=== PATIENT | female | born 1985 | race Caucasian/White ===

== ENCOUNTER → 2018-03-20 08:39 | Outpatient (CLI) | payer OTHER, SELFPAY ==
[2018-03-20 09:30] LABS: Absolute Lymphocyte Count 1.62 X10^3/ul (0.83-4.51); Absolute Neutrophil Count 3.4 X10^3/uL (2.0-7.7); Basophil# 0.04 X10^3/uL; Basophil% 0.7 % (0-1); Eosinophil# 0.14 X10^3/uL; Eosinophils% 2.5 % (0-5); Hematocrit 35.4 % (37-47); Hemoglobin 10.7 g/dl (12.0-15.0); Lymphocyte # 1.62 X10^3/ul (4.0); Lymphocyte % 28.6 % (19-41); Mean Corp Hgb Conc 30.2 g/gl (32-36); Mean Corpuscular Hgb 23.9 pg (27.0-32.0); Mean Corpuscular Volume 79.2 fL (81-99); Mean Platelet Vol. 10.4 fl (6.2-12.0); Monocyte# 0.44 X10^3/uL; Monocyte% 7.8 % (0-10); Neutrophil # 3.41 X10^3/uL (2.7-7.7); Neutrophil % 60.2 % (47-70); POSITIVE COUNT NO; POSITIVE DIFFERENTIAL NO; POSITIVE MORPHOLOGY NO; Platelet Count 237 K/mm3 (150-450); RBC Distribution Width CV 15.3 % (11.6-14.6); RBC Distribution Width SD 44.3 fl (35.1-43.9); Red Blood Count 4.47 M/mm3 (4.2-5.4); White Blood Count 5.7 K/mm3 (4.4-11.0)
== END ==
PROVIDERS: Family Provider Internal Medicine; PCP Internal Medicine; Visit Provider Obstetrics & Gynecology
DX: N93.9 Abnormal uterine and vaginal bleeding, unspecified (principal)
CPT/HCPCS: 36415; 85025

== ENCOUNTER → 2019-11-17 16:01 | Outpatient (CLI) | payer OTHER, SELFPAY ==
--- NOTE | 2019-11-17 16:02 | US_ITS ---
STUDY: ULTRASOUND OF THE FEMALE PELVIS - LIMITED REASON FOR EXAM: Female, 34 years old AUB TECHNIQUE: Transabdominal and Transvaginal TECHNICAL QUALITY: Adequate. COMPARISON: July 10, 2017 pelvic ultrasound FINDINGS: The uterus is anteverted and is in a midline position. The uterus measures 9.9 x 7.7 x 5.8 cm. Normal uterine cervix. The endometrium measures endometrium is thickened up to 3.4 cm which is considered abnormal. There are multiple cystic structures within the para endometrial lower uterine parenchyma. This is greater than prior study, and is hyperechoic. There is no demonstrated myometrial mass. The right ovary measures 2.5 x 2.0 x 1.3 cm. There is no right ovarian cyst or ovarian mass. There is no visualized right adnexal mass or complex lesion. There is normal arterial and normal venous vascularity. The left ovary measures 2.4 x 1.7 x 2.4 cm. There is no left ovarian cyst or ovarian mass. There is no visualized left adnexal mass or complex lesion. There is normal arterial and normal venous vascularity. There is no fluid in the cul-de-sac. US/Pelvic (Non ) IMPRESSION: Thickened endometrium up to 34 mm. There is associated multiple cyst within the lower uterine segment. Findings are suspicious for endometrial hyperplasia cannot exclude atypia. Electronically Signed: Kimberly Weir MD at 15:44 EDT Tel , Service support ,
--- NOTE | 2019-11-17 16:02 | US_ITS ---
STUDY: ULTRASOUND OF THE FEMALE PELVIS - LIMITED REASON FOR EXAM: Female, 34 years old AUB TECHNIQUE: Transabdominal and Transvaginal TECHNICAL QUALITY: Adequate. COMPARISON: July 10, 2017 pelvic ultrasound FINDINGS: The uterus is anteverted and is in a midline position. The uterus measures 9.9 x 7.7 x 5.8 cm. Normal uterine cervix. The endometrium measures endometrium is thickened up to 3.4 cm which is considered abnormal. There are multiple cystic structures within the para endometrial lower uterine parenchyma. This is greater than prior study, and is hyperechoic. There is no demonstrated myometrial mass. The right ovary measures 2.5 x 2.0 x 1.3 cm. There is no right ovarian cyst or ovarian mass. There is no visualized right adnexal mass or complex lesion. There is normal arterial and normal venous vascularity. The left ovary measures 2.4 x 1.7 x 2.4 cm. There is no left ovarian cyst or ovarian mass. There is no visualized left adnexal mass or complex lesion. There is normal arterial and normal venous vascularity. There is no fluid in the cul-de-sac. US/Transvaginal Non- IMPRESSION: Thickened endometrium up to 34 mm. There is associated multiple cyst within the lower uterine segment. Findings are suspicious for endometrial hyperplasia cannot exclude atypia. Electronically Signed: Kimberly Weir MD at 15:44 EDT Tel , Service support ,
== END ==
PROVIDERS: PCP Internal Medicine; Referring Provider Nurse Practitioner Women's Health; Visit Provider Nurse Practitioner Women's Health
DX: N93.9 Abnormal uterine and vaginal bleeding, unspecified (principal)
CPT/HCPCS: 76830; 76856

== ENCOUNTER → 2019-11-26 14:45 | Outpatient (CLI) | payer OTHER, SELFPAY ==
--- NOTE | 2019-11-26 | EMB_PTH ---
PATIENT: TEE ANNA LOC: [facility] U#:[id number] AGE/SX: 40/F ROOM: RE11/26/[address]: Dr. Theodora Celis MD : [id number] BED: DIS: SPEC #: [id number] RECD: 11/26/19 16:23 STATUS: ALICIA RERodger #: [id number] JEFFREY: 11/26/19 00:[address]: Theodora Celis DEPT: SURGICAL PATHOLOGY RECD BY: Gregorio Menjivar ENTERED: 11/27/19 08:48 SP TYPE: ENDOM BX/C BRITTNEY DR: Dr. Ayesha Aldrich, DO Tissues: Endometrium, NOS Procedures: Surgery Specimen Level IV HEADER OPERATION: Endometrial biopsy PRE-OP DIAGNOSIS: Abnormal uterine bleeding TISSUE SUBMITTED: Endometrial lining MICROSCOPIC DIAGNOSIS Endometrium, biopsy: Secretory endometrium. AM:aixa 11/28/19 COMMENT Case has been reviewed in consultation with Dr. Casillas who concurs with the above diagnosis. IDC:SJ MICROSCOPIC DESCRIPTION Slides are reviewed. GROSS DESCRIPTION Received is one container labeled with the patient's name and not further designated. The specimen consists of multiple fragments of castro-pink soft tissue that in aggregate measure 3 x 2.5 x 0.3 cm. The specimen is totally submitted in one cassette. / MICKI:aixa 11/27/19 TC:5 [facility]: [id number]
[2019-11-26 13:39] VITALS: BMI 58.7
[2019-11-28 21:36] LABS: HPV APTIMA, High Risk Negative (Negative)
== END ==
PROVIDERS: PCP Internal Medicine; Referring Provider Obstetrics & Gynecology; Visit Provider Obstetrics & Gynecology
DX: Z12.4 Encounter for screening for malignant neoplasm of cervix (principal); N93.9 Abnormal uterine and vaginal bleeding, unspecified
CPT/HCPCS: 87624; 88175; 88305; G0145

== ENCOUNTER → 2019-12-10 16:26 | Outpatient (CLI) | payer OTHER, SELFPAY ==
[2019-11-26 13:39] VITALS: BMI 58.7
[2019-12-10 17:01] LABS: Absolute Neutrophil Count 3.8 X10^3/uL (2.0-7.7); Basophil# 0.04 X10^3/uL; Basophil% 0.6 % (0-1); Eosinophils% 2.8 % (0-5); Hematocrit 32.4 % (37-47); Hemoglobin 9.4 g/dL (12.0-15.0); Lymphocyte % 37.5 % (19-41); Mean Corpuscular Hgb 23.7 pg (27.0-32.0); Mean Corpuscular Volume 81.6 fL (81-99); Mean Platelet Vol. 10.5 fl (6.2-12.0); Monocyte# 0.46 X10^3/uL; Monocyte% 6.4 % (0-10); NRBC Flagged by Analyzer 0 % (0-5); Neutrophil # 3.76 X10^3/uL (2.7-7.7); Neutrophil % 52.1 % (47-70); POSITIVE MORPHOLOGY YES; Platelet Count 413 K/mm3 (150-450); Red Blood Count 3.97 M/mm3 (4.2-5.4); White Blood Count 7.2 K/mm3 (4.4-11.0)
[2019-12-10 17:26] LABS: Differential Indicated SCAN CRITERIA MET
[2019-12-10 17:35] LABS: Anisocytosis 2+; Polychromasia RARE
[2019-12-10 17:36] LABS: Differential Comment SCANNED; Microcytosis 1+
== END ==
PROVIDERS: PCP Internal Medicine; Referring Provider Nurse Practitioner Women's Health; Visit Provider Nurse Practitioner Women's Health
DX: N93.9 Abnormal uterine and vaginal bleeding, unspecified (principal)
CPT/HCPCS: 36415; 85025

== ENCOUNTER → 2019-12-19 14:16 | Outpatient (CLI) | payer OTHER, SELFPAY ==
[2019-11-26 13:39] VITALS: BMI 58.7
[2019-12-19 15:14] VITALS: BP 145/79; PULSE 108; RESP 16; TEMP 36.8; BMI 60.4
[2019-12-19 17:18] VITALS: BP 146/79; PULSE 86
== END ==
PROVIDERS: PCP Internal Medicine; Referring Provider Obstetrics & Gynecology; Visit Provider Obstetrics & Gynecology
DX: D64.9 Anemia, unspecified (principal)
CPT/HCPCS: 96365; 96366; J1756; J7050

== ENCOUNTER → 2019-12-26 11:57 | Outpatient (CLI) | payer OTHER, SELFPAY ==
[2019-11-26 13:39] VITALS: BMI 58.7
[2019-12-19 15:14] VITALS: BMI 60.4
[2019-12-26 12:30] VITALS: BP 129/77; PULSE 83; RESP 16; TEMP 36.7; BMI 60.4
[2019-12-26] MEDS: 0.9% NaCl IVPB Med Flush (250 mL) 15 ML IV (12:31)
[2019-12-26] MEDS: 0.9% NaCl Peripheral Flush Adult/Peds IV (12:31)
[2019-12-26 14:26] VITALS: BP 146/87; PULSE 82
== END ==
LOC: MEDOUTP 11:58
PROVIDERS: PCP Internal Medicine; Referring Provider Obstetrics & Gynecology; Visit Provider Obstetrics & Gynecology
DX: D64.9 Anemia, unspecified (principal)
CPT/HCPCS: 96365; 96366; J1756; J7050; A4216

== ENCOUNTER → 2020-01-02 14:01 | Outpatient (CLI) | payer OTHER, SELFPAY ==
[2019-11-26 13:39] VITALS: BMI 58.7
[2019-12-26 12:30] VITALS: BMI 60.4
[2020-01-02 14:24] VITALS: BP 159/91; PULSE 106; RESP 16; TEMP 36.6; O2SAT 95; BMI 60.4
[2020-01-02] MEDS: 0.9% NaCl IVPB Med Flush (250 mL) 15 ML IV (14:44)
[2020-01-02] MEDS: 0.9% NaCl Peripheral Flush Adult/Peds IV (14:45)
== END ==
LOC: MEDOUTP 14:02
PROVIDERS: PCP Internal Medicine; Referring Provider Obstetrics & Gynecology; Visit Provider Obstetrics & Gynecology
DX: D64.9 Anemia, unspecified (principal)
CPT/HCPCS: 96365; 96366; J1756; J7050; A4216

== ENCOUNTER 2020-01-07 11:06 | Day surgery (SDC) | payer OTHER, SELFPAY ==
[2019-12-26 12:30] VITALS: BMI 60.4
[2020-01-02 14:24] VITALS: BMI 60.4
[2020-01-07] VITALS (12 sets, daily range): BP systolic 107–148; BP diastolic 61–90; PULSE 88–103; RESP 16–20; TEMP 35.8–37; O2SAT 93–98; BMI 59.5
[2020-01-07] MEDS: Lactated Ringers 1,000 ML 40 ML IV (07:00)
[2020-01-07] MEDS: metroNIDAZOLE 500 MG/100 ML BAG 100 MG IV (07:00)
--- NOTE | 2020-01-07 11:13 | EKG12_ITS ---
Test Reason : PRE OP Blood Pressure : / mmHG Vent. Rate : 086 BPM Atrial Rate : 086 BPM P-R Int : 164 ms QRS Dur : 080 ms QT Int : 336 ms P-R-T Axes : 026 007 013 degrees QTc Int : 402 ms Normal sinus rhythm Normal ECG Confirmed by JIMMIE SHEPPADR, CHRISSIE ([id number]), movie editor ANUJ PENALOZA ([id number]) on 01/12/2020 3:38:45 PM Referred By: Theodora Celis Confirmed By:CHRISSIE SAMUEL MD
[2020-01-07 11:43] LABS: Hematocrit 44.7 % (37-47); Hemoglobin 13.6 g/dL (12.0-15.0); Mean Corp Hgb Conc 30.4 g/dL (32-36); Mean Corpuscular Volume 82.3 fL (81-99); Mean Platelet Vol. 10.8 fl (6.2-12.0); POSITIVE MORPHOLOGY YES; Platelet Count 282 K/mm3 (150-450); RBC Distribution Width CV 20.1 % (11.6-14.6); RBC Distribution Width SD 60.1 fl (35.1-43.9); Red Blood Count 5.43 M/mm3 (4.2-5.4); White Blood Count 6.8 K/mm3 (4.4-11.0)
[2020-01-07 11:45] LABS: Scan Indicated on CBC? Y/N YES- FLAGS NOTED
[2020-01-07] MEDS: Acetaminophen 500 MG Tablet 1000 MG PO ×2 (12:01→18:45)
[2020-01-07] MEDS: Celecoxib 200 MG Capsule 400 MG PO (12:01)
[2020-01-07 12:02] LABS: Magnesium 1.9 mg/dL (1.6-2.6)
[2020-01-07] MEDS: Gabapentin 600 MG Tablet PO (12:02)
--- NOTE | 2020-01-07 12:03 | HP.PCM_ITS ---
Problem List (1) Stress incontinence Status: Acute (2) Abnormal uterine bleeding Status: Chronic Comment: lysteda. discussed ocp vs iud, vs ablation. if hyperplasia recommend d and c and iud insertion. if atypia present recommend high school football coach onc referral. History of Present Illness Date of Admission: 01/07/20 Chief Complaint: stress urinary incontinence, uterine bleeding abnormal. The patient is a 34 year old F scheduled for hysterectomy for abnormal uterine bleeding and anemia. She also has stress incontinence and would like to have definitive surgical intervention as discussed in the office. Past Medical History Past Medical History (Chronic Problems): Chronic Problems (Last Updated 11/26/19 @ 13:37 by Radha Shipley) Hypothyroidism (Chronic) Abnormal uterine bleeding (Chronic) lysteda. discussed ocp vs iud, vs ablation. if hyperplasia recommend d and c and iud insertion. if atypia present recommend high school football coach onc referral. Medical History: Medical History (Last Reviewed 01/07/20 @ 12:[address] Anel Nation MD) Hypothyroidism (Chronic) E03.9 History of IBS Z87.19 Allergies cefaclor [From Ceclor] Allergy (Mild, Verified 01/07/20 11:52) Other illisone Allergy (Mild, Uncoded 01/07/20 11:52) Other Home Medications: Ambulatory Orders Medication Instructions Recorded levothyroxine 75 mcg capsule 75 mcg PO DAILY 11/26/19 Alprazolam [Xanax] 1 mg PO X1 01/05/20 Ergocalciferol [Vitamin D] 50,000 unit PO Q7D 01/05/20 Norethindrone Acetate 5 mg PO TID 01/05/20 Surgical History: Surgical History (Last Reviewed 01/07/20 @ 12:[address] Anel Nation MD) History of wisdom tooth extraction, class II edentulism K08.492 Smoking Status: Never smoker Tobacco Use: Non-smoker Review of Systems Constitutional: Denies: Anorexia, Chills, Fever, Night Sweats Eyes: Denies: Vision Change HEENT: Denies: Difficulty Swallowing Cardiovascular: Denies: Chest Pain, Chest Pressure Respiratory: Denies: Cough, Shortness of Breath Gastrointestinal: Denies: Abdominal Pain, Nausea, Vomiting Genitourinary: Reports: Incontinence. Denies: Dysuria, Frequency, Retention, Urgency Gynecological: Reports: Excessively long or heavy periods Musculoskeletal: Denies: Muscle pain Skin: Denies: Wounds Neurological: Denies: Balance problems VTE Information - Inpt Only VTE Present on Admission: Yes VTE Mechan Device Prophylaxis: SCD's VTE Pharm Prophylaxis ordered?: Yes Patient Problems: Active and Suspected Problems (Last Updated 11/26/19 @ 13:37 by Radha Shipley) Stress incontinence (Acute) - Physical Exam Vitals/I&O's: Vital Signs Temp Pulse Resp BP Pulse Ox 98.6 F 100 17 148/83 H 98 01/07/20 11:53 01/07/20 11:53 01/07/20 11:53 01/07/20 11:53 01/07/20 11:53 Oxygen Delivery Method Room Air Weight: 143 kg Body Mass Index (BMI) 59.5 General: Alert, Oriented x3, Cooperative, No apparent distress HEENT: Atraumatic, Normocephalic Oral: Moist Mucosa Neck: Supple, Trachea Midline Lungs: Clear to auscultation, Normal air movement Cardiovascular: Regular rate, Regular Rhythm Abdomen: Soft, Non Tender Extremities: No clubbing Skin: No rashes Musculoskeletal: No Muscle Wasting Neurological: Cranial nerves II-XII grossly intact Psych/Mental Status: Normal Affect Laboratory Results 01/07/20 11:30: Urine Test Pending 01/07/20 11:35: WBC 6.8, RBC 5.43 H, Hgb 13.6, Hct 44.7, MCV 82.3, MCH 25.0 L, MCHC 30.4 L, RDW Std Deviation 60.1 H, RDW Coeff of Mel 20.1 H, Plt Count 282, MPV 10.8 01/07/20 11:35: PT Pending, INR Pending, APTT Pending 01/07/20 11:35: Magnesium 1.9 01/07/20 11:35: Blood Type Pending, Antibody Screen Pending Current Medications Lactated Ringer's () 1,000 mls @ 40 mls/hr IV .Q25H LOUIE Gentamicin Sulfate 240 mg/ (Dextrose) 56 mls @ 100 mls/hr IVPB X1 ONE Stop: 01/07/20 12:04 Insulin Human Lispro (Humalog Kwikpen (Bkc)) 0 unit SC Q4H PRN PRN; Protocol PRN Reason: BG >/= 180, SEE PROTOCOL Assessment/Plan All Active Problems (Last Updated 11/26/19 @ 13:37 by Radha Shipley) Stress incontinence (Acute) Anemia (Acute) proceed with midurethral sling insertion and cystoscopy at the time of hysterectomy. Risks, benefits and alternatives discussed including but not limited to: anesthesia, bleeding, infection, injury, urinary retention, failure of procedure and the risks of obtaining the COVID-19 virus. She understands and desires to proceed. Essential Procedure Criteria Procedure Essential: Yes Criteria Note: On 11/25/2019 the [facility] ([facility]) Public Order signed by [facility] Director Janie Guy M.D., regarding the Management of Non- Essential Surgeries and Procedures for the purpose of preserving Personal Protective Equipment (PPE) and critical hospital capacity and resources within [place] went into effect as of 11/26/2019 at 5:00PM. According to the [facility] Public Order: This action will remain in full force and effect until the State of Emergency declared by the Governor no longer exists or the Director of the [facility] rescinds or modifies this Order.. This [facility] order stated all non-essential or elective surgeries and procedures that utilize PPE should be delayed unless there is undue risk to the current or future health of a patient. After reviewing the aforementioned [facility] Public Order and the patients clinical case, I have determined that the scheduled procedure meets the criteria to go forward. Risk to Patient if Procedure Delayed: Risk of rapidly worsening to severe symptoms if delayed - anemia due to bleeding, possible dysplasia of uterus
[2020-01-07 12:14] LABS: Internal QC Validated? YES +Cl - CLEAR BKGD; Pregnancy, Urine Negative Negative
[2020-01-07] MEDS: dexAMETHasone 10 MG/ML Vial 8 MG IV (12:14)
[2020-01-07] MEDS: Enoxaparin 40 MG/0.4 ML Syringe SC (12:16)
[2020-01-07] MEDS: Scopolamine 1mg/72hr Patch 1 PATCH TRANSDERM. (12:17)
[2020-01-07 12:30] LABS: Partial Thromboplast Time 29.2 Seconds (24.1-36.2); Prothrombin Time (Protime)PT. 12.9 SECONDS (11.7-14.9)
--- NOTE | 2020-01-07 12:50 | PCM.HPOB.BLA ---
- Problem List (1) Stress incontinence Status: Acute (2) Anemia Status: Acute Comment: related to menorrhagia (3) Abnormal uterine bleeding Status: Chronic Comment: lysteda. discussed ocp vs iud, vs ablation. if hyperplasia recommend d and c and iud insertion. if atypia present recommend car electronics installer onc referral. 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 Theodora Celis MD) Hypothyroidism (Chronic) History of IBS (Acute) Surgical History History of wisdom tooth extraction, class II edentulism (Acute) Family History Mother Diabetes Anxiety Hypertension Thyroid disorder Father Arthritis Anxiety Heart disease Hypertension Grandfather Heart disease Grandmother Diabetes Cancer Heart disease Social History (Updated 11/26/19 @ 16:[address] Theodora Celis MD) Smoking Status: Never smoker alcohol intake: current details: social substance use type: does not use caffeine: Yes what type of physical activity do you participate in: none seatbelt use: always do you feel safe at home: Yes additional social history: [employer] Patient works for [employer] AUB/ ?EMB, r/s from 11/23 prov sick: Details: TEE ANNA is a 34 year old who presents for abnormal uterine bleeding. She has some cramping and irregularirty to her menses, and has been anemic in the past. ultrasound was abnormal with significantly thickened lining and her thyroid has been abnormal. she had delayed seeking treatment and evaluation due to lack of insurance coverage. Pregancy History 1 Elective abortions Hx Para 1 Spontaneous abortions Hx # Term Pregnancies Ectopic pregnancies Hx # Pregnancies Multiple births # of living children Past Pregnancies Del. Date Name GA/Weeks Outcome Route Bth Weight [facility] live - full term ROS Const Constitutional: Denies fatigue, fever(s), headache(s), increased appetite, poor appetite, weight gain or weight loss Cardio Card: Denies chest pain Resp Resp: Denies cough or dyspnea GI GI: Reports as per HPI; denies abdominal pain, constipation, nausea or vomiting : Reports as per HPI; co HEENA Skin Skin/Breast: Denies change in hair, breast lump, breast pain, breast skin changes or nipple discharge Exam Const General: cooperative, healthy appearing, comfortable, no acute distress, well developed Orientation: alert HENMT Head: normal to inspection, normocephalic Neck Neck: normal visual inspection, trachea midline Thyroid: thyroid normal Resp Effort & Inspection: normal respiratory effort GI Inspection: normal to inspection, non-distended Palpation: soft, no hepatosplenomegaly General: bladder normal to palpation External Female Exam: normal external appearance, normal appearance of the urethra Urethra: normal appearance of the urethra, normal palpation, no discharge Speculum Exam - Vagina: normal appearance of the vagina, normal vaginal discharge Speculum Exam - Cervix: normal appearance of the cervix, nontender Bimanual Exam- Vagina & Uterus: normal bimanual exam, uterine size normal, bladder normal to palpation, uterine shape normal, No cervical tenderness, uterine mobility normal, uterine consistency normal, normal cervical palpation, uterus non-tender Bimanual Exam- Adnexa, other: normal adnexae, adnexae mobile, no adnexal masses, pelvic support normal Pelvic Support: normal Skin General: no rashes or lesions noted Office Procedures Endometrial Biopsy Endometrial Biopsy Test: Yes declined Consent Signed: Yes Time out checklist: patient, procedure, site marked/identified, positioning of patient, supplies available, allergies confirmed, team agrees on procedure Time out time: 14:00 tenaculum used: No dilator used: No Details: Cervix prepped with betadine and pipelle inserted into uterus without complication. Specimen obtained and sent to lab for analysis. All instruments removed from vagina without complications. Excellent hemostasis noted. Assessment & Plan Problems 1. Abnormal uterine bleeding N93.9 lysteda. discussed ocp vs iud, vs ablation vs hysterectomy. Plan discussed options and for definitive treatment due to peristent bleeding and anemia, plan LAV BS. will do combo case for HEENA. After discussing the patient's diagnosis and treatment plan options, patient wishes to proceed with surgical management. I have discussed with the patient the risks, benefits, and alternatives of the procedure which include but are not limited to risks of anesthesia, bleeding, infection, possible damage to bowel, bladder, or surrounding vasculature which could lead to additional surgery to evaluate any complications. Patient agrees to procedure and wishes to proceed. Orders Orders: Endometrial Biopsy Today N93.9 PAP IG HPV APTIMA 16/18,45 Today Z12.4 Coding Level of Care Code Off vis,est,level 4 Diagnoses Abnormal uterine bleeding N93.9 Additional Codes Endometrial Biopsy (74601) UPDATE- I have seen the patient and performed any clinically relevant updates to the history and physical exam. Theodora Celis MD Essential Procedure Criteria Procedure Essential: Yes Criteria Note: On 11/25/2019 the [place] [facility] ([facility]) Public Order signed by [facility] Director Janie Guy M.D., regarding the Management of Non-Essential Surgeries and Procedures for the purpose of preserving Personal Protective Equipment (PPE) and critical hospital capacity and resources within [place] went into effect as of 11/26/2019 at 5:00PM. According to the [facility] Public Order: This action will remain in full force and effect until the State of Emergency declared by the Governor no longer exists or the Director of the [facility] rescinds or modifies this Order.. This [facility] order stated all non-essential or elective surgeries and procedures that utilize PPE should be delayed unless there is undue risk to the current or future health of a patient. After reviewing the aforementioned [facility] Public Order and the patients clinical case, I have determined that the scheduled procedure meets the criteria to go forward. Risk to Patient if Procedure Delayed: Presence of severe symptoms causing an inability to perform ADL's
--- NOTE | 2020-01-07 12:59 | PCM.OPRPT ---
Problem List (1) Stress incontinence Status: Acute (2) Anemia Status: Acute Comment: related to menorrhagia (3) Abnormal uterine bleeding Status: Chronic Comment: lysteda. discussed ocp vs iud, vs ablation. if hyperplasia recommend d and c and iud insertion. if atypia present recommend button spindler onc referral. (4) Hypothyroidism Status: Chronic Report of Operation Date of Procedure: 01/07/20 Pre-Operative Diagnosis: aub anemia nuris Post-Operative Diagnosis: same Surgery/Procedure Performed:: randy vazquez Description of Surgical Findings:: enlarged 338g uterus off premise service representative: Katlin Cintron Type of Anesthesia:: General Special Medications: none Specimen's removed: uterus tubes Drains: smith Estimated Blood Loss (mL): 75 Fluids Replaced: crystalloid Description of Procedure: Patient received preoperative antibiotics and SCDs were on preoperatively. Patient was taken back to the operating room and placed in the dorsal lithotomy position. General anesthesia was induced and patient was prepped and draped in normal sterile fashion. Uterine manipulator was placed inside the uterus and Smith catheter placed in the bladder. The umbilicus was grasped with towel clamps and an intraumbilical incision was made after injecting with quarter percent Marcaine and a Veress needle entered into the abdomen confirmed to be intra-abdominal with a low opening pressure. Abdomen was insufflated with CO2 gas and the Veress needle removed and the 5 mm trocar was placed under direct visualization without complication. Right and left lower quadrants were transilluminated and injected with quarter percent Marcaine and 5 mm ports placed under direct visualization. Pelvis was well visualized see operative findings for additional information. Bilateral fallopian tubes were identified and transected with the LigaSure device across the mesosalpinx to the level of the utero-ovarian ligament which was also transected with the LigaSure device. The broad ligament was opened up by transecting the round ligament bilaterally and skeletonizing the uterine vessels bilaterally and creating a bladder flap using the LigaSure device. The uterine arteries were transected bilaterally with good visualization of the bladder and the ureters were seen to be inferior lateral to the operative area. Attention was then paid to the vaginal portion of the procedure and the cervix was grasped with Kayleigh clamps and circumferentially injected with dilute vasopressin. A circumferential incision was made and the vaginal mucosa was mobilized off posteriorly and the cul-de-sac entered into sharply and a longneck speculum placed. The anterior cul-de-sac was then identified and entered into sharply. The uterosacral ligaments were clamped cut and suture ligated with 0 Monocryl bilaterally followed by the cardinal ligaments which were clamped cut and suture ligated bilaterally with 0 Monocryl. The uterus serially descended and was removed without difficulty with minimal morcellation. Pelvic sidewall pedicles were checked and noted to have excellent hemostasis. The vaginal mucosa was reapproximated incorporating the posterior peritoneum. This was reapproximated using 0 Vicryl [id number] sutures. Excellent hemostasis was noted. abdominally, the pelvis and cul-de-sac was well visualized and no significant active bleeding noted. Pressure was taken down and the areas visualized and noted of excellent hemostasis. All ports were removed under direct visualization without complication and the abdomen was desufflated of air. see dr palafox note for the additional operative information regarding the sling procedure. The instruments removed from the abdomen and the vagina vaginal sweep was negative. Port sites on the abdomen were closed with 4-0 Monocryl interrupted sutures and dermabond applied. She was awoken and taken recovery in stable condition. Grafts/Implants Used: sling - Complications none - Admit VTE Documentation VTE Present on Admission: No VTE Mechan Device Prophylaxis: SCD's Multi Select Codes - Urinary/Genital Urinary/Genital CPT Codes: 58366 LAVH+BS/O >250gr Uterus
--- NOTE | 2020-01-07 13:33 | PCM.DC.VHY ---
Discharge Diet: No Restrictions Discharge Activity: Return to Normal Activity, May Not Drive, May Shower May resume sexual activity in: 6-8 weeks Call your doctor if your incision/area has: Continuous Slow Oozing, Sudden Increased Bleeding, Increased Pain/ Swelling, Increased Redness, Foul Smelling Discharge Call your doctor if you observe: Fever of 101 or Higher, Inability to urinate, Inability to have a bowel movement, Using more than one pad per hour Allergies/Adverse Reactions: Allergies cefaclor [From Ceclor] Allergy (Mild, Verified 01/07/20 11:52) Other illisone Allergy (Mild, Uncoded 01/07/20 11:52) Other Medications to take at Discharge levothyroxine 75 mcg capsule 75 mcg PO DAILY 11/26/19 Alprazolam [Xanax] 1 mg PO X1 01/05/20 Ergocalciferol [Vitamin D] 50,000 unit PO Q7D 01/05/20 Norethindrone Acetate 5 mg PO TID 01/05/20 Naproxen [Naprosyn] 250 - 500 mg PO Q8H PRN PRN #30 tab 01/07/20 Oxycodone HCl/Acetaminophen [Percocet 5-325] 1 - 2 tab PO Q6H PRN PRN 7 Days #15 tab 01/07/20 The following prescriptions were given: Naproxen [Naprosyn] 250 - 500 mg PO Q8H PRN PRN #30 tab PRN Reason: MILD PAIN Transmission Status: Received by [facility] Oxycodone HCl/Acetaminophen [Percocet 5-325] 1 - 2 tab PO Q6H PRN PRN 7 Days #15 tab PRN Reason: Pain Transmission Status: Received by [facility] Primary Care Physician: Ayesha Aldrich DO [Primary Care Provider] - Test Results: Test results from this visit will be discussed in further detail at your follow-up appointment, if applicable. Please Follow Up With: Theodora Celis MD - [phone]
[2020-01-07] MEDS: Vasopressin 20 UNITS/ML Vial (13:41)
[2020-01-07] MEDS: Bupivacaine 0.25% 30 ML Vial (13:41)
[2020-01-07 13:56] LABS: Bedside Glucose 97 mg/dL (70-110)
--- NOTE | 2020-01-07 13:56 | OP.PCM_ITS ---
Problem List (1) Stress incontinence Status: Acute (2) Abnormal uterine bleeding Status: Chronic Comment: lysteda. discussed ocp vs iud, vs ablation. if hyperplasia recommend d and c and iud insertion. if atypia present recommend assistant men's soccer coach onc referral. Report of Operation Date of Procedure: 01/07/20 Pre-Operative Diagnosis: stress urinary incontinence, abnormal uterine bleeding Post-Operative Diagnosis: same Surgery/Procedure Performed:: midurethral sling insertion, cystoscopy Type of Anesthesia:: General Estimated Blood Loss (mL): 20cc Description of Procedure: The patient is a 34-year-old female with endometrial thickening and stress urinary incontinence presenting for hysterectomy and mid urethral sling insertion. Risks benefits and alternatives were discussed including but not limited to the risks of anesthesia, bleeding, infection, injury and COVID-19 in fection. She understands and desires to proceed. The patient was taken to the operating room and placed on the operating room table. Anesthesia monitored the head, neck, airway, IV access and vital signs throughout the case. Once anesthesia was appropriately administered the patient underwent hysterectomy and closure of vaginal cuff per Dr. Orlando Leslie and her team. Following closure of the cuff, the patient and case was turned over to wa. A Hurst retractor was placed into the vagina. The anterior vaginal wall was inspected. The mid urethra was injected submucosally with vasopressin for hydrostatic dissection and hemostatic control. A vertical 1.5 cm incision was made in the vaginal mucosa. Sharp and blunt dissection was performed on either side of the urethra and care was taken to avoid entry into the urethra. At this time, the Altis mid urethral sling was inserted first on the patient's right side followed by the left. This was done using the trochars. The sling was then positioned against the urethra without tension. It lay flat against the tissue. This was done using a right angle clamp. At this time the tensioning suture was cut and the incision was closed using running interlocking 2-0 Vicryl. A cystourethroscopy was performed following removal of the Diaz catheter, and the scope was inserted through the urethra. In visualization of the urinary bladder there were no abnormalities identified. She did have a few benign urethral polyps present. There were no entrances into the urinary bladder or urethra with any foreign material including mesh or suture. At this time a good ureteral jet was observed from the left ureter. On the right side, and open ended catheter was inserted without difficulty to 25 cm. There was no blood and no obstruction identified. This time the patient's bladder was left mildly full. She was awakened and taken to the recovery room in good condition. There were no complications during this procedure. Grafts/Implants Used: Altis midurethral sling - Admit VTE Documentation VTE Present on Admission: Yes VTE Mechan Device Prophylaxis: SCD's VTE Pharm Prophylaxis ordered?: Yes
--- NOTE | 2020-01-07 13:59 | DCINST_ITS ---
Discharge Diet: No Restrictions Discharge Activity: Return to Normal Activity, May Not Drive, May Shower May resume sexual activity in: 6-8 weeks Additional Activity Instructions:: no lifting over 5 pounds, no exercise, no strenuous activity, no sexual activity, no tub bathing, shower is ok Call your doctor if your incision/area has: Continuous Slow Oozing, Sudden Increased Bleeding, Increased Pain/ Swelling, Increased Redness, Foul Smelling Discharge Call your doctor if you observe: Fever of 101 or Higher, Inability to urinate, Inability to have a bowel movement, Using more than one pad per hour Allergies/Adverse Reactions: Allergies cefaclor [From Ceclor] Allergy (Mild, Verified 01/07/20 11:52) Other illisone Allergy (Mild, Uncoded 01/07/20 11:52) Other Medications to take at Discharge levothyroxine 75 mcg capsule 75 mcg PO DAILY 11/26/19 Alprazolam [Xanax] 1 mg PO X1 01/05/20 Ergocalciferol [Vitamin D] 50,000 unit PO Q7D 01/05/20 Norethindrone Acetate 5 mg PO TID 01/05/20 Naproxen [Naprosyn] 250 - 500 mg PO Q8H PRN PRN #30 tab 01/07/20 Oxycodone HCl/Acetaminophen [Percocet 5-325] 1 - 2 tab PO Q6H PRN PRN 7 Days #15 tab 01/07/20 Smz/Tmp Ds [Bactrim Ds] 1 tab PO BID 3 Days #6 tab 01/07/20 The following prescriptions were given: Smz/Tmp Ds [Bactrim Ds] 1 tab PO BID 3 Days #6 tab Transmission Status: Pending to [address] Naproxen [Naprosyn] 250 - 500 mg PO Q8H PRN PRN #30 tab PRN Reason: MILD PAIN Transmission Status: Received by [facility] Oxycodone HCl/Acetaminophen [Percocet 5-325] 1 - 2 tab PO Q6H PRN PRN 7 Days #15 tab PRN Reason: Pain Transmission Status: Received by [facility] Orders to be completed after discharge: Miscellaneous Order Location: None Selected Primary Care Physician: Ayesha Aldrich DO [Primary Care Provider] - Test Results: Test results from this visit will be discussed in further detail at your follow- up appointment, if applicable. Please Follow Up With: Anel Nation MD When: call office for follow up appt Proposed Discharge Date: 01/07/20
[2020-01-07] MEDS: Ondansetron 4 MG/2 ML Vial IV (15:59)
[2020-01-07] MEDS: Lactated Ringers 1,000 ML 70 ML IV (17:05)
[2020-01-07] MEDS: Ketorolac 30 MG/ML Syringe IV (18:45)
[2020-01-07] MEDS: 0.9% Saline Lock 10 ML Syringe IV (18:46)
--- NOTE | 2020-01-07 18:51 | NURSING ---
c/o numbness her left hand (only hand), elevated on pillow.
[2020-01-07] MEDS: Ondansetron ODT 4 MG Tablet PO (20:10)
--- NOTE | 2020-01-07 20:21 | EKG12_ITS ---
Test Reason : DYSRHYTHMIA Blood Pressure : / mmHG Vent. Rate : 090 BPM Atrial Rate : 090 BPM P-R Int : 172 ms QRS Dur : 086 ms QT Int : 350 ms P-R-T Axes : 049 007 020 degrees QTc Int : 428 ms Normal sinus rhythm Normal ECG Confirmed by JIMMIE SHEPPARD, CHRISSIE ([id number]), multimedia editor ANUJ PENALOZA ([id number]) on 01/12/2020 2:58:22 PM Referred By: Theodora Celis Confirmed By:CHRISSIE SAMUEL MD
[2020-01-07] MEDS: Lactated Ringers 1,000 ML 999 ML IV (20:30)
[2020-01-07 21:02] LABS: Hemoglobin 12.1 g/dL (12.0-15.0)
[2020-01-07] MEDS: Docusate Sodium 100 MG Capsule PO (22:00)
--- NOTE | 2020-01-07 22:00 | NURSING ---
removed scopolamine patch d/t nausea and dizziness and discarded in sharps container.
--- NOTE | 2020-01-08 | HYST_PTH ---
PATIENT: TEE ANNA LOC: [facility] [place] U#:[id number] AGE/SX: 34/F ROOM: RE01/07/[address]: Dr. Theodora Celis MD : 1985 BED: DIS: 01/08/2020 SPEC #: [id number] RECD: 01/08/20 11:02 STATUS: ALICIA TIMMY #: [id number] JEFFREY: 01/08/20 00:[address]: Theodora Celis DEPT: SURGICAL PATHOLOGY RECD BY: Michael Bartlett ENTERED: 01/08/20 11:02 SP TYPE: HYSTERECT OTHR DR: DO Dr. Anel Diggs MD Tissues: Uterus, NOS Procedures: Surgery Specimen Level V HEADER OPERATION: Hysterectomy, LAVH, salpingectomy PRE-OP DIAGNOSIS: Stress incontinence; anemia; abnormal uterine bleeding TISSUE SUBMITTED: Uterus, cervix, bilateral fallopian tubes MICROSCOPIC DIAGNOSIS Uterus, hysterectomy: Cervix - nabothian cysts, squamous metaplasia and chronic inflammation. 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 Myometrium - focal superficial adenomyosis. Right fallopian tube - benign paratubal cysts. Left fallopian tube - no pathologic change. AM:aixa 01/09/20 COMMENT Case has been reviewed in consultation with Dr. Casillas who concurs with the above diagnosis. IDC:MICKI MICROSCOPIC DESCRIPTION Slides are reviewed. GROSS DESCRIPTION Received in fixative is one container labeled with the patient's name and designated uterus, cervix, bilateral fallopian tubes. The specimen consists of a hysterectomy specimen consisting of uterus with attached bilateral fallopian tubes and detached cervix. The uterus is previously sectioned in the middle anterior posteriorly. The uterus with cervix weighs 308 gm. The cervix measures 3.5 x 3.5 x 1.2 cm. The uterus measures 10 x 9 x 6 cm. The serosal surface is castro, glistening. 1.5 cm portion of the upper endocervical canal is present in the lower portion of the uterus. The endometrial cavity measures 8.5 cm in length and up to 5 cm in width. The endometrium is castro, glistening, focally denuded and measures up to 0.3 cm in thickness. Sections of the uterine wall do not reveal any mass lesion and measures up to 3.5 cm in thickness. The right fallopian tube measures 5 cm in length and up to 1 cm in diameter. The fimbrial end is identified. It is interrupted in the middle consistent with previous tubal occlusion. The surface reveal congested cut surfaces and no mass lesion is identified. The left fallopian tube measures 5.5 cm in length and 0.7 cm in diameter. The fimbrial end is identified. Sections do not reveal any mass lesion. Moss Bleacher sections are submitted in ten cassettes as follows: 1 & 2 - cervix, 3-5 - anterior uterine wall, 6-8 - posterior uterine wall, 9 - right fallopian tube, 10 - left fallopian tube. / SJ:rg 01/08/20 TC:5 CPT: 74882
[2020-01-08] MEDS: Acetaminophen 500 MG Tablet 1000 MG PO ×2 (00:55→06:32)
[2020-01-08] MEDS: Ketorolac 30 MG/ML Syringe IV ×2 (00:56→06:33)
[2020-01-08] MEDS: 0.9% Saline Lock 10 ML Syringe IV ×2 (00:56→06:33)
[2020-01-08 01:05] VITALS: BP 153/88; PULSE 108; RESP 18; TEMP 36.6; O2SAT 97
--- NOTE | 2020-01-08 01:21 | NURSING ---
pt reports baseline HR to be 100-120
[2020-01-08 05:17] LABS: Hematocrit 39.3 % (37-47); Hemoglobin 12.3 g/dL (12.0-15.0); Mean Corp Hgb Conc 31.3 g/dL (32-36); Mean Corpuscular Hgb 26.5 pg (27.0-32.0); Mean Corpuscular Volume 84.5 fL (81-99); Mean Platelet Vol. 10.5 fl (6.2-12.0); POSITIVE MORPHOLOGY YES; Platelet Count 255 K/mm3 (150-450); RBC Distribution Width CV 21.1 % (11.6-14.6); RBC Distribution Width SD 62.2 fl (35.1-43.9); Red Blood Count 4.65 M/mm3 (4.2-5.4); White Blood Count 11.2 K/mm3 (4.4-11.0)
[2020-01-08 05:22] LABS: Scan Indicated on CBC? Y/N YES- FLAGS NOTED
[2020-01-08 05:39] LABS: Anion Gap 6 (5-15); BUN 6 mg/dL (7-18); BUN/Creat Ratio 7.7 RATIO (10-20); Calcium,Total 8.8 mg/dL (8.5-10.1); Chloride 108 mmol/L (98-107); Creatinine, Serum 0.78 mg/dL (0.55-1.02); EST Glomerular Filtration Rate 89 mL/min (>60); Est Glom Filt Rate - Afr Amer 107 mL/min (>60); Estimated Creatinine Clearance 75.24 ml/min; Glucose 193 mg/dL (74-106); Potassium 4.2 mmol/L (3.5-5.1); Sodium Level 137 mmol/L (136-145)
[2020-01-08 05:44] LABS: Differential Comment SCANNED
[2020-01-08 06:27] VITALS: BP 126/60; PULSE 107; RESP 16; TEMP 36.9; O2SAT 99
[2020-01-08 07:32] VITALS: O2SAT 99
[2020-01-08 08:30] VITALS: BP 127/78; PULSE 95; RESP 18; TEMP 36.5; O2SAT 99
[2020-01-08] MEDS: Docusate Sodium 100 MG Capsule PO (08:41)
[2020-01-08] MEDS: Enoxaparin 40 MG/0.4 ML Syringe SC (08:42)
--- NOTE | 2020-01-08 09:34 | PCM.PN.OB ---
Patient Problems: Active and Suspected Problems (Last Reviewed 01/07/20 @ 12:[address] Anel Nation MD) Stress incontinence (Acute) Subjective: patient recovering well, denies CP, SOB, N, or V. patient is ambulating, voiding ,tolerating adequate po, and pain is controlled with oral medications. - Physical Exam Vitals/I&O's: Vital Signs Temp Pulse Resp BP Pulse Ox 97.7 F L 95 18 127/78 H 99 01/08/20 08:30 01/08/20 08:30 01/08/20 08:30 01/08/20 08:30 01/08/20 08:30 Oxygen Flow Rate (L/min) 6 Oxygen Delivery Method Room Air Weight: 315 lb 4.176 oz Body Mass Index (BMI) 59.5 Intake and Output for Last 24 Hours 01/06/20 01/07/20 01/08/20 23:59 23:59 23:59 Intake Total 2237 / 2237 2162.67 / 2162.67 Output Total 200 / 200 2150 / 2150 Balance 2036 / 2036 12.67 / 12.67 General: Alert, Oriented x3 Laboratory Results 01/07/20 11:30: Urine Test Negative 01/07/20 11:35: WBC 6.8, RBC 5.43 H, Hgb 13.6, Hct 44.7, MCV 82.3, MCH 25.0 L, MCHC 30.4 L, RDW Std Deviation 60.1 H, RDW Coeff of Mel 20.1 H, Plt Count 282, MPV 10.8, Differential Comment 01/07/20 11:35: PT 12.9, INR 1.0, APTT 29.2 01/07/20 11:35: Magnesium 1.9 01/07/20 11:35: Blood Type O POSITIVE, Antibody Screen NEGATIVE 01/07/20 11:50: POC Glucose 97 01/07/20 20:54: Troponin I < 0.015 01/07/20 20:54: Hgb 12.1 01/08/20 04:54: WBC 11.2 H, RBC 4.65, Hgb 12.3, Hct 39.3, MCV 84.5, MCH 26.5 L, MCHC 31.3 L, RDW Std Deviation 62.2 H, RDW Coeff of Mel 21.1 H, Plt Count 255, MPV 10.5, Differential Comment SCANNED 01/08/20 04:54: Sodium 137, Potassium 4.2, Chloride 108 H, Carbon Dioxide 23.0, Anion Gap 6, BUN 6 L, Creatinine 0.78, Estim Creat Clear Calc 75.24, Est GFR (MDRD) Af Amer 107, Est GFR (MDRD) Non-Af 89, BUN/Creatinine Ratio 7.7 L, Glucose 193 H, Calcium 8.8 Current Medications Acetaminophen (Tylenol) 1,000 mg PO Q6 [facility] Last Admin: 01/08/20 06:32 Dose: 1,000 mg Documented by: Docusate Sodium (Colace) 100 mg PO BID [facility] Last Admin: 01/08/20 08:41 Dose: 100 mg Documented by: Enoxaparin Sodium (Lovenox) 40 mg SC DAILY [facility] Last Admin: 01/08/20 08:42 Dose: 40 mg Documented by: Sodium Chloride () 250 mls @ 15 mls/hr IV .[id number] PRN PRN Reason: Saline Flush Sodium Chloride () 250 mls @ 15 mls/hr IV .[id number] PRN PRN Reason: Additional IVPB Infusion Ketorolac Tromethamine (Toradol (Bkc)) 30 mg IV Q6H [facility] Stop: 01/09/20 01:31 Last Admin: 01/08/20 06:33 Dose: 30 mg Documented by: Magnesium Oxide (Mag-Ox 400) 400 mg PO DAILY PRN PRN PRN Reason: Constipation Nutritional Formula (Lactose Free) (Ensure Enlive) 120 ml PO TIDCM [facility] Last Admin: 01/08/20 08:39 Dose: Not Given Documented by: Ondansetron HCl (Zofran Odt) 4 mg PO Q6H PRN PRN PRN Reason: NAUSEA Last Admin: 01/07/20 20:10 Dose: 4 mg Documented by: Oxycodone HCl (Oxyir) 5 - 10 mg PO Q4H PRN PRN PRN Reason: Pain Score 4-10/10 Sodium Chloride () 10 - 40 ml IV UD PRN PRN Reason: SALINE FLUSH Last Admin: 01/08/20 06:33 Dose: 10 ml Documented by: Medical Necessity - Tobacco Use Smoking Status: Never smoker Tobacco Use: Non-smoker Assessment/Plan All Active Problems (Last Reviewed 01/07/20 @ 12:[address] Anel Nation MD) Stress incontinence (Acute) Anemia (Acute) patient is s/p lavh sling POD 1 1. routine ERAS protocol postop care- increase ambulation, encourage oral intake and oral control of pain. lovenox and scds for dvt prophylaxis, patient stable for discharge to home.
[2020-01-08 10:15] VITALS: BP 127/78; PULSE 95; RESP 18; TEMP 36.5; O2SAT 99
== END 2020-01-08 10:15 | disposition home or self-care (01) ==
LOC: SDC 11:08 → AC 11:10 → MS3 14:01
PROVIDERS: Urology; PCP Internal Medicine; Referring Provider Obstetrics & Gynecology; Visit Provider Obstetrics & Gynecology
PROC: 0UT9FZZ Resection of Uterus, Via Natural or Artificial Opening With Percutaneous Endoscopic Assistance (ICD-10-PCS; CPT 58554; principal; 2020-01-07 12:35)
PROC: 0TJB8ZZ Inspection of Bladder, Via Natural or Artificial Opening Endoscopic (ICD-10-PCS; CPT 57288; 2020-01-07 12:35)
DX: N39.3 Stress incontinence (female) (male) (principal); N93.9 Abnormal uterine and vaginal bleeding, unspecified; N83.8 Other noninflammatory disorders of ovary, fallopian tube and broad ligament; N85.01 Benign endometrial hyperplasia; E03.9 Hypothyroidism, unspecified; Z79.899 Other long term (current) drug therapy; K58.9 Irritable bowel syndrome, unspecified; D64.9 Anemia, unspecified
CPT/HCPCS: 57288; 58554; 36415; 80048; 81025; 82962; 83735; 84484; 85018; 85027; 85610; 85730; 86850; 86900; 86901; 88307; 93005; 94762; 99251; J7120; A4216; C1758; G0463; J2405

== ENCOUNTER → 2020-11-19 07:57 | Outpatient (CLI) | payer OTHER, SELFPAY ==
[2020-01-22 08:42] VITALS: BMI 59.5
[2020-11-19 08:45] LABS: Absolute Lymphocyte Count 1.62 X10^3/uL (0.83-4.51); Absolute Neutrophil Count 6.3 X10^3/uL (2.0-7.7); Basophil# 0.03 X10^3/uL; Basophil% 0.4 % (0-1); Eosinophil# 0.06 X10^3/uL; Eosinophils% 0.7 % (0-5); Hematocrit 42.9 % (37-47); Hemoglobin 14.4 g/dL (12.0-15.0); Lymphocyte # 1.62 X10^3/ul (4.0); Lymphocyte % 19.1 % (19-41); Mean Corp Hgb Conc 33.6 g/dL (32-36); Mean Corpuscular Hgb 28.8 pg (27.0-32.0); Mean Corpuscular Volume 85.8 fL (81-99); Mean Platelet Vol. 10.3 fl (6.2-12.0); Monocyte# 0.48 X10^3/uL; Monocyte% 5.7 % (0-10); NRBC Flagged by Analyzer 0 % (0-5); Neutrophil # 6.26 X10^3/uL (2.7-7.7); Neutrophil % 73.6 % (47-70); Platelet Count 226 K/mm3 (150-450); RBC Distribution Width CV 12.4 % (11.6-14.6); RBC Distribution Width SD 38.4 fl (35.1-43.9); White Blood Count 8.5 K/mm3 (4.4-11.0)
[2020-11-19 09:43] LABS: Vitamin D,25 Hydroxy 21.9 ng/mL
[2020-11-19 09:47] LABS: ALB/GLOB Ratio 0.8 RATIO (0.9-2.4); AST(SGOT) 40 U/L (15-37); Alanine Aminotransfer ALT/SGPT 72 U/L (13-56); Albumin, Serum 3.5 g/dL (3.2-5.0); Alkaline Phosphatase 106 U/L (45-117); Anion Gap 6 (5-15); BUN 11 mg/dL (7-18); BUN/Creat Ratio 14.7 RATIO (10-20); Calcium,Total 9.4 mg/dL (8.5-10.1); Chloride 103 mmol/L (98-107); Cholesterol 192 mg/dL (200); Creatinine, Serum 0.75 mg/dL (0.55-1.02); EST Glomerular Filtration Rate 93 mL/min (>60); Est Glom Filt Rate - Afr Amer 112 mL/min (>60); Ferritin 123 ng/mL (8-252); Globulin 4.4 g/dL (2.2-4.2); Glucose 96 mg/dL (74-106); High Density Lipoprotein 45 mg/dL; Iron 70 ug/dL (50-170); Iron Binding Capacity,Total 374 ug/dL (250-450); Potassium 3.6 mmol/L (3.5-5.1); Protein, Total 7.9 g/dL (6.4-8.2); Sodium Level 139 mmol/L (136-145); Thyroid Stim Hormone (TSH) 2.52 uIU/mL (0.358-3.74); Triglycerides 213 mg/dL; Very Low Density Lipoprotein 43 mg/dL (5-40)
== END ==
PROVIDERS: PCP Internal Medicine; Referring Provider Internal Medicine; Visit Provider Internal Medicine
DX: D64.9 Anemia, unspecified (principal); E78.2 Mixed hyperlipidemia; E03.9 Hypothyroidism, unspecified; E55.9 Vitamin D deficiency, unspecified
CPT/HCPCS: 36415; 80053; 80061; 82306; 82728; 83540; 83550; 84443; 85025

== ENCOUNTER 2021-11-07 08:58 | Outpatient (CLI) | payer OTHER, SELFPAY ==
--- NOTE | 2021-11-07 09:03 | US_ITS ---
STUDY: ULTRASOUND BREAST - RIGHT REASON FOR EXAM: Female, 36 years old. Periareolar pruritus. TECHNIQUE: Axial and longitudinal images of the RIGHT breast were performed with a high resolution ultrasound transducer. # OF IMAGES: 30 COMPARISON: Comparison is made with prior mammogram done earlier in the day. FINDINGS: RIGHT Breast: There is a 5 mm x 3 mm x 2 mm cyst in the right retroareolar region. No other abnormality is seen. IMPRESSION: 5 mm x 3 mm x 2 mm cyst in the retroareolar region of the right breast. No other abnormality is seen. ASSESSMENT CATEGORY: BIRADS Category 2: Benign. A letter regarding these results will be sent to the patient by the facility within 30 days. Electronically Signed: Royce Darby MD at 14:55 EST , STUDY: ULTRASOUND BREAST - LEFT REASON FOR EXAM: Female, 36 years old. Retroareolar pruritus. TECHNIQUE: Axial and longitudinal images of the LEFT breast were performed with a high resolution ultrasound transducer. # OF IMAGES: 30 COMPARISON: Comparison is made with prior mammogram done earlier today. FINDINGS: LEFT Breast: The retroareolar region was examined with the ultrasound. No sonographic abnormality is seen. US/Breast Limited Unilateral IMPRESSION: No sonographic abnormality is seen. ASSESSMENT CATEGORY: BIRADS Category 1: Negative. A letter regarding these results will be sent to the patient by the facility within 30 days. Electronically Signed: Royce Darby MD at 14:56 EST ,
--- NOTE | 2021-11-07 09:13 | BI_ITS ---
MAMMOGRAPHY - BILATERAL DIAGNOSTIC REASON FOR EXAM: Female, 36 years old. 5 day history of left retroareolar breast pain. No nipple discharge. PERTINENT HISTORY: Aunt with breast cancer. TECHNIQUE: Digital bilateral breast joseph (3D mammographic acquisition) in the CC and MLO projections. 2-D mediolateral oblique (MLO) and craniocaudad (CC) views of both breasts were obtained. CAD: Full Field Digital Mammography with Computer Added Detection was performed. COMPARISON: None. Baseline examination. FINDINGS: Breast Composition: There are scattered areas of fibroglandular density. There are no dominant masses or suspicious calcifications. No other significant abnormalities are identified. BI/DIAG MAMM W/CAD, BILAT IMPRESSION: Negative diagnostic mammogram. With the patient''s history of left retroareolar pain, correlation with ultrasound is recommended. ASSESSMENT CATEGORY: BIRADS Category 0: Incomplete. Need additional imaging evaluation. A letter regarding these results will be sent to the patient by the facility within 30 days. Approximately 10% of breast cancers are not detected by mammography. A normal mammogram should not delay biopsy of a clinically suspicious abnormality. Electronically Signed: Royce Darby MD at 10:59 EST ,
== END 2021-11-07 23:59 | disposition home or self-care (01) ==
LOC: OPBI 09:01
PROVIDERS: PCP Internal Medicine; Visit Provider Obstetrics & Gynecology
DX: N64.4 Mastodynia (principal)
CPT/HCPCS: 76642; 77062; 77066; G0279

== ENCOUNTER → 2021-11-21 08:33 | Outpatient (CLI) | payer OTHER, SELFPAY ==
[2021-11-21 08:59] LABS: Hematocrit 40.1 % (37-47); Mean Corp Hgb Conc 32.4 g/dL (32-36); Mean Corpuscular Hgb 28.4 pg (27.0-32.0); Mean Corpuscular Volume 87.6 fL (81-99); Mean Platelet Vol. 10.7 fl (6.2-12.0); Platelet Count 165 K/mm3 (150-450); RBC Distribution Width CV 12.8 % (11.6-14.6); RBC Distribution Width SD 40.8 fl (35.1-43.9); Red Blood Count 4.58 M/mm3 (4.2-5.4); White Blood Count 5.9 K/mm3 (4.4-11.0)
[2021-11-21 09:26] LABS: Vitamin D,25 Hydroxy 46.5 ng/mL
[2021-11-21 09:31] LABS: ALB/GLOB Ratio 0.8 RATIO (0.9-2.4); AST(SGOT) 31 U/L (15-37); Alanine Aminotransfer ALT/SGPT 53 U/L (13-56); Albumin, Serum 3.1 g/dL (3.2-5.0); Alkaline Phosphatase 79 U/L (45-117); Anion Gap 3 (5-15); BUN 10 mg/dL (7-18); BUN/Creat Ratio 14.6 RATIO (10-20); Calcium,Total 9.1 mg/dL (8.5-10.1); Chloride 104 mmol/L (98-107); Cholesterol 164 mg/dL (200); Creatinine, Serum 0.69 mg/dL (0.55-1.02); EST Glomerular Filtration Rate 102 mL/min (>60); Est Glom Filt Rate - Afr Amer 123 mL/min (>60); Ferritin 82 ng/mL (8-252); Globulin 3.9 g/dL (2.2-4.2); Glucose 96 mg/dL (74-106); High Density Lipoprotein 41 mg/dL; Iron 46 ug/dL (50-170); Iron Binding Capacity,Total 366 ug/dL (250-450); PERCENT IRON SATURATION 12.6 % (15.0-55.0); Potassium 3.9 mmol/L (3.5-5.1); Sodium Level 137 mmol/L (136-145); Thyroid Stim Hormone (TSH) 2.22 uIU/mL (0.358-3.74); Triglycerides 182 mg/dL; Very Low Density Lipoprotein 36 mg/dL (5-40)
== END ==
PROVIDERS: PCP Internal Medicine
DX: Z00.00 Encounter for general adult medical examination without abnormal findings (principal); D50.9 Iron deficiency anemia, unspecified; E03.9 Hypothyroidism, unspecified; E55.9 Vitamin D deficiency, unspecified
CPT/HCPCS: 36415; 80053; 80061; 82306; 82728; 83540; 83550; 84439; 84443; 85027

== ENCOUNTER → 2022-04-28 | Outpatient (CLI) | payer OTHER, SELFPAY ==
[2022-05-01 20:07] LABS: Chlamydia By Nucleic Acid AMP Negative (Negative)
[2022-05-02 08:00] LABS: Gonococcus By Nucleic Acid AMP Negative (Negative)
== END | disposition home or self-care (01) ==
PROVIDERS: PCP Internal Medicine; Visit Provider Obstetrics & Gynecology
DX: Z11.3 Encounter for screening for infections with a predominantly sexual mode of transmission (principal)
CPT/HCPCS: 87491; 87591

== ENCOUNTER → 2022-05-01 | Outpatient (CLI) | payer OTHER, SELFPAY ==
--- NOTE | 2022-04-28 | SKTAG_PTH ---
PATIENT: TEE ANNA LOC: [facility] U#:[id number] AGE/SX: 36/F ROOM: RE05/01/[address]: Dr. Radha Maxwell DO : 1985 BED: DIS: 05/01/2022 SPEC #: [id number] RECD: 04/28/22 18:14 STATUS: ALICIA WARNER #: [id number] JEFFREY: 04/28/22 00:[address]: Radha Maxwell DEPT: SURGICAL PATHOLOGY RECD BY: Michael Bartlett ENTERED: 05/01/22 12:33 SP TYPE: SKIN TAG BRITTNEY DR: Dr. Ayesha Aldrich DO Tissues: A - Skin appendage, NOS B - VERRUCA Procedures: Surgery Specimen Level III Surgery Specimen Level IV HEADER OPERATION: Skin tag / wart removal PRE-OP DIAGNOSIS: Skin tag / wart removal TISSUE SUBMITTED: A ? Skin tag, B - Wart MICROSCOPIC DIAGNOSIS A. Skin tag, biopsy: Consistent with condyloma. B. Wart, biopsy: Consistent with condyloma. AM:aixa 05/02/2022 COMMENT Case has been reviewed in consultation with Dr. Casillas who concurs with the above diagnosis. IDC:MICKI MICROSCOPIC DESCRIPTION Slides are reviewed. GROSS DESCRIPTION A - Received in fixative is one container labeled with the patient's name and designated skin tag. The specimen consists of a polypoid piece of castro-light brown skin measuring 0.7 x 0.5 x 0.4 cm. The specimen is inked, bisected and submitted entirely in one cassette. B - Received in fixative is one container labeled with the patient's name and designated wart. The specimen consists of an irregular piece of castro-white skin measuring 0.5 x 0.4 x 0.1 cm. The specimen is totally submitted in one cassette. / MICKI:aixa 05/01/2022 TC:5 CPT: 20347, 28097
[2022-05-01 10:19] LABS: HIV - WCH Non-Reactive (Nonreactive); Hepatitis B Surface Antigen Non-Reactive (Nonreactive); Hepatitis C Antibody Non-Reactive (Nonreactive); Syphilis Antibodies Non-reactive
== END | disposition home or self-care (01) ==
LOC: LAB 08:44
PROVIDERS: PCP Internal Medicine; Referring Provider Obstetrics & Gynecology; Visit Provider Obstetrics & Gynecology
DX: Z11.3 Encounter for screening for infections with a predominantly sexual mode of transmission (principal)
CPT/HCPCS: 36415; 86703; 86780; 86803; 87340; 88304; 88305

== ENCOUNTER → 2022-06-19 | Outpatient (CLI) | payer OTHER, SELFPAY ==
[2022-06-19 12:37] LABS: Color, Urine Amber (Yellow); Glucose, Dipstick Normal (Normal); Ketone-Dipstick 5 mg/dl (Negative); Leukocyte Esterase-Dipstick 500 /ul (Negative); Nitrite-Dipstick Negative (Negative); Occult Blood-Urine 250 /ul (Negative); Protein-Dipstick 30 mg/dl (Negative); Specific Gravity, Urine 1.025 (1.002-1.030); Urine Bilirubin Dipstick Negative (Negative); Urine Clarity Cloudy (Clear); Urine Urobilinogen Normal (Normal)
[2022-06-19 12:47] LABS: Calcium Oxalate Crystals Ur 3+ /hpf (<or=2+); Mucous, Urine 0 SEEN /hpf (<or=2+)
[2022-06-19 12:48] LABS: Red Blood Cells-Urine 10-25 SEEN /hpf (0-5)
[2022-06-19 12:49] LABS: Bacteria 1+ /hpf (None Seen); Squamous Epithelial Cells - UA 5-10 SEEN /hpf (5-10); White Blood Cells 50-100 SEEN /hpf (0-5)
== END | disposition home or self-care (01) ==
LOC: LABSPEC 12:09
PROVIDERS: PCP Internal Medicine; Referring Provider Nurse Practitioner Women's Health; Visit Provider Nurse Practitioner Women's Health
DX: R30.0 Dysuria (principal)
CPT/HCPCS: 81001; 87086; 87088; 87186

== ENCOUNTER → 2022-08-10 | Outpatient (CLI) | payer OTHER, SELFPAY ==
[2022-08-10 09:21] LABS: Absolute Lymphocyte Count 1.48 X10^3/uL (0.83-4.51); Absolute Neutrophil Count 3.7 X10^3/uL (2.0-7.7); Basophil# 0.03 X10^3/uL; Basophil% 0.5 % (0-1); Eosinophil# 0.07 X10^3/uL; Eosinophils% 1.2 % (0-5); Hematocrit 43.1 % (37-47); Lymphocyte # 1.48 X10^3/ul (0.83-4.51); Lymphocyte % 26.2 % (19-41); Mean Corp Hgb Conc 32.5 g/dL (32-36); Mean Corpuscular Hgb 27.8 pg (27.0-32.0); Mean Corpuscular Volume 85.7 fL (81-99); Mean Platelet Vol. 10.7 fl (6.2-12.0); Monocyte# 0.37 X10^3/uL; Monocyte% 6.6 % (0-10); NRBC Flagged by Analyzer 0 % (0-5); Neutrophil # 3.66 X10^3/uL (2.7-7.7); Platelet Count 192 K/mm3 (150-450); RBC Distribution Width CV 12.8 % (11.6-14.6); RBC Distribution Width SD 39.2 fl (35.1-43.9); Red Blood Count 5.03 M/mm3 (4.2-5.4); White Blood Count 5.6 K/mm3 (4.4-11.0)
[2022-08-10 09:39] LABS: Vitamin D,25 Hydroxy 45.8 ng/mL
[2022-08-10 09:46] LABS: ALB/GLOB Ratio 0.8 RATIO (0.9-2.4); AST(SGOT) 38 U/L (15-37); Alanine Aminotransfer ALT/SGPT 65 U/L (13-56); Albumin, Serum 3.5 g/dL (3.2-5.0); Alkaline Phosphatase 87 U/L (45-117); Anion Gap 7 (5-15); BUN 10 mg/dL (7-18); BUN/Creat Ratio 13.8 RATIO (10-20); Chloride 103 mmol/L (98-107); Cholesterol 164 mg/dL (200); Creatinine, Serum 0.73 mg/dL (0.55-1.02); EST Glomerular Filtration Rate 95 mL/min (>60); Est Glom Filt Rate - Afr Amer 115 mL/min (>60); Globulin 4.3 g/dL (2.2-4.2); Glucose 98 mg/dL (74-106); High Density Lipoprotein 44 mg/dL; Protein, Total 7.8 g/dL (6.4-8.2); Sodium Level 141 mmol/L (136-145); Thyroid Stim Hormone (TSH) 1.34 uIU/mL (0.358-3.74); Triglycerides 203 mg/dL; Very Low Density Lipoprotein 41 mg/dL (5-40)
== END | disposition home or self-care (01) ==
PROVIDERS: PCP Internal Medicine; Referring Provider Internal Medicine; Visit Provider Internal Medicine
DX: E78.2 Mixed hyperlipidemia (principal); E55.9 Vitamin D deficiency, unspecified
CPT/HCPCS: 36415; 80053; 80061; 82306; 84443; 85025

== ENCOUNTER → 2023-01-19 | Outpatient (CLI) | payer OTHER, SELFPAY ==
[2023-01-19 12:20] LABS: Hematocrit 45.3 % (37-47); Hemoglobin 14.6 g/dL (12.0-15.0); Mean Corp Hgb Conc 32.2 g/dL (32-36); Mean Corpuscular Hgb 28.2 pg (27.0-32.0); Mean Corpuscular Volume 87.6 fL (81-99); Mean Platelet Vol. 10.7 fl (6.2-12.0); Platelet Count 212 K/mm3 (150-450); RBC Distribution Width CV 12.5 % (11.6-14.6); Red Blood Count 5.17 M/mm3 (4.2-5.4); White Blood Count 6.4 K/mm3 (4.4-11.0)
[2023-01-19 13:00] LABS: ALB/GLOB Ratio 0.8 RATIO (0.9-2.4); AST(SGOT) 31 U/L (15-37); Alanine Aminotransfer ALT/SGPT 59 U/L (13-56); Albumin, Serum 3.3 g/dL (3.2-5.0); Alkaline Phosphatase 88 U/L (45-117); Anion Gap 7 (5-15); BUN 9 mg/dL (7-18); BUN/Creat Ratio 11.2 RATIO (10-20); Calcium,Total 9.1 mg/dL (8.5-10.1); Chloride 104 mmol/L (98-107); Cholesterol 173 mg/dL (200); Creatinine, Serum 0.81 mg/dL (0.55-1.02); EST Glomerular Filtration Rate 84 mL/min (>60); Est Glom Filt Rate - Afr Amer 102 mL/min (>60); Ferritin 103 ng/mL (8-252); Globulin 4.1 g/dL (2.2-4.2); Glucose 90 mg/dL (74-106); High Density Lipoprotein 42 mg/dL; Iron 73 ug/dL (50-170); Iron Binding Capacity,Total 331 ug/dL (250-450); PERCENT IRON SATURATION 22.1 % (15.0-55.0); Potassium 4.1 mmol/L (3.5-5.1); Protein, Total 7.4 g/dL (6.4-8.2); Sodium Level 140 mmol/L (136-145); T4 Free Direct 1.21 ng/dL (0.76-1.46); Thyroid Stim Hormone (TSH) 1.21 uIU/mL (0.358-3.74); Triglycerides 208 mg/dL; Very Low Density Lipoprotein 42 mg/dL (5-40)
[2023-01-19 13:55] LABS: HIV - WCH Non-Reactive (Nonreactive); Hepatitis B Surface Antigen Non-Reactive (Nonreactive); Hepatitis C Antibody Non-Reactive (Nonreactive); Syphilis Antibodies Non-reactive; Vitamin D,25 Hydroxy 71.2 ng/mL
== END | disposition home or self-care (01) ==
PROVIDERS: PCP Internal Medicine
DX: Z00.00 Encounter for general adult medical examination without abnormal findings (principal); Z11.3 Encounter for screening for infections with a predominantly sexual mode of transmission; R30.0 Dysuria; D50.9 Iron deficiency anemia, unspecified; E55.9 Vitamin D deficiency, unspecified
CPT/HCPCS: 36415; 80053; 80061; 82306; 82728; 83540; 83550; 84439; 84443; 85027; 86695; 86696; 86703; 86780; 86803; 87340

== ENCOUNTER → 2023-02-16 | Outpatient (CLI) | payer OTHER, SELFPAY ==
--- NOTE | 2023-02-16 13:59 | ST.MBS ---
Modified Barium Swallow - Patient Information Study Date: 02/16/23 Study Time: 13:00 Direct Billable Minutes: 83 Total Minutes procedure & reportin Diagnosis: Dysphagia (R13.10) Referring Physician: Ananth Byrd Reason for Referral: Objectively assess swallow function, assess risk for aspiration, and determine recommendations for least restrictive diet textures and compensatory strategies to improve safety of swallow. Medical History: The patient is a 37-year-old female with concerns for sensation of food and, at times, phlegm becoming caught in her throat. When she drinks liquids, it tends to clear the sensation. She denies coughing or regurgitation when consuming food/drink. No hx of PNA or GERD; however, the patient does have occasional heart burn. She was referred for MBSS and barium esophagram from her ENT, Dr. Byrd, to further assess swallowing concerns. Current Diet Ordered: Regular textures / Thin liquids Dentition: WNL Mental Status: WNL Respiratory Status: Oxygenating on Room Air - Penetration-Aspiration Scale Penetration-Aspiration Scale: OBJECTIVE ASSESSMENT OF SWALLOW FUNCTION (QUANTITATIVE ? PER TRIAL): PENETRATION / ASPIRATION SCALE (CASAS): 1 = does not enter airway 2 = enters airway/above vocal folds/ejected 3 = enters airway/above vocal folds/not ejected 4 = enters airway/contacts vocal folds/ejected 5 = enters airway/contacts vocal folds/not ejected 6 = enters airway/below vocal folds/ejected 7 = enters airway/below vocal folds/not ejected despite effort 8 = enters airway/below vocal folds/no effort VIDEOFLOROSCOPIC SCALE SCORE (CASAS): Grade I = aspiration of material that has penetrated into the laryngeal vestibule, intact cough reflex Grade II = aspiration < 10 % of the bolus, intact cough reflex Grade III = aspiration of < 10 % of the bolus, reduced cough reflex or aspiration of > 10 % of the bolus, intact cough reflex Grade IV = aspiration of > 10 % of the bolus, reduced cough reflex - Penetration-Aspiration Scale Score Thin Liquid via teaspoon Result: 1= does not enter airway Thin Liquid via teaspoon Trial 2 Result: 1= does not enter airway Thin Liquid via small single sip from cup Result: 1= does not enter airway [place] Thick Liquid via small single sip from cup Result: 1= does not enter airway 3/4 Cookie Result: 1= does not enter airway Thin Liquid via sequential sips from straw Result: 1= does not enter airway - Oral Phase Labial Seal: No Labial Escape Tongue Control During Bolus Hold: Cohesive bolus between tongue to palatal seal Bolus Preparation/Mastication: Timely and efficient chewing and mashing Bolus Transport/Lingual Motion: Brisk tongue motion Oral Residue: Trace residue lining oral structures - Pharyngeal Phase Initiation of Pharyngeal Swallow: Bolus head in valleculae Soft Palate Elevation: Trace column of contrast/air between soft palate and pharyngeal wall Laryngeal Elevation: Comp. Superior move thyroid cart w/comp. apprx arytenoid cart-epig pet Anterior Hyoid Excursion: Complete anterior movement Epiglottic Movement: Complete inversion Laryngeal Vestibule Closure at Height of Swallow: Complete; no air/contrast in laryngeal vestibule Pharyngeal Stripping Wave: Present - complete Pharyngoesophageal Segment Opening: Complete distension and complete duration; no obstruction of flow - Small cricopharyngeal bar at the level of C3-4; however, it appeared to have no impact on bolus clearance Tongue Base Retraction: Trace column of contrast between tongue base & post. pharyngeal wall Pharyngeal Residue: Trace residue within or on pharyngeal structures - Esophageal Phase Esophageal Clearance: Complete clearance - Diagnosis/Impression Diagnosis: Oropharyngeal swallow function grossly WNL Impression: Oropharyngeal swallow function is grossly WNL. Patient demonstrated good mastication abilities, bolus control, pharyngeal motility, airway closure, and she has a timely swallow onset. She presented with only trace oral and pharyngeal residues after the swallow. Small cricopharyngeal bar at the level of C3-C4 did not appear to impact bolus clearance through the upper esophageal sphincter. - Recommendations Diet: Regular Textures, Thin Liquids Compensatory Strategies: Small Bites, Small Sips, Slow Rate, Sitting upright Recommend Repeat Modified Barium Swallow: No Need for Skilled Speech Therapy Services: No Education Completed: 1. Described result of evaluation. Comment: Recommend consideration of further GI work up if increased concerns for reflux. No significant esophageal phase findings with screen of tsp of pudding; however, patient reports heart burn and globus sensation (food/phlegm caught in throat), which may be symptoms of reflux. Of note, patient already has barium esophagram scheduled. - Status Active ST Patient: Active - Contact Information [facility] Speech Therapy:: Honey Rubio M.A. [facility] Speech-Language Pathologist [facility] [address] [place] [address] [email or web address] [phone] 02/16/23 14:07
== END | disposition home or self-care (01) ==
LOC: RAD 12:13
PROVIDERS: PCP Internal Medicine; Visit Provider Otolaryngology
DX: R13.10 Dysphagia, unspecified (principal)
CPT/HCPCS: 74230; 92611

== ENCOUNTER → 2023-02-23 | Outpatient (CLI) | payer OTHER, SELFPAY ==
--- NOTE | 2023-02-23 07:58 | RAD_ITS ---
STUDY: X-RAY - ESOPHAGUS (BARIUM SWALLOW) WITH FLUOROSCOPY REASON FOR EXAM: Female, 37 years old. DYSPHAGIA TECHNIQUE: 17 view(s) of the esophagus were obtained following swallowing of barium. FLUOROSCOPY TIME (if supplied): (27) minutes/seconds. 6.2 mGy COMPARISON: None. FINDINGS: There is no demonstrated esophageal foreign body. There is no demonstrated stricture or mucosal abnormality. Normal gastroesophageal junction, without a demonstrated hiatal hernia. The patient ingested a 12 mm tablet of barium without any difficulty. Normal visualized aortic arch and descending thoracic aorta. Normal visualized pulmonary parenchyma. Normal visualized osseous structures of the thorax. RAD/Esophagus Single Contrast IMPRESSION: Normal plain film x-ray examination (barium swallow) of the esophagus. Electronically Signed: Royce Darby MD at 8:37 EDT ,
== END | disposition home or self-care (01) ==
LOC: RAD 07:57
PROVIDERS: PCP Internal Medicine; Referring Provider Otolaryngology; Visit Provider Otolaryngology
DX: R13.10 Dysphagia, unspecified (principal)
CPT/HCPCS: 74220

== ENCOUNTER → 2023-03-02 | Outpatient (CLI) | payer OTHER, SELFPAY ==
--- NOTE | 2023-03-02 07:52 | US_ITS ---
STUDY: ABDOMINAL ULTRASOUND - RIGHT UPPER QUADRANT; ELASTOGRAPHY REASON FOR VISIT: Female, 37 years old. Hepatic steatosis. TECHNIQUE: Ultrasound evaluation of the right upper quadrant was performed with real-time and static polo-scale imaging. Point quantification shear wave elastography was performed ([employer]). TECHNICAL QUALITY: Adequate. COMPARISON: None. FINDINGS: Liver: The liver is enlarged and measures 21.5 cm. There is increased echogenicity consistent with fatty infiltration. The bile ducts are within normal limits. There is hepatic color flow. The direction of portal flow is hepatopetal. There is no demonstrated mass lesion. Median liver stiffness measured 10.3 kPa. Gallbladder: Normal distended gallbladder. The gallbladder wall measures 2.8 mm. There is a negative sonographic Evans''s sign. There is no pericholecystic fluid. There are no gallstones. Common Bile Duct (C.B.D.): The common bile duct measures 3.7 mm. Pancreas: There is normal echogenicity of the visualized pancreas. There is no demonstrated pancreatic mass or cyst. Right Kidney: Normal size of the right kidney. The right kidney measures 11 cm x 5.7 cm x 5.5 cm. Normal renal cortex. The right cortex measures 1.7 cm. There is no demonstrated renal mass or cyst. There is no right hydronephrosis. US/ABD Limited w/ Elastography IMPRESSION: 1. Liver stiffness measures 10.3 kPa compatible with F2-F3 (Mild to moderate liver fibrosis) Trinity vir score. 2. Hepatomegaly. Fatty infiltration of the liver. Electronically Signed: Royce Darby MD at 8:19 EDT ,
== END | disposition home or self-care (01) ==
LOC: US 07:51
PROVIDERS: PCP Internal Medicine
DX: R79.89 Other specified abnormal findings of blood chemistry (principal); K76.0 Fatty (change of) liver, not elsewhere classified
CPT/HCPCS: 76705; 76981

== ENCOUNTER → 2023-03-19 | Outpatient (CLI) | payer OTHER, SELFPAY ==
[2023-03-19 08:45] LABS: International Normalized Ratio 1.1; Prothrombin Time (Protime)PT. 13.8 SECONDS (11.7-14.9)
[2023-03-19 08:47] LABS: Erythrocyte Sedimentation Rate 21 mm/hr (0-30)
[2023-03-19 08:53] LABS: Ferritin 145 ng/mL (8-252); LDH 170 U/L (84-246)
[2023-03-19 08:58] LABS: Hemoglobin A1c 5.4 % (3.8-5.6)
[2023-03-19 09:28] LABS: HIV - WCH Non-Reactive (Nonreactive)
[2023-03-20 15:07] LABS: Anti-Centromere B Ab <0.2 AI (0.0-0.9); Anti-Chromatin <0.2 AI (0.0-0.9); Anti-Jo <0.2 AI (0.0-0.9); Anti-Mitochondrial AB <20.0 Units (0.0-20.0); Anti-Scleroderma-70 AB <0.2 AI (0.0-0.9); Anti-dsDNA Ab 1 IU/mL (0-9); RNP Ab <0.2 AI (0.0-0.9); SJOGREN'S Anti-SS-A test < 0.2 AI (0.0-0.9); SJOGREN'S Anti-SS-B test < 0.2 AI (0.0-0.9); Smith Ab <0.2 AI (0.0-0.9)
[2023-03-22 12:09] LABS: AFP, Tumor Marker 2.1 ng/mL (0.0-6.4); Angiotensin Convert Enzyme < 15 U/L (14-82); Anti-Smooth Muscle ABS 6 Units (0-19); Copper, Serum or Plasma 116 ug/dL (80-158); Cytoplasmic Ab (C-ANCA) <1:20 titer (Neg:<1:20); HEPATITIS B SURFACE AG Negative (Negative); Haptoglobin 116 mg/dL (33-278); Hep C Antibodies Non Reactive (Non Reactive); Hepatitis A IgM Antibody Negative (Negative); Hepatitis B Core AB IgM Negative (Negative); Perinuclear Ab (P-ANCA) <1:20 titer (Neg:<1:20)
== END | disposition home or self-care (01) ==
LOC: PAVLAB 07:40
PROVIDERS: PCP Internal Medicine; Referring Provider Internal Medicine Gastroenterology; Visit Provider Internal Medicine Gastroenterology
DX: K76.9 Liver disease, unspecified (principal)
CPT/HCPCS: 36415; 80074; 82105; 82140; 82164; 82390; 82525; 82728; 83010; 83036; 83516; 83615; 85610; 85652; 86140; 86225; 86235; 86256; 86703

== ENCOUNTER → 2023-04-12 | Outpatient (CLI) | payer OTHER, SELFPAY ==
--- NOTE | 2023-04-12 | WART_PTH ---
PATIENT: TEE ANNA LOC: [facility] U#:[id number] AGE/SX: 37/F ROOM: RE04/12/[address]: Dr. Radha Maxwell DO : 1985 BED: DIS: 04/12/2023 SPEC #: [id number] RECD: 04/12/23 16:16 STATUS: ALICIA TIMMY #: [id number] JEFFREY: 04/12/23 00:[address]: Radha Maxwell DEPT: SURGICAL PATHOLOGY RECD BY: Michael Bartlett ENTERED: 04/13/23 09:22 SP TYPE: Miguel A LUGO DR: Dr. Jose Thomas MD Tissues: Epidermis Procedures: Surgery Specimen Level IV HEADER OPERATION: Genital wart removal PRE-OP DIAGNOSIS: Genital warts TISSUE SUBMITTED: Left inner thigh MICROSCOPIC DIAGNOSIS Lesion of left inner thigh: Fibroepithelial polyp with focal viral cytopathic change. AM:aixa 04/16/2023 MICROSCOPIC DESCRIPTION Slides are reviewed. GROSS DESCRIPTION Received is one container labeled with the patient's name and not further designated. The specimen consists of multiple brown pieces of skin that in aggregate measure 2.0 x 1.5 x 0.3 cm and 0.4 to 0.7 cm in greatest dimension. The entire specimen is submitted in one cassette. / SJ:rg 04/13/2023 TC:1 CPT: 68652
== END | disposition home or self-care (01) ==
LOC: LABSPEC 16:28
PROVIDERS: PCP Internal Medicine; Referring Provider Obstetrics & Gynecology; Visit Provider Obstetrics & Gynecology
DX: L91.8 Other hypertrophic disorders of the skin (principal)
CPT/HCPCS: 88305

== ENCOUNTER → 2023-04-19 | Outpatient (CLI) | payer OTHER, SELFPAY ==
--- NOTE | 2023-04-19 | WART_PTH ---
PATIENT: TEE ANNA [facility] U#:[id number] AGE/SX: 37/F ROOM: RE04/19/[address]: Dr. Radha Maxwell DO : 1985 BED: DIS: 04/19/2023 SPEC #: [id number] RECD: 04/19/23 18:11 STATUS: ALICIA TIMMY #: [id number] JEFFREY: 04/19/23 00:[address]: Radha Maxwell DEPT: SURGICAL PATHOLOGY RECD BY: Meera Joseph ENTERED: 04/20/23 09:04 SP TYPE: Miguel A LUGO DR: Dr. Jose Thomas MD Tissues: Epidermis Procedures: Surgery Specimen Level IV HEADER OPERATION: Genital wart removal PRE-OP DIAGNOSIS: Genital warts TISSUE SUBMITTED: Genital warts MICROSCOPIC DIAGNOSIS Genital warts, excision: Consistent with fragments of condyloma acuminata. AM:aixa 04/23/2023 MICROSCOPIC DESCRIPTION Slides are reviewed. GROSS DESCRIPTION Received is one container labeled with the patient's name and not further designated. The specimen consists of multiple irregular fragments of castro tissue that in aggregate measure 2.5 x 1.5 x 0.2 cm. The specimen is totally submitted in one cassette. / AM:aixa 04/20/2023 TC:5 CPT: 66493
== END | disposition home or self-care (01) ==
LOC: LABSPEC 17:08
PROVIDERS: PCP Internal Medicine; Referring Provider Obstetrics & Gynecology; Visit Provider Obstetrics & Gynecology
DX: A63.0 Anogenital (venereal) warts (principal)
CPT/HCPCS: 88305

== ENCOUNTER → 2023-05-01 | Outpatient (CLI) | payer OTHER, SELFPAY ==
[2023-05-01 08:53] LABS: Anion Gap 6 (5-15); BUN 12 mg/dL (7-18); BUN/Creat Ratio 12.6 RATIO (10-20); Calcium,Total 9.4 mg/dL (8.5-10.1); Chloride 102 mmol/L (98-107); Creatinine, Serum 0.96 mg/dL (0.55-1.02); EST Glomerular Filtration Rate 69 mL/min (>60); Est Glom Filt Rate - Afr Amer 83 mL/min (>60); Glucose 61 mg/dL (74-106); Potassium 3.3 mmol/L (3.5-5.1); Sodium Level 138 mmol/L (136-145)
== END | disposition home or self-care (01) ==
LOC: PAVLAB 08:15
PROVIDERS: PCP Internal Medicine
DX: I10 Essential (primary) hypertension (principal)
CPT/HCPCS: 36415; 80048

== ENCOUNTER 2023-05-08 10:59 | Day surgery (SDC) | payer OTHER, SELFPAY ==
[2023-05-08] VITALS (8 sets, daily range): BP systolic 112–135; BP diastolic 78–104; PULSE 70–90; RESP 14–18; TEMP 35.6–36.4; O2SAT 93–98; BMI 56.6
[2023-05-08] MEDS: Lactated Ringers 1,000 ML 15 ML IV (11:15)
--- NOTE | 2023-05-08 11:22 | HP.PCM_ITS ---
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 Required: No Is patient in pain?: No Allergies cefaclor [From Ceclor] Allergy (Mild, Verified 05/04/23 11:20) Othererythromycin base [From Ilosone] Allergy (Mild, Verified 05/04/23 11:20) Other Medications levothyroxine 75 mcg capsule 75 mcg PO DAILY 11/26/19 [History Confirmed 04/26/23] ergocalciferol (vitamin D2) 1,250 mcg (50,000 unit) capsule 50,000 unit PO Q7D 01/05/20 [History Confirmed 04/26/23] lidocaine 5 % topical cream 1 applic topical TID PRN pain #30 grams 04/12/23 [Rx Confirmed 04/26/23] lidocaine-prilocaine 2.5 %-2.5 % topical kit 1 applic topical .q4Hr PRN pain (scale score 4-6) 30 days #1 ea 04/12/23 [Rx Confirmed 04/26/23] lisinopril 20 mg-hydrochlorothiazide 12.5 mg tablet 1 tab PO DAILY 04/12/23 [History Confirmed 04/26/23] omeprazole 20 mg capsule,delayed release 20 mg PO DAILY 04/12/23 [History Confirmed 04/26/23] ursodiol 200 mg capsule 200 mg PO BID 04/12/23 [History Confirmed 04/26/23] vitamin E mixed 400 unit capsule unit PO 04/12/23 [History Confirmed 04/26/23] potassium chloride 20 mEq tablet,extended release(part/cryst) 20 meq PO DAILY 05/04/23 [History Confirmed 05/04/23] Post menopausal: No Patient : No : No [facility] Medical History Acute pharyngitis, unspecified Acute pharyngitis, unspecified Acute sinusitis, unspecified Contact with and (suspected) exposure to other viral communicable diseases Contact with and (suspected) exposure to other viral communicable diseases History of IBS Hypothyroidism Surgical History History of wisdom tooth extraction, class II edentulism S/P laparoscopic assisted vaginal hysterectomy (LAVH) (~01/07/20) Family History Mother Diabetes Anxiety Hypertension Thyroid disorderFather Arthritis Anxiety Heart disease HypertensionGrandfather Heart diseaseGrandmother Diabetes Cancer Heart disease Social History Smoking Status: Never smoker alcohol intake: current details: social substance use type: does not use caffeine: Yes what type of physical activity do you participate in: none seatbelt use: always do you feel safe at home: Yes additional social history: [employer] Patient works for [employer] HPI laser lesions Details: TEE ANNA is a 37 year old who presents for preop visit co vulvar lesions preparing for surgery to remove with the laser. Female Reproductive History Menopausal Symptoms: No night sweats History 1 Elective abortions Hx Para 1 Spontaneous abortions Hx # Term Pregnancies Ectopic pregnancies Hx # Pregnancies Multiple births # of living children Past Pregnancies Del. Date Name GA/Weeks Outcome Route Bth Weight Gen Labor Lgth Anesthesia Del Locatn Provider FOB Unknown 2002 Nicole live - full term NSV D ROS Const Constitutional: Denies fatigue, night sweats, weight gain or weight loss ENT ENT: Reports system reviewed and no additional complaints, except as documented Cardio Card: Denies chest pain Resp Resp: Denies cough or dyspnea GI GI: Reports as per HPI; Denies abdominal pain, constipation, nausea or vomiting : Denies nipple discharge, urinary frequency, urinary incontinence, urinary hesitancy, urinary urgency, vaginal discharge, vaginal dryness, vaginal odor or vaginal pruritus Musc Musc: Denies arthralgias, back pain or muscle weakness Skin Skin/Breast: Denies alopecia, change in hair, dry skin, breast mass, breast pain, breast skin changes or nipple discharge Neuro Neuro: Reports system reviewed and no additional complaints, except as documented Psych Psych: Reports system reviewed and no additional complaints, except as documented Endo Endo: Denies cold intolerance, excessive sweating, heat intolerance or polydipsia Derek/Lymph Hematologic/Lymphatic: Denies easy bleeding, Denies easy bruising and Denies lymphadenopathy Exam Const General: cooperative, healthy appearing, comfortable and no acute distress Orientation: alert HENOR Head: normal to inspection and normocephalic Ears: hearing grossly normal bilaterally and external ears normal Nose: external nose normal and nares normal Face and sinus: normal facial exam Neck Neck: normal visual inspection and no lymphadenopathy Thyroid: thyroid normal Chest Chest palpation & inspection: normal inspection of the chest Resp Effort & Inspection: normal respiratory effort Auscultation: clear to auscultation bilaterally Cardio Rate: regular rate Rhythm: regular rhythm Heart Sounds: S1 normal and S2 normal GI Inspection: normal to inspection and non-distended Palpation: soft and no hepatosplenomegaly Musc Other: gross motor intact no deficits, full bilateral strength Skin General: no rashes or lesions noted Neuro General: patient alert, patient awake, moves all extremities and no focal motor deficits Motor: muscle tone normal throughout Extrem General: normal to inspection and no pedal edema Psych Appearance: grossly normal Mental Status: mental status grossly normal Affect: normal affect Speech and Movement: speech and movement normal Coding Level of Care Code No Charge Diagnoses Vulval lesion N90.89 Assessment and Plan Assessment and Plan (1) Vulval lesion: Status: Acute Comment: plan laser ablation of vulvar lesions. Plan Problem list updated and treatment plans were reviewed with the patient and relevant educational handouts given. See problem list details for specific plan information. After discussing the patient's diagnosis and treatment plan options, patient wishes to proceed with surgical management. I have discussed with the patient the risks, benefits, and alternatives of the procedure which include but are not limited to risks of anesthesia, bleeding, infection, possible damage to bowel, bladder, or surrounding vasculature which could lead to additional surgery to evaluate any complications. Patient agrees to procedure and wishes to proceed. ACOG/uptodate references given for additional information regarding procedure. UPDATE- I have seen the patient and performed any clinically relevant updates to the history and physical exam. Theodora Celis MD
--- NOTE | 2023-05-08 11:23 | OP.PCM_ITS ---
Problems Associated Problem List Diagnoses (1) Vulval lesion: (2) Warts, genital: Report of Operation Date of Procedure: 05/08/23 Pre-Operative Diagnosis: vulvar genital warts Post-Operative Diagnosis: same Surgery/Procedure Performed:: CO2 laser ablation of vulvar lesions Description of Surgical Findings:: Thickened velvety acanthosis nigra areas bilateral thighs going up into the groin with papillomatous genital wartlike lesions taking up 5 x 4 cm size areas in the bilateral proximal thigh and 2 additional 2 x 1 and 3 x 2 areas as well as an additional 1 x 0.5 cm area and 5 mm area additional satellite lesions were also treated around the vulva. Surgeon: Theodora Celis Type of Anesthesia: General Special Medications: silvadene cream Specimen's removed: none Estimated Blood Loss (mL): 25 Description of Procedure: Patient was taken to the operating room and placed under general anesthesia. Patient was prepped and draped in normal sterile fashion in the dorsal lithotomy position. The operative area was draped around with moistened sterile towels. CO2 laser was tested and noted to be on 5 to 9 W continuous with adequate penetration. Area was monitored and noted to be clear of possible fire hazards. The noted lesions were identified and desiccated to the epidermal dermal layer, 3mm depth appropximately. multiple lesions on bilateral thighs and in the vulva were treated and dessicated without complication, excellent hemostasis noted. largest size noted to be the area on the left proximal thigh that was noted to be 5 x 4 cm with a thick area of 2 cm depth and the smallest 0.5 to 1 cm and t otal amount of 12 lesions dessicated operative time required an hour of desiccation due to the larger surface area and thickness of the lesions.. silvadene cream applied to area and patient awoken and taken to recovery in stable condition. Procedures Urinary/Genital 52xxx-59xxx: 82118 Destroy vulva lesion/s compl Multi Select Codes Urinary/Genital Urinary/Genital CPT Codes: 60601 Destroy vulva lesion/s compl
--- NOTE | 2023-05-08 11:30 | DCINST_ITS ---
Discharge Instructions Diet Discharge Diet: No restrictions Activity Discharge Activity: Return to Normal Activity, May Shower, May Take a Tub Bath (after 3-4 week) and - (may use sitz baths as needed) May shower in (days): 0 May resume sexual activity in: 4-6 weeks Ice area for (Minutes): 15 Weight Bearing Status: Weight bearing as tolerated Lifting Restrictions: none Additional Activity Instructions:: apply silvadene cream or aquaphor, a and d ointment eveyr time you use the restroom or as needed Dressing / Incision Call your doctor if you observe: Fever of 101 or Higher, Using more than 1 pad per hour, Shortness of breath and Uncontrolled pain Cleanse incision/area with: Soap & Water and Keep Dressing Clean & Dry Follow Up Care Please Follow Up With: Theodora Celis MD When: Call [phone] to schedule appointment. Test Results: Test results from this visit will be discussed in further detail at your follow- up appointment, if applicable. Discharge Plan Admission Attending Provider: Theodora Celis Primary Care Provider: Jose Thomas Discharge Orders/Prescriptions Prescriptions: No Action levothyroxine 75 mcg capsule 75 mcg capsule 75 mcg PO DAILY lisinopril-hydrochlorothiazide 20-12.5 mg tablet 1 tab PO DAILY omeprazole 20 mg capsule,delayed release(DR/EC) 20 mg PO DAILY ursodiol 200 mg capsule 200 mg PO BID vitamin E mixed 400 unit capsule 400 unit PO BID lidocaine 5 % cream 1 applic topical TID PRN (Reason: pain) Qty: 30 1RF lidocaine-prilocaine 2.5-2.5 % kit 1 applic topical .q4Hr PRN (Reason: pain (scale score 4-6)) 30 Days Qty: 1 3RF Rx Instructions: as a single dose potassium chloride 20 mEq tablet,ER particles/crystals 20 meq PO DAILY ergocalciferol (vitamin D2) 50,000 UNIT capsule 50,000 unit PO Q7D Referrals / Follow Up: Jose Thomas MD [Primary Care Provider] - Disposition Disposition (needs filled in before D/C Order can be placed): Home, Self Care
[2023-05-08 11:43] LABS: Hematocrit 43.8 % (37-47); Hemoglobin 14.2 g/dL (12.0-15.0); Mean Corp Hgb Conc 32.4 g/dL (32-36); Mean Corpuscular Hgb 28.7 pg (27.0-32.0); Mean Corpuscular Volume 88.5 fL (81-99); Mean Platelet Vol. 10.7 fl (6.2-12.0); Platelet Count 198 K/mm3 (150-450); RBC Distribution Width SD 41.6 fl (35.1-43.9); Red Blood Count 4.95 M/mm3 (4.2-5.4); White Blood Count 6.6 K/mm3 (4.4-11.0)
[2023-05-08] MEDS: Clindamycin 900 MG/50 ML BAG 75 MG IV (15:46)
[2023-05-08] MEDS: Silver Sulfadiazine 1% Crm 50 gm Bottle 1 APPLIC TOPICAL (17:17)
== END 2023-05-08 19:15 | disposition home or self-care (01) ==
LOC: SDC 11:01 → AC 11:08
PROVIDERS: PCP Internal Medicine; Referring Provider Obstetrics & Gynecology; Visit Provider Obstetrics & Gynecology
PROC: (CPT 56515; principal; 2023-05-08 12:15)
DX: A63.0 Anogenital (venereal) warts (principal); Z79.899 Other long term (current) drug therapy
CPT/HCPCS: 56515; 00940; 85027; 86850; 86900; 86901; 93005; J7120; J2405

== ENCOUNTER → 2023-05-21 | Outpatient (CLI) | payer OTHER, SELFPAY ==
[2023-05-21 16:16] LABS: Anion Gap 6 (5-15); BUN 15 mg/dL (7-18); BUN/Creat Ratio 15.7 RATIO (10-20); Calcium,Total 8.9 mg/dL (8.5-10.1); Chloride 100 mmol/L (98-107); Creatinine, Serum 0.95 mg/dL (0.55-1.02); EST Glomerular Filtration Rate 69 mL/min (>60); Est Glom Filt Rate - Afr Amer 84 mL/min (>60); Glucose 112 mg/dL (74-106); Potassium 4.1 mmol/L (3.5-5.1); Sodium Level 135 mmol/L (136-145)
== END | disposition home or self-care (01) ==
LOC: PAVLAB 07:53
PROVIDERS: PCP Internal Medicine; Referring Provider Internal Medicine; Visit Provider Internal Medicine
DX: I10 Essential (primary) hypertension (principal)
CPT/HCPCS: 36415; 80048

== ENCOUNTER → 2023-11-26 | Outpatient (CLI) | payer OTHER, SELFPAY | END | disposition home or self-care (01) | LOC: PAVLAB 09:47 | PROVIDERS: PCP Internal Medicine; Referring Provider Obstetrics & Gynecology; Visit Provider Obstetrics & Gynecology | DX: R35.0 Frequency of micturition (principal) | CPT/HCPCS: 87086; 87088 ==

== ENCOUNTER → 2023-12-07 | Outpatient (CLI) | payer OTHER, SELFPAY ==
[2023-12-07 08:38] LABS: Hematocrit 42.7 % (37-47); Hemoglobin 13.6 g/dL (12.0-15.0); Mean Corp Hgb Conc 31.9 g/dL (32-36); Mean Corpuscular Hgb 27.6 pg (27.0-32.0); Mean Corpuscular Volume 86.6 fL (81-99); Mean Platelet Vol. 10.1 fl (6.2-12.0); Platelet Count 203 K/mm3 (150-450); RBC Distribution Width CV 12.7 % (11.6-14.6); Red Blood Count 4.93 M/mm3 (4.2-5.4); White Blood Count 6.8 K/mm3 (4.4-11.0)
[2023-12-07 09:04] LABS: Vitamin B12 337 pg/mL (211-911); Vitamin D,25 Hydroxy 65.9 ng/mL
[2023-12-07 09:09] LABS: ALB/GLOB Ratio 0.7 RATIO (0.9-2.4); AST(SGOT) 18 U/L (15-37); Alanine Aminotransfer ALT/SGPT 31 U/L (13-56); Albumin, Serum 3.2 g/dL (3.2-5.0); Alkaline Phosphatase 86 U/L (45-117); Anion Gap 4 (5-15); BUN 13 mg/dL (7-18); BUN/Creat Ratio 17.4 RATIO (10-20); Calcium,Total 9.1 mg/dL (8.5-10.1); Chloride 104 mmol/L (98-107); Cholesterol 199 mg/dL (200); Creatinine, Serum 0.75 mg/dL (0.55-1.02); EST Glomerular Filtration Rate 91 mL/min (>60); Est Glom Filt Rate - Afr Amer 110 mL/min (>60); Ferritin 66 ng/mL (8-252); Globulin 4.3 g/dL (2.2-4.2); Glucose 101 mg/dL (74-106); High Density Lipoprotein 43 mg/dL; Iron 56 ug/dL (50-170); Iron Binding Capacity,Total 334 ug/dL (250-450); PERCENT IRON SATURATION 16.8 % (15.0-55.0); Potassium 3.9 mmol/L (3.5-5.1); Protein, Total 7.5 g/dL (6.4-8.2); Sodium Level 138 mmol/L (136-145); Thyroid Stim Hormone (TSH) 1.72 uIU/mL (0.358-3.74); Triglycerides 224 mg/dL; Very Low Density Lipoprotein 45 mg/dL (5-40)
[2023-12-07 10:15] LABS: Hemoglobin A1c 5.3 % (3.8-5.6)
== END | disposition home or self-care (01) ==
PROVIDERS: PCP Internal Medicine
DX: D50.8 Other iron deficiency anemias (principal); E66.01 Morbid (severe) obesity due to excess calories; Z68.43 Body mass index [BMI] 50.0-59.9, adult; E55.9 Vitamin D deficiency, unspecified; E78.2 Mixed hyperlipidemia; I10 Essential (primary) hypertension
CPT/HCPCS: 36415; 80053; 80061; 82306; 82607; 82728; 83036; 83525; 83540; 83550; 84443; 85027

== ENCOUNTER 2023-12-12 07:53 | Emergency (ER) | payer OTHER, SELFPAY ==
[2023-12-12] VITALS (15 sets, daily range): BP systolic 86–153; BP diastolic 52–125; PULSE 89–145; RESP 14–27; TEMP 35.9–36.7; O2SAT 95–100; BMI 59.6
--- NOTE | 2023-12-12 08:24 | EKG12_ITS ---
Test Reason : PALPATATIONS Blood Pressure : / mmHG Vent. Rate : 142 BPM Atrial Rate : 000 BPM P-R Int : 000 ms QRS Dur : 072 ms QT Int : 290 ms P-R-T Axes : 000 019 014 degrees QTc Int : 446 ms Critical Test Result: High HR Atrial fibrillation with rapid ventricular response Abnormal ECG Confirmed by SHENG SHEPPARD, OZ ([id number]), online content editor ALFRED BARRIOS ([id number]) on 12/13/2023 9:49:05 AM Referred By: Confirmed By:OZ PATRICIO MD
--- NOTE | 2023-12-12 08:35 | RAD_ITS ---
STUDY: X-RAY CHEST REASON FOR EXAM: Female, 38 years old. Chest pain and palpitations. TECHNIQUE: Single AP portable view of the chest. COMPARISON: None. FINDINGS: EKG electrodes are seen. The lungs are clear and expanded. There is no demonstrated pleural abnormality. Normal size heart. Normal mediastinum and aaron. Normal visualized pulmonary arteries. Normal visualized aortic arch and descending thoracic aorta. Normal visualized thoracic spine. Normal visualized ribs, clavicles, and shoulders. There is no demonstrated abnormality of the visualized soft tissue structures of the upper abdomen. RAD/Chest 1 View (Portable) IMPRESSION: Normal x-ray examination of the chest. Electronically Signed: Royce Darby MD at 8:45 EDT ,
[2023-12-12] MEDS: dilTIAZem 25 MG/5 ML Vial 10 MG IV BOLUS (08:38)
[2023-12-12] MEDS: Aspirin 81 MG TAB.CHEW 324 MG PO (08:38)
[2023-12-12 08:39] LABS: Absolute Lymphocyte Count 1.67 X10^3/uL (0.83-4.51); Absolute Neutrophil Count 3.8 X10^3/uL (2.0-7.7); Basophil# 0.03 X10^3/uL; Basophil% 0.5 % (0-1); Eosinophil# 0.12 X10^3/uL; Hematocrit 43.7 % (37-47); Hemoglobin 14.3 g/dL (12.0-15.0); Lymphocyte # 1.67 X10^3/ul (0.83-4.51); Mean Corp Hgb Conc 32.7 g/dL (32-36); Mean Corpuscular Hgb 28.3 pg (27.0-32.0); Mean Corpuscular Volume 86.5 fL (81-99); Mean Platelet Vol. 10.7 fl (6.2-12.0); Monocyte# 0.32 X10^3/uL; Monocyte% 5.4 % (0-10); NRBC Flagged by Analyzer 0 % (0-5); Neutrophil # 3.78 X10^3/uL (2.7-7.7); Neutrophil % 63.3 % (47-70); Platelet Count 188 K/mm3 (150-450); RBC Distribution Width CV 12.5 % (11.6-14.6); RBC Distribution Width SD 39.4 fl (35.1-43.9); Red Blood Count 5.05 M/mm3 (4.2-5.4)
[2023-12-12] MEDS: 0.9% Normal Saline (1000mL) 1,000 ML 150 ML IV (09:00)
[2023-12-12 09:04] LABS: Anion Gap 4 (5-15); BUN 11 mg/dL (7-18); BUN/Creat Ratio 13.3 RATIO (10-20); Calcium,Total 9.2 mg/dL (8.5-10.1); Chloride 106 mmol/L (98-107); Creatinine, Serum 0.82 mg/dL (0.55-1.02); EST Glomerular Filtration Rate 82 mL/min (>60); Est Glom Filt Rate - Afr Amer 99 mL/min (>60); Estimated Creatinine Clearance 123.73 ml/min; Glucose 129 mg/dL (74-106); Potassium 3.8 mmol/L (3.5-5.1); Sodium Level 139 mmol/L (136-145); Thyroid Stim Hormone (TSH) 2.21 uIU/mL (0.358-3.74); Troponin-I HS (w/2H Reflex) 3 pg/mL (3.0-54.0)
--- NOTE | 2023-12-12 09:15 | ED.VIS.CHEST ---
HPI <Divya Regan RN - Last Filed: 12/12/23 10:16> History of Present Illness Chief Complaint: Palpitations Informant: patient Onset/Context/Timing Onset: Today Activity at onset: sudden Timing: Continuous Current Severity: Mild Maximum Severity: Mild Narrative Narrative: Patient is a 38-year-old female with no significant past medical history who presents from home with palpitations. Patient reports she woke up this morning and felt her heart was flip-flopping. She then put on her Apple Watch and completed an EKG via the watch which showed atrial fibrillation. Patient reports that over the past week she has had some intermittent flip-flopping in her chest and has thought nothing of it. She also has reported brief episodes of intermittent chest pain over the past week. She denies dizziness or lightheadedness. She denies current chest pain or shortness of breath. Patient reports she has been compliant with her CPAP at night. She reports a family history of her father being diagnosed at approximately 57 years old with congestive heart failure and atrial fibrillation. She reports her mother at 69 years old from coronary artery disease and diabetes. She also reports that both maternal and paternal grandmothers had CAD. She denies history of smoking. She denies recent illness or travel. Prior Similar Symptoms: No Recent Illness/Hospitalization: No CVD Risk Factors: Negative for Hypertension, Diabetes, Hypercholesterolemia, Family History 1' </=55 or Smoking PE Risk Factors: Negative for Recent Travel/Surgery [facility] <Divya Regan RN - Last Filed: 12/12/23 10:16> [facility] Medical History Acute pharyngitis, unspecified Acute pharyngitis, unspecified Acute sinusitis, unspecified Alcohol use Contact with and (suspected) exposure to other viral communicable diseases Contact with and (suspected) exposure to other viral communicable diseases CPAP (continuous positive airway pressure) dependence Fatty liver Gastric reflux History of echocardiogram History of IBS Hypothyroidism Leg cramps Migraine headache Non-smoker Shortness of breath on exertion Home Medications levothyroxine 75 mcg capsule 75 mcg PO DAILY 11/26/19 [History Last Taken 05/07/23] ergocalciferol (vitamin D2) 1,250 mcg (50,000 unit) capsule 50,000 unit PO Q7D 01/05/20 [History Last Taken 05/07/23] lidocaine 5 % topical cream 1 applic topical TID PRN pain #30 grams 04/12/23 [Rx Last Taken 05/07/23] lidocaine-prilocaine 2.5 %-2.5 % topical kit 1 applic topical .q4Hr PRN pain (scale score 4-6) 30 days #1 ea 04/12/23 [Rx Last Taken 05/07/23] lisinopril 20 mg-hydrochlorothiazide 12.5 mg tablet 1 tab PO DAILY 04/12/23 [History Last Taken 05/08/23] omeprazole 20 mg capsule,delayed release 20 mg PO DAILY 04/12/23 [History Last Taken 05/08/23] ursodiol 200 mg capsule 200 mg PO BID 04/12/23 [History Last Taken 05/08/23] vitamin E mixed 400 unit capsule 400 unit PO BID 04/12/23 [History Last Taken 05/07/23] potassium chloride 20 mEq tablet,extended release(part/cryst) 20 meq PO DAILY 05/04/23 [History Last Taken 05/07/23] naproxen 500 mg tablet 500 mg PO BID PRN PRN Pain #30 tabs 05/08/23 [Rx Last Taken Unknown] hydrocolloid dressing 2 X 4 #20 ea 05/17/23 [Rx Last Taken Unknown] oxycodone-acetaminophen 5 mg-325 mg tablet (Percocet) 1 tab PO Q6H PRN pain 7 days #28 tabs 05/17/23 [Rx Last Taken Unknown] silver sulfadiazine 1 % topical cream 1 applic topical PRN PRN Wound Care #1 BOTTLE 05/17/23 [Rx Last Taken Unknown] methylprednisolone 4 mg tablets in a dose pack (Medrol (Demario)) See Rx Instructions PO PER PKG DIR #21 tabs 08/20/23 [Rx Last Taken Unknown] Allergy/AdvReac Type Severity Reaction Status Date / Time cefaclor [From Ceclor] Allergy Mild Other Verified 12/12/23 07:53 erythromycin base Allergy Mild Other Verified 12/12/23 07:53 [From Ilosone] scopolamine AdvReac Intermediate Nausea Verified 12/12/23 07:53 [From Transderm-Scop] Family History Mother Diabetes Anxiety Hypertension Thyroid disorder Father Arthritis Anxiety Heart disease Hypertension Grandfather Heart disease Grandmother Diabetes Cancer Heart disease Surgical History History of wisdom tooth extraction, class II edentulism S/P laparoscopic assisted vaginal hysterectomy (LAVH) (~01/07/20) Social History Smoking Status: Never smoker alcohol intake: current details: social substance use type: does not use caffeine: Yes what type of physical activity do you participate in: none seatbelt use: always do you feel safe at home: Yes additional social history: [employer] Patient works for [employer] <iDvya Regan RN - Last Filed: 12/12/23 10:16> ROS ED Constitutional Constitutional ED: Denies chills, fever(s) or sweats Eyes Eyes: Denies change in vision ENT ENT ED: Denies ear pain, rhinorrhea or sore throat Cardiovascular Cardiovascular: Reports as per HPI and palpitations; Denies chest pain, orthopnea, paroxysmal nocturnal dyspnea or racing heartbeat Respiratory/Chest Respiratory/Chest: Denies cough, dyspnea, dyspnea on exertion, orthopnea or paroxysmal nocturnal dyspnea Gastrointestinal Gastrointestinal: Denies abdominal pain, diarrhea, nausea or vomiting Genitourinary Genitourinary ED: Denies dysuria, hematuria or urinary frequency Musculoskeletal Musculoskeletal: Denies arthralgias or myalgias Integumentary Denies rash Neurologic Neurologic: Denies headache(s), paresthesias or weakness Hematologic/Lymphatic Hematologic/Lymphatic: Denies easy bleeding or easy bruising EXAM <Divya Regan RN - Last Filed: 12/12/23 10:16> Physical Exam Narrative Exam Narrative: Patient is awake and alert, cooperative, good historian. Const Vital Signs: 12/12/23 07:54 12/12/23 08:12 12/12/23 08:34 Temperature 96.7 F L Temperature Source Temporal Pulse Rate 132 H Respiratory Rate 18 Respiratory Effort Normal Non-Labored Blood Pressure 153/87 H Blood Pressure Mean 109 Pulse Ox 98 97 Oxygen Delivery Method Room Air Room Air 12/12/23 08:53 12/12/23 09:00 12/12/23 09:13 Temperature 98.1 F Temperature Source Oral Pulse Rate 109 H 114 H 124 H Respiratory Rate 17 15 19 H Respiratory Effort Blood Pressure 102/63 102/63 119/72 Blood Pressure Mean 76 76 87 Pulse Ox 96 97 98 Oxygen Delivery Method Room Air Room Air Room Air 12/12/23 08:23 12/12/23 08:30 12/12/23 08:45 Temperature Temperature Source Pulse Rate 145 H 138 H 121 H Respiratory Rate 17 26 H 19 H Respiratory Effort Blood Pressure 144/83 H 141/125 H Blood Pressure Mean 101 131 Pulse Ox 97 97 97 Oxygen Delivery Method 12/12/23 08:49 12/12/23 09:00 12/12/23 09:11 Temperature Temperature Source Pulse Rate 107 H 117 H 123 H Respiratory Rate 25 H 19 H 14 Respiratory Effort Blood Pressure 100/67 102/63 86/52 L Blood Pressure Mean 78 77 57 Pulse Ox 95 96 99 Oxygen Delivery Method 12/12/23 09:13 12/12/23 09:15 12/12/23 09:30 Temperature Temperature Source Pulse Rate 115 H 114 H 96 Respiratory Rate 27 H 22 H 20 H Respiratory Effort Blood Pressure 119/72 98/72 111/58 L Blood Pressure Mean 83 82 70 Pulse Ox 100 97 Oxygen Delivery Method 12/12/23 09:45 12/12/23 10:00 Temperature Temperature Source Pulse Rate 91 89 Respiratory Rate 21 H 18 Respiratory Effort Blood Pressure 95/61 101/68 Blood Pressure Mean 73 77 Pulse Ox 96 97 Oxygen Delivery Method Positive well nourished and well developed General Appearance ED: well developed and NAD HEENT Reports moist mucous membranes Eyes PERRL Neck no lymphadenopathy, supple and no JVD Chest Wall inspection of chest normal and palpation of chest normal Resp normal respiratory effort and clear to auscultation bilaterally Cardio S1 normal heart sound and S2 normal heart sound Rate: tachycardic Rhythm: abnormal rhythm irregularly irregular Peripheral Pulses: pulses 2+ throughout GI normal to inspection, nondistended, normoactive bowel sounds, soft to palpation and non-tender Extremity normal to inspection General Extremety ED: Negative for edema or tenderness General Extremity: Negative for edema Neuro oriented x3 Sensorium / Orientation: awake Motor Exam: strength 5/5 throughout Psych mental status grossly normal Skin no rashes or lesions noted and no wounds <Dr. Radha Barnes MD - Last Filed: 12/12/23 10:19> Physical Exam Const Vital Signs: 12/12/23 07:54 12/12/23 08:12 12/12/23 08:34 Temperature 96.7 F L Temperature Source Temporal Pulse Rate 132 H Respiratory Rate 18 Respiratory Effort Normal Non-Labored Blood Pressure 153/87 H Blood Pressure Mean 109 Pulse Ox 98 97 Oxygen Delivery Method Room Air Room Air 12/12/23 08:53 12/12/23 09:00 12/12/23 09:13 Temperature 98.1 F Temperature Source Oral Pulse Rate 109 H 114 H 124 H Respiratory Rate 17 15 19 H Respiratory Effort Blood Pressure 102/63 102/63 119/72 Blood Pressure Mean 76 76 87 Pulse Ox 96 97 98 Oxygen Delivery Method Room Air Room Air Room Air 12/12/23 08:23 12/12/23 08:30 12/12/23 08:45 Temperature Temperature Source Pulse Rate 145 H 138 H 121 H Respiratory Rate 17 26 H 19 H Respiratory Effort Blood Pressure 144/83 H 141/125 H Blood Pressure Mean 101 131 Pulse Ox 97 97 97 Oxygen Delivery Method 12/12/23 08:49 12/12/23 09:00 12/12/23 09:11 Temperature Temperature Source Pulse Rate 107 H 117 H 123 H Respiratory Rate 25 H 19 H 14 Respiratory Effort Blood Pressure 100/67 102/63 86/52 L Blood Pressure Mean 78 77 57 Pulse Ox 95 96 99 Oxygen Delivery Method 12/12/23 09:13 12/12/23 09:15 12/12/23 09:30 Temperature Temperature Source Pulse Rate 115 H 114 H 96 Respiratory Rate 27 H 22 H 20 H Respiratory Effort Blood Pressure 119/72 98/72 111/58 L Blood Pressure Mean 83 82 70 Pulse Ox 100 97 Oxygen Delivery Method 12/12/23 09:45 12/12/23 10:00 Temperature Temperature Source Pulse Rate 91 89 Respiratory Rate 21 H 18 Respiratory Effort Blood Pressure 95/61 101/68 Blood Pressure Mean 73 77 Pulse Ox 96 97 Oxygen Delivery Method PIERRE <Divya Regan RN - Last Filed: 12/12/23 10:16> PIERRE JAY Narrative Medical decision making narrative: Patient placed on book repairer. IV line initiated. Labwork obtained to evaluate for leukocytosis, anemia, and electrolyte derangement. Chest x-ray obtained to evaluate for acute lung pathology, cardiac size, or mediastinal abnormality. EKG obtained to evaluate for cardiac arrhythmia/ischemia. Cardizem 10 mg IV ordered to decrease heart rate. History & Record Review Discussion w/independent historian: Patient Lab Data Attestation: I reviewed the patient's lab results. Labs: Laboratory Results - last 24 hr 12/12/23 08:10 WBC 6.0 RBC 5.05 Hgb 14.3 Hct 43.7 MCV 86.5 MCH 28.3 MCHC 32.7 RDW Std Deviation 39.4 RDW Coeff of Mel 12.5 Plt Count 188 MPV 10.7 Immature Gran % (Auto) 0.800 Neut % (Auto) 63.3 Lymph % (Auto) 28.0 Campbell % (Auto) 5.4 Eos % (Auto) 2.0 Baso % (Auto) 0.5 Absolute Neuts (auto) 3.8 Absolute Lymphs (auto) 1.67 Nucleated RBC % 0 Sodium 139 Potassium 3.8 Chloride 106 Carbon Dioxide 29.0 Anion Gap 4 L BUN 11 Creatinine 0.82 Estim Creat Clear Calc 123.73 Est GFR (MDRD) Af Amer 99 Est GFR (MDRD) Non-Af 82 BUN/Creatinine Ratio 13.3 Glucose 129 H Calcium 9.2 Troponin I High Sens 3 TSH 2.21 Radiography Chest X-Ray - ED: 1 View, Read by Radiologist and No Acute Disease Diagnostic Testing: Clinical Impression(s) from Imaging Studies Chest X-Ray 12/12/23 08:35 IMPRESSION: Normal x-ray examination of the chest. Electronically Signed: Royce Darby MD at 8:45 EDT Reading Location ID and State: [facility] / [place] , Service support , EKG Initial EKG: Attestation: I personally reviewed and interpreted this EKG as follows: Interpretation: Atrial Fibrillation Comments: EKG shows A-fib with RVR with a rate of 142. No ischemia noted. Prior EKG tracings: not available for review Differential Diagnosis Chest pain/SOB: ACS and CHF Management Discussion w/another healthcare provider: Other (Dr. Barnes, ED provider) Treatment and Re-Evaluation :: Lab work and imaging reviewed. CBC is unremarkable with a normal white count of 6.0, hemoglobin 14.3, platelets 188. Chemistry is unremarkable with a normal sodium of 139, potassium 3.8, BUN 11, creatinine 0.82. Glucose is slightly elevated at 129. High-sensitivity troponin is negative at 3. TSH is normal at 2.21. Chest x-ray shows a normal mediastinum, no cardiomegaly, and no acute cardiopulmonary process. Patient did receive 10 mg Cardizem IV bolus x 1 dose with a decrease in heart rate to just over 100. However her blood pressure did decrease by 40 points as well. Patient did convert back to sinus rhythm with a heart rate of 96 and blood pressure 119/72. Repeat EKG obtained showing sinus rhythm at 69 with no evidence of dysrhythmia or ischemia.Dr. Hnasen from cardiology consulted by Dr. Barnes who advises outpatient follow-up and no blood thinners at this time. Upon reevaluation, patient awake and alert. No distress noted. Patient advised to follow-up with Dr. Hansen in 3 to 5 days. Advised to return to ED for worsening or concerning symptoms. <Dr. Radha Barnes MD - Last Filed: 12/12/23 10:19> [facility] Lab Data Labs: Laboratory Results - last 24 hr 12/12/23 08:10 WBC 6.0 RBC 5.05 Hgb 14.3 Hct 43.7 MCV 86.5 MCH 28.3 MCHC 32.7 RDW Std Deviation 39.4 RDW Coeff of Mel 12.5 Plt Count 188 MPV 10.7 Immature Gran % (Auto) 0.800 Neut % (Auto) 63.3 Lymph % (Auto) 28.0 Campbell % (Auto) 5.4 Eos % (Auto) 2.0 Baso % (Auto) 0.5 Absolute Neuts (auto) 3.8 Absolute Lymphs (auto) 1.67 Nucleated RBC % 0 Sodium 139 Potassium 3.8 Chloride 106 Carbon Dioxide 29.0 Anion Gap 4 L BUN 11 Creatinine 0.82 Estim Creat Clear Calc 123.73 Est GFR (MDRD) Af Amer 99 Est GFR (MDRD) Non-Af 82 BUN/Creatinine Ratio 13.3 Glucose 129 H Calcium 9.2 Troponin I High Sens 3 TSH 2.21 Radiography Diagnostic Testing: Clinical Impression(s) from Imaging Studies Chest X-Ray 12/12/23 08:35 IMPRESSION: Normal x-ray examination of the chest. Electronically Signed: Royce Darby MD at 8:45 EDT , Treatment and Re-Evaluation :: Lab work and imaging reviewed. CBC is unremarkable with a normal white count of 6.0, hemoglobin 14.3, platelets 188. Chemistry is unremarkable with a normal sodium of 139, potassium 3.8, BUN 11, creatinine 0.82. Glucose is slightly elevated at 129. High-sensitivity troponin is negative at 3. TSH is normal at 2.21. Chest x-ray shows a normal mediastinum, no cardiomegaly, and no acute cardiopulmonary process. Patient did receive 10 mg Cardizem IV bolus x 1 dose with a decrease in heart rate to just over 100. However her blood pressure did decrease by 40 points as well. Patient did convert back to sinus rhythm with a heart rate of 96 and blood pressure 119/72. Repeat EKG obtained showing sinus rhythm at 69 with no evidence of dysrhythmia or ischemia.Dr. Hansen from cardiology consulted by Dr. Barnes who advises outpatient follow-up and no blood thinners at this time. Upon reevaluation, patient awake and alert. No distress noted. Patient advised to follow-up with Dr. Hansen in 3 to 5 days. Advised to return to ED for worsening or concerning symptoms. Patient seen and evaluated with JOHANNY student. I personally interviewed and examined the patient. I was involved in all aspects of patient's orders, interpretation of results, and treatment. Patient presents with palpitations and concern for new onset atrial fibrillation. Patient states she woke this morning feeling her heart was racing and skipping beats. She put her Apple Watch on which indicated she may be in A-fib. She does admit to having some intermittent palpitations and chest pain over the past couple weeks, but states she is also had history of tachycardia for years. She does not know of personal history of cardiac disease, however her parents both had cardiac disease and her father has a history of A-fib. Patient sitting upright in bed no acute distress. Head neck examination unremarkable. Heart is tachycardic and irregular. Lung sounds are clear. Abdomen is soft and nontender. Patient placed on book repairer. EKG reveals A-fib RVR with a ventricular rate of 142. No acute ST change. CBC and chemistry studies are unremarkable. Her potassium is normal. Troponin is normal and TSH is normal. Patient did receive IV fluids along with 10 mg of IV Cardizem. This initially slowed her down into the 1 teens, but did drop her blood pressure to around 100/60. Patient then converted back to a sinus rhythm. Heart rate is currently in the high 80s. I spoke with Dr. Hansen, on-call for cardiology. Patient will be discharged home to follow-up as an outpatient. He does not wish for any medications to be initiated at this time. Patient is comfortable with this plan and will return if she develops further palpitations. Repeat EKG was obtained prior to discharge and reveals sinus rhythm at 69 with no acute ischemia. Discharge Plan Triage Chief Complaint: Palpitations ED Provider: Radha Barnes Dx/Rx/DC Orders Clinical Impression: History of hypothyroidism, Paroxysmal atrial fibrillation, Atrial fibrillation with rapid ventricular response Instructions: ED AFIB Prescriptions: No Action levothyroxine 75 mcg capsule 75 mcg capsule 75 mcg PO DAILY lisinopril-hydrochlorothiazide 20-12.5 mg tablet 1 tab PO DAILY omeprazole 20 mg capsule,delayed release(DR/EC) 20 mg PO DAILY ursodiol 200 mg capsule 200 mg PO BID vitamin E mixed 400 unit capsule 400 unit PO BID lidocaine 5 % cream 1 applic topical TID PRN (Reason: pain) Qty: 30 1RF lidocaine-prilocaine 2.5-2.5 % kit 1 applic topical .q4Hr PRN (Reason: pain (scale score 4-6)) 30 Days Qty: 1 3RF Rx Instructions: as a single dose potassium chloride 20 mEq tablet,ER particles/crystals 20 meq PO DAILY silver sulfadiazine 1 % cream 1 applic topical PRN PRN (Reason: Wound Care) Qty: 1 2RF oxycodone-acetaminophen [Percocet] 5-325 mg tablet 1 tab PO Q6H PRN (Reason: pain) 7 Days Qty: 28 0RF (DME) hydrocolloid dressing 2 X 4 bandage See Rx Instructions .Route Qty: 20 0RF Rx Instructions: As directed methylprednisolone [Medrol (Demario)] 4 mg tablets,dose pack See Rx Instructions PO PER PKG DIR Qty: 21 0RF Rx Instructions: PO PER PKG DIR ergocalciferol (vitamin D2) 50,000 UNIT capsule 50,000 unit PO Q7D naproxen [naproxen] 500 mg tablet 500 mg PO BID PRN PRN (Reason: Pain) Qty: 30 1RF Primary Care Provider: Jose Thomas Referrals: Jayme Hansen MD [Med Staff - Active Staff] - (Follow-up in 3-5 days) Jose Thomas MD [Primary Care Provider] - Activity Restrictions/Additional Instructions: Your lab work and chest x-ray are normal. You have converted back into sinus rhythm and do not need blood thinners at this time. Follow-up with Dr. Hansen in 3 to 5 days. Return to ED for return of symptoms. Disposition Disposition: Home, Self Care
[2023-12-12] MEDS: 0.9% Normal Saline (1000mL) 1,000 ML 999 ML IV (09:29)
[2023-12-12] MEDS: Enoxaparin 150 MG/ML Syringe 143 MG SC (09:29)
--- NOTE | 2023-12-12 09:30 | EKG12_ITS ---
Test Reason : REPEAT-CONVERTED BACK TO SINUS Blood Pressure : / mmHG Vent. Rate : 069 BPM Atrial Rate : 069 BPM P-R Int : 168 ms QRS Dur : 080 ms QT Int : 356 ms P-R-T Axes : 037 005 011 degrees QTc Int : 381 ms Normal sinus rhythm Normal ECG Confirmed by SHENG SHEPPARD, OZ ([id number]), copy editor ALFRED BARRIOS ([id number]) on 12/13/2023 9:49:20 AM Referred By: Confirmed By:OZ PATRICIO MD
[2023-12-12 10:36] LABS: Reflex Troponin-HS? (from REC) Y
== END 2023-12-12 10:29 | disposition home or self-care (01) ==
PROVIDERS: Emergency Provider Emergency Medicine; PCP Internal Medicine; Visit Provider Emergency Medicine
DX: I48.0 Paroxysmal atrial fibrillation (principal)
CPT/HCPCS: 71045; 80048; 84443; 84484; 85025; 93005; 96374; 99284

== ENCOUNTER → 2023-12-21 | Outpatient (CLI) | payer OTHER, SELFPAY ==
--- NOTE | 2023-12-21 07:24 | BI_ITS ---
MAMMOGRAPHY - BILATERAL SCREENING REASON FOR EXAM: Female, 38 years old. Routine annual screening examination. PERTINENT HISTORY: Aunt with breast cancer. TECHNIQUE: Digital bilateral breast jayson (3D mammographic acquisition) in the CC and MLO projections. 2-D mediolateral oblique (MLO) and craniocaudad (CC) views of both breasts were obtained. CAD: Full Field Digital Mammography with Computer Added Detection was performed. COMPARISON: Comparison is made with prior study dated November 07, 2021. FINDINGS: Breast Composition: The breasts are almost entirely fatty. There are no dominant masses or suspicious calcifications. Stable small fat-containing bilateral axillary lymph nodes. No other significant abnormalities are identified. There has been no significant change since the prior study. BI/SCRN MAMM (CAD)W/JAYSON BILAT IMPRESSION: Stable bilateral screening mammogram. Yearly follow-up mammogram recommended. (A) ASSESSMENT CATEGORY: BIRADS Category 2: Benign. A letter regarding these results will be sent to the patient by the facility within 30 days. Approximately 10% of breast cancers are not detected by mammography. A normal mammogram should not delay biopsy of a clinically suspicious abnormality. [id number] Electronically Signed: Royce Darby MD at 8:33 EDT ,
--- NOTE | 2023-12-21 07:51 | US_ITS ---
STUDY: ABDOMINAL ULTRASOUND - RIGHT UPPER QUADRANT; ELASTOGRAPHY REASON FOR VISIT: Female, 38 years old. Hepatic steatosis. TECHNIQUE: Ultrasound evaluation of the right upper quadrant was performed with real-time and static polo-scale imaging. Point quantification shear wave elastography was performed (Admittedly). TECHNICAL QUALITY: Adequate. COMPARISON: Comparison is made with prior study dated March 02, 2023. FINDINGS: Liver: The liver is enlarged and measures 22.9 cm. There is increased echogenicity consistent with fatty infiltration. The bile ducts are within normal limits. There is hepatic color flow. The direction of portal flow is hepatopetal. There is no demonstrated mass lesion. Median liver stiffness measured 9.8 kPa. Gallbladder: Normal distended gallbladder. The gallbladder wall measures 1.6 mm. There is a negative sonographic Evans''s sign. There is no pericholecystic fluid. There are no gallstones. Common Bile Duct (C.B.D.): The common bile duct measures 5.4 mm. Pancreas: There is increased echogenicity of the pancreas. There is no demonstrated pancreatic mass or cyst. Right Kidney: Normal size of the right kidney. The right kidney measures 10.4 cm x 6.4 cm x 4.8 cm. Normal renal cortex. The right cortex measures 1.3 cm. There is no demonstrated renal mass or cyst. There is no right hydronephrosis. US/ABD Limited w/ Elastography IMPRESSION: 1. Liver stiffness measures 9.8 kPa compatible with F2-F3 (Mild to moderate liver fibrosis) Metavir score. Electronically Signed: Royce Darby MD at 11:12 EDT ,
== END | disposition home or self-care (01) ==
LOC: OPBI 07:23
PROVIDERS: PCP Internal Medicine
DX: Z12.31 Encounter for screening mammogram for malignant neoplasm of breast (principal); K74.00 Hepatic fibrosis, unspecified
CPT/HCPCS: 76705; 76981; 77063; 77067

== ENCOUNTER → 2023-12-28 | Outpatient (CLI) | payer OTHER, SELFPAY ==
--- NOTE | 2023-12-28 13:58 | ECHOCS_ITS ---
Reason For Study: AFIB Procedure This was a 2D Doppler, Color Flow transthoracic echocardiogram. The study was technically difficult. Contrast injection was performed. Exam performed in department. Left Ventricle Normal LV size. Left ventricular systolic function is normal. The estimated ejection fraction is 60 %. Stage 1 diastolic dysfunction. No regional wall motion abnormalities noted. Right Ventricle Normal RV size. Normal systolic function. Atria Normal left atrium. Normal right atrium. Mitral Valve Mitral valve not well visualized. Tricuspid Valve The tricuspid valve is not well visualized. Aortic Valve The aortic valve is not well visualized. Great Vessels Normal aortic root. The pulmonary artery is normal size. Pericardium/Pleural No pericardial effusion. Medication 22 gauge I.V. with prn adaptor inserted into right arm. Diluted definity 1.5ml given slow IV push to enhance endocardial definition. MMode/2D Measurements & Calculations Ao root diam: 3.0 cm LAV(MOD-sp4): 32.7 ml LVAd ap4: 34.1 cm2 LVLd ap4: 7.9 cm EDV(MOD-sp4): 116.7 ml EDV(sp4-el): 124.8 ml LVAs ap4: 20.1 cm2 LVLs ap4: 7.3 cm ESV(MOD-sp4): 45.0 ml ESV(sp4-el): 47.3 ml EF(MOD-sp4): 61.4 % EF(sp4-el): 62.1 % SV(MOD-sp4): 71.6 ml SV(sp4-el): 77.5 ml LA A4 area: 14.2 cm2 RA A4 area: 13.5 cm2 TAPSE: 2.0 cm Time Measurements MV dec time: 0.07 sec Doppler Measurements & Calculations MV E max prosper: 79.2 cm/sec Lat Peak E' Prosper: 14.9 cm/sec Med Peak E' Prosper: 9.9 cm/sec MV A max prosper: 86.3 cm/sec E/E' lat: 5.3 E/E' med: 8.0 MV E/A: 0.92 MV V2 max: 97.6 cm/sec MV dec slope: 1125 cm/sec2 Ao V2 max: 137.2 cm/sec MV max P.8 mmHg Ao max P.5 mmHg MV V2 mean: 63.2 cm/sec Ao V2 mean: 87.1 cm/sec MV mean P.8 mmHg Ao mean P.7 mmHg MV V2 VTI: 18.4 cm Ao V2 VTI: 25.4 cm AV (velocity ratio): 0.89 LV V1 max: 103.7 cm/sec LV V1 max P.3 mmHg LV V1 mean P.5 mmHg LV V1 mean: 75.5 cm/sec LV V1 VTI: 22.5 cm ECHO/Echo Complete W/ Contrast Interpretation Summary Normal LV size. Left ventricular systolic function is normal. The estimated ejection fraction is 60 %. Stage 1 diastolic dysfunction. Contrast injection was performed. Ordering Physician: Jayme Hansen Referring Physician: Jayme Hansen Performed By: Nasra Eason RCS
== END | disposition home or self-care (01) ==
LOC: CVS 13:56
PROVIDERS: PCP Internal Medicine; Referring Provider Internal Medicine Cardiovascular Disease; Visit Provider Internal Medicine Cardiovascular Disease
DX: I48.0 Paroxysmal atrial fibrillation (principal)
CPT/HCPCS: 93306; Q9957; A4216; C8929

== ENCOUNTER → 2024-04-01 | Outpatient (CLI) | payer OTHER, SELFPAY | END | disposition home or self-care (01) | PROVIDERS: PCP Internal Medicine; Referring Provider Nurse Practitioner Women's Health; Visit Provider Nurse Practitioner Women's Health | DX: R30.0 Dysuria (principal) | CPT/HCPCS: 87077; 87086; 87088 ==

== ENCOUNTER → 2024-06-03 | Outpatient (CLI) | payer OTHER, SELFPAY ==
[2024-06-03 08:04] LABS: Absolute Lymphocyte Count 1.64 X10^3/uL (0.83-4.51); Absolute Neutrophil Count 3.8 X10^3/uL (2.0-7.7); Basophil# 0.03 X10^3/uL; Basophil% 0.5 % (0-1); Eosinophil# 0.12 X10^3/uL; Hematocrit 38.1 % (37-47); Hemoglobin 12.5 g/dL (12.0-15.0); Lymphocyte # 1.64 X10^3/ul (0.83-4.51); Lymphocyte % 27.6 % (19-41); Mean Corp Hgb Conc 32.8 g/dL (32-36); Mean Corpuscular Volume 85.2 fL (81-99); Mean Platelet Vol. 10.2 fl (6.2-12.0); Monocyte# 0.35 X10^3/uL; Monocyte% 5.9 % (0-10); NRBC Flagged by Analyzer 0 % (0-5); Neutrophil # 3.76 X10^3/uL (2.7-7.7); Neutrophil % 63.2 % (47-70); Platelet Count 177 K/mm3 (150-450); RBC Distribution Width CV 13.2 % (11.6-14.6); RBC Distribution Width SD 40.5 fl (35.1-43.9); Red Blood Count 4.47 M/mm3 (4.2-5.4)
[2024-06-03 08:36] LABS: International Normalized Ratio 1.1; Prothrombin Time (Protime)PT. 14.6 SECONDS (11.7-14.9)
[2024-06-03 08:56] LABS: ALB/GLOB Ratio 0.8 RATIO (0.9-2.4); AST(SGOT) 28 U/L (15-37); Alanine Aminotransfer ALT/SGPT 41 U/L (13-56); Albumin, Serum 3.1 g/dL (3.2-5.0); Alkaline Phosphatase 83 U/L (45-117); Anion Gap 4 (5-15); BUN 16 mg/dL (7-18); BUN/Creat Ratio 20.5 RATIO (10-20); CRP 8.38 mg/L (0.0-3.0); Chloride 108 mmol/L (98-107); Cholesterol 112 mg/dL (200); Creatinine, Serum 0.78 mg/dL (0.55-1.02); EST Glomerular Filtration Rate 87 mL/min (>60); Est Glom Filt Rate - Afr Amer 105 mL/min (>60); Ferritin 66 ng/mL (8-252); Globulin 4.1 g/dL (2.2-4.2); Glucose 103 mg/dL (74-106); High Density Lipoprotein 41 mg/dL; Iron 50 ug/dL (50-170); Iron Binding Capacity,Total 336 ug/dL (250-450); PERCENT IRON SATURATION 14.9 % (15.0-55.0); Protein, Total 7.2 g/dL (6.4-8.2); Sodium Level 139 mmol/L (136-145); Triglycerides 202 mg/dL; Very Low Density Lipoprotein 40 mg/dL (5-40)
[2024-06-03 09:05] LABS: Hemoglobin A1c 5.4 % (3.8-5.6)
[2024-06-04 15:08] LABS: ANTINUCLEAR ANTIBODIES DIRECT Negative (Negative)
[2024-06-05 07:08] LABS: Ceruloplasmin 28.5 mg/dL (19.0-39.0); Copper, Serum or Plasma 123 ug/dL (80-158)
== END | disposition home or self-care (01) ==
LOC: PAVLAB 07:43
PROVIDERS: PCP Internal Medicine; Referring Provider Internal Medicine; Visit Provider Internal Medicine
DX: E03.9 Hypothyroidism, unspecified (principal); E55.9 Vitamin D deficiency, unspecified; E78.2 Mixed hyperlipidemia; I10 Essential (primary) hypertension; K76.0 Fatty (change of) liver, not elsewhere classified
CPT/HCPCS: 36415; 80053; 80061; 82306; 82390; 82525; 82728; 83036; 83540; 83550; 84443; 85025; 85610; 86038; 86140; 86225; 86235

== ENCOUNTER → 2024-11-14 | Outpatient (CLI) | payer OTHER, SELFPAY ==
--- NOTE | 2024-11-14 08:19 | US_ITS ---
PROCEDURE: ULTRASOUND ABDOMEN LIMITED WITH ELASTOGRAPHY REASON FOR EXAM: Liver fibrosis. COMPARISON: Ultrasound abdomen with elastography dated 12/21/2023. TECHNIQUE: Right upper quadrant abdominal ultrasound. Shear wave elastography for non- invasive assessment of liver tissue stiffness. Real-time grayscale and color flow imaging was performed along with routine image documentation. FINDINGS: LIVER: Size: Enlarged Length: 24 cm sagittally. Echotexture: Hyperechoic parenchyma. Coarsened texture. Contour: Normal Lesions: None identified Elastography: EQI Med: 9.7 kPa EQI Med Prosper: 1.78 m/s GALLBLADDER: Normal COMMON BILE DUCT: 0.47 cm.. PANCREAS: Echogenic parenchyma. Right kidney: Size measures 11.5 x 6.1 x 5.4 cm. Cortex measures 1.3 cm. US/ABD Limited w/ Elastography IMPRESSION: 1. Marked hepatomegaly. 2. Steatosis. 3. F 2 to F 3, moderate to severe likelihood of clinically significant hepatic fibrosis. Reference Values: SRU <1.37 m/s (5.7kPa): No to mild fibrosis 1.37 m/s - 2.2 m/s: Moderate to severe fibrosis >2.2 m/s (15kPa): Significant fibrosis / cirrhosis METAVIR Score F2 or higher: 1.34 m/s (5.7kPa) F3 or higher: 1.55 m/s (7.3kPa) F4: 1.80 m/s (10kPa) * If the IQR/Med is >30%, the variance in the measurements is a large and the a ccuracy of the measurement may be in question. Reading Location: [place] [id number]
== END | disposition home or self-care (01) ==
PROVIDERS: PCP Internal Medicine; Referring Provider Internal Medicine; Visit Provider Internal Medicine
DX: K76.0 Fatty (change of) liver, not elsewhere classified (principal); E66.01 Morbid (severe) obesity due to excess calories; E78.1 Pure hyperglyceridemia; R73.03 Prediabetes
CPT/HCPCS: 76705; 76981

== ENCOUNTER → 2024-11-20 | Outpatient (CLI) | payer OTHER, SELFPAY ==
[2024-11-20 15:39] LABS: Absolute Lymphocyte Count 2.18 X10^3/uL (0.83-4.51); Absolute Neutrophil Count 5.2 X10^3/uL (2.0-7.7); Basophil# 0.04 X10^3/uL; Basophil% 0.5 % (0-1); Eosinophil# 0.14 X10^3/uL; Eosinophils% 1.7 % (0-5); Hematocrit 39.5 % (37-47); Hemoglobin 13.3 g/dL (12.0-15.0); Lymphocyte # 2.18 X10^3/ul (0.83-4.51); Lymphocyte % 26.8 % (19-41); Mean Corp Hgb Conc 33.7 g/dL (32-36); Mean Corpuscular Hgb 28.3 pg (27.0-32.0); Mean Platelet Vol. 10.7 fl (6.2-12.0); Monocyte# 0.51 X10^3/uL; Monocyte% 6.3 % (0-10); NRBC Flagged by Analyzer 0 % (0-5); Neutrophil % 64.1 % (47-70); Platelet Count 206 K/mm3 (150-450); RBC Distribution Width CV 13.1 % (11.6-14.6); RBC Distribution Width SD 39.2 fl (35.1-43.9); White Blood Count 8.1 K/mm3 (4.4-11.0)
[2024-11-20 15:55] LABS: International Normalized Ratio 0.9; Prothrombin Time (Protime)PT. 12.4 SECONDS (11.7-14.9)
[2024-11-20 16:07] LABS: ALB/GLOB Ratio 1.1 RATIO (0.9-2.4); AST(SGOT) 49 U/L (<=31); Alanine Aminotransfer ALT/SGPT 72 U/L (<=34); Alkaline Phosphatase 88 U/L (35-104); Anion Gap 12 (5-15); BUN 10 mg/dL (4-19); BUN/Creat Ratio 13.2 RATIO (10-20); Calcium,Total 9.7 mg/dL (7.6-11.0); Carbon Dioxide 25.5 mmol/L (21.0-32.0); Chloride 101 mmol/L (98-108); Creatinine, Serum 0.78 mg/dL (0.70-1.20); EST Glomerular Filtration Rate 98 (>60); Globulin 3.7 g/dL (2.2-4.2); Glucose 95 mg/dL (70-99); Potassium 3.9 mmol/L (3.3-5.1); Protein, Total 7.7 g/dL (5.9-8.4); Sodium Level 138 mmol/L (133-145); Total Bilirubin 0.36 mg/dL (0.00-1.30)
[2024-11-20 18:32] LABS: Hemoglobin A1c 5.7 % (<=5.6)
== END | disposition home or self-care (01) ==
LOC: PAVLAB 15:15
PROVIDERS: PCP Internal Medicine; Referring Provider Internal Medicine; Visit Provider Internal Medicine
DX: R73.03 Prediabetes (principal); E66.01 Morbid (severe) obesity due to excess calories; K76.0 Fatty (change of) liver, not elsewhere classified; E78.1 Pure hyperglyceridemia
CPT/HCPCS: 36415; 80053; 83036; 85025; 85610; 86140

== ENCOUNTER → 2024-12-25 | Outpatient (CLI) | payer OTHER, SELFPAY ==
[2024-12-25 07:48] LABS: Absolute Lymphocyte Count 1.66 X10^3/uL (0.83-4.51); Absolute Neutrophil Count 4.9 X10^3/uL (2.0-7.7); Basophil# 0.04 X10^3/uL; Basophil% 0.5 % (0-1); Eosinophil# 0.17 X10^3/uL; Eosinophils% 2.3 % (0-5); Hematocrit 41.3 % (37-47); Hemoglobin 13.7 g/dL (12.0-15.0); Lymphocyte # 1.66 X10^3/ul (0.83-4.51); Lymphocyte % 22.8 % (19-41); Mean Corp Hgb Conc 33.2 g/dL (32-36); Mean Corpuscular Volume 84.3 fL (81-99); Mean Platelet Vol. 10.8 fl (6.2-12.0); Monocyte# 0.49 X10^3/uL; Monocyte% 6.7 % (0-10); NRBC Flagged by Analyzer 0 % (0-5); Neutrophil # 4.88 X10^3/uL (2.7-7.7); Neutrophil % 67.2 % (47-70); Platelet Count 201 K/mm3 (150-450); RBC Distribution Width CV 12.7 % (11.6-14.6); RBC Distribution Width SD 38.5 fl (35.1-43.9); White Blood Count 7.3 K/mm3 (4.4-11.0)
[2024-12-25 08:34] LABS: ALB/GLOB Ratio 1.1 RATIO (0.9-2.4); AST(SGOT) 75 U/L (<=31); Alanine Aminotransfer ALT/SGPT 88 U/L (<=34); Albumin, Serum 3.9 g/dL (3.5-5.0); Alkaline Phosphatase 77 U/L (35-104); Anion Gap 10 (5-15); BUN 14 mg/dL (4-19); BUN/Creat Ratio 16.3 RATIO (10-20); Calcium,Total 9.6 mg/dL (7.6-11.0); Carbon Dioxide 25.8 mmol/L (21.0-32.0); Chloride 101 mmol/L (98-108); Cholesterol 174 mg/dL (<=200); Creatinine, Serum 0.87 mg/dL (0.70-1.20); EST Glomerular Filtration Rate 85 (>60); Globulin 3.6 g/dL (2.2-4.2); Glucose 101 mg/dL (70-99); High Density Lipoprotein 46 mg/dL; Low Density Lipoprotein Calc. 74 mg/dL; Potassium 4.5 mmol/L (3.3-5.1); Protein, Total 7.5 g/dL (5.9-8.4); Sodium Level 138 mmol/L (133-145); Total Bilirubin 0.46 mg/dL (0.00-1.30); Triglycerides 268 mg/dL; Very Low Density Lipoprotein 54 mg/dL (5-40); cholesterol:hdl ratio screen 3.77
== END | disposition home or self-care (01) ==
PROVIDERS: Internal Medicine; PCP Internal Medicine; Referring Provider Internal Medicine; Visit Provider Internal Medicine
DX: I10 Essential (primary) hypertension (principal); I48.0 Paroxysmal atrial fibrillation; E66.01 Morbid (severe) obesity due to excess calories; K76.0 Fatty (change of) liver, not elsewhere classified; R73.03 Prediabetes; E78.1 Pure hyperglyceridemia
CPT/HCPCS: 36415; 80053; 80061; 84443; 85025; 86140

== ENCOUNTER → 2024-12-26 | Outpatient (CLI) | payer OTHER, SELFPAY ==
--- NOTE | 2024-12-26 10:44 | BI_ITS ---
EXAM: SCRN MAMM (CAD)W/JAYSON BILAT 12/26/2024 CLINICAL HISTORY: F, Age 39 y/o , SCREENING TECHNIQUE: Bilateral screening digital breast tomosynthesis with 2D and 3D images. Computer aided detection. COMPARISON: Prior exam(s) dated 12/21/2023, 10/30/2021. FINDINGS: TISSUE DENSITY: The breast tissue is composed of scattered area of fibroglandular density. Bilateral Breast Mammographic Findings: There is an asymmetry in the central right breast at anterior depth visualized on the CC view. No significant masses, calcifications or other abnormalities are identified in the left breast. BI/SCRN MAMM (CAD)W/JAYSON BILAT IMPRESSION: There is an asymmetry in the central right breast at anterior depth visualized on the CC view which requires further evaluation. Recommend diagnostic mammogram of the right breast and ultrasound on the day of diagnostic if indicated. Right Breast: BIRADS 0 Incomplete: Need additional imaging evaluation and/or pr ior mammograms for comparison.. Left Breast: BIRADS 1 NEGATIVE. OVERALL FINAL ASSESSMENT: BIRADS 0 Incomplete: Need additional imaging evaluati on and/or prior mammograms for comparison.. RECOMMENDATION: Recommendation: Additional projections. A letter with findings and recommendations will be mailed to the patient. Reading Location: [id number]
== END | disposition home or self-care (01) ==
LOC: OPBI 10:42
PROVIDERS: PCP Internal Medicine; Referring Provider Internal Medicine; Visit Provider Internal Medicine
DX: Z12.31 Encounter for screening mammogram for malignant neoplasm of breast (principal)
CPT/HCPCS: 77063; 77067

== ENCOUNTER → 2025-01-07 | Outpatient (CLI) | payer OTHER, SELFPAY ==
--- NOTE | 2025-01-07 12:31 | US_ITS ---
EXAM: DIAG MAMM W/CAD, UNILAT; BREAST LIMITED UNILATERAL; RT BRST UNILAT JAYSON ADD-ON 01/07/2025 CLINICAL HISTORY: 39-year-old presents for follow-up examination for the right breast findings seen on the mammogram of 12/26/2024. Family history of breast cancer in a paternal aunt. TECHNIQUE: Right diagnostic digital breast tomosynthesis with 2D and 3D images. Computer aided detection. Also, targeted right breast ultrasound was performed. COMPARISON: Prior exam(s) dated mammogram 12/26/2024, 12/21/2023; mammogram and ultrasound 11/07/2021. FINDINGS: RIGHT BREAST MAMMOGRAM: TISSUE DENSITY: The breast tissue is composed of scattered area of fibroglandular density. The asymmetry in the central right breast at anterior depth persist. RIGHT BREAST ULTRASOUND: Targeted ultrasound of the right breast performed of the retroareolar region demonstrates a complicated cyst at 9 o'clock 1 cm from the nipple, measuring 0.5 x 0.5 x 0.3 cm. This is the probable correlate for the mammographic finding. There is another small simple cyst in the 6 o'clock retroareolar position measuring 0.2 x 0.3 x 0.2 cm, this is stable when compared to examination of 11/07/2021. US/Breast Limited Unilateral IMPRESSION: Complicated cyst in the right breast at 9 o'clock is probably benign. Recommen d short interval six-month follow-up diagnostic ultrasound of the right breast. Right Breast: BIRADS 3 PROBABLY BENIGN. OVERALL FINAL ASSESSMENT: BIRADS 3 PROBABLY BENIGN. RECOMMENDATION: Short interval follow-up. A letter with findings and recommendations will be mailed to the patient. Reading Location: [facility]
== END | disposition home or self-care (01) ==
LOC: OPBI 12:28
PROVIDERS: PCP Internal Medicine; Referring Provider Internal Medicine; Visit Provider Internal Medicine
DX: R92.0 Mammographic microcalcification found on diagnostic imaging of breast (principal); R92.8 Other abnormal and inconclusive findings on diagnostic imaging of breast
CPT/HCPCS: 76642; 77061; 77065; G0279

== ENCOUNTER → 2025-07-09 | Outpatient (CLI) | payer OTHER, SELFPAY ==
--- NOTE | 2025-07-09 07:58 | US_ITS ---
PROCEDURE: BREAST LIMITED UNILATERAL 07/09/2025 REASON FOR EXAM: F, Age 39 y/o , ABN FINDINGS COMPARISON: Prior mammogram and ultrasound dated January 07, 2025.. TECHNIQUE: Procedure Code: USBRSTLIMIT Modality: US Procedure: BREAST LIMITED UNILATERAL FINDINGS: Scattered fibroglandular tissue. In the retroareolar region, there is a seven four mm hypoechoic well-defined nodular density. This is not a typical cysts. This has increased slightly in size as compared to prior study. Biopsy recommended. Stable three mm by three mm by one mm cyst at the six o'clock of the breast at 2 cm from the nipple. US/Breast Limited Unilateral IMPRESSION: Slight increase in size of the previously seen nodule at the 9 o'clock position of the breast at 3 cm from the nipple. Biopsy recommended. BI-RADS 4: SUSPICIOUS RECOMMENDATION: Biopsy recommended. Reading Location: [facility]
--- OUTSIDE RECORDS SUMMARY | 2025-07-09 08:15 | XMS RPT_ITS | CCD ---
Author Organization [facility] Care Team Providers Care Rfid Developer Name Role Phone Lorelei SHEPPARD, Jesusita Avila Unavailable Lalita SHEPPARD, Theodora Torrez Unavailable [phone] Jesusita Moseley MD Unavailable [phone] Jose Addison MD Primary Care Provider Dr. Ayesha Aldrich Primary Care Provider Dr. Ayesha Aldrich Referring Provider KALYAN Jeffery Attending Provider Dr. Jan Travis Attending Provider Dr. Radha Maxwell Attending Provider Dr. Ayesha Aldrich Primary Care Provider Dr. Ayesha Aldrich Referring Provider KALYAN Jeffery Attending Provider Chelo POWER LINEMAN TECHNICIAN, TIFFANYC Polina Attending Provider Jose Addison MD Primary Care Provider Dr. Ayesha Aldrich Primary Care Provider Dr. Ayesha Aldrich Referring Provider Dr. Radha Maxwell Attending Provider KALYAN Jeffery Attending Provider Chelo POWER LINEMAN TECHNICIAN, POWER LINEMAN TECHNICIAN-C Polina Attending Provider Dr. Ayesha Aldrich Primary Care Provider Dr. Ayesha Aldrich Referring Provider KALYAN Jeffery Attending Provider Dr. Jose Addison Primary Care Provider Dr. Jose Addison Referring Provider Dr. Radha Maxwell Attending Provider [phone] Dr. Theodora Celis Attending Provider Dr. Theodora Celis Referring Provider Dr. Theodora Celis Other Provider KALYAN Chew Attending Provider [phone] William SHEPPARD, Jose Urbina Primary Care Provider Dr. Jose Addison Primary Care Provider Dr. Jose Addison Referring Provider [phone] KALYAN Jeffery Attending Provider Dr. Radha Maxwell Attending Provider [phone] YAYA HIGHTOWER Attending Unavailable JOSE ADDISON [facility] UnavailDr. Jose Diaz Primary Care Provider Dr. Jose Addison Referring Provider [phone] Jayme Hansen Attending Provider Dr. Jose Addison Primary Care Provider Dr. Jose Addison Referring Provider [phone] Jose Addison MD Primary Care Provider Mauricio Lehman MD Unavailable DORINA CHEN Attending Unavailable JOSE ADDISON [facility] UnavailDr. Jose Diaz MD Primary Care Provider [phone] Dr. Mohan Gibbs MD Attending Provider Dr. Mohan Gibbs MD Referring Provider Dr. Jose Addison MD Referring Provider Jose Addison Primary Care Unavailable Jose Addison Attending Unavailable Jose Addison Referring Unavailable Jose Addison Referring Unavailable Jose Addison Primary Care Unavailable Jose Addison Attending Unavailable Jose Addison Referring Unavailable Jose Addison Primary Care Unavailable Jose Addison Attending Unavailable Jose Addison Referring Unavailable Jose Addison Primary Care Unavailable Jose Addison Attending Unavailable Mohan Gibbs Attending Unavailable Jose Addison Referring Unavailable Jose Addison Primary Care Unavailable Jose Addison Referring Unavailable William, Jose Primary Care Unavailable Jayme Hansen Attending Unavailable Sai, Mohan Attending Unavailable Sai, Mohan Referring Unavailable Jose Addison Primary Care Unavailable Sai, Mohan Attending Unavailable Sai, Mohan Referring Unavailable Jose Addison Primary Care Unavailable Allergies Allergy Classification Reported Allergen(s) Allergy Type Date of Onset Reaction(s) Facility Cephalosporins (antibiotic) (1 source) Cefaclor Drug Allergy 0 Unknown, Hives, Other: See Comments [facility] Macrolides (antibiotic) (1 source) Erythromycin Drug Allergy 7 Unknown [facility] (20 sources) cefaclor; Translations: [CEFACLOR] Drug Allergy 0 Unknown, Hives, Other: See Comments [facility] Work Phone: (20 sources) erythromycin Drug Allergy 7 Unknown [facility] Work Phone: (10 sources) Adhesive Tape-Silicones; Translations: [ADHESIVE TAPE-SILICONES] Drug Allergy 8 Other: See Comments [facility] (4 sources) illisone Allergy to substance 1 Other [facility] Work Phone: (10 sources) Scopolamine Drug Allergy 3 Nausea [facility] (2 sources) Erythromycin; Translations: [ERYTHROMYCIN] Drug Allergy 7 [facility] Other [facility] (1 source) Cefaclor Drug Allergy 5 [facility] Repository (1 source) Erythromycin Drug Allergy 5 [facility] Rep[facility] (1 source) Scopolamine Drug Allergy 5 [facility] Repository Medications Current Medications Medication Drug Class(es) Dates Sig (Normalized) Sig (Original) ergocalciferol 1.25 mg oral capsule (20 sources) Provitamin D2 Compound Start: 11-20-2019 Ergocalciferol (Vitamin D2) 50,000 UNIT capsule Active 08081 U PO Q7D January 05, 2020 12:00am On Hold: Order Changed Start: 05-28-2017 End: 06-05-2017 ERGOCALCIFEROL 80537 UNIT CA PS 1 cap weekly ERGOCALCIFEROL [id number] Jesusita Moseley MD Comment on above: Dose : 50,000 International_Unit = 1 cap(s), Oral, WEEKLY, 0 Refill(s) fenofibrate 48 mg oral tablet (5 sources) Peroxisome Proliferator Receptor alpha Agonist Start : 06-06 End: 11-25 take 1 tablet by mouth at bedtime Fenofibrate Nanocrystallized 48 mg tablet Active 48 mg PO AT BEDTIME November 25, 2024 2:34pm hydroCHLOROthiazide 12.5 mg / lisinopril 20 mg oral tablet (17 sources) Thiazide Diuretic, Angiotensin Converting Enzyme Inhibitor Start : 07-24 take 1 tablet by mouth once lisinopril-hydroCHLOR Othiazide (ZESTORETIC) 20-12.5 mg per tablet Take 1 tablet by mouth every afternoon. 07/24/2023 Active Start: 04-12-2023 Lisinopril-Hyd rochlorothiazide 20-12.5 mg tablet Active 1 {tbl} PO DAILY April 12, 2023 12:00am Start: 04-12-2023 take 1 tablet by kai th once daily Lisinopril-Hydrochlorothiazide Active 1 TABLET PO DAILY April 12, 2023 12:00am Comment on above: Take 1 tablet by kai th every afternoon. Hydrocolloid Dressing (6 sources) Start: 3 Hydrocolloid Dressing Active 0 .Route May 17, 2023 12:00am As directed omeprazole 40 mg delayed release oral capsule (15 sources) Proton Pump Inhibitor Start: take 1 capsule by mouth once daily Omeprazole 40 mg capsule,delayed release(DR/EC) Active 40 mg PO daily May 09, 2024 12:00am Start: 04-12-2023 End: 05-09-2024 take 1 capsule by mouth once daily Omeprazole 20 mg capsule,delayed release(DR/EC) Discontinued 20 mg PO DAILY April 12, 2023 12:00am May 09, 2024 3:31pm microencapsulated potassium chloride 20 meq extended release oral tablet (15 sources) Start: 05-04-2023 take 1 tablet by mouth once daily Potassium Chloride 20 mEq tablet,ER particles/crystals Active 20 meq PO DAILY May 04, 2023 12:00am Comment on above: Take 20 mEq by mouth . topiramate 25 mg oral tablet (6 sources) Start: 11-16-2023 End: 03-16-2024 take 1 tablet by mouth once daily topiramate (TOPAMAX) 25 mg tablet Take 1 tablet by mouth once daily. 30 tablet 02/15/2024 Active Comment on above: Take 1 tablet by kai th once daily. ursodiol 250 mg oral tablet (17 sources) Bile Acid Start: 07-24-2023 take 1 tablet by mouth twice daily at mealtime ursodiol (CHIDI) 250 mg tablet Take 250 mg by mouth two times a day with meals. 07/24/2023 Active Start: 04-12-2023 End: 02-22-2024 take 1 capsule by mouth twice daily Ursodiol 200 mg capsule Discontinued 200 mg PO TWICE A DAY April 12, 2023 12:00am February 22, 2024 2:07pm Comment on above: Take 250 mg by mouth two times a day with meals. Completed/Discontinued Medications Medication Drug Class(es) Dates Sig (Normalized) Sig (Original) acetaminophen 325 mg / oxyCODONE hydrochloride 5 mg oral tablet (20 sources) Opioid Agonist Start: 05-08-2023 End: 12-18-2023 Oxycodone-Acetamino phen (Percocet) 5-325 mg tablet Discontinued 1 {tbl} PO EVERY 6 HOURS as needed for pain 06 04May 17, 2023 December 18, 2023 10:45am Start: 04-12-2023 End: 04-15-2023 Oxycodone-Acetaminophen (Per cocet) 5-325 mg tablet Discontinued 1 {tbl} PO Q4H as needed for pain 18 3 April 12, 2023 April 14, 2023 12:00am April 15, 2023 12:03am Start: 01-07-2020 End: 01-14-2020 Oxycodone-Acetaminophen 1 TA BLET tablet Discontinued 1 - 2 {tbl} PO EVERY 6 HOURS NEEDED as needed for Pain 15 January 07, 2020 January 13, 2020 12:00am January 14, 2020 12:02am Start: 01-07-2020 End: 01-14-2020 take 1 tablet by mouth every six hours as needed Oxycodone-Acetaminophen Discontinued 1 - 2 TABLET PO EVERY 6 HOURS NEEDED 15 January 07, 2020 January 14, 2020 12:02am ALPRAZolam 1 mg oral tablet (20 sources) Benzodiazepine Start: 01-05-2020 End: 04-28-2022 take 1 tablet by mouth once Alprazolam 1 MG tablet Discontinued 1 mg PO ONE TIME January 05, 2020 11:53am April 28, 2022 4:45pm Start: 01-01-2020 End: 01-05-2020 take 0.5-1 mg by mouth twice daily as needed for anxiety Alprazolam (Xanax) 1 mg tablet Discontinued 0.5 - 1 mg PO TWICE A DAY as needed for anxiety January 01, 2020 12:00am January 05, 2020 11:53am amoxicillin 500 mg oral capsule (16 sources) Penicillin-class Antibacterial Start: 05-24-2022 End: 06-03-2022 take 2 capsules by mouth twice daily Amoxicillin 500 mg capsule Discontinued 1000 mg PO TWICE A DAY 40 May 24, 2022 12:00am June 02, 2022 12:00am June 03, 2022 12:06am Start: 05-24-2022 End: 06-03-2022 take 1000 mg by mouth twice daily Amoxicillin Discontinued 1000 MG PO TWICE A DAY 40 May 24, 2022 12:00am June 03, 2022 12:06am azithromycin 250 mg oral tablet (18 sources) Macrolide Antimicrobial Start: 01-30-2022 End: 04-28-2022 Azithromycin 250 mg tablet Discontinued 250 mg PO daily January 30, 2022 12:00am April 28, 2022 4:45pm 2 tablets today, then 1 tablet daily on days 2 through 5 Dicyclomine (4 sources) Anticholinergic End: 11-16-2023 DICYCLOMINE HCL (BENTYL ORAL) Take by mouth. 0 11/16/2023 Discontinued DICYCLOMINE HCL (BENTYL ORAL) Take by mouth. 0 Active Comment on above: Take by mouth. ferrous sulfate (7 sources) Start: 05-28-2017 take 1 tablet by mouth every twelve hours FE TABS 325 (65 Fe) MG TBEC 1 tablet BID FERROUS SULFATE [id number] Jesusita Moseley MD Start: 05-28-2017 take 1 tablet by kai th every twelve hours FE TABS 325 (65 Fe) MG TBEC 1 tablet BID FERROUS SULFATE [id number] Jesusita Moseley MD Start: 05-28-2017 take 1 tablet by kai th every twelve hours FE TABS 325 (65 Fe) MG TBEC 1 tablet BID FERROUS SULFATE [id number] Jesusita Moseley MD Hydrocolloid Dressing 2 X 4 " bandage (2 sources) Start: 05-17-2023 End: 03-31-2024 Hydrocolloid Dressing 2 X 4 " bandage Discontinued 0 .Route May 17, 2023 12:00am March 31, 2024 3:52pm As directed imiquimod 50 mg/ml topical cream (17 sources) Start: 05-05-2022 End: 04-12-2023 Imiquimod 5 % cream in packet Discontinued 1 NMA TOPICAL .3xw 24 May 05, 2022 12:00am April 12, 2023 1:23pm use three times a week until total clearance levothyroxine sodium 0.075 mg oral capsule (20 sources) l-Thyroxi ne Start: 11-26-2019 End: 05-09-2024 take 1 capsule by mouth once daily Levothyroxine 75 mcg capsule Discontinued 75 ug PO DAILY November 26, 2019 12:00am May 09, 2024 3:31pm Start: 11-20-2019 take 1 tablet by kai th once daily Levothyroxine 75 mcg tablet Active 75 ug PO daily May 09, 2024 12:00am Comment on above: Dose : 75 mcg = 1 tab(s), Oral, qDay, 0 Refill(s) lidocaine 50 mg/ml rectal cream (12 sources) Antiarrhythmic, Amide Local Anesthetic Start: 04-12-2023 End: 12-18-2023 Lidocaine 5 % cream Discontinued 1 NMA TOPICAL THREE TIMES A DAY as needed for pain April 12, 2023 12:00am December 18, 2023 10:45am lidocaine 25 mg/ml / prilocaine 25 mg/ml topical cream (12 sources) Antiarrhythmic, Amide Local Anesthetic Start: 04-12-2023 End: 12-18-2023 Lidocaine-Prilocaine 2.5-2.5 % kit Discontinued 1 NMA TOPICAL .q4Hr as needed for pain (scale score 4-6) 1 April 12, 2023 12:00am December 18, 2023 10:45am as a single dose Start: 04-12-2023 End: 12-18-2023 Lidocaine-Prilocaine Discont inued 1 APPLIC TOPICAL .q4Hr 10 09April 12, 2023 12:00am December 18, 2023 10:45am as a single dose metFORMIN hydrochloride 500 mg oral tablet (7 sources) Biguanide Start: 02-22-2024 End: 11-25-2024 take 1 tablet by mouth twice daily Metformin 500 mg tablet Discontinued 500 mg PO TWICE A DAY 180 90 May 06, 2024 3:31pm November 25, 2024 2:35pm methylPREDNISolone 4 mg oral tablet (7 sources) Corticosteroid Start: 08-20-2023 End: 12-18-2023 take 1 tablet by mouth once Methylprednisolone (Medrol (Demario)) 4 mg tablets,dose pack Discontinued 0 PO per package directions August 20, 2023 1:00am December 18, 2023 10:45am PO PER PKG DIR naproxen 500 mg oral tablet (20 sources) Nonsteroidal Anti-inflammatory Drug Start: 05-08-2023 End: 05-09-2024 take 1 tablet by mouth twice daily as needed for pain Naproxen 500 mg tablet Discontinued 500 mg PO TWICE DAILY NEEDED as needed for Pain May 08, 2023 12:00am May 09, 2024 3:31pm Start: 01-07-2020 End: 11-04-2021 take 250-500 mg by mouth every eight hours as needed for pain Naproxen 250 MG tablet Discontinued 250 - 500 mg PO EVERY 8 HOURS NEEDED as needed for MILD PAIN January 07, 2020 12:00am November 04, 2021 3:35pm nitrofurantoin, macrocrystals 25 mg / nitrofurantoin, monohydrate 75 mg oral capsule (18 sources) Nitrofuran Antibacterial Start: 03-31-2024 End: 04-07-2024 take 1 capsule by mouth twice daily at mealtime Nitrofurantoin Monohyd/M-Cryst (Macrobid) 100 mg capsule Discontinued 100 mg PO TWICE A DAY 14 7 March 31, 2024 12:00am April 06, 2024 12:00am April 07, 2024 12:04am must administer with a meal/food Start: 06-19-2022 End: 06-26-2022 take 1 capsule by mouth twice daily at mealtime Nitrofurantoin Monohyd/M-Cryst (Macrobid) 100 mg capsule Discontinued 100 mg PO TWICE A DAY 14 7 June 19, 2022 12:00am June 25, 2022 12:00am June 26, 2022 12:03am must administer with a meal/food norethindrone acetate 5 mg oral tablet (20 sources) Progestin Start: 11-10-2019 End: 11-04-2021 take 1 tablet by mouth three times daily, then take 1 tablet by mouth once daily Norethindrone Acetate (Aygestin) 5 mg tablet Discontinued 5 mg PO .COMPLEX 45 January 01, 2020 8:51am January 05, 2020 11:53am 5 mg PO TID until bleeding stops then daily for the remainder of the script Start: 04-30-2018 End: 11-10-2019 take 1 tablet by mouth twice daily, then take 1 tablet by mouth once daily Norethindrone Acetate (Aygestin) 5 mg tablet Discontinued 5 mg PO .COMPLEX April 30, 2018 12:00am November 10, 2019 4:21pm 5 mg PO BID x 3 days and then once daily for remainder Start: 06-27-2017 AYGESTIN 5 MG TABS One tablet by mouth twice daily until bleeding stops for 3 days then once daily for remainder NORETHINDRONE ACETATE [id number] Theodora Celis MD phentermine hydrochloride 37.5 mg oral tablet (2 sources) Sympathomimetic Amine Anorectic Start: 11-16-2023 End: 03-26-2025 Phentermine HCl 37.5 mg tablet Indications: Class 3 severe obesity with serious comorbidity in adult, unspecified BMI, unspecified obesity type (HCC) , Body mass index 50.0-59.9, adult ([facility]) 1/2 a pill daily 15 tablet 2 11/16/2023 12/12/2023 Discontinued Comment on above: 1/2 a pill daily rosuvastatin calcium 10 mg oral tablet (4 sources) HMG-CoA Reductase Inhibitor Start: 02-22-2024 End: 06-06-2024 take 1 tablet by mouth once daily Rosuvastatin 10 mg tablet Discontinued 10 mg PO DAILY May 06, 2024 3:31pm June 06, 2024 12:57pm sertraline 50 mg oral tablet (4 sources) Serotonin Reuptake Inhibitor Start: 04-22-2021 End: 11-16-2023 take 1 tablet by mouth once daily sertraline (ZOLOFT) 50 mg tablet Take 50 mg by mouth once daily. 0 04/22/2021 11/16/2023 Discontinued Comment on above: Take 50 mg by mouth once daily. silver sulfADIAZINE 10 mg/ml topical cream (17 sources) Sulfonamide Antibacterial Start: 05-08-2023 End: 12-18-2023 Silver Sulfadiazine 1 % cream Discontinued 1 NMA TOPICAL NEEDED as needed for Wound Care May 17, 2023 11:02am December 18, 2023 10:45am Start: 05-08-2023 End: 12-18-2023 Silver Sulfadiazine Disconti nued 1 APPLIC TOPICAL NEEDED May 17, 2023 11:02am December 18, 2023 10:45am sulfamethoxazole 800 mg / trimethoprim 160 mg oral tablet (18 sources) Dihydrofolate Reductase Inhibitor Antibacterial, Sulfonamide Antimicrobial Start: 01-07-2020 End: 01-10-2020 Sulfamethoxazole-Trimethopri m 1 TABLET tablet Discontinued 1 {tbl} PO TWICE A DAY 6 January 07, 2020 12:00am January 09, 2020 12:00am January 10, 2020 12:02am Start: 01-07-2020 End: 01-10-2020 take 1 tablet by mouth twice daily Sulfamethoxazole-Trimethoprim Discontinu ed 1 TABLET PO TWICE A DAY 6 January 07, 2020 12:00am January 10, 2020 12:02am tranexamic acid 650 mg oral tablet (18 sources) Antifibrinolytic Agent Start: 03-20-2018 End: 05-24-2018 Tranexamic Acid (Lysteda) 650 mg tablet Discontinued 1300 mg PO Q8H as needed for heavy bleeding 30 5 March 20, 2018 12:00am May 23, 2018 12:00am May 24, 2018 12:10am vitamin e 180 mg oral capsule (17 sources) Start: 04-12-2023 End: 02-22-2024 Vitamin E Mixed 400 unit capsule Discontinued 400 U PO TWICE A DAY April 12, 2023 12:00am February 22, 2024 2:07pm Start: 04-12-2023 Vitamin E Mixe d Active UNIT PO April 12, 2023 12:00am Vitamin E, dl, a cetate, (VITAMIN E) 400 unit capsule Active Problems Active Problems Problem Classification Problem Date Documented Da te Episodic/Chronic Acute and chronic tonsillitis (1 source) Hypertrophy of tonsils; Translations: [Hypertrophy of tonsils] Chronic Cardiac dysrhythmias (12 sources) Paroxysmal atrial fibrillation; Translations: [Paroxysmal atrial fibrillation] 12-12-2023 Chronic Deficiency and other anemia (20 sources) Anemia; Translations: [Anemia, unspecified] Onset: 11-25-2021 11-25-2021 Episodic Comment on above: related to menorrhag ia Disorders of lipid metabolism (4 sources) Hypertriglyceridemia; Translations: [Pure hyperglyceridemia] 02-22-2024 Chronic Essential hypertension (1 source) Essential (primary) hypertension; Translations: [Essential (primary) hypertension] Onset: 12-30-2024 Chronic Female infertility (10 sources) Secondary female infertility; Translations: [Female infertility, unspecified] Onset: 06-27-2017 06-27-2017 Chronic Genitourinary symptoms and ill-defined conditions (20 sources) Genuine stress incontinence; Translations: [Stress incontinence (female) (male)] Onset: 11-25-2021 11-25-2021 Chronic Comment on above: s/p sling Hepatitis (4 sources) Nonalcoholic steatohepatitis; Translations: [Nonalcoholic steatohepatitis (LIVE)] 11-21-2024 Chronic Immunizations and screening for infectious disease (20 sources) Contact with and (suspected) exposure to other viral communicable diseases; Translations: [Contact with or suspected exposure to other viral communicable disease] Episodic Menstrual disorders (8 sources) Irregular periods; Translations: [Irregular menstruation, unspecified] Onset: 05-28-2017 Resolved: 06-27-2017 06-27-2017 Chronic Nonmalignant breast conditions (20 sources) Pain of breast; Translations: [Mastodynia] Onset: 11-25-2021 11-25-2021 Episodic Comment on above: imaging ordered Nutritional deficiencies (16 sources) Vitamin D deficiency; Translations: [Vitamin D deficiency, unspecified] Onset: 05-28-2017 05-29-2017 Chronic Other female genital disorders (20 sources) Abnormal uterine and vaginal bleeding, unspecified; Translations: [Abnormal uterine bleeding] Onset: 06-27-2017 06-27-2017 Chronic Comment on above: s/p lavh bs Other female genital disorders (20 sources) Lesion of vulva; Translations: [Other specified noninflammatory disorders of vulva and perineum] 04-28-2022 Episodic Comment on above: s/p vulvar lesion la ser removal Other female genital disorders (15 sources) Other specified noninflammatory disorders of vulva and perineum; Translations: [Other specified noninflammatory disorders of vulva and perineum] Episodic Other gastrointestinal disorders (14 sources) Irritable bowel syndrome; Translations: [Irritable bowel syndrome without diarrhea] Onset: 05-28-2017 05-28-2017 Chronic Other liver diseases (13 sources) Disease of liver; Translations: [Liver disease, unspecified] 03-16-2023 Chronic Other liver diseases (6 sources) Steatosis of liver; Translations: [Fatty (change of) liver, not elsewhere classified] Onset: 11-16-2023 11-16-2023 Chronic Other liver diseases (3 sources) Fatty (change of) liver, not elsewhere classified; Translations: [Metabolic dysfunction-associate d steatotic liver disease (MASLD)] Onset: 11-27-2024 11-21-2024 Chronic Other nutritional; endocrine; and metabolic disorders (5 sources) Morbid obesity; Translations: [Morbid (severe) obesity due to excess calories] Chronic Other nutritional; endocrine; and metabolic disorders (9 sources) Body mass index 40+ - severely obese; Translations: [Morbid (severe) obesity due to excess calories] Onset: 07-21-2022 Chronic Other nutritional; endocrine; and metabolic disorders (1 source) Severe obesity; Translations: [Morbid (severe) obesity due to excess calories] 11-16-2023 Chronic Other nutritional; endocrine; and metabolic disorders (1 source) Morbid (severe) obesity due to excess calories; Translations: [Class 3 severe obesity with serious comorbidity in adult, unspecified BMI, unspecified obesity type (HCC)] Onset: 11-16-2023 Chronic Other nutritional; endocrine; and metabolic disorders (1 source) Body mass index (BMI) 50.0-59.9, adult; Translations: [Body mass index 50.0-59.9, adult ([facility])] Onset: 11-16-2023 Chronic Other nutritional; endocrine; and metabolic disorders (6 sources) H/O: hypothyroidism; Translations: [Personal history of other endocrine, nutritional and metabolic disease] 12-12-2023 Episodic Other skin disorders (18 sources) Breast changes; Translations: [Changes in skin texture] 11-04-2021 Episodic Other upper respiratory infections (20 sources) Acute upper respiratory infection; Translations: [Acute upper respiratory infection, unspecified] Onset: 11-25-2021 11-25-2021 Episodic Residual codes; unclassified (10 sources) Obstructive sleep apnea syndrome; Translations: [Obstructive sleep apnea (adult) (pediatric)] Onset: 11-16-2023 Chronic Residual codes; unclassified (1 source) Daytime somnolence; Translations: [Other hypersomnia] Chronic Thyroid disorders (20 sources) Hypothyroidism; Translations: [Hypothyroidism, unspecified] Onset: 06-27-2021 06-27-2021 Chronic Unclassified (1 source) No current problems or disability 05-29-2017 Urinary tract infections (2 sources) Urinary tract infection, site not specified; Translations: [Urinary tract infection, site not specified] Episodic Viral infection (20 sources) Disease caused by 2019-nCoV; Translations: [COVID-19] Episodic Comment on above: HPV tca treatment in off ice, history of laser in past Past or Other Problems Problem Classification Problem Date Documented Da te Episodic/Chronic Abdominal pain (14 sources) Abdominal pain; Translations: [Unspecified abdominal pain] Onset: 05-28-2017 05-28-2017 Episodic Administrative/social admission (7 sources) Patient encounter status; Translations: [Dietary counseling and surveillance] Onset: 11-16-2023 11-16-2023 Episodic Deficiency and other anemia (14 sources) Iron deficiency anemia; Translations: [Iron deficiency anemia, unspecified] Onset: 05-28-2017 05-28-2017 Episodic Diabetes mellitus without complication (3 sources) Prediabetes; Translations: [Prediabetes] Onset: 12-01-2024 02-22-2024 Episodic Other screening for suspected conditions (not mental disorders or infectious disease) (1 source) Encounter for screening mammogram for malignant neoplasm of breast; Translations: [Encounter for screening mammogram for malignant neoplasm of breast] Onset: 12-31-2024 Episodic Results Test Name Value Interpretation Reference Range Facility Cardiology Visit Reporton Cardiology Visit Report [facility] [address] [place] [address] OFFICE VISIT Date of Service: 07/02/25 MR#: [id number] Acct: [id number] Name: TEE STROUD Rep #: [id number] : 1985 Provider: Dr. 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 She said that this had started spontaneously and had lasted approximately 2 hours before she went to the emergency room. She had no chest pain or dizziness or diaphoresis. In the emergency room she was noted to be in atrial fibrillation with rapid ventricular response rate. She was given intravenous diltiazem with slowing down of her heart rate and subsequent conversion. Laboratory tests were normal with normal electrolytes and normal TSH chest x-ray was unremarkable and D-dimer was also unremarkable. She does have a history of sleep apnea and she uses her CPAP mask. She was asked to follow-up here in the office she has not had any further episodes. It is not clear whether she has had previous episodes like this in the past. She acknowledges 2 episodes of short lasting chest pain 2 weeks ago. This was sharp and noted at rest. This was located left side of her chest. She denies palpitations, bilateral lower extreme edema, or claudication. She denies shortness of breath at rest, shortness with activity, orthopnea, cough, PND. She denies lightheadedness, dizziness, near-syncope, or syncope. She denies fatigue. Intake Vital Signs 05/09/24 15:15 11/21/24 11:37 07/02/25 14:36 Height 5 ft 1 in 5 ft 1 in 5 ft 1 in Weight: 322 lb BMI 60.8 BP 136/81 H Blood Pressure Location Lt brachial Position Sitting Respiration 16 Pulse 92 Pulse Source Monitor Intake Visit Reasons: 1 Y FU [employer] Required: No Accompanied by: Significant Other Is patient in pain?: No Allergies cefaclor (From Ceclor) Allergy (Mild, Verified 07/02/25 14:39) Other erythromycin base (From Ilosone) Allergy (Mild, Verified 07/02/25 14:39) Other scopolamine (From Transderm-Scop) Adverse Reaction (Intermediate, Verified 07/02/25 14:39) Nausea Medications ???Medication ???Instructions ???Recorded ???Confirmed ???Type ergocalciferol (vitamin D2) 1,250 50,000 unit PO Q7D 01/05/2007/02 History mcg (50,000 unit) capsule Held on 06/06/24. Instructions: Order Changed lisinopril 20 1 tab PO DAILY 04/12/23 07/02/25 H istory mg-hydrochlorothiazide 12.5 mg tablet potassium chloride 20 mEq 20 meq PO DAILY 05/04/23 07/02/25 History tablet,extended release(part/cryst) levothyroxine 75 mcg tablet 75 mcg PO QDAY 05/09/24 07/02/25 H istory omeprazole 40 mg capsule,delayed 40 mg PO QDAY 05/09/24 07/02/25 Hi story release fenofibrate nanocrystallized 48 mg 48 mg PO QHS 1 month #90 tabs 07/02/25 Rx tablet metformin 500 mg tablet 500 mg PO BID 90 days #180 tabs 07/02/25 Rx resmetirom 100 mg tablet 100 mg PO QDAY 07/02/25 07/02/25 H istory (Rezdiffra) Ejection fraction %: 60 [facility] History Atrial fibrillation with rapid ventricular response Paroxysmal atrial fibrillation History of hypothyroidism Fatty liver Migraine headache Gastric reflux Shortness of breath on exertion Leg cramps CPAP (continuous positive airway pressure) dependence Liver disease Acute sinusitis, unspecified History of IBS Surgical History S/P laparoscopic assisted vaginal hysterectomy (LAVH) ( 01/07/20) History of wisdom tooth extraction, class II edentulism Family History Mother Diabetes Anxiety Hypertension Thyroid disorder Father Arthritis Anxiety Heart disease Hypertension Grandfather Heart disease Grandmother Diabetes Cancer Heart disease Social History Smoking Status: Never smoker alcohol intake: current details: social substance use type: does not use caffeine: Yes what type of physical activity do you participate in: none seatbelt use: always do you feel safe at home: Yes additional social history: [employer] Patient works for [employer] Const Const: Negative for fatigue, weakness, daytime sleepiness or difficulty sleeping ENT ENT: Negative for dizziness or Nosebleed/epistaxis Cardio Chest Pain: No Palpitations: Yes (intermittant) feels like its: skipping Edema: None Resp Respiratory: Negative for SOB with activity, SOB at rest, SOB orthopnea SOB lying down or Cough GI GI: Negative (more content not included)... Normal [facility] Breast Limited Unilateralon 01-07-2025 Breast Limited Unilateral [facility] [address], [place] [address] Breast Limited Unilateral MR#: [id number] Acct: [id number] Name: TEE STROUD Rep #: [id number] : 1985 F 39 From: Janice wOens MD PCP: Dr. Jose Addison MD Status: REG CLI Study: Breast Limited Unilateral Date of Exam: Exam# [id number] Ordering Dr: Jose Addison MD EXAM: DIAG MAMM W/CAD, UNILAT; BREAST LIMITED UNILATERAL; RT BRST UNILAT KEVAN ADD-ON 01/07/2025 CLINICAL HISTORY: 39-year-old presents for follow-up examination for the right breast findings seen on the mammogram of 12/26/2024. Family history of breast cancer in a paternal aunt. TECHNIQUE: Right diagnostic digital breast tomosynthesis with 2D and 3D images. Computer aided detection. Also, targeted right breast ultrasound was performed. COMPARISON: Prior exam(s) dated mammogram 12/26/2024, 12/21/2023; mammogram and ultrasound 11/07/2021. FINDINGS: RIGHT BREAST MAMMOGRAM: TISSUE DENSITY: The breast tissue is composed of scattered area of fibroglandular density. The asymmetry in the central right breast at anterior depth persist. RIGHT BREAST ULTRASOUND: Targeted ultrasound of the right breast performed of the retroareolar region demonstrates a complicated cyst at 9 o'clock 1 cm from the nipple, measuring 0.5 x 0.5 x 0.3 cm. This is the probable correlate for the mammographic finding. There is another small simple cyst in the 6 o'clock retroareolar position measuring 0.2 x 0.3 x 0.2 cm, this is stable when compared to examination of 11/07/2021. US/Breast Limited Unilateral IMPRESSION: Complicated cyst in the right breast at 9 o'clock is probably benign. Recommend short interval six- month follow-up diagnostic ultrasound of the right breast. Right Breast: BIRADS 3 PROBABLY BENIGN. OVERALL FINAL ASSESSMENT: BIRADS 3 PROBABLY BENIGN. RECOMMENDATION: Short interval follow-up. A letter with findings and recommendations will be mailed to the patient. Reading Location: [facility] CC: Dr. Jose Addison MD Scow Derrick Operator: Signed Normal [facility] DIAG MAMM W/CAD, UNILATon DIAG MAMM W/CAD, UNILAT [facility] [address] [place], [place] [address] DIAG MAMM W/CAD, UNILAT MR#: [id number] Acct: [id number] Name: TEE STROUD Rep #: [id number] : 1985 F 39 From: Janice Owens MD PCP: Dr. Jose Addison MD Status: REG CLI Study: DIAG MAMM W/CAD, UNILAT Date of Exam: 01/07/25 Exam# [id number] Ordering Dr: Jose Addison MD EXAM: DIAG MAMM W/CAD, UNILAT; BREAST LIMITED UNILATERAL; RT BRST UNILAT KEVAN ADD-ON 01/07/2025 CLINICAL HISTORY: 39-year-old presents for follow-up examination for the right breast findings seen on the mammogram of 12/26/2024. Family history of breast cancer in a paternal aunt. TECHNIQUE: Right diagnostic digital breast tomosynthesis with 2D and 3D images. Computer aided detection. Also, targeted right breast ultrasound was performed. COMPARISON: Prior exam(s) dated mammogram 12/26/2024, 12/21/2023; mammogram and ultrasound 11/07/2021. FINDINGS: RIGHT BREAST MAMMOGRAM: TISSUE DENSITY: The breast tissue is composed of scattered area of fibroglandular density. The asymmetry in the central right breast at anterior depth persist. RIGHT BREAST ULTRASOUND: Targeted ultrasound of the right breast performed of the retroareolar region demonstrates a complicated cyst at 9 o'clock 1 cm from the nipple, measuring 0.5 x 0.5 x 0.3 cm. This is the probable correlate for the mammographic finding. There is another small simple cyst in the 6 o'clock retroareolar position measuring 0.2 x 0.3 x 0.2 cm, this is stable when compared to examination of 11/07/2021. BI/DIAG MAMM W/CAD, UNILAT IMPRESSION: Complicated cyst in the right breast at 9 o'clock is probably benign. Recommend short interval six- month follow-up diagnostic ultrasound of the right breast. Right Breast: BIRADS 3 PROBABLY BENIGN. OVERALL FINAL ASSESSMENT: BIRADS 3 PROBABLY BENIGN. RECOMMENDATION: Short interval follow-up. A letter with findings and recommendations will be mailed to the patient. Reading Location: [id number] CC: Dr. Jose Addison MD Scow Derrick Operator: Signed Normal [facility] Rt Brst Unilat Kevan Add-Onon 01-07-2025 Rt [facility] Unilat Kevan Add-On [facility] [address] [place] [address] Rt Brst Unilat Kevan Add-On MR#: [id number] Acct: [id number] Name: TEE STROUD Rep #: [id number] : 1985 F 39 From: Janice Owens MD PCP: Dr. Jose Addison MD Status: REG CLI Study: Rt Brst Unilat Kevan Add-On Date of Exam: 01/07 Exam# [id number] Ordering Dr: Jose Addison MD EXAM: DIAG MAMM W/CAD, UNILAT; BREAST LIMITED UNILATERAL; RT BRST UNILAT KEVAN ADD-ON 01/07/2025 CLINICAL HISTORY: 39-year-old presents for follow-up examination for the right breast findings seen on the mammogram of 12/26/2024. Family history of breast cancer in a paternal aunt. TECHNIQUE: Right diagnostic digital breast tomosynthesis with 2D and 3D images. Computer aided detection. Also, targeted right breast ultrasound was performed. COMPARISON: Prior exam(s) dated mammogram 12/26/2024, 12/21/2023; mammogram and ultrasound 11/07/2021. FINDINGS: RIGHT BREAST MAMMOGRAM: TISSUE DENSITY: The breast tissue is composed of scattered area of fibroglandular density. The asymmetry in the central right breast at anterior depth persist. RIGHT BREAST ULTRASOUND: Targeted ultrasound of the right breast performed of the retroareolar region demonstrates a complicated cyst at 9 o'clock 1 cm from the nipple, measuring 0.5 x 0.5 x 0.3 cm. This is the probable correlate for the mammographic finding. There is another small simple cyst in the 6 o'clock retroareolar position measuring 0.2 x 0.3 x 0.2 cm, this is stable when compared to examination of 11/07/2021. BI/Rt Brst Unilat Kevan Add-On IMPRESSION: Complicated cyst in the right breast at 9 o'clock is probably benign. Recommend short interval six- month follow-up diagnostic ultrasound of the right breast. Right Breast: BIRADS 3 PROBABLY BENIGN. OVERALL FINAL ASSESSMENT: BIRADS 3 PROBABLY BENIGN. RECOMMENDATION: Short interval follow-up. A letter with findings and recommendations will be mailed to the patient. Reading Location: [facility] CC: Dr. Jose Addison MD Scow Derrick Operator: Signed Normal [facility] SCRN MAMM (CAD)W/KEVAN BILATo n 12-26-2024 SCRN MAMM (CAD)W/KEVAN BILAT [facility] [address] [place] [address] SCRN MAMM (CAD)W/KEVAN BILAT MR#: [id number] Acct: [id number] Name: TEE STROUD Rep #: [id number] : 1985 F 39 From: Janice Owens MD PCP: Dr. Jose Addison MD Status: REG CLI Study: SCRN MAMM (CAD)W/KEVAN BILAT Date of Exam: 12/09 05/04 Exam# [id number] Ordering Dr: Jose Addison MD EXAM: SCRN MAMM (CAD)W/KEVAN BILAT 12/26/2024 CLINICAL HISTORY: F, Age 39 y/o , SCREENING TECHNIQUE: Bilateral screening digital breast tomosynthesis with 2D and 3D images. Computer aided detection. COMPARISON: Prior exam(s) dated 12/21/2023, 10/30/2021. FINDINGS: TISSUE DENSITY: The breast tissue is composed of scattered area of fibroglandular density. Bilateral Breast Mammographic Findings: There is an asymmetry in the central right breast at anterior depth visualized on the CC view. No significant masses, calcifications or other abnormalities are identified in the left breast. BI/SCRN MAMM (CAD)W/KEVAN BILAT IMPRESSION: There is an asymmetry in the central right breast at anterior depth visualized on the CC view which requires further evaluation. Recommend diagnostic mammogram of the right breast and ultrasound on the day of diagnostic if indicated. Right Breast: BIRADS 0 Incomplete: Need additional imaging evaluation and/or prior mammograms for comparison.. Left Breast: BIRADS 1 NEGATIVE. OVERALL FINAL ASSESSMENT: BIRADS 0 Incomplete: Need additional imaging evaluation and/or prior mammograms for comparison.. RECOMMENDATION: Recommendation: Additional projections. A letter with findings and recommendations will be mailed to the patient. Reading Location: [facility] CC: Dr. Jose Addison MD Scow Derrick Operator: Signed Normal [facility] CBC W/Diff, Automatedon 12-09 Absolute Lymph 1.66 X10 3/uL Normal 0.83-4.51 [facility] Comment on above: Performed By: #### L 100.0100, L501.9520, L500.4050, L501.6710, L500.4100 #### [facility] [address] [place], [address] Absolute Neut 4.9 X10 3/uL Normal 2.0-7.7 [facility] Comment on above: Performed By: #### L 100.0100, L501.9520, L500.4050, L501.6710, L500.4100 #### [facility] [address] [place], [address] Basophils/100 WBC (Bld) 0.5 % Normal 0-1 [facility] Comment on above: Performed By: #### L 100.0100, L501.9520, L500.4050, L501.6710, L500.4100 #### [facility] [address] [place], [address] Eosinophils/100 WBC (Bld) 2.3 % Normal 0-5 [facility] Comment on above: Performed By: #### L 100.0100, L501.9520, L500.4050, L501.6710, L500.4100 #### [facility] [address] [place], [address] Erythrocyte distribution width (RBC) [Ratio] 12.7 % Normal 11.6-14.6 [facility] Comment on above: Performed By: #### L 100.0100, L501.9520, L500.4050, L501.6710, L500.4100 #### [facility] [address] [place], [address] Hematocrit (Bld) [Volume fraction] 41.3 % Normal 37-47 [facility] Comment on above: Performed By: #### L 100.0100, L501.9520, L500.4050, L501.6710, L500.4100 #### [facility] [address] [place], [address] Hemoglobin (Bld) [Mass/Vol] 13.7 g/dL Normal 12.0-15.0 [facility] Comment on above: Performed By: #### L 100.0100, L501.9520, L500.4050, L501.6710, L500.4100 #### [facility] [address] [place], [address] IG% 0.500 Normal 0.0-0.9 [facility] Comment on above: Result Comment: IG% - Immature Granulocytes (promyelocytes, myelocytes and metamyelocytes) > 1% indicates that a LEFT SHIFT is Present. Performed By: #### L 100.0100, L501.9520, L500.4050, L501.6710, L500.4100 #### [facility] [address] [place], [address] Lymphocytes/100 WBC (Bld) 22.8 % Normal 19-41 [facility] Comment on above: Performed By: #### L 100.0100, L501.9520, L500.4050, L501.6710, L500.4100 #### [facility] [address] [place], [address] MCH (RBC) [Entitic mass] 28.0 pg Normal 27.0-32.0 [facility] Comment on above: Performed By: #### L 100.0100, L501.9520, L500.4050, L501.6710, L500.4100 #### [facility] [address] [place], [address] MCHC (RBC) [Mass/Vol] 33.2 g/dL Normal 32-36 [facility] Comment on above: Performed By: #### L 100.0100, L501.9520, L500.4050, L501.6710, L500.4100 #### [facility] [address] [place], [address] MCV (RBC) [Entitic vol] 84.3 fL Normal 81-99 [facility] Comment on above: Performed By: #### L 100.0100, L501.9520, L500.4050, L501.6710, L500.4100 #### [facility] [address] [place], [address] Monocytes/100 WBC (Bld) 6.7 % Normal 0-10 [facility] Comment on above: Performed By: #### L 100.0100, L501.9520, L500.4050, L501.6710, L500.4100 #### [facility] [address] [place], [address] Neutrophils/100 WBC (Bld) 67.2 % Normal 47-70 [facility] Comment on above: Performed By: #### L 100.0100, L501.9520, L500.4050, L501.6710, L500.4100 #### [facility] [address] [place], [address] Nucleated RBC (Bld) [#/Vol] 0 10*3/uL Normal 0-5 [facility] Comment on above: Performed By: #### L 100.0100, L501.9520, L500.4050, L501.6710, L500.4100 #### [facility] [address] [place], [address] Platelet mean volume (Bld) [Entitic vol] 10.8 fL Normal 6.2-12.0 [facility] Comment on above: Performed By: #### L 100.0100, L501.9520, L500.4050, L501.6710, L500.4100 #### [facility] [address] [place], [address] Platelets (Bld) [#/Vol] 201 10*3/uL Normal 150-450 [facility] Comment on above: Performed By: #### L 100.0100, L501.9520, L500.4050, L501.6710, L500.4100 #### [facility] [address] [place], [address] RBC (Bld) [#/Vol] 4.90 10*6/uL Normal 4.2-5.4 [facility] Comment on above: Performed By: #### L 100.0100, L501.9520, L500.4050, L501.6710, L500.4100 #### [facility] [address] [place], [address] RDW SD 38.5 fl Normal 35.1-43.9 [facility] Comment on above: Performed By: #### L 100.0100, L501.9520, L500.4050, L501.6710, L500.4100 #### [facility] [address] [place], [address] WBC (Bld) [#/Vol] 7.3 10*3/uL Normal 4.4-11.0 [facility] Comment on above: Performed By: #### L 100.0100, L501.9520, L500.4050, L501.6710, L500.4100 #### [facility] [address] [place], [address] CRPon 12-25-2024 C-REACTIVE PROT 15.40 mg/L High 0.0-3.0 [facility] Comment on above: Performed By: #### L 100.0100, L501.9520, L500.4050, L501.6710, L500.4100 #### [facility] [address] [place], [address] Comprehensive Metabolic Prof ilon 12-25-2024 Albumin [Mass/Vol] 3.9 g/dL Normal 3.5-5.0 [facility] Comment on above: Performed By: #### L 100.0100, L501.9520, L500.4050, L501.6710, L500.4100 #### [facility] [address] [place], [address] Albumin/Globulin [Mass ratio] 1.1 {ratio} Normal 0.9-2.4 [facility] Comment on above: Performed By: #### L 100.0100, L501.9520, L500.4050, L501.6710, L500.4100 #### [facility] [address] [place], [address] ALK PHOS 77 U/L Normal 35-104 [facility] Comment on above: Performed By: #### L 100.0100, L501.9520, L500.4050, L501.6710, L500.4100 #### [facility] [address] [place], [address] ALT [Catalytic activity/Vol] 88 U/L High <=34 [facility] Comment on above: Performed By: #### L 100.0100, L501.9520, L500.4050, L501.6710, L500.4100 #### [facility] [address] [place], [address] AST [Catalytic activity/Vol] 75 U/L High <=31 [facility] Comment on above: Performed By: #### L 100.0100, L501.9520, L500.4050, L501.6710, L500.4100 #### [facility] [address] [place], [address] Bilirubin [Mass/Vol] 0.46 mg/dL Normal 0.00-1.30 [facility] Comment on above: Performed By: #### L 100.0100, L501.9520, L500.4050, L501.6710, L500.4100 #### [facility] [address] [place], [address] BUN/CRE 16.3 RATIO Normal 10-20 [facility] Comment on above: Performed By: #### L 100.0100, L501.9520, L500.4050, L501.6710, L500.4100 #### [facility] [address] [place], [address] Calcium [Mass/Vol] 9.6 mg/dL Normal 7.6-11.0 [facility] Comment on above: Performed By: #### L 100.0100, L501.9520, L500.4050, L501.6710, L500.4100 #### [facility] [address] [place], [address] Chloride [Moles/Vol] 101 mmol/L Normal 98-108 [facility] Comment on above: Performed By: #### L 100.0100, L501.9520, L500.4050, L501.6710, L500.4100 #### [facility] [address] [place], [address] CO2 [Moles/Vol] 25.8 mmol/L Normal 21.0-32.0 [facility] Comment on above: Performed By: #### L 100.0100, L501.9520, L500.4050, L501.6710, L500.4100 #### [facility] [address] [place], [address] Creatinine [Mass/Vol] 0.87 mg/dL Normal 0.70-1.20 [facility] Comment on above: Performed By: #### L 100.0100, L501.9520, L500.4050, L501.6710, L500.4100 #### [facility] [address] [place], [address] GAP 10 Normal 5-15 [facility] Comment on above: Performed By: #### L 100.0100, L501.9520, L500.4050, L501.6710, L500.4100 #### [facility] [address] [place], [address] GFR/1.73 sq M.predicted among non-blacks MDRD (S/P/Bld) [Vol rate/Area] 85 mL/min/{1.73_m2} Normal >60 [facility] Comment on above: Result Comment: mL/m in/1.73m2 CKD-EPI Creatinine Equation (2020) Performed By: #### L 100.0100, L501.9520, L500.4050, L501.6710, L500.4100 #### [facility] [address] [place], [address] Globulin (S) [Mass/Vol] 3.6 g/dL Normal 2.2-4.2 [facility] Comment on above: Performed By: #### L 100.0100, L501.9520, L500.4050, L501.6710, L500.4100 #### [facility] [address] [place], [address] Glucose [Mass/Vol] 101 mg/dL High 70-99 [facility] Comment on above: Performed By: #### L 100.0100, L501.9520, L500.4050, L501.6710, L500.4100 #### [facility] [address] [place], [address] Potassium [Moles/Vol] 4.5 mmol/L Normal 3.3-5.1 [facility] Comment on above: Performed By: #### L 100.0100, L501.9520, L500.4050, L501.6710, L500.4100 #### [facility] [address] [place], [address] Sodium [Moles/Vol] 138 mmol/L Normal 133-145 [facility] Comment on above: Performed By: #### L 100.0100, L501.9520, L500.4050, L501.6710, L500.4100 #### [facility] [address] [place], [address] T PROT 7.5 g/dL Normal 5.9-8.4 [facility] Comment on above: Performed By: #### L 100.0100, L501.9520, L500.4050, L501.6710, L500.4100 #### [facility] [address] [place], [address] Urea nitrogen [Mass/Vol] 14 mg/dL Normal 4-19 [facility] Comment on above: Performed By: #### L 100.0100, L501.9520, L500.4050, L501.6710, L500.4100 #### [facility] [address] [place], [address] Lipid Profileon 12-25-2024 CHOL:HDL 3.77 Normal [facility] Comment on above: Performed By: #### L 100.0100, L501.9520, L500.4050, L501.6710, L500.4100 #### [facility] [address] [place], [address] Cholesterol [Mass/Vol] 174 mg/dL Normal <=200 [facility] Comment on above: Result Comment: Chol esterol level, Desirable <200 mg/dL Borderline high cholesterol 200-239 mg/dL High cholesterol >=240 mg/dL Recommendations of the NCEP Adult Treatment Panel for the following risk-cutoff thresholds for the [place] population. Performed By: #### L 100.0100, L501.9520, L500.4050, L501.6710, L500.4100 #### [facility] [address] [place], [address] Cholesterol in HDL [Mass/Vol] 46 mg/dL Normal [facility] Comment on above: Result Comment: Serena onal Cholesterol Education Program (NCEP) guidelines: <40 mg/dL: Low HDL-cholesterol (major risk factor for CHD) >= 60 mg/dL: High HDL-cholesterol (negative risk factor for CHD) HDL-cholesterol is affected by a number of factors, e.g. smoking, exercise, hormones, sex and age. Performed By: #### L 100.0100, L501.9520, L500.4050, L501.6710, L500.4100 #### [facility] [address] [place], [address] Cholesterol in LDL [Mass/Vol] 74 mg/dL Normal [facility] Comment on above: Result Comment: Bord rqbbya=527-732 mg/dL Higher Phha=760 mg/dL or greater Performed By: #### L 100.0100, L501.9520, L500.4050, L501.6710, L500.4100 #### [facility] [address] [place], [address] Cholesterol in VLDL [Mass/Vol] 54 mg/dL High 5-40 [facility] Comment on above: Performed By: #### L 100.0100, L501.9520, L500.4050, L501.6710, L500.4100 #### [facility] [address] [place], [address] Triglyceride [Mass/Vol] 268 mg/dL High [facility] Comment on above: Result Comment: The drugs N-Acetylcysteine and Metamizole may falsely depress this assay. Normal range: <150 mg/dL Borderline High: 150-199 mg/dL High: 200-499 mg/dL Very High: >500 mg/dL Performed By: #### L 100.0100, L501.9520, L500.4050, L501.6710, L500.4100 #### [facility] [address] [place], [place], [address] Thyroid Stim Hormone (TSH)on 12-25-2024 TSH 2.210 uIU/mL Normal 0.300-4.200 [facility] Comment on above: Performed By: #### L 100.0100, L501.9520, L500.4050, L501.6710, L500.4100 #### [facility] [address] [place], [address] CNOVon 11-21-2024 CNOV Office Visit (PULMGR ) TEE STROUD ([id number]) 1985 F Date Time Provider Department 11/21/24 1:30 PM DORINA CHEN PULMGR During your visit today, we recorded the following information about you: Temperature Pulse Respiration Blood pressure Normal [facility] Gastroenterology Visit Repor ton 11-21-2024 Gastroenterology Visit Report [facility] [address] [place] [address] OFFICE VISIT Date of Service: 11/21/24 MR#: [id number] Acct: [id number] Name: TEE STROUD Rep #: [id number] : 1985 Provider: Dr. 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 Instructions: Order Changed lisinopril 20 1 tab PO DAILY 04/12/23 11/21/24 H istory mg-hydrochlorothiazide 12.5 mg tablet potassium chloride 20 mEq 20 meq PO DAILY 05/04/23 11/21/24 History tablet,extended release(part/cryst) metformin 500 mg tablet 500 mg PO BID 90 days #180 tabs 11/21/24 Rx levothyroxine 75 mcg tablet 75 mcg PO QDAY 05/09/24 11/21/24 H istory omeprazole 40 mg capsule,delayed 40 mg PO QDAY 05/09/24 11/21/24 Hi story release fenofibrate nanocrystallized 48 mg 48 mg PO QHS 1 month #30 tabs 11/21/24 Rx tablet PFSH Medical History Atrial fibrillation with rapid ventricular response Paroxysmal atrial fibrillation History of hypothyroidism Fatty liver Migraine headache Gastric reflux Shortness of breath on exertion Leg cramps CPAP (continuous positive airway pressure) dependence Liver disease Acute sinusitis, unspecified History of IBS Surgical History S/P laparoscopic assisted vaginal hysterectomy (LAVH) ( 01/07/20) History of wisdom tooth extraction, class II edentulism Family History Mother Diabetes Anxiety Hypertension Thyroid disorder Father Arthritis Anxiety Heart disease Hypertension Grandfather Heart disease Grandmother Diabetes Cancer Heart disease Social History Smoking Status: Never smoker alcohol intake: current details: social substance use type: does not use caffeine: Yes what type of physical activity do you participate in: none seatbelt use: always do you feel safe at home: Yes additional social history: [employer] Patient works for [employer] Chief Complaint: Fatty Liver Details: TEE STROUD, is a 39 F who presents to the office today for f/u fatty liver/NAFLD, Metabolic dysfunction-associated steatotic liver disease (MASLD) establish care 11.22.23 for fatty liver. Pt states she was diagnosed 2 years ago. Was started on Ursodiol and Vitamin E from PCP. Does not have any other GI concerns. Reports occasional alcohol use. Takes medication for HTN and thyroid. Previous imaging: US abd / pel 6..- Liver measures 21.5cm Stiffness 10.3 kPa US abd /pel 4..- Liver measures 22.9cm, fatty infiltration. Stiffness 9.8 kPa, suggestive of F2 F3 mild to moderate liver fibrosis, Metavir score. Biliary system within normal limit. No gallstones or liver mass. 12.07.23- Fib-4 0.64 06.03.24 MELDNa 8 OV 06.06.24 Feeling well since last visit. Working on decreased/restricting caloric intake, especially fatty food and carb, intermittent fasting of about 12 to 15 hours and increased physical activity and exercise. Continues metformin for insulin resistance and rosuvastatin for cholesterol. She has morbid obesity and her weight, BMI 59.7 kg/m??? has not changed much since 1 year. She was following with [facility] obesity clinic and on Topamax but initially did not improve her semaglutide or other GLP-1's like Mounjaro A1c 5.4%. Glucose 103. Her triglyceride showed mild decrease from 224 to 202 and other lipid profile normal on rosuvastatin 10 mg daily. B12, TSH and vitamin D 25-hydroxy normal. We agreed to change rosuvastatin to. Fenofibrate 45 mg daily. She agreed to take Resmitrom. ABD w/elastogr (more content not included)... Normal [facility] Absolute neutrophil countOrd ered By: Mohan Gibbs on 11-20-2024 Neutrophils (Bld) [#/Vol] 5.2 10*3/uL 2.0-7.7 [facility] Anion gap in Serum or Plasma Ordered By: Mohan Gibbs on 11-20-2024 Anion gap [Moles/Vol] 12 mmol/L 5-15 [facility] BUN/creatinine ratioOrdered By: Mohan Gibbs on 11-20-2024 Urea nitrogen/Creatinine [Mass ratio] 13.2 mg/mg 10-20 [facility] Basophil percentageOrdered B y: Mohan Gibbs on 11-20-2024 Basophils/100 WBC (Bld) 0.5 % 0-1 [facility] Bilirubin, totalOrdered By: Mohan Gibbs on 11-20-2024 Bilirubin [Mass/Vol] 0.36 mg/dL 0.00-1.30 [facility] CBC W/Diff, Automatedon 11-08 Absolute Lymph 2.18 X10 3/uL Normal 0.83-4.51 [facility] Comment on above: Performed By: #### L 501.9985, L501.6710, L100.0100, L500.4050, L300.3900 #### [facility] [address] [place], [address] Absolute Neut 5.2 X10 3/uL Normal 2.0-7.7 [facility] Comment on above: Performed By: #### L 501.9985, L501.6710, L100.0100, L500.4050, L300.3900 #### [facility] [address] [place], [address] Basophils/100 WBC (Bld) 0.5 % Normal 0-1 [facility] Comment on above: Performed By: #### L 501.9985, L501.6710, L100.0100, L500.4050, L300.3900 #### [facility] [address] [place], [address] Eosinophils/100 WBC (Bld) 1.7 % Normal 0-5 [facility] Comment on above: Performed By: #### L 501.9985, L501.6710, L100.0100, L500.4050, L300.3900 #### [facility] [address] [place], [address] Erythrocyte distribution width (RBC) [Ratio] 13.1 % Normal 11.6-14.6 [facility] Comment on above: Performed By: #### L 501.9985, L501.6710, L100.0100, L500.4050, L300.3900 #### [facility] [address] [place], [address] Hematocrit (Bld) [Volume fraction] 39.5 % Normal 37-47 [facility] Comment on above: Performed By: #### L 501.9985, L501.6710, L100.0100, L500.4050, L300.3900 #### [facility] [address] [place], [address] Hemoglobin (Bld) [Mass/Vol] 13.3 g/dL Normal 12.0-15.0 [facility] Comment on above: Performed By: #### L 501.9985, L501.6710, L100.0100, L500.4050, L300.3900 #### [facility] [address] [place], [address] IG% 0.600 Normal 0.0-0.9 [facility] Comment on above: Result Comment: IG% - Immature Granulocytes (promyelocytes, myelocytes and metamyelocytes) > 1% indicates that a LEFT SHIFT is Present. Performed By: #### L 501.9985, L501.6710, L100.0100, L500.4050, L300.3900 #### [facility] [address] [place], [address] Lymphocytes/100 WBC (Bld) 26.8 % Normal 19-41 [facility] Comment on above: Performed By: #### L 501.9985, L501.6710, L100.0100, L500.4050, L300.3900 #### [facility] [address] [place], [address] MCH (RBC) [Entitic mass] 28.3 pg Normal 27.0-32.0 [facility] Comment on above: Performed By: #### L 501.9985, L501.6710, L100.0100, L500.4050, L300.3900 #### [facility] [address] [place], [address] MCHC (RBC) [Mass/Vol] 33.7 g/dL Normal 32-36 [facility] Comment on above: Performed By: #### L 501.9985, L501.6710, L100.0100, L500.4050, L300.3900 #### [facility] [address] [place], [address] MCV (RBC) [Entitic vol] 84.0 fL Normal 81-99 [facility] Comment on above: Performed By: #### L 501.9985, L501.6710, L100.0100, L500.4050, L300.3900 #### [facility] [address] [place], [address] Monocytes/100 WBC (Bld) 6.3 % Normal 0-10 [facility] Comment on above: Performed By: #### L 501.9985, L501.6710, L100.0100, L500.4050, L300.3900 #### [facility] [address] [place], [address] Neutrophils/100 WBC (Bld) 64.1 % Normal 47-70 [facility] Comment on above: Performed By: #### L 501.9985, L501.6710, L100.0100, L500.4050, L300.3900 #### [facility] [address] [place], [address] Nucleated RBC (Bld) [#/Vol] 0 10*3/uL Normal 0-5 [facility] Comment on above: Performed By: #### L 501.9985, L501.6710, L100.0100, L500.4050, L300.3900 #### [facility] [address] [place], [address] Platelet mean volume (Bld) [Entitic vol] 10.7 fL Normal 6.2-12.0 [facility] Comment on above: Performed By: #### L 501.9985, L501.6710, L100.0100, L500.4050, L300.3900 #### [facility] [address] [place], [address] Platelets (Bld) [#/Vol] 206 10*3/uL Normal 150-450 [facility] Comment on above: Performed By: #### L 501.9985, L501.6710, L100.0100, L500.4050, L300.3900 #### [facility] [address] [place], [address] RBC (Bld) [#/Vol] 4.70 10*6/uL Normal 4.2-5.4 [facility] Comment on above: Performed By: #### L 501.9985, L501.6710, L100.0100, L500.4050, L300.3900 #### [facility] [address] [place], [address] RDW SD 39.2 fl Normal 35.1-43.9 [facility] Comment on above: Performed By: #### L 501.9985, L501.6710, L100.0100, L500.4050, L300.3900 #### [facility] [address] [place], [address] WBC (Bld) [#/Vol] 8.1 10*3/uL Normal 4.4-11.0 [facility] Comment on above: Performed By: #### L 501.9985, L501.6710, L100.0100, L500.4050, L300.3900 #### [facility] [address] [place], [address] CRPon 11-20-2024 C-REACTIVE PROT 11.20 mg/L High 0.0-3.0 [facility] Comment on above: Performed By: #### L 501.9985, L501.6710, L100.0100, L500.4050, L300.3900 ####[facility] [address] [place], [address] CRP [Mass/Vol]Ordered By: Jovana Gibbs on 11-20-2024 C-Reactive Protein Extended Range 11.20 mg/L High 0.0-3.0 [facility] Carbon dioxide, total [Moles /volume] in Central venous bloodOrdered By: Mohan Gibbs on 11-20-2024 CO2 [Moles/Vol] 25.5 mmol/L 21.0-32.0 [facility] Chloride assayOrdered By: Jovana Gibbs on 11-20-2024 Chloride [Moles/Vol] 101 mmol/L 98-108 [facility] Comprehensive Metabolic Prof ilon 11-20-2024 Albumin [Mass/Vol] 4.0 g/dL Normal 3.5-5.0 [facility] Comment on above: Performed By: #### L 501.9985, L501.6710, L100.0100, L500.4050, L300.3900 ####[facility] [address] [place], [address] Albumin/Globulin [Mass ratio] 1.1 {ratio} Normal 0.9-2.4 [facility] Comment on above: Performed By: #### L 501.9985, L501.6710, L100.0100, L500.4050, L300.3900 ####[facility] [address] [place], [address] ALK PHOS 88 U/L Normal 35-104 [facility] Comment on above: Performed By: #### L 501.9985, L501.6710, L100.0100, L500.4050, L300.3900 ####[facility] [address] [place], [address] ALT [Catalytic activity/Vol] 72 U/L High <=34 [facility] Comment on above: Performed By: #### L 501.9985, L501.6710, L100.0100, L500.4050, L300.3900 ####[facility] [address] [place], [address] AST [Catalytic activity/Vol] 49 U/L High <=31 [facility] Comment on above: Performed By: #### L 501.9985, L501.6710, L100.0100, L500.4050, L300.3900 ####[facility] [address] [place], [address] Bilirubin [Mass/Vol] 0.36 mg/dL Normal 0.00-1.30 [facility] Comment on above: Performed By: #### L 501.9985, L501.6710, L100.0100, L500.4050, L300.3900 ####[facility] [address] [place], [address] BUN/CRE 13.2 RATIO Normal 10-20 [facility] Comment on above: Performed By: #### L 501.9985, L501.6710, L100.0100, L500.4050, L300.3900 ####[facility] [address] [place], [address] Calcium [Mass/Vol] 9.7 mg/dL Normal 7.6-11.0 [facility] Comment on above: Performed By: #### L 501.9985, L501.6710, L100.0100, L500.4050, L300.3900 ####[facility] [address] [place], [address] Chloride [Moles/Vol] 101 mmol/L Normal 98-108 [facility] Comment on above: Performed By: #### L 501.9985, L501.6710, L100.0100, L500.4050, L300.3900 ####[facility] [address] [place], [address] CO2 [Moles/Vol] 25.5 mmol/L Normal 21.0-32.0 [facility] Comment on above: Performed By: #### L 501.9985, L501.6710, L100.0100, L500.4050, L300.3900 ####[facility] [address] [place], [address] Creatinine [Mass/Vol] 0.78 mg/dL Normal 0.70-1.20 [facility] Comment on above: Performed By: #### L 501.9985, L501.6710, L100.0100, L500.4050, L300.3900 ####[facility] [address] [place], [address] GAP 12 Normal 5-15 [facility] Comment on above: Performed By: #### L 501.9985, L501.6710, L100.0100, L500.4050, L300.3900 ####[facility] [address] [place], [address] GFR/1.73 sq M.predicted among non-blacks MDRD (S/P/Bld) [Vol rate/Area] 98 mL/min/{1.73_m2} Normal >60 [facility] Comment on above: Result Comment: mL/m in/1.73m2 CKD-EPI Creatinine Equation (2020) Performed By: #### L 501.9985, L501.6710, L100.0100, L500.4050, L300.3900 ####[facility] [address] [place], [address] Globulin (S) [Mass/Vol] 3.7 g/dL Normal 2.2-4.2 [facility] Comment on above: Performed By: #### L 501.9985, L501.6710, L100.0100, L500.4050, L300.3900 ####[facility] [address] [place], [address] Glucose [Mass/Vol] 95 mg/dL Normal 70-99 [facility] Comment on above: Performed By: #### L 501.9985, L501.6710, L100.0100, L500.4050, L300.3900 ####[facility] [address] [place], [address] Potassium [Moles/Vol] 3.9 mmol/L Normal 3.3-5.1 [facility] Comment on above: Performed By: #### L 501.9985, L501.6710, L100.0100, L500.4050, L300.3900 ####[facility] [address] [place], [address] Sodium [Moles/Vol] 138 mmol/L Normal 133-145 [facility] Comment on above: Performed By: #### L 501.9985, L501.6710, L100.0100, L500.4050, L300.3900 ####[facility] [address] [place], [address] T PROT 7.7 g/dL Normal 5.9-8.4 [facility] Comment on above: Performed By: #### L 501.9985, L501.6710, L100.0100, L500.4050, L300.3900 ####[facility] [address] [place], [address] Urea nitrogen [Mass/Vol] 10 mg/dL Normal 4-19 [facility] Comment on above: Performed By: #### L 501.9985, L501.6710, L100.0100, L500.4050, L300.3900 ####[facility] [address] [place], [place], [address] Eosinophil percentageOrdered By: Mohan Gibbs on 11-20-2024 Eosinophils/100 WBC (Bld) 1.7 % 0-5 [facility] Erythrocyte distribution wid th ratioOrdered By: Mohan Gibbs on 11-20-2024 Erythrocyte distribution width (RBC) [Ratio] 13.1 % 11.6-14.6 [facility] Erythrocyte distribution wid th standard deviationOrdered By: Mohan Gibbs on 11-20-2024 Erythrocyte distribution width (RBC) [Entitic vol] 39.2 fL 35.1-43.9 [facility] GFR/1.73 sq M.predicted adam g non-blacks MDRD (S/P/Bld) [Vol rate/Area]Ordered By: Mohan Gibbs on 11-20-2024 Estimated GFR (MDRD) Non-Af Amer 98 >60 [facility] Comment on above: mL/min/1.73m2 CKD-EP I Creatinine Equation (2020) Hematocrit Auto (Bld) [Volum e fraction]Ordered By: Mohan Gibbs on 11-20-2024 Hematocrit (Bld) [Volume fraction] 39.5 % 37-47 [facility] Hemoglobin A1con 11-20-2024 HbA1c (Bld) [Mass fraction] 5.7 % Normal <=5.6 [facility] Comment on above: Performed By: #### L 501.9985, L501.6710, L100.0100, L500.4050, L300.3900 ####[facility] [address] [place], [address] Hemoglobin A1c percentageOrd ered By: Mohan Gibbs on 11-20-2024 HbA1c (Bld) [Mass fraction] 5.7 % >5.7 [facility] Hemoglobin measurementOrdere d By: Mohan Gibbs on 11-20-2024 Hemoglobin (Bld) [Mass/Vol] 13.3 g/dL 12.0-15.0 [facility] Immature granulocytes/100 WB C Auto (Bld)Ordered By: Mohan Gibbs on 11-20-2024 Immature granulocytes/100 WBC (Bld) 0.600 % 0.0-0.9 [facility] Comment on above: IG% - Immature Granu locytes (promyelocytes, myelocytes and metamyelocytes) > 1% indicates that a LEFT SHIFT is Present. International normalized rat io (INR) calculationOrdered By: Mohan Gibbs on 11-20-2024 INR Coag (Bld) [Relative time] 0.9 {INR} [facility] - Chemistry and C hemistry - challengeOrdered By: Mohan Gibbs on 11-20-2024 AST [Catalytic activity/Vol] 49 U/L High <32 [facility] Lymphocytes Auto (Unsp spec) [#/Vol]Ordered By: Mohan Gibbs on 11-20-2024 Lymphocytes (Bld) [#/Vol] 2.18 10*3/uL 0.83-4.51 [facility] Lymphocytes/100 WBC Auto (Un sp spec)Ordered By: Mohan Gibbs on 11-20-2024 Lymphocytes/100 WBC (Bld) 26.8 % 19-41 [facility] MCV (mean corpuscular volume ) determinationOrdered By: Mohan Gibbs on 11-20-2024 MCV (RBC) [Entitic vol] 84.0 fL 81-99 [facility] Mean corpuscular hemoglobin (MCH) determinationOrdered By: Mohan Gibbs on 11-20-2024 MCH (RBC) [Entitic mass] 28.3 pg 27.0-32.0 [facility] Mean corpuscular hemoglobin concentration (MCHC) determinationOrdered By: Mohan Gibbs on 11-20-2024 MCHC (RBC) [Mass/Vol] 33.7 g/dL 32-36 [facility] Mean platelet volume determi nationOrdered By: Mohan Gibbs on 11-20-2024 Platelet mean volume (Bld) [Entitic vol] 10.7 fL 6.2-12.0 [facility] Monocyte percentageOrdered B y: Mohan Gibbs on 11-20-2024 Monocytes/100 WBC (Bld) 6.3 % 0-10 [facility] Neutrophil percentageOrdered By: Mohan Gibbs on 11-20-2024 Neutrophils/100 WBC (Bld) 64.1 % 47-70 [facility] Nucleated red blood cell per centageOrdered By: Mohan Gibbs on 11-20-2024 Nucleated RBC/100 WBC (Bld) [Ratio] 0 % 0-5 [facility] Platelet countOrdered By: Jovana Gibbs on 11-20-2024 Platelets (Bld) [#/Vol] 206 10*3/uL 150-450 [facility] Potassium (Unsp spec) [Mass/ Vol]Ordered By: Mohan Gibbs on 11-20-2024 Potassium [Moles/Vol] 3.9 mmol/L 3.3-5.1 [facility] Prothrombin Time w/INRon INR Coag (PPP) [Relative time] 0.9 {INR} Normal [facility] Comment on above: Performed By: #### L 501.9985, L501.6710, L100.0100, L500.4050, L300.3900 #### [facility] [address] [place], [address] PT Coag (PPP) [Time] 12.4 s Normal 11.7-14.9 [facility] Comment on above: Performed By: #### L 501.9985, L501.6710, L100.0100, L500.4050, L300.3900 #### [facility] [address] [place], [address] Prothrombin timeOrdered By: Mohan Gibbs on 11-20-2024 PT Coag (PPP) [Time] 12.4 s 11.7-14.9 [facility] RBC Auto (Bld) [#/Vol]Ordere d By: Mohan Gibbs on 11-20-2024 RBC (Bld) [#/Vol] 4.70 10*6/uL 4.2-5.4 [facility] Serum creatinine measurement (mass/volume)Ordered By: Mohan Gibbs on 11-20-2024 Creatinine [Mass/Vol] 0.78 mg/dL 0.70-1.20 [facility] Serum globulin measurementOr dered By: Mohan Gibbs on 11-20-2024 Globulin (S) [Mass/Vol] 3.7 g/dL 2.2-4.2 [facility] Serum glucose measurement (m ass/volume)Ordered By: Mohan Gibbs on 11-20-2024 Glucose [Mass/Vol] 95 mg/dL 70-99 [facility] Serum or plasma alanine martines otransferase (ALT) measurementOrdered By: Mohan Gibbs on 11-20-2024 ALT [Catalytic activity/Vol] 72 U/L High <35 [facility] Serum or plasma albumin hattie urement (mass/volume)Ordered By: Mohan Gibbs on 11-20-2024 Albumin [Mass/Vol] 4.0 g/dL 3.5-5.0 [facility] Serum or plasma albumin/glob ulin mass ratioOrdered By: Mohan Gibbs on 11-20-2024 Albumin/Globulin [Mass ratio] 1.1 {ratio} 0.9-2.4 [facility] Serum or plasma alkaline dion sphatase measurementOrdered By: Mohan Gibbs on 11-20-2024 ALP [Catalytic activity/Vol] 88 U/L 35-104 [facility] Serum or plasma calcium hattie urement (mass/volume)Ordered By: Mohan Gibbs on 11-20-2024 Calcium [Mass/Vol] 9.7 mg/dL 7.6-11.0 [facility] Serum or plasma urea nitroge n measurement (mass/volume)Ordered By: Mohan Gibbs on 11-20-2024 Urea nitrogen [Mass/Vol] 10 mg/dL 4-19 [facility] Sodium levelOrdered By: Hermelinda Gibbs on 11-20-2024 Sodium [Moles/Vol] 138 mmol/L 133-145 [facility] Total proteinOrdered By: Nickolas Gibbs on 11-20-2024 Protein [Mass/Vol] 7.7 g/dL 5.9-8.4 [facility] White blood cell (WBC) count Ordered By: Mohan Gibbs on 11-20-2024 WBC (Bld) [#/Vol] 8.1 10*3/uL 4.4-11.0 [facility] ABD Limited w/ Elastographyo n 11-14-2024 ABD Limited w/ Elastography [facility] [facility] [address] [place], [place] [address] ABD Limited w/ Elastography MR#: [id number] Acct: [id number] Name: TEE STROUD Rep #: [id number] : 1985 F 39 From: Marvin Salmeron MD PCP: Dr. Jose Addison MD Status: [facility] CLI Study: ABD Limited w/ Elastography Date of Exam: 04/03 Exam# [id number] Ordering Dr: Mohan Gibbs MD PROCEDURE: ULTRASOUND ABDOMEN LIMITED WITH ELASTOGRAPHY REASON FOR EXAM: Liver fibrosis. COMPARISON: Ultrasound abdomen with elastography dated 12/21/2023. TECHNIQUE: Right upper quadrant abdominal ultrasound. Shear wave elastography for non-invasive assessment of liver tissue stiffness. Real-time grayscale and color flow imaging was performed along with routine image documentation. FINDINGS: LIVER: Size: Enlarged Length: 24 cm sagittally. Echotexture: Hyperechoic parenchyma. Coarsened texture. Contour: Normal Lesions: None identified Elastography: EQI Med: 9.7 kPa EQI Med Prosper: 1.78 m/s GALLBLADDER: Normal COMMON BILE DUCT: 0.47 cm.. PANCREAS: Echogenic parenchyma. Right kidney: Size measures 11.5 x 6.1 x 5.4 cm. Cortex measures 1.3 cm. US/ABD Limited w/ Elastography IMPRESSION: 1. Marked hepatomegaly. 2. Steatosis. 3. F 2 to F 3, moderate to severe likelihood of clinically significant hepatic fibrosis. Reference Values: SRU <1.37 m/s (5.7kPa): No to mild fibrosis 1.37 m/s - 2.2 m/s: Moderate to severe fibrosis >2.2 m/s (15kPa): Significant fibrosis / cirrhosis METAVIR Score F2 or higher: 1.34 m/s (5.7kPa) F3 or higher: 1.55 m/s (7.3kPa) F4: 1.80 m/s (10kPa) * If the IQR/Med is >30%, the variance in the measurements is a large and the accuracy of the measurement may be in question. Reading Location: [place] [address] CC: Dr. Mohan Gibbs MD; Dr. Jose Addison MD Scow Derrick Operator: Signed Normal [facility] Office Visit Reporton 2023 Office Visit Report [facility] [address] [facility] [place] [address] OFFICE VISIT Date of Service: 05/26/24 MR#: [id number] Acct: [id number] Patient: TEE STROUD Rep #: [id number] : 1985 Provider: KALYAN Acosta Age/Sex: 38/F Location: [facility] [place] Status: Signed Employer Purchased Covid Test Note: Patient here today for Covid Testing, requested by their Employer. Assessment and Plan Assessment and Plan Orders: Orders POC Cepheid Covid, FluAB, RSV 05/26/24 KALYAN Michael Medications: On Hold ergocalciferol (vitamin D2) Hold Comment: Order Changed 50,[address] Mohan Gibbs MD 07/24/24 0650 Date Gurwinder BIGGS Cosigner Signature: Date (if applicable) CC: Normal [facility] Absolute lymphocyte countOrd ered By: Radha Barnes on 12-12-2023 Lymphocytes Auto (Unsp spec) [#/Vol] 1.67 10*3/uL 0.83-4.51 [facility] Automated lymphocyte count a s percentage of total leukocytesOrdered By: Radha Beardenine on 12-12-2023 Lymphocytes/100 WBC Auto (Unsp spec) 28.0 % 19-41 [facility] Basophil percentageOrdered B y: Radha Beardenine on 12-12-2023 Basophils/100 WBC (Bld) 0.5 % 0-1 [facility] Chloride [Moles/Vol] 106 mmol/L 98-107 [facility] Eosinophils/100 WBC (Bld) 2.0 % 0-5 [facility] Glucose [Mass/Vol] 129 mg/dL 74-106 [facility] Comment on above: Fasting Glucose resu lt greater than or equal to 126 mg/dL suggests DIABETES MELLITUS per A.D.A. criteria. Hemoglobin (Bld) [Mass/Vol] 14.3 g/dL 12.0-15.0 [facility] Monocytes/100 WBC (Bld) 5.4 % 0-10 [facility] Neutrophils (Bld) [#/Vol] 3.8 10*3/uL 2.0-7.7 [facility] Neutrophils/100 WBC (Bld) 63.3 % 47-70 [facility] Potassium [Moles/Vol] 3.8 mmol/L 3.5-5.1 [facility] Sodium [Moles/Vol] 139 mmol/L 136-145 [facility] WBC (Bld) [#/Vol] 6.0 10*3/uL 4.4-11.0 [facility] CNPNon 12-12-2023 CNPN Telephone (AGGENS4) TEE [id number]) 1985 F Date Time Provider Department 12/12/23 YAYA HIGHTOWER AGGENS4 During your visit today, we recorded the following information about you: Shanelle Rajan MA 12/12/2023 2:37 PM Signed Patient called in to let you know she had her blood work done which I just scanned in and also she was in the ER at [facility] and she is in afib. Sh was just there this morning and the results from the EKG are not in she said. 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 She never started phentermine or topiramate recommended to not take phentermine but may initiate topiramate. She does have an appointment for follow-up. Allergies As of Date: 12/12/2023 Noted Allergy Reaction CEFACLOR 07/21/2010 16 - Unknown 4 - Hives 14 - Other: See Comments Comments: pt does not recall reaction, she was told by her mother that she was allergic and that meds caused joint swelling and discoloration ERYTHROMYCIN 05/28/2017 16 - Unknown Comments: pt stated allergic to Illisone which is not in data base, this med is the closest. She is stating what her mother told her ADHESIVE TAPE-SILICONES 03/20/2018 14 - Other: See Comments Date Reviewed: 11/16/2023 Reviewed by: Yaya Hightower MD - Fully Assessed Reason for Visit: Patient Question [3487] Prescriptions as of 12/12/2023 - topiramate (TOPAMAX) 25 mg tablet Take 1 tablet by mouth once daily. - Vitamin E, dl, acetate, (VITAMIN E) 400 unit capsule - ursodiol (CHIDI) 250 mg tablet Take 250 mg by mouth two times a day with meals. - potassium chloride ER (KLOR-CON) 20 mEq tablet Take 20 mEq by mouth. - lisinopril-hydroCHLOROt hiazide (ZESTORETIC) 20-12.5 mg per tablet Take 1 tablet by mouth every afternoon. 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] 06/27/2017 Vitamin D deficiency [E55.9] 05/28/2017 Acute upper respiratory infection [J06.9] 11/25/2021 Anemia [D64.9] 11/25/2021 Breast pain [N64.4] 11/25/2021 Stress incontinence of urine [N39.3] 11/25/2021 Obesity, Class III, BMI >= 40 [E66.01] 07/21/2022 Obstructive sleep apnea syndrome [G47.33] 11/16/2023 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] 11/16/2023 Dietary counseling and surveillance [Z71.3] 11/16/2023 Medications Discontinued During This Encounter Prescriptions - Phentermine HCl 37.5 mg tablet (Discontinued) 1/2 a pill daily Encounter Status:Closed by YAYA HIGHTOWER on 12/12/23 [facility] Determination of erythrocyte mean corpuscular volume (MCV)Ordered By: Radha Barnes on 12-12-2023 MCV (RBC) [Entitic vol] 86.5 fL 81-99 [facility] Erythrocyte distribution wid th ratioOrdered By: Radha Barnes on 12-12-2023 Erythrocyte distribution width (RBC) [Ratio] 12.5 % 11.6-14.6 [facility] Erythrocyte distribution wid th standard deviationOrdered By: Radha Barnes on 12-12-2023 Erythrocyte distribution width (RBC) [Entitic vol] 39.4 fL 35.1-43.9 [facility] Hematocrit Auto (Bld) [Volum e fraction]Ordered By: Radha Barnes on 12-12-2023 Hematocrit (Bld) [Volume fraction] 43.7 % 37-47 [facility] Immature granulocytes/100 WB C Auto (Bld)Ordered By: Radha Barnes on 12-12-2023 Immature granulocytes/100 WBC (Bld) 0.800 % 0.0-0.9 [facility] Comment on above: IG% - Immature Granu locytes (promyelocytes, myelocytes and metamyelocytes) > 1% indicates that a LEFT SHIFT is Present. Laboratory - Chemistry and C hemistry - challengeOrdered By: Radha Barnes on 12-12-2023 CO2 [Moles/Vol] 29.0 mmol/L 21.0-32.0 [facility] Urea nitrogen/Creatinine [Mass ratio] 13.3 mg/mg 10-20 [facility] Laboratory - Hematology and Cell countsOrdered By: Radha Barnes on 12-12-2023 MCH (RBC) [Entitic mass] 28.3 pg 27.0-32.0 [facility] MCHC (RBC) [Mass/Vol] 32.7 g/dL 32-36 [facility] Nucleated RBC/100 WBC (Bld) [Ratio] 0 % 0-5 [facility] Platelet mean volume (Bld) [Entitic vol] 10.7 fL 6.2-12.0 [facility] Platelets (Bld) [#/Vol] 188 10*3/uL 150-450 [facility] No Panel InformationOrdered By: Radha Barnes on 12-12-2023 Estimated Creatinine Clearance Calc 123.73 ml/min [facility] Estimated GFR (MDRD) Amer 99 mL/min >60 [facility] Comment on above: GFR Calc Estimated GFR (MDRD) Non-Af Amer 82 mL/min >60 [facility] Comment on above: Non- GFR Calc RBC Auto (Bld) [#/Vol]Ordere d By: Radha Barnes on 12-12-2023 RBC (Bld) [#/Vol] 5.05 10*6/uL 4.2-5.4 [facility] Serum or plasma calcium hattie urement (mass/volume)Ordered By: Radha Barnes on 12-12-2023 Calcium [Mass/Vol] 9.2 mg/dL 8.5-10.1 [facility] Serum or plasma cardiac trop onin I panel by high sensitivity methodOrdered By: Radha Barnes on 12-12-2023 Tropinin I.cardiac panel High sensitivity method 3 pg/mL 3.0-54.0 [facility] Comment on above: Please Note: New Kaley t Units and Gender Specific Reference Ranges. For more information see Policy Stat Procedure [place] High Sensitivity Troponin (TNIH) and attachments. Serum or plasma creatinine m easurement (mass/volume)Ordered By: Radha Barnes on 12-12-2023 Creatinine [Mass/Vol] 0.82 mg/dL 0.55-1.02 [facility] Comment on above: The validity of the calculated GFR & GFRAA in patients over 70 years has not been determined. Clinical correlation is essential. Serum or plasma thyroid stim ulating hormone (TSH) measurement (units/volume)Ordered By: Radha Barnes on 12-12-2023 TSH Qn 2.21 uIU/mL 0.358-3.74 [facility] Serum or plasma urea nitroge n measurement (mass/volume)Ordered By: Radha Barnes on 12-12-2023 Urea nitrogen [Mass/Vol] 11 mg/dL 7-18 [facility] Thin prep Papanicolaou smear with manual screeningOrdered By: Radha Barnes on 12-12-2023 Thin prep Papanicolaou smear with manual screening 4 5-15 [facility] Basophil percentageOrdered B y: Jose Addison on 12-07-2023 Bilirubin [Mass/Vol] 0.40 mg/dL 0.20-1.00 [facility] Comment on above: For patients on eltr ombopag therapy, use of Dimension [place] TBIL is not recommended. Chloride [Moles/Vol] 104 mmol/L 98-107 [facility] Cholesterol [Mass/Vol] 199 mg/dL <200 [facility] Comment on above: <200 mg/dL Desirable 200-240 mg/dL Borderline >240 mg/dL High Risk Glucose [Mass/Vol] 101 mg/dL 74-106 [facility] Comment on above: Fasting Glucose resu lt from 100 to 125 mg/dL suggests IMPAIRED HOMEOSTASIS per A.D.A. criteria. Hemoglobin (Bld) [Mass/Vol] 13.6 g/dL 12.0-15.0 [facility] Potassium [Moles/Vol] 3.9 mmol/L 3.5-5.1 [facility] Protein [Mass/Vol] 7.5 g/dL 6.4-8.2 [facility] Sodium [Moles/Vol] 138 mmol/L 136-145 [facility] Triglyceride [Mass/Vol] 224 mg/dL <199 [facility] Comment on above: The drugs N-Acetylcy steine and Metamizole may falsely depress this assay.Serum Triglycerides Reference Interval Normal <150 mg/dL Borderline high 150 - 199 mg/dL High 200 - 499 mg/dL Very High > or = 500 mg/dL WBC (Bld) [#/Vol] 6.8 10*3/uL 4.4-11.0 [facility] Determination of erythrocyte mean corpuscular volume (MCV)Ordered By: Jose Addison on 12-07-2023 MCV (RBC) [Entitic vol] 86.6 fL 81-99 [facility] Erythrocyte distribution wid th ratioOrdered By: Jose Addison on 12-07-2023 Erythrocyte distribution width (RBC) [Ratio] 12.7 % 11.6-14.6 [facility] Erythrocyte distribution wid th standard deviationOrdered By: Jose Addison on 12-07-2023 Erythrocyte distribution width (RBC) [Entitic vol] 40.0 fL 35.1-43.9 [facility] Hematocrit Auto (Bld) [Volum e fraction]Ordered By: Jose Addison on 12-07-2023 Hematocrit (Bld) [Volume fraction] 42.7 % 37-47 [facility] Iron measurement (mass/mass) Ordered By: Jose Addison on 12-07-2023 Iron (Unsp spec) [Mass/Mass] 56 ug/dL 50-170 [facility] Laboratory - Chemistry and C hemistry - challengeOrdered By: Jose Addison on 12-07-2023 Albumin/Globulin [Mass ratio] 0.7 {ratio} 0.9-2.4 [facility] ALP [Catalytic activity/Vol] 86 U/L 45-117 [facility] ALT [Catalytic activity/Vol] 31 U/L 13-56 [facility] Cholesterol in HDL [Mass/Vol] 43 mg/dL >40 [facility] Comment on above: The drugs N-Acetylcy steine and Metamizole may falsely depress this assay. Reference Range HDL <40 mg/dL Low HDL Cholesterol HDL >or= 60 mg/dL High HDL Cholesterol Cholesterol in LDL [Mass/Vol] 111 mg/dL 0-130 [facility] CO2 [Moles/Vol] 30.0 mmol/L 21.0-32.0 [facility] Cobalamin (Vitamin B12) [Mass/Vol] 337 pg/mL 211-911 [facility] Ferritin [Mass/Vol] 66 ng/mL 8-252 [facility] Globulin (S) [Mass/Vol] 4.3 g/dL 2.2-4.2 [facility] Urea nitrogen/Creatinine [Mass ratio] 17.4 mg/mg 10-20 [facility] Laboratory - Hematology and Cell countsOrdered By: Jose Addison on 12-07-2023 MCH (RBC) [Entitic mass] 27.6 pg 27.0-32.0 [facility] MCHC (RBC) [Mass/Vol] 31.9 g/dL 32-36 [facility] Platelet mean volume (Bld) [Entitic vol] 10.1 fL 6.2-12.0 [facility] Platelets (Bld) [#/Vol] 203 10*3/uL 150-450 [facility] No Panel InformationOrdered By: Jose Addison on 12-07-2023 Estimated GFR (MDRD) Amer 110 mL/min >60 [facility] Comment on above: GFR Calc Estimated GFR (MDRD) Non-Af Amer 91 mL/min >60 [facility] Comment on above: Non- GFR Calc Insulin Level 48.0 mU/L 2.6-37.6 [facility] Total Iron Binding Capacity 334 ug/dL 250-450 [facility] Vitamin D 25-Hydroxy 65.9 ng/mL [facility] Comment on above: Vitamin D 25(OH) Sta tus Range Deficiency <20 ng/mL (50nmol/L) Insufficiency 20 - 30 ng/mL (50 - 75 nmol/L) Sufficiency 30 - 100 ng/mL (75 - 250 nmol/L) Toxicity >100 ng/mL (>250 nmol/L) VLDL Cholesterol 45 mg/dL 5-40 [facility] RBC Auto (Bld) [#/Vol]Ordere d By: Jose Addison on 12-07-2023 RBC (Bld) [#/Vol] 4.93 10*6/uL 4.2-5.4 [facility] Serum or plasma calcium hattie urement (mass/volume)Ordered By: Jose Addison on 12-07-2023 Calcium [Mass/Vol] 9.1 mg/dL 8.5-10.1 [facility] Serum or plasma creatinine m easurement (mass/volume)Ordered By: Jose Addison on 12-07-2023 Creatinine [Mass/Vol] 0.75 mg/dL 0.55-1.02 [facility] Comment on above: The validity of the calculated GFR & GFRAA in patients over 70 years has not been determined. Clinical correlation is essential. Serum or plasma iron saturat ion measurement (mass fraction)Ordered By: Jose Addison on 12-07-2023 Iron saturation [Mass fraction] 16.8 % 15.0-55.0 [facility] Serum or plasma thyroid stim ulating hormone (TSH) measurement (units/volume)Ordered By: Jose Addison on 12-07-2023 TSH Qn 1.72 uIU/mL 0.358-3.74 [facility] Serum or plasma urea nitroge n measurement (mass/volume)Ordered By: Jose Addison on 12-07-2023 Urea nitrogen [Mass/Vol] 13 mg/dL 7-18 [facility] Thin prep Papanicolaou smear with manual screeningOrdered By: Jose Addison on 12-07-2023 Thin prep Papanicolaou smear with manual screening 3.2 g/dL 3.2-5.0 [facility] Thin prep Papanicolaou smear with manual screening 18 U/L 15-37 [facility] Thin prep Papanicolaou smear with manual screening 4 5-15 [facility] Whole blood hemoglobin A1c/t otal hemoglobin ratio (mass fraction)Ordered By: oJse Addison on 12-07-2023 HbA1c (Bld) [Mass fraction] 5.3 % 3.8-5.6 [facility] Comment on above: Normal < 5.7 % Predi abetic 5.7 - 6.4 % Diabetic >or= 6.5 % Please note range changes. Culture, urineOrdered By: Osmany Beavers on 11-26-2023 Bacteria identified Cx Nom (U) Mixed Gram Pos & Gram Neg Org [facility] Laboratory - Microbiology an d Antimicrobial susceptibilityon 08-20-2023 SARS-CoV-2 (COVID-19) RNA JUAN JOSÉ+probe Ql (Unsp spec) Not detected [facility] No Panel Informationon 08-20 Influenza Types A,B Rapid (Clinic) Not detected [facility] Basophil percentageOrdered B y: Jose Addison on 05-21-2023 Chloride [Moles/Vol] 100 mmol/L 98-107 [facility] Glucose [Mass/Vol] 112 mg/dL 74-106 [facility] Comment on above: Fasting Glucose resu lt from 100 to 125 mg/dL suggests IMPAIRED HOMEOSTASIS per A.D.A. criteria. Potassium [Moles/Vol] 4.1 mmol/L 3.5-5.1 [facility] Comment on above: Moderate Hemolysis, Result may be falsely increased. Sodium [Moles/Vol] 135 mmol/L 136-145 [facility] Laboratory - Chemistry and C hemistry - challengeOrdered By: Jose Addison on 05-21-2023 CO2 [Moles/Vol] 29.0 mmol/L 21.0-32.0 [facility] Urea nitrogen/Creatinine [Mass ratio] 15.7 mg/mg 10-20 [facility] No Panel InformationOrdered By: Jose Addison on 05-21-2023 Estimated GFR (MDRD) Amer 84 mL/min >60 [facility] Comment on above: GFR Calc Estimated GFR (MDRD) Non-Af Amer 69 mL/min >60 [facility] Comment on above: Non- GFR Calc Serum or plasma calcium hattie urement (mass/volume)Ordered By: Jose Addison on 05-21-2023 Calcium [Mass/Vol] 8.9 mg/dL 8.5-10.1 [facility] Serum or plasma creatinine m easurement (mass/volume)Ordered By: Jose Addison on 05-21-2023 Creatinine [Mass/Vol] 0.95 mg/dL 0.55-1.02 [facility] Comment on above: The validity of the calculated GFR & GFRAA in patients over 70 years has not been determined. Clinical correlation is essential. Serum or plasma urea nitroge n measurement (mass/volume)Ordered By: Jose Addison on 05-21-2023 Urea nitrogen [Mass/Vol] 15 mg/dL 7-18 [facility] Thin prep Papanicolaou smear with manual screeningOrdered By: Jose Addison on 05-21-2023 Thin prep Papanicolaou smear with manual screening 6 5-15 [facility] Laboratory - Microbiology an d Antimicrobial susceptibilityon 05-18-2023 SARS-CoV-2 (COVID-19) RNA JUAN JOSÉ+probe Ql (Unsp spec) Not detected [facility] No Panel Informationon 05-18 POC Nasal Swab Influenza A,B Not detected [facility] POC Nasal Swab RSV Not detected [facility] Basophil percentageOrdered B y: Theodora Celis on 05-08-2023 WBC (Bld) [#/Vol] 6.6 10*3/uL 4.4-11.0 [facility] Blood erythrocytes count (nu mber/volume)Ordered By: Theodora Celis on 05-08-2023 RBC (Bld) [#/Vol] 4.95 10*6/uL 4.2-5.4 [facility] Blood hemoglobin measurement (mass/volume)Ordered By: Theodora Celis on 05-08-2023 Hemoglobin (Bld) [Mass/Vol] 14.2 g/dL 12.0-15.0 [facility] Blood platelet mean volumeOr dered By: Theodora Celis on 05-08-2023 Platelet mean volume (Bld) [Entitic vol] 10.7 fL 6.2-12.0 [facility] Determination of erythrocyte mean corpuscular volume (MCV)Ordered By: Theodora Celis on 05-08-2023 MCV (RBC) [Entitic vol] 88.5 fL 81-99 [facility] Hematocrit Auto (Bld) [Volum e fraction]Ordered By: Theodora Celis on 05-08-2023 Hematocrit (Bld) [Volume fraction] 43.8 % 37-47 [facility] Laboratory - Hematology and Cell countsOrdered By: Theodora Celis on 05-08-2023 Erythrocyte distribution width (RBC) [Entitic vol] 41.6 fL 35.1-43.9 [facility] Erythrocyte distribution width (RBC) [Ratio] 13.0 % 11.6-14.6 [facility] MCH (RBC) [Entitic mass] 28.7 pg 27.0-32.0 [facility] MCHC Auto (RBC) [Mass/Vol]Or dered By: Theodora Celis on 05-08-2023 MCHC (RBC) [Mass/Vol] 32.4 g/dL 32-36 [facility] Platelets bldOrdered By: Seferino Celis on 05-08-2023 Platelets (Bld) [#/Vol] 198 10*3/uL 150-450 [facility] Basophil percentageon 2022 Chloride [Moles/Vol] 102 mmol/L 98-107 [facility] Glucose [Mass/Vol] 61 mg/dL 74-106 [facility] Potassium [Moles/Vol] 3.3 mmol/L 3.5-5.1 [facility] Sodium [Moles/Vol] 138 mmol/L 136-145 [facility] Laboratory - Chemistry and C hemistry - challengeon 05-01-2023 CO2 [Moles/Vol] 30.0 mmol/L 21.0-32.0 [facility] Urea nitrogen/Creatinine [Mass ratio] 12.6 mg/mg 10-20 [facility] No Panel Informationon 05-01 Estimated GFR (MDRD) Amer 83 mL/min >60 [facility] Comment on above: GFR Calc Estimated GFR (MDRD) Non-Af Amer 69 mL/min >60 [facility] Comment on above: Non- GFR Calc Serum or plasma calcium hattie urement (mass/volume)on 05-01-2023 Calcium [Mass/Vol] 9.4 mg/dL 8.5-10.1 [facility] Serum or plasma creatinine m easurement (mass/volume)on 05-01-2023 Creatinine [Mass/Vol] 0.96 mg/dL 0.55-1.02 [facility] Comment on above: The validity of the calculated GFR & GFRAA in patients over 70 years has not been determined. Clinical correlation is essential. Serum or plasma urea nitroge n measurement (mass/volume)on 05-01-2023 Urea nitrogen [Mass/Vol] 12 mg/dL 7-18 [facility] Thin prep Papanicolaou smear with manual screeningon 05-01-2023 Thin prep Papanicolaou smear with manual screening 6 5-15 [facility] Atypical perinuclear antineu trophil cytoplasmic antibodies measurementOrdered By: Jan Travis on 03-19-2023 Neutrophil cytoplasmic Ab.perinuclear.atypical IF (S) [Titer] <1:20 titer Neg:<1:20 [facility] Comment on above: The atypical pANCA p attern has been observed in asignificant percentage of patients with ulcerative colitis,primary sclerosing cholangitis and autoimmune hepatitis. Basophil percentageOrdered B y: Jan Travis on 03-19-2023 Ammonia (P) [Moles/Vol] 24.0 umol/L 11-32 [facility] Basophil percentage < 0.2 AI 0.0-0.9 [facility] LDH [Catalytic activity/Vol] 170 U/L 84-246 [facility] Erythrocyte sedimentation ra teOrdered By: Jan Travis on 03-19-2023 ESR (Bld) [Velocity] 21 mm/h 0-30 [facility] HIV 1 and HIV-2 antibody ass ay with HIV-1 p24 antigen detectionOrdered By: Jan Travis on 03-19-2023 HIV 1+2 Ab+HIV1 p24 Ag IA Ql Non-Reactive Nonreactive [facility] INR in Blood by Coagulation assayOrdered By: Jan Travis on 03-19-2023 INR Coag (Bld) [Relative time] 1.1 {INR} [facility] Laboratory - CoagulationOrde red By: Jan Travis on 03-19-2023 PT Coag (PPP) [Time] 13.8 s 11.7-14.9 [facility] No Panel InformationOrdered By: Jan Travis on 03-19-2023 Centromere B Antibody <0.2 AI 0.0-0.9 [facility] Ceruloplasmin 29.0 mg/dL 19.0-39.0 [facility] Haptoglobin 116 mg/dL 33-278 [facility] Comment on above: Performed at: [facility] [id number] [place], [place] [id number] Director: Sanket Nguyen PhD, Phone: [phone] at: - [facility] [id number] Director: Mauricio Jacques MD, Phone: [phone] Hepatitis A IgM Antibody Negative Negative [facility] Hepatitis B Core IgM Antibody Negative Negative [facility] Hepatitis C Antibody (EIA) Non-Reactive Non Reactive [facility] Hepatitis C Antibody Comment Comment . [facility] Comment on above: Not infected with HC V unless early or acute infection issuspected (which may be delayed in an immunocompromisedindividual), or other evidence exists to indicate HCVinfection. [employer] Antibody <0.2 AI 0.0-0.9 [facility] Serum DNA double strand anti body assay (units/volume)Ordered By: Jan Travis on 03-19-2023 DNA double strand Ab Qn (S) 1 [IU]/mL 0-9 [facility] Comment on above: Negative <5 Equivoca l 5 - 9 Positive >9 Serum Andreina-1 antibody assay (u nits/volume)Ordered By: Jan Travis on 03-19-2023 Andreina-1 extractable nuclear Ab Qn (S) <0.2 AI 0.0-0.9 [facility] Serum Scl-70 extractable nuc lear antibody assay (units/volume)Ordered By: Jan Travis on 03-19-2023 SCL-70 extractable nuclear Ab Qn (S) <0.2 AI 0.0-0.9 [facility] Serum Rose extractable nucl ear antibody detectionOrdered By: Jan Travis on 03-19-2023 Rose extractable nuclear Ab Ql (S) <0.2 AI 0.0-0.9 [facility] Serum classic neutrophil cyt oplasmic antibody assay (units/volume)Ordered By: Jan Travis on 03-19-2023 Neutrophil cytoplasmic Ab.classic Qn (S) <1:20 titer Neg:<1:20 [facility] Serum mitochondria antibody detectionOrdered By: Jan Travis on 03-19-2023 Mitochondria Ab Ql (S) <20.0 Units 0.0-20.0 [facility] Comment on above: Negative 0.0 - 20.0 Equivocal 20.1 - 24.9 Positive >24.9Mitochondrial (M2) Antibodies are found in 90-96% ofpatients with primary biliary cirrhosis.Performed at: [facility] [id number] Director: Sanket Nguyen PhD, Phone: [phone] Serum or plasma C reactive p rotein measurement (mass/volume)Ordered By: Jan Travis on 03-19-2023 CRP [Mass/Vol] 10.90 mg/L 0.0-3.0 [facility] Comment on above: C-Reactive Protein ( CRP) provides useful information for thediagnosis, therapy and monitoring of inflammatory processesand associated diseases. For the evaluation of Relative Riskfor Cardiovascular Disease, a High Sensitivity CRP (HSCRP)should be ordered. Serum or plasma actin IgG an tibody assay (units/volume)Ordered By: Jan Travis on 03-19-2023 Actin IgG Qn 6 Units 0-19 [facility] Comment on above: Negative 0 - 19 Weak positive 20 - 30 Moderate to strong positive >30 Actin Antibodies are found in 52-85% of patients with autoimmune hepatitis or chronic active hepatitis and in 22% of patients with primary biliary cirrhosis. Serum or plasma [id number] protein tumor marker measurement (units/volume)Ordered By: Jan Travis on 03-19-2023 AFP.tumor marker Qn 2.1 ng/mL 0.0-6.4 [facility] Comment on above: [facility] El ectrochemiluminescence Immunoassay(ECLIA)Values obtained with different assay methods or kits cannotbe used interchangeably. Results cannot be interpreted asabsolute evidence of the presence or absence of malignantdisease.This test is not interpretable in females. Serum or plasma angiotensin converting enzyme measurement (enzymatic activity/volume)Ordered By: Jan Travis on 03-19-2023 Angiotensin converting enzyme [Catalytic activity/Vol] U/L 14-82 [facility] Serum or plasma ferritin collins surement (mass/volume)Ordered By: Jan Travis on 03-19-2023 Ferritin [Mass/Vol] 145 ng/mL 8-252 [facility] Serum or plasma hepatitis B virus surface antigen detection by immunoassayOrdered By: Jan Travis on 03-19-2023 HBV surface Ag IA Ql Negative Negative [facility] Serum perinuclear neutrophil cytoplasmic antibody titer by immunofluorescenceOrdered By: Jan Travis on 03-19-2023 Neutrophil cytoplasmic Ab.perinuclear IF (S) [Titer] <1:20 titer Neg:<1:20 [facility] Comment on above: The presence of posi tive fluorescence exhibiting P-ANCA orC-ANCA patterns alone is not specific for the diagnosis ofWegener's Granulomatosis (WG) or microscopic polyangiitis.Decisions about treatment should not be based solely onANCA IFA results. The International ANCA Group Consensusrecommends follow up testing of positive sera with both GA-3 and MPO-ANCA enzyme immunoassays. As many as 5% serumsamples are positive only by EIA. Ref. AM J Clin [id number];111:507-513. Thin prep Papanicolaou smear with manual screeningOrdered By: Jan Travis on 03-19-2023 Thin prep Papanicolaou smear with manual screening 116 ug/dL 80-158 [facility] Comment on above: Detection Limit = 5 Whole blood hemoglobin A1c/t otal hemoglobin ratio (mass fraction)Ordered By: Jan Travis on 03-19-2023 HbA1c (Bld) [Mass fraction] 5.4 % 3.8-5.6 [facility] Comment on above: Normal < 5.7 % Predi abetic 5.7 - 6.4 % Diabetic >or= 6.5 % Please note range changes. Basophil percentageon 2022 Bilirubin [Mass/Vol] 0.70 mg/dL 0.20-1.00 [facility] Comment on above: For patients on eltr ombopag therapy, use of Dim[place] TBIL is not recommended. Chloride [Moles/Vol] 104 mmol/L 98-107 [facility] Cholesterol [Mass/Vol] 173 mg/dL <200 [facility] Comment on above: <200 mg/dL Desirable 200-240 mg/dL Borderline >240 mg/dL High Risk Glucose [Mass/Vol] 90 mg/dL 74-106 [facility] Potassium [Moles/Vol] 4.1 mmol/L 3.5-5.1 [facility] [place] Protein [Mass/Vol] 7.4 g/dL 6.4-8.2 [facility] Sodium [Moles/Vol] 140 mmol/L 136-145 [facility] Triglyceride [Mass/Vol] 208 mg/dL <199 [facility] Comment on above: The drugs N-Acetylcy steine and Metamizole may falsely depress this assay.Serum Triglycerides Reference Interval Normal <150 mg/dL Borderline high 150 - 199 mg/dL High 200 - 499 mg/dL Very High > or = 500 mg/dL WBC (Bld) [#/Vol] 6.4 10*3/uL 4.4-11.0 [facility] Blood erythrocytes count (nu mber/volume)on 01-19-2023 RBC (Bld) [#/Vol] 5.17 10*6/uL 4.2-5.4 [facility] Blood hemoglobin measurement (mass/volume)on 01-19-2023 Hemoglobin (Bld) [Mass/Vol] 14.6 g/dL 12.0-15.0 [facility] Blood platelet mean volumeon 01-19-2023 Platelet mean volume (Bld) [Entitic vol] 10.7 fL 6.2-12.0 [facility] Determination of erythrocyte mean corpuscular volume (MCV)on 01-19-2023 MCV (RBC) [Entitic vol] 87.6 fL 81-99 [facility] HIV 1 and HIV-2 antibody ass ay with HIV-1 p24 antigen detectionon 01-19-2023 HIV 1+2 Ab+HIV1 p24 Ag IA Ql Non-Reactive Nonreactive [facility] Hematocrit Auto (Bld) [Volum e fraction]on 01-19-2023 Hematocrit (Bld) [Volume fraction] 45.3 % 37-47 [facility] Iron measurement (mass/mass) on 01-19-2023 Iron (Unsp spec) [Mass/Mass] 73 ug/dL 50-170 [facility] Laboratory - Chemistry and C hemistry - challengeon 01-19-2023 ALP [Catalytic activity/Vol] 88 U/L 45-117 [facility] ALT [Catalytic activity/Vol] 59 U/L 13-56 [facility] CO2 [Moles/Vol] 29.0 mmol/L 21.0-32.0 [facility] Free T4 [Mass/Vol] 1.21 ng/dL 0.76-1.46 [facility] Globulin (S) [Mass/Vol] 4.1 g/dL 2.2-4.2 [facility] Urea nitrogen/Creatinine [Mass ratio] 11.2 mg/mg 10-20 [facility] Laboratory - Hematology and Cell countson 01-19-2023 Erythrocyte distribution width (RBC) [Entitic vol] 40.0 fL 35.1-43.9 [facility] Erythrocyte distribution width (RBC) [Ratio] 12.5 % 11.6-14.6 [facility] MCH (RBC) [Entitic mass] 28.2 pg 27.0-32.0 [facility] MCHC Auto (RBC) [Mass/Vol]on 01-19-2023 MCHC (RBC) [Mass/Vol] 32.2 g/dL 32-36 [facility] [place] No Panel Informationon 01-19 Estimated GFR (MDRD) Amer 102 mL/min >60 [facility] Comment on above: GFR Calc Estimated GFR (MDRD) Non-Af Amer 84 mL/min >60 [facility] Comment on above: Non- GFR Calc Hepatitis B Surface Antigen Non-Reactive Nonreactive [facility] Hepatitis C Antibody Non-Reactive Nonreactive [facility] Comment on above: Non Reactive: < 0.8 Equivocal: >/= 0.8 to < 1.0 Reactive: >/= 1.0The CDC recommends that a reactive/equivocal HCV antibody result be followed up by the HCV Nucleic Acid Amplificationtest (168028) Herpes Simplex Virus I IgG Antibody 52.00 index 0.00-0.90 [facility] Comment on above: Negative <0.91 Equiv ocal 0.91 - 1.09 Positive >1.09 Note: Negative indicates no antibodies detected to HSV-1. Equivocal may suggest early infection. If clinically appropriate, retest at later date. Positive indicates antibodies detected to HSV-1. Thyroid Stimulating Hormone (TSH) 1.21 uIU/mL 0.358-3.74 [facility] Total Iron Binding Capacity 331 ug/dL 250-450 [facility] Vitamin D 25-Hydroxy 71.2 ng/mL [facility] Comment on above: Vitamin D 25(OH) Sta tus Range Deficiency <20 ng/mL (50nmol/L) Insufficiency 20 - 30 ng/mL (50 - 75 nmol/L) Sufficiency 30 - 100 ng/mL (75 - 250 nmol/L) Toxicity >100 ng/mL (>250 nmol/L) Platelets bldon 01-19-2023 Platelets (Bld) [#/Vol] 212 10*3/uL 150-450 [facility] Serum Treponema species anti body detectionon 01-19-2023 Treponema sp Ab Ql (S) Non-Reactive [facility] Serum herpes simplex virus 2 antibody assay by immunoassay (units/volume)on 01-19-2023 HSV 2 Ab IA Qn (S) 13.70 index 0.00-0.90 [facility] Comment on above: Negative <0.91 Equiv ocal 0.91 - 1.09 Positive >1.09 Note: Negative indicates no HSV-2 antibodies detected. Positive indicates HSV-2 antibodies detected. Equivocal and low positive HSV-2 screens (Index 0.91-5.00) may be false positive and are reflexed to supplemental testing in accordance with CDC guidelines.Performed at: [facility] [id number] Director: Sanket Nguyen PhD, Phone: [phone] Serum or plasma albumin hattie urement (mass/volume)on 01-19-2023 Albumin [Mass/Vol] 3.3 g/dL 3.2-5.0 [facility] Serum or plasma albumin/glob ulin mass ratioon 01-19-2023 Albumin/Globulin [Mass ratio] 0.8 {ratio} 0.9-2.4 [facility] Serum or plasma calcium hattie urement (mass/volume)on 01-19-2023 Calcium [Mass/Vol] 9.1 mg/dL 8.5-10.1 [facility] Serum or plasma cholesterol in HDL measurement (mass/volume)on 01-19-2023 Cholesterol in HDL [Mass/Vol] 42 mg/dL >40 [facility] Comment on above: The drugs N-Acetylcy steine and Metamizole may falsely depress this assay. Reference Range HDL <40 mg/dL Low HDL Cholesterol HDL >or= 60 mg/dL High HDL Cholesterol Serum or plasma cholesterol in VLDL measurement (mass/volume)on 01-19-2023 Cholesterol in VLDL [Mass/Vol] 42 mg/dL 5-40 [facility] Serum or plasma creatinine m easurement (mass/volume)on 01-19-2023 Creatinine [Mass/Vol] 0.81 mg/dL 0.55-1.02 [facility] [place] Comment on above: The validity of the calculated GFR & GFRAA in patients over 70 years has not been determined. Clinical correlation is essential. Serum or plasma ferritin collins surement (mass/volume)on 01-19-2023 Ferritin [Mass/Vol] 103 ng/mL 8-252 [facility] Serum or plasma iron saturat ion measurement (mass fraction)on 01-19-2023 Iron saturation [Mass fraction] 22.1 % 15.0-55.0 [facility] Serum or plasma low density lipoprotein (LDL) cholesterol measurement (mass/volume)on 01-19-2023 Cholesterol in LDL [Mass/Vol] 89 mg/dL 0-130 [facility] Serum or plasma urea nitroge n measurement (mass/volume)on 01-19-2023 Urea nitrogen [Mass/Vol] 9 mg/dL 7-18 [facility] Thin prep Papanicolaou smear with manual screeningon 01-19-2023 Thin prep Papanicolaou smear with manual screening 31 U/L 15-37 [facility] Thin prep Papanicolaou smear with manual screening 7 5-15 [facility] No Panel Informationon 12-04 Influenza Types A,B Rapid (Clinic) Negative [facility] POC SARS CoV-2 Antigen Negative [facility] Absolute lymphocyte counton 08-10-2022 Lymphocytes Auto (Unsp spec) [#/Vol] 1.48 10*3/uL 0.83-4.51 [facility] Work Phone: Basophil percentageon 2021 Basophils/100 WBC (Bld) 0.5 % 0-1 [facility] Work Phone: Bilirubin [Mass/Vol] 0.70 mg/dL 0.20-1.00 [facility] Work Phone: [phone] Comment on above: For patients on eltr ombopag therapy, use of [place] [place] TBIL is not recommended. Chloride [Moles/Vol] 103 mmol/L 98-107 [facility] Work Phone: Cholesterol [Mass/Vol] 164 mg/dL <200 [facility] Work Phone: Comment on above: <200 mg/dL Desirable 200-240 mg/dL Borderline >240 mg/dL High Risk Eosinophils/100 WBC (Bld) 1.2 % 0-5 [facility] Work Phone: Glucose [Mass/Vol] 98 mg/dL 74-106 [facility] Work Phone: [phone] Neutrophils (Bld) [#/Vol] 3.7 10*3/uL 2.0-7.7 [facility] Work Phone: [phone] Neutrophils/100 WBC (Bld) 65.0 % 47-70 [facility] Work Phone: Potassium [Moles/Vol] 4.0 mmol/L 3.5-5.1 [facility] [place] Work Phone: [phone] Protein [Mass/Vol] 7.8 g/dL 6.4-8.2 [facility] Work Phone: [phone] Sodium [Moles/Vol] 141 mmol/L 136-145 [facility] Work Phone: Triglyceride [Mass/Vol] 203 mg/dL <199 [facility] Work Phone: Comment on above: The drugs N-Acetylcy steine and Metamizole may falsely depress this assay.Serum Triglycerides Reference Interval Normal <150 mg/dL Borderline high 150 - 199 mg/dL High 200 - 499 mg/dL Very High > or = 500 mg/dL WBC (Bld) [#/Vol] 5.6 10*3/uL 4.4-11.0 [facility] Work Phone: Blood erythrocytes count (nu mber/volume)on 08-10-2022 RBC (Bld) [#/Vol] 5.03 10*6/uL 4.2-5.4 [facility] Work Phone: [phone] Blood hemoglobin measurement (mass/volume)on 08-10-2022 Hemoglobin (Bld) [Mass/Vol] 14.0 g/dL 12.0-15.0 [facility] Work Phone: [phone] Blood lymphocytes/100 leukoc yteson 08-10-2022 Lymphocytes/100 WBC (Bld) 26.2 % 19-41 [facility] Work Phone: [phone] Blood monocytes/100 leukocyt eson 08-10-2022 Monocytes/100 WBC (Bld) 6.6 % 0-10 [facility] Work Phone: [phone] Blood platelet mean volumeon 08-10-2022 Platelet mean volume (Bld) [Entitic vol] 10.7 fL 6.2-12.0 [facility] Work Phone: [phone] Determination of erythrocyte mean corpuscular volume (MCV)on 08-10-2022 MCV (RBC) [Entitic vol] 85.7 fL 81-99 [facility] Work Phone: [phone] Hematocrit Auto (Bld) [Volum e fraction]on 08-10-2022 Hematocrit (Bld) [Volume fraction] 43.1 % 37-47 [facility] Work Phone: [phone] Laboratory - Chemistry and C hemistry - challengeon 08-10-2022 ALP [Catalytic activity/Vol] 87 U/L 45-117 [facility] Work Phone: [phone] ALT [Catalytic activity/Vol] 65 U/L 13-56 [facility] Work Phone: [phone] CO2 [Moles/Vol] 31.0 mmol/L 21.0-32.0 [facility] Work Phone: [phone] Globulin (S) [Mass/Vol] 4.3 g/dL 2.2-4.2 [facility] Work Phone: [phone] Urea nitrogen/Creatinine [Mass ratio] 13.8 mg/mg 10-20 [facility] Work Phone: [phone] Laboratory - Hematology and Cell countson 08-10-2022 Erythrocyte distribution width (RBC) [Entitic vol] 39.2 fL 35.1-43.9 [facility] Work Phone: [phone] Erythrocyte distribution width (RBC) [Ratio] 12.8 % 11.6-14.6 [facility] Work Phone: [phone] Immature granulocytes/100 WBC (Bld) 0.500 % 0.0-0.9 [facility] Work Phone: [phone] Comment on above: IG% - Immature Granu locytes (promyelocytes, myelocytes and metamyelocytes) > 1% indicates that a LEFT SHIFT is Present. MCH (RBC) [Entitic mass] 27.8 pg 27.0-32.0 [facility] Work Phone: [phone] Nucleated RBC/100 WBC (Bld) [Ratio] 0 % 0-5 [facility] Work Phone: [phone] MCHC Auto (RBC) [Mass/Vol]on 08-10-2022 MCHC (RBC) [Mass/Vol] 32.5 g/dL 32-36 [facility] [place] Work Phone: [phone] Panel Informationon 08-10 Estimated GFR (MDRD) Amer 115 mL/min >60 [facility] Work Phone: [phone] Comment on above: GFR Calc Estimated GFR (MDRD) Non-Af Amer 95 mL/min >60 [facility] Work Phone: [phone] Comment on above: Non- GFR Calc Thyroid Stimulating Hormone (TSH) 1.34 uIU/mL 0.358-3.74 [facility] Work Phone: [phone] Vitamin D 25-Hydroxy 45.8 ng/mL [facility] Work Phone: [phone] Comment on above: Vitamin D 25(OH) Sta tus Range Deficiency <20 ng/mL (50nmol/L) Insufficiency 20 - 30 ng/mL (50 - 75 nmol/L) Sufficiency 30 - 100 ng/mL (75 - 250 nmol/L) Toxicity >100 ng/mL (>250 nmol/L) Platelets bldon 08-10-2022 Platelets (Bld) [#/Vol] 192 10*3/uL 150-450 [facility] Work Phone: Serum or plasma albumin hattie urement (mass/volume)on 08-10-2022 Albumin [Mass/Vol] 3.5 g/dL 3.2-5.0 [facility] Work Phone: Serum or plasma albumin/glob ulin mass ratioon 08-10-2022 Albumin/Globulin [Mass ratio] 0.8 {ratio} 0.9-2.4 [facility] Work Phone: Serum or plasma calcium hattie urement (mass/volume)on 08-10-2022 Calcium [Mass/Vol] 9.0 mg/dL 8.5-10.1 [facility] Work Phone: Serum or plasma cholesterol in HDL measurement (mass/volume)on 08-10-2022 Cholesterol in HDL [Mass/Vol] 44 mg/dL >40 [facility] Work Phone: Comment on above: The drugs N-Acetylcy steine and Metamizole may falsely depress this assay. Reference Range HDL <40 mg/dL Low HDL Cholesterol HDL >or= 60 mg/dL High HDL Cholesterol Serum or plasma cholesterol in VLDL measurement (mass/volume)on 08-10-2022 Cholesterol in VLDL [Mass/Vol] 41 mg/dL 5-40 [facility] Work Phone: Serum or plasma creatinine m easurement (mass/volume)on 08-10-2022 Creatinine [Mass/Vol] 0.73 mg/dL 0.55-1.02 [facility] [place] Work Phone: Comment on above: The validity of the calculated GFR & GFRAA in patients over 70 years has not been determined. Clinical correlation is essential. Serum or plasma low density lipoprotein (LDL) cholesterol measurement (mass/volume)on 08-10-2022 Cholesterol in LDL [Mass/Vol] 79 mg/dL 0-130 [facility] Work Phone: Serum or plasma urea nitroge n measurement (mass/volume)on 08-10-2022 Urea nitrogen [Mass/Vol] 10 mg/dL 7-18 [facility] Work Phone: Thin prep Papanicolaou smear with manual screeningon 08-10-2022 Thin prep Papanicolaou smear with manual screening 38 U/L 15-37 [facility] Work Phone: Thin prep Papanicolaou smear with manual screening 7 5-15 [facility] Work Phone: Basophil percentageon 2021 Basophil percentage 50-100 SEEN /hpf 0-5 [facility] Work Phone: Bilirubin Test strip Ql (U)o n 06-19-2022 Bilirubin Ql (U) Negative Negative [facility] Work Phone: Calcium oxalate crystals det ection in urine sediment by light microscopyon 06-19-2022 Calcium oxalate crystals LM Ql (Urine sed) 3+ /hpf [facility] Work Phone: Ketones Test strip Ql (U)on 06-19-2022 Ketones Ql (U) 5 mg/dl Negative [facility] Work Phone: Laboratory - Chemistry and C hemistry - challengeon 06-19-2022 Bilirubin Ql (U) Small (1+) [facility] Work Phone: Specific gravity (U) [Rel density] >1.030 [facility] Work Phone: Urobilinogen (U) [Mass/Vol] Negative [facility] Work Phone: Laboratory - Hematology and Cell countson 06-19-2022 Hemoglobin Ql (U) Large [facility] Work Phone: Laboratory - Specimen inform ationon 06-19-2022 Clarity (U) Clear [facility] Work Phone: Color (U) Burleigh [facility] Work Phone: Laboratory - Urinalysison Nitrite Ql (U) Negative [facility] Work Phone: Protein Ql (U) Negative [facility] Work Phone: Mucus LM Ql (Urine sed)on Mucus Ql (Urine sed) 0 SEEN /hpf [facility] [place] Work Phone: Nitrite Test strip Ql (U)on 06-19-2022 Nitrite Ql (U) Negative Negative [facility] Work Phone: No Panel Informationon 06-19 Urine Leukocytes Positive [facility] Work Phone: Urine Non-Hemolyzed Blood [facility] Work Phone: Protein Test strip Ql (U)on 06-19-2022 Protein Ql (U) 30 mg/dl Negative [facility] Work Phone: Squamous epithelial cells de tection in urine sediment by light microscopyon 06-19-2022 Epithelial cells.squamous LM Ql (Urine sed) 5-10 SEEN /hpf -10 [facility] Work Phone: Urine blood detectionon 06-10 RBC Ql (U) 250 /ul Negative [facility] Work Phone: RBC Ql (U) 10-25 SEEN /hpf 0-5 [facility] Work Phone: Urine clarityon 06-19-2022 Clarity (U) Cloudy Clear [facility] Work Phone: Urine color determinationon 06-19-2022 Color (U) Rosy Yellow [facility] Work Phone: Urine glucose detectionon Glucose Ql (U) Normal mg/dl Normal [facility] Work Phone: Urine leukocyte esterase det ection by dipstickon 06-19-2022 Leukocyte esterase Test strip Ql (U) 500 /ul Negative [facility] Work Phone: Urine pHon 06-19-2022 pH (U) 5.0 [pH] 5.0 - 8.0 [facility] Work Phone: Urine sediment bacteria coun t by microscopy (number/high power field)on 06-19-2022 Bacteria LM.HPF (Urine sed) [#/Area] 1 /[HPF] None Seen [facility] Work Phone: Urine specific gravity measu rementon 06-19-2022 Specific gravity (U) [Rel density] 1.025 1.002-1.030 [facility] Work Phone: Urobilinogen Auto test strip Ql (U)on 06-19-2022 Urobilinogen Ql (U) Normal mg/dl Normal [facility] [place] Work Phone: Laboratory - Microbiology an d Antimicrobial susceptibilityon 05-24-2022 SARS-CoV-2 (COVID-19) RNA JUAN JOSÉ+probe Ql (Unsp spec) Not detected [facility] Work Phone: No Panel Informationon 05-24 Influenza Types A,B Rapid (Clinic) Not detected [facility] Work Phone: HIV 1 and HIV-2 antibody ass ay with HIV-1 p24 antigen detectionon 05-01-2022 HIV 1+2 Ab+HIV1 p24 Ag IA Ql Non-Reactive Nonreactive [facility] Work Phone: No Panel Informationon 05-01 Hepatitis B Surface Antigen Non-Reactive Nonreactive [facility] Work Phone: Hepatitis C Antibody Non-Reactive Nonreactive [facility] Work Phone: Comment on above: Non Reactive: < 0.8 Equivocal: >/= 0.8 to < 1.0 Reactive: >/= 1.0The CDC recommends that a reactive/equivocal HCV antibody result be followed up by the HCV Nucleic Acid Amplificationtest (381369) Serum Treponema species anti body detectionon 05-01-2022 Treponema sp Ab Ql (S) Non-Reactive [facility] Work Phone: Chlamydia trachomatis rRNA d etection by probe and target amplification methodon 04-28-2022 C. trachomatis rRNA JUAN JOSÉ+probe Ql (Unsp spec) Negative Negative [facility] Work Phone: Laboratory - Microbiology an d Antimicrobial susceptibilityon 04-28-2022 N. gonorrhoeae DNA JUAN JOSÉ+probe Ql (Unsp spec) Negative Negative [facility] Work Phone: Comment on above: Performed at: =[facility] [address] [id number] Director: Carolina Marquez MD, Phone: [id number] No Panel Informationon 04-28 POC Trichomonas (Rapid) Negative [facility] Work Phone: Laboratory - Microbiology an d Antimicrobial susceptibilityon 01-30-2022 SARS-CoV-2 (COVID-19) RNA JUAN JOSÉ+probe Ql (Unsp spec) Not detected [facility] Work Phone: S. pyogenes Ag IA Ql (Unsp spec) Negative [facility] Work Phone: No Panel Informationon 01-30 Influenza Types A,B Rapid (Clinic) Not detected [facility] Work Phone: B12on 04-21-2020 Cobalamin (Vitamin B12) [Mass/Vol] 443 pg/mL Normal 211-911 [facility] ([place]) Comment on above: Performed By: #### C BC, ADIFF, ANEU, FE, TSH, FT4, LIPID, CMP, GFR, IBC #### [address] [address] #### FERR, FOL, B12, VIDH #### [address] [address] Klaus 04-21-2020 Ferritin [Mass/Vol] 91.4 ng/mL Normal 8.0-252.0 [facility] ([place]) Comment on above: Performed By: #### C BC, ADIFF, ANEU, FE, TSH, FT4, LIPID, CMP, GFR, IBC #### [address] [address] #### FERR, FOL, B12, VIDH #### [address] [address] FOLon 04-21-2020 Folate 14.32 ng/mL Normal 5.38-24.00 [facility] ([place]) Comment on above: Performed By: #### C BC, ADIFF, ANEU, FE, TSH, FT4, LIPID, CMP, GFR, IBC #### [address] [address] #### FERR, FOL, B12, VIDH #### [place] [address] OSMOSon 04-21-2020 Osmolality [Osmolality] 279 mOsm/kg Normal 275-300 [facility] ([place] Comment on above: Performed By: #### C BC, ADIFF, ANEU, FE, TSH, FT4, LIPID, CMP, GFR, IBC #### [place] [address] #### FERR, FOL, B12, VIDH #### [place] [address] OSMOUon 04-21-2020 U Osmolality 730 mOsm/kg Normal 390-1090 [facility] ([place]) Comment on above: Performed By: #### C BC, ADIFF, ANEU, FE, TSH, FT4, LIPID, CMP, GFR, IBC #### [place] [address] #### FERR, FOL, B12, VIDH #### [place] [address] VIDHon 04-21-2020 Vit. D 25-Hydroxy 61.2 ng/mL Normal [facility] ([place]) Comment on above: Result Comment: Inte rpretive Values Based on Total 25(OH)D: Severe Deficiency <20 ng/mL Mild to Moderate Deficiency 20-30 ng/mL Optimum Levels 30-100 ng/mL Toxicity Possible >100 ng/mL Performed By: #### C BC, ADIFF, ANEU, FE, TSH, FT4, LIPID, CMP, GFR, IBC #### [place] [address] #### FERR, FOL, B12, VIDH #### [place] [address] .Auto Diffon 04-20-2020 Ammonia (P) [Mass/Vol] 0.50 10 3/mcL Normal 0.15-1.00 [facility] ([place] Comment on above: Performed By: #### C BC, ADIFF, ANEU, FE, TSH, FT4, LIPID, CMP, GFR, IBC #### [address] [address] #### FERR, FOL, B12, VIDH #### [address] [address] Basophils (Bld) [#/Vol] 0.00 10 3/mcL Normal 0.00-0.19 [facility] ([place]) Comment on above: Performed By: #### C BC, ADIFF, ANEU, FE, TSH, FT4, LIPID, CMP, GFR, IBC #### [address] [address] #### FERR, FOL, B12, VIDH #### [address] [address] Basophils/100 WBC (Bld) 0.5 % Normal 0.0-2.5 [facility] ([place]) Comment on above: Performed By: #### C BC, ADIFF, ANEU, FE, TSH, FT4, LIPID, CMP, GFR, IBC #### [place] [address] #### FERR, FOL, B12, VIDH #### [address] [address] Eosinophils (Bld) [#/Vol] 0.20 10 3/mcL Normal 0.00-0.40 [facility] ([place] Comment on above: Performed By: #### C BC, ADIFF, ANEU, FE, TSH, FT4, LIPID, CMP, GFR, IBC #### [place] [address] #### FERR, FOL, B12, VIDH #### [address] [address] Eosinophils/100 WBC (Bld) 1.7 % Normal 0.0-7.0 [facility] ([place] Comment on above: Performed By: #### C BC, ADIFF, ANEU, FE, TSH, FT4, LIPID, CMP, GFR, IBC #### [address] [address] #### FERR, FOL, B12, VIDH #### [address] [address] Lymphocytes (Bld) [#/Vol] 2.40 10 3/mcL Normal 0.77-3.85 [facility] ([place] Comment on above: Performed By: #### C BC, ADIFF, ANEU, FE, TSH, FT4, LIPID, CMP, GFR, IBC #### [address] [address] #### FERR, FOL, B12, VIDH #### [address] [address] Lymphocytes/100 WBC (Bld) 26.0 % Normal 10.0-50.0 [facility] ([place]) Comment on above: Performed By: #### C BC, ADIFF, ANEU, FE, TSH, FT4, LIPID, CMP, GFR, IBC #### [address] [address] #### FERR, FOL, B12, VIDH #### [address] [address] Monocytes/100 WBC (Bld) 5.1 % Normal 1.7-13.0 [facility] ([place]) Comment on above: Performed By: #### C BC, ADIFF, ANEU, FE, TSH, FT4, LIPID, CMP, GFR, IBC #### [address] [address] #### FERR, FOL, B12, VIDH #### [address] [address] Neutrophils/100 WBC (Bld) 66.7 % Normal 37.0-80.0 [facility] ([place]) Comment on above: Performed By: #### C BC, ADIFF, ANEU, FE, TSH, FT4, LIPID, CMP, GFR, IBC #### [address] [address] #### FERR, FOL, B12, VIDH #### [address] [address] .GFRon 04-20-2020 GFR 104 ml/min/1.73sqm Normal [facility] ([place] Comment on above: Result Comment: GFR Population mean for , Non- Americans Ages 20-29 = 116 mL/min/1.73 sq.m. Ages 30-39 = 107 mL/min/1.73 sq.m. Ages 40-49 = 99 mL/min/1.73 sq.m. Ages 50-59 = 93 mL/min/1.73 sq.m. Ages 60-69 = 85 mL/min/1.73 sq.m. Ages 70+ = 75 mL/min/1.73 sq.m. Chronic Kidney Disease: Less than 60 mL/min/1.73 square meters End Stage Renal Disease: Less than 15 mL/min/1.73 square meters Performed By: #### C BC, ADIFF, ANEU, FE, TSH, FT4, LIPID, CMP, GFR, IBC #### [address] [address] #### FERR, FOL, B12, VIDH #### [place] [address] GFR Non- 86 ml/min/1.73sqm Normal [facility] ([place] Comment on above: Result Comment: GFR Population mean for , Non- Americans Ages 20-29 = 116 mL/min/1.73 sq.m. Ages 30-39 = 107 mL/min/1.73 sq.m. Ages 40-49 = 99 mL/min/1.73 sq.m. Ages 50-59 = 93 mL/min/1.73 sq.m. Ages 60-69 = 85 mL/min/1.73 sq.m. Ages 70+ = 75 mL/min/1.73 sq.m. Chronic Kidney Disease: Less than 60 mL/min/1.73 square meters End Stage Renal Disease: Less than 15 mL/min/1.73 square meters Performed By: #### C BC, ADIFF, ANEU, FE, TSH, FT4, LIPID, CMP, GFR, IBC #### [address] [address] #### FERR, FOL, B12, VIDH #### [address] [address] .NEUABSon 04-20-2020 Neutrophils (Bld) [#/Vol] 6.10 10 3/mcL Normal 2.85-6.16 [facility] ([place] Comment on above: Performed By: #### C BC, ADIFF, ANEU, FE, TSH, FT4, LIPID, CMP, GFR, IBC #### [address] [address] #### FERR, FOL, B12, VIDH #### [place] [address] CBCon 04-20-2020 Erythrocyte distribution width (RBC) [Ratio] 15.9 % High 11.5-14.5 [facility] ([place] Comment on above: Performed By: #### C BC, ADIFF, ANEU, FE, TSH, FT4, LIPID, CMP, GFR, IBC #### [place] [address] #### FERR, FOL, B12, VIDH #### [place] [address] Hematocrit (Bld) [Volume fraction] 42.9 % Normal 37.0-47.0 [facility] ([place] Comment on above: Performed By: #### C BC, ADIFF, ANEU, FE, TSH, FT4, LIPID, CMP, GFR, IBC #### [place] [address] #### FERR, FOL, B12, VIDH #### [place] [address] Hemoglobin (Bld) [Mass/Vol] 14.2 G/dL Normal 12.0-16.0 [facility] ([place] Comment on above: Performed By: #### C BC, ADIFF, ANEU, FE, TSH, FT4, LIPID, CMP, GFR, IBC #### [place] [address] #### FERR, FOL, B12, VIDH #### [place] [address] MCH (RBC) [Entitic mass] 27.8 pg Normal 27.0-31.2 [facility] ([place] Comment on above: Performed By: #### C BC, ADIFF, ANEU, FE, TSH, FT4, LIPID, CMP, GFR, IBC #### [place] [address] #### FERR, FOL, B12, VIDH #### [place] [address] MCHC (RBC) [Mass/Vol] 33.2 G/dL Normal 33.0-37.0 [facility] ([place]) Comment on above: Performed By: #### C BC, ADIFF, ANEU, FE, TSH, FT4, LIPID, CMP, GFR, IBC #### [place] [address] #### FERR, FOL, B12, VIDH #### [place] [address] MCV (RBC) [Entitic vol] 83.8 fL Normal 80.0-94.0 [facility] ([place]) Comment on above: Performed By: #### C BC, ADIFF, ANEU, FE, TSH, FT4, LIPID, CMP, GFR, IBC #### [place] [address] #### FERR, FOL, B12, VIDH #### [place] [address] Platelet mean volume (Bld) [Entitic vol] 9.2 fL Normal 7.4-10.4 [facility] ([place] Comment on above: Performed By: #### C BC, ADIFF, ANEU, FE, TSH, FT4, LIPID, CMP, GFR, IBC #### [place] [address] #### FERR, FOL, B12, VIDH #### [address] [address] Platelets (Bld) [#/Vol] 219 10 3/mcL Normal 130-400 [facility] ([place] Comment on above: Performed By: #### C BC, ADIFF, ANEU, FE, TSH, FT4, LIPID, CMP, GFR, IBC #### [address] [address] #### FERR, FOL, B12, VIDH #### [address] [address] RBC (Bld) [#/Vol] 5.12 10 6/mcL Normal 4.20-5.40 [facility] ([place]) Comment on above: Performed By: #### C BC, ADIFF, ANEU, FE, TSH, FT4, LIPID, CMP, GFR, IBC #### [address] [address] #### FERR, FOL, B12, VIDH #### [address] [address] WBC (Bld) [#/Vol] 9.10 10 3/mcL Normal 4.60-10.80 [facility] ([place] Comment on above: Performed By: #### C BC, ADIFF, ANEU, FE, TSH, FT4, LIPID, CMP, GFR, IBC #### [address] [address] #### FERR, FOL, B12, VIDH #### [address] [address] CMPon 04-20-2020 Albumin [Mass/Vol] 3.7 G/dL Normal 3.5-5.0 [facility] ([place]) Comment on above: Performed By: #### C BC, ADIFF, ANEU, FE, TSH, FT4, LIPID, CMP, GFR, IBC #### [address] [address] #### FERR, FOL, B12, VIDH #### [address] [address] Albumin/Globulin [Mass ratio] 1.0 {ratio} Low 1.1-2.5 [facility] ([place] Comment on above: Performed By: #### C BC, ADIFF, ANEU, FE, TSH, FT4, LIPID, CMP, GFR, IBC #### [address] [address] #### FERR, FOL, B12, VIDH #### [address] [address] ALP [Catalytic activity/Vol] 101 U/L Normal 40-135 [facility] ([place] Comment on above: Performed By: #### C BC, ADIFF, ANEU, FE, TSH, FT4, LIPID, CMP, GFR, IBC #### [address] [address] #### FERR, FOL, B12, VIDH #### [address] [address] ALT [Catalytic activity/Vol] 71 U/L High 10-35 [facility] ([place] Comment on above: Performed By: #### C BC, ADIFF, ANEU, FE, TSH, FT4, LIPID, CMP, GFR, IBC #### [address] [address] #### FERR, FOL, B12, VIDH #### [address] [address] AST [Catalytic activity/Vol] 40 U/L Normal 10-40 [facility] ([place] Comment on above: Performed By: #### C BC, ADIFF, ANEU, FE, TSH, FT4, LIPID, CMP, GFR, IBC #### [address] [address] #### FERR, FOL, B12, VIDH #### [address] [address] Bili Total 0.8 mg/dL Normal 0.2-1.0 [facility] ([place] Comment on above: Result Comment: Use of this assay is not recommended for patients undergoing treatment with eltrombopag due to the potential for falsely elevated results. Performed By: #### C BC, ADIFF, ANEU, FE, TSH, FT4, LIPID, CMP, GFR, IBC #### [address] [address] #### FERR, FOL, B12, VIDH #### [address] [address] Calcium [Mass/Vol] 9.4 mg/dL Normal 8.4-10.2 [facility] ([place]) Comment on above: Performed By: #### C BC, ADIFF, ANEU, FE, TSH, FT4, LIPID, CMP, GFR, IBC #### [place] [address] #### FERR, FOL, B12, VIDH #### [address] [address] Chloride [Moles/Vol] 103 mmol/L Normal 98-107 [facility] ([place] Comment on above: Performed By: #### C BC, ADIFF, ANEU, FE, TSH, FT4, LIPID, CMP, GFR, IBC #### [place] [address] #### FERR, FOL, B12, VIDH #### [address] [address] CO2 [Moles/Vol] 28 mmol/L Normal 22-29 [facility] ([place] Comment on above: Performed By: #### C BC, ADIFF, ANEU, FE, TSH, FT4, LIPID, CMP, GFR, IBC #### [place] [address] #### FERR, FOL, B12, VIDH #### [address] [address] Creatinine [Mass/Vol] 0.76 mg/dL Normal 0.55-1.02 [facility] ([place] Comment on above: Performed By: #### C BC, ADIFF, ANEU, FE, TSH, FT4, LIPID, CMP, GFR, IBC #### [place] [address] #### FERR, FOL, B12, VIDH #### [address] [address] Electrolyte Balance 8.0 mEq/L Normal [facility] ([place]) Comment on above: Performed By: #### C BC, ADIFF, ANEU, FE, TSH, FT4, LIPID, CMP, GFR, IBC #### [address] [address] #### FERR, FOL, B12, VIDH #### [address] [address] Globulin (S) [Mass/Vol] 3.7 G/dL Normal [facility] ([place]) Comment on above: Performed By: #### C BC, ADIFF, ANEU, FE, TSH, FT4, LIPID, CMP, GFR, IBC #### [address] [address] #### FERR, FOL, B12, VIDH #### [address] [address] Glucose [Mass/Vol] 86 mg/dL Normal 70-105 [facility] ([place] Comment on above: Performed By: #### C BC, ADIFF, ANEU, FE, TSH, FT4, LIPID, CMP, GFR, IBC #### [address] [address] #### FERR, FOL, B12, VIDH #### [address] [address] Potassium [Moles/Vol] 4.4 mmol/L Normal 3.5-5.1 [facility] ([place] Comment on above: Performed By: #### C BC, ADIFF, ANEU, FE, TSH, FT4, LIPID, CMP, GFR, IBC #### [address] [address] #### FERR, FOL, B12, VIDH #### [address] [address] Protein [Mass/Vol] 7.4 G/dL Normal 6.4-8.2 [facility] ([place]) Comment on above: Performed By: #### C BC, ADIFF, ANEU, FE, TSH, FT4, LIPID, CMP, GFR, IBC #### [address] [address] #### FERR, FOL, B12, VIDH #### [address] [address] Sodium [Moles/Vol] 139 mmol/L Normal 136-145 [facility] ([place]) Comment on above: Performed By: #### C BC, ADIFF, ANEU, FE, TSH, FT4, LIPID, CMP, GFR, IBC #### [address] [address] #### FERR, FOL, B12, VIDH #### [address] [address] Urea nitrogen [Mass/Vol] 8 mg/dL Normal 7-18 [facility] ([place] Comment on above: Performed By: #### C BC, ADIFF, ANEU, FE, TSH, FT4, LIPID, CMP, GFR, IBC #### [place] [address] #### FERR, FOL, B12, VIDH #### [address] [address] Urea nitrogen/Creatinine [Mass ratio] 11 ratio Normal 7-27 [facility] ([place] Comment on above: Performed By: #### C BC, ADIFF, ANEU, FE, TSH, FT4, LIPID, CMP, GFR, IBC #### [address] [address] #### FERR, FOL, B12, VIDH #### [address] [address] FEon 04-20-2020 Iron [Mass/Vol] 87 ug/dL Normal 50-170 [facility] ([place] Comment on above: Performed By: #### C BC, ADIFF, ANEU, FE, TSH, FT4, LIPID, CMP, GFR, IBC #### [place] [address] #### FERR, FOL, B12, VIDH #### [address] [address] FT4on 04-20-2020 Free T4 [Mass/Vol] 1.34 ng/dL Normal 0.76-1.46 [facility] ([place]) Comment on above: Performed By: #### C BC, ADIFF, ANEU, FE, TSH, FT4, LIPID, CMP, GFR, IBC #### [address] [address] #### FERR, FOL, B12, VIDH #### [address] [address] IBCon 04-20-2020 TIBC 343 mcg/dL Normal 250-450 [facility] ([place] Comment on above: Performed By: #### C BC, ADIFF, ANEU, FE, TSH, FT4, LIPID, CMP, GFR, IBC #### [address] [address] #### FERR, FOL, B12, VIDH #### [address] [address] LIPIDon 04-20-2020 Cholesterol [Mass/Vol] 164 mg/dL Normal 0-200 [facility] ([place]) Comment on above: Result Comment: Chol esterol Reference Interval: Less than 200 Desirable 200-239 Borderline high risk 240 and above High risk Performed By: #### C BC, ADIFF, ANEU, FE, TSH, FT4, LIPID, CMP, GFR, IBC #### [address] [address] #### FERR, FOL, B12, VIDH #### [address] [address] Cholesterol in HDL [Mass/Vol] 40 mg/dL Normal 40-60 [facility] ([place] Comment on above: Performed By: #### C BC, ADIFF, ANEU, FE, TSH, FT4, LIPID, CMP, GFR, IBC #### [address] [address] #### FERR, FOL, B12, VIDH #### [address] [address] Cholesterol in LDL [Mass/Vol] 86 mg/dL Normal 0-130 [facility] ([place] Comment on above: Performed By: #### C BC, ADIFF, ANEU, FE, TSH, FT4, LIPID, CMP, GFR, IBC #### [place] [address] #### FERR, FOL, B12, VIDH #### [place] [address] Triglyceride [Mass/Vol] 190 mg/dL High 0-150 [facility] ([place]) Comment on above: Result Comment: Trig lyceride Reference Interval: Less than 150 Normal 150-199 Borderline high risk 200-499 High risk 500 or higher Very high risk Performed By: #### C BC, ADIFF, ANEU, FE, TSH, FT4, LIPID, CMP, GFR, IBC #### [place] [address] #### FERR, FOL, B12, VIDH #### [place] [address] TSHon 04-20-2020 TSH Qn 2.09 mcIU/mL Normal 0.36-3.74 [facility] ([place]) Comment on above: Performed By: #### C BC, ADIFF, ANEU, FE, TSH, FT4, LIPID, CMP, GFR, IBC #### [place] [address] #### FERR, FOL, B12, VIDH #### [place] [address] XR CHEST 2 VIEWSon 0 XR CHEST 2 VIEWS ORIGINAL XR CHEST 2 VIEWS CLINICAL STATEMENT: Chest pain, shortness of breath COMPARISON: None FINDINGS: The cardiomediastinal contours are normal. No focal consolidation, significant pleural effusion, vascular congestion or pneumothorax identified. IMPRESSION: No acute radiographic findings. I have personally reviewed the images of this examination and agree with the resident's findings and interpretation. Interpreted By: Patrick Gaitan MD Preliminary Report By: Marlon Mary Electronically Signed By: Patrick Gaitan MD Dictated Date: 04/20/2020 2:16:50 PM Prelim Date: 04/20/2020 3:19:18 PM Sign Date: 04/20/2020 3:48:43 PM Ordering Provider:Jose Drake [facility] ([place]) Office Visit: Vaginal Bleedi ngon 06-27-2017 Alcoholism counseling (procedure) no Invalid Interpretation Code [facility] Documentation of current medications (procedure) Done Invalid Interpretation Code [facility] Fall risk assessment No Invalid Interpretation Code [facility] Tobacco smoking status NHIS Never Invalid Interpretation Code [facility] Tobacco use CPHS Never smoker Invalid Interpretation Code [facility] Lab Report: CBC W/Diff, Auto matedon 06-25-2017 Anisocytosis presence 1+ Invalid Interpretation Code [facility] Hypochromia presence 2+ Invalid Interpretation Code [facility] MICROCYTES 1+ Invalid Interpretation Code [facility] Platelets presence ADEQUATE Invalid Interpretation Code ADEQ [facility] Polychromasia presence RARE Invalid Interpretation Code [facility] Replaced Document: (P) CBC W /Diff, Automatedon 06-25-2017 Absolute Neut 4.7 X10 3/UL Invalid Interpretation Code 2.0-7.[address] [facility] Basophils/100 WBC Auto (Bld) 0.4 % Invalid Interpretation Code 0-[address] [facility] Eosinophils/100 leukocytes 1.9 % Invalid Interpretation Code 0-[address] [facility] Erythrocyte distribution width Auto Ratio (RBC) 18.8 % High 11.6-14.[address] [facility] Erythrocytes (RBC) 4.17 10*6/uL Low 4.2-5.4 [facility] Hematocrit (HCT) 27.9 % Low 37-47 [facility] Hemoglobin mass conc (Bld) 7.4 g/dL Low 12.0-15.[address] [facility] [place] Immature granulocytes/100 WBC (Bld) 0.400 % Invalid Interpretation Code 0.0-0.[address] [facility] [place] Lymphocytes 2.03 X10 3/UL Invalid Interpretation Code 0.83-4.51 [facility] Lymphocytes/100 leukocytes 27.1 % Invalid Interpretation Code 19-[address] [facility] [place] [place] MCH 17.7 pg Low 27.0-32.[address] [facility] [place] MCHC mass conc (RBC) 26.5 G/GL Low 32-36 [facility] 66.9 fL Low 81-[address] [facility] [place] Monocytes/100 leukocytes 7.1 % Invalid Interpretation Code 0-[address] [facility] [place] Neutrophils/100 WBC Auto (Bld) 63.1 % Invalid Interpretation Code 47-[address] [facility] [place] Platelets 300 10*3/mm3 Invalid Interpretation Code 150-[address] [facility] [place] PMV by Tyler 9.8 fL Invalid Interpretation Code 6.2-12.[address] [facility] [place] RDW SD 45.1 fL High 35.1-43.[address] [facility] WBC (Leukocytes) 7.5 10*3/uL Invalid Interpretation Code 4.4-11.[address] [facility] Replaced Document: (P) Alicia rdz Disease Profileon 05-31-2017 ENDOMYSIAL IGA . Invalid Interpretation Code Negative [facility] Work Phone: [phone] IgA 181 mg/dL Invalid Interpretation Code 87-352 [facility] Work Phone: [phone] tTG IGA . U/mL Invalid Interpretation Code 0-3 [facility] Work Phone: [phone] Lab Report: CBC W/Diff, Auto matedon 05-28-2017 complete blood count (CBC), comments COMMENT Invalid Interpretation Code [facility] Work Phone: [phone] SMEAR COMMENT COMMENT Invalid Interpretation Code [facility] Work Phone: [phone] Lab Report: Comprehensive Me tabolic Profilon 05-28-2017 Alanine aminotransferase (ALT) 50 U/L Invalid Interpretation Code 12-78 [facility] Work Phone: [phone] Albumin 3.2 g/dL Low 3.4-5.0 [facility] Work Phone: [phone] Albumin/Globulin Ratio 0.8 {ratio} Low 0.9-2.4 [facility] Work Phone: [phone] Alkaline phosphatase (ALP) 91 U/L Invalid Interpretation Code 45117 [facility] Work Phone: [phone] ALP enzyme act/vol (Bld) 91 U/L Invalid Interpretation Code 45-117 [facility] Work Phone: [phone] Anion gap 10 mmol/L Invalid Interpretation Code 5-15 [facility] Work Phone: [phone] Anion gap 4 molar conc 10 Invalid Interpretation Code 5-15 [facility] Work Phone: [phone] Anion gap molar conc 10 mmol/L 5-15 [facility] Work Phone: [phone] Aspartate aminotransferase (AST) 37 U/L Invalid Interpretation Code 15-37 [facility] Work Phone: [phone] Bilirubin (total) 0.50 mg/dL Invalid Interpretation Code 0.20-1.00 [facility] Work Phone: [phone] BUN/Creatinine Ratio 10.0 RATIO Invalid Interpretation Code 10-20 [facility] Work Phone: [phone] Calcium 8.6 mg/dL Invalid Interpretation Code 8.5-10.1 [facility] Work Phone: [phone] Chloride 102 mmol/L Invalid Interpretation Code 98-107 [facility] Work Phone: [phone] CO2 25.0 mmol/L Invalid Interpretation Code 21.0-32.0 [facility] Work Phone: [phone] CO2 ppres (BldV) 25.0 mmol/L Invalid Interpretation Code 21.0-32.0 [facility] Work Phone: [phone] Creatinine 0.70 mg/dL Invalid Interpretation Code 0.55-1.02 [facility] Work Phone: [phone] eGFR (non-black) 101 mL/min/{1.73_m2} Invalid Interpretation Code >60 [facility] Work Phone: [phone] eGFR (non-black) 123 mL/min/{1.73_m2} Invalid Interpretation Code >60 [facility] Work Phone: [phone] EST GFR - AA 123 mL/min Invalid Interpretation Code >60 [facility] Work Phone: [phone] Globulin 4.2 g/dL High 2.3-3.5 [facility] Work Phone: [phone] Globulin mass conc (S) 4.2 g/dL High 2.3-3.5 Bl [facility] Work Phone: [phone] Glucose 76 mg/dL Invalid Interpretation Code 70-110 [facility] Work Phone: [phone] Glucose mass conc 76 mg/dL Invalid Interpretation Code 70-110 [facility] Work Phone: [phone] Potassium 4.0 mmol/L Invalid Interpretation Code 3.5-5.1 [facility] Work Phone: [phone] Protein 7.4 g/dL Invalid Interpretation Code 6.4-8.2 [facility] Work Phone: [phone] Sodium 137 mmol/L Invalid Interpretation Code 136-145 [facility] Work Phone: [phone] Urea nitrogen 7 mg/dL Invalid Interpretation Code 7-18 [facility] Work Phone: [phone] Lab Report: Ferritinon 05-28 Ferritin 4 ng/mL Low 8-252 [facility] Work Phone: [phone] Lab Report: Iron+Iron Bindin g Capacityon 05-28-2017 Iron 19 ug/dL Low 50-170 [facility] Work Phone: [phone] iron binding capacity, total 487 ug/dL High 250-450 [facility] Work Phone: [phone] iron saturation percent, serum 3.9 % Low 15.0-55.0 [facility] Work Phone: [phone] Lab Report: T4 Free Directon 05-28-2017 Thyroxine (T4) free 1.18 ng/dL Invalid Interpretation Code 0.76-1.46 [facility] Work Phone: [phone] Lab Report: Thyroid Stim Hor shakir (TSH)on 05-28-2017 Thyroid stimulating hormone (TSH) 3.93 u[iU]/mL High 0.358-3.74 [facility] Work Phone: [phone] Lab Report: Vitamin D,25 Hyd roxyon 05-28-2017 vitamin D 25-hydroxy, serum 13.3 ng/mL Invalid Interpretation Code [facility] Work Phone: [phone] Vitamin D 25-OH 13.3 ng/mL Invalid Interpretation Code [facility] Work Phone: [phone] Office Visit: est care needs blood work doneon 05-28-2017 Alcoholism counseling (procedure) no Invalid Interpretation Code [facility] Work Phone: [phone] Documentation of current medications (procedure) Done Invalid Interpretation Code [facility] Work Phone: [phone] Fall risk assessment No Invalid Interpretation Code [facility] Work Phone: [phone] Protein mass conc Done Invalid Interpretation Code [facility] Work Phone: [phone] Protein mass conc no Invalid Interpretation Code [facility] Work Phone: [phone] Tobacco smoking status NHIS Never Invalid Interpretation Code [facility] Work Phone: [phone] Tobacco smoking status VTIS Never smoker Invalid Interpretation Code [facility] Work Phone: [phone] [facility] Never smoker Invalid Interpretation Code [facility] Work Phone: [phone] Replaced Document: (P) CBC W /Diff, Automatedon 05-28-2017 Absolute Neut 3.6 X10 3/UL Invalid Interpretation Code 2.0-7.7 [facility] Work Phone: [phone] Basophils/100 leukocytes 0.7 % Invalid Interpretation Code 0-1 [facility] Work Phone: [phone] Basophils/100 WBC (Bld) 0.7 % 0-1 [facility] Work Phone: [phone] Eosinophils/100 leukocytes 2.4 % Invalid Interpretation Code 0-5 [facility] Work Phone: [phone] Eosinophils/100 WBC (Bld) 2.4 % 0-5 [facility] Work Phone: [phone] Erythrocyte distribution width Auto Ratio (RBC) 44.4 fL High 35.1-43.9 [facility] Work Phone: [phone] Erythrocyte distribution width Ratio (RBC) 44.4 fL High 35.1-43.9 [facility] Work Phone: [phone] Erythrocyte distribution width Ratio (RBC) 19.3 % High 11.6-14.6 [facility] Work Phone: [phone] Erythrocytes (RBC) 4.29 10*6/uL Invalid Interpretation Code 4.2-5.4 [facility] Work Phone: [phone] Hematocrit (HCT) 28.3 % Low 37-47 [facility] Work Phone: [phone] Hematocrit Volume Fraction (Bld) 28.3 % Low 37-47 [facility] Work Phone: [phone] Hemoglobin (HGB) 7.9 g/dL Low 12.0-15.0 [facility] Work Phone: [phone] Immature granulocytes #/vol (Bld) 0.300 % Invalid Interpretation Code 0.0-0.9 [facility] Work Phone: [phone] immature granulocytes, percentage of total cells, blood 0.300 % Invalid Interpretation Code 0.0-0.9 [facility] Work Phone: [phone] Immature granulocytes/100 WBC (Bld) 0.300 % Invalid Interpretation Code 0.0-0.9 [facility] Work Phone: [phone] Lymphocytes 1.63 X10 3/UL Invalid Interpretation Code 0.83-4.51 [facility] Work Phone: [phone] Lymphocytes #/vol (Bld) 1.63 X10 3/UL 0.83-4.51 [facility] Work Phone: [phone] Lymphocytes/100 leukocytes 28.0 % Invalid Interpretation Code 1941 [facility] Work Phone: [phone] Lymphocytes/100 WBC (Bld) 28.0 % 19-41 [facility] Work Phone: [phone] MCH 18.4 pg Low 27.0-32.0 [facility] Work Phone: [phone] MCH Entitic mass (RBC) 18.4 pg Low 27.0-32.0 [facility] Work Phone: [phone] MCHC 27.9 G/GL Low 32-36 [facility] Work Phone: [phone] MCHC mass conc (RBC) 27.9 G/GL Low 32-36 [facility] Work Phone: [phone] MCV 66.0 fL Low 81-99 [facility] Work Phone: MCV Entitic volume (RBC) 66.0 fL Low 81-99 [facility] Work Phone: [phone] Monocytes/100 leukocytes 7.6 % Invalid Interpretation Code 0-10 [facility] Work Phone: [phone] Monocytes/100 WBC (Bld) 7.6 % 0-10 [facility] Work Phone: [phone] neutrophil count, blood 3.6 X10 3/UL Invalid Interpretation Code 2.0-7.7 [facility] Work Phone: [phone] Neutrophils #/vol (Bld) 3.6 X10 3/UL 2.0-7.7 [facility] Work Phone: [phone] Neutrophils Auto #/vol (Bld) 3.6 X10 3/UL Invalid Interpretation Code 2.0-7.7 [facility] Work Phone: [phone] Neutrophils/100 leukocytes 61.0 % Invalid Interpretation Code 47-70 [facility] Work Phone: [phone] Neutrophils/100 WBC (Bld) 61.0 % 47-70 [facility] Work Phone: [phone] Platelet mean volume Entitic volume (Bld) 10.9 fL 6.2-12.0 [facility] Work Phone: [phone] Platelets 269 10*3/mm3 Invalid Interpretation Code 150-450 [facility] Work Phone: [phone] Platelets #/vol (Bld) 269 10*3/mm3 150-450 [facility] Work Phone: [phone] PMV by Tyler 10.9 fL Invalid Interpretation Code 6.2-12.0 [facility] Work Phone: [phone] RBC #/vol (Bld) 4.29 10*6/uL 4.2-5.4 [facility] Work Phone: [phone] RDW SD 44.4 fL High 35.1-43.9 [facility] Work Phone: [phone] RDW-CA 19.3 % High 11.6-14.6 [facility] Work Phone: red blood cell distribution width, size density 44.4 fL High 35.1-43.9 [facility] Work Phone: [phone] WBC #/vol (Bld) 5.8 10*3/uL 4.4-11.0 [facility] Work Phone: [phone] WBC (Leukocytes) 5.8 10*3/uL Invalid Interpretation Code 4.4-11.0 [facility] Work Phone: [phone] Culture, urine Bacteria identified Cx Nom (U) Citrobacter koseri [facility] Work Phone: Vital Signs Date Time Vital Sign Value Performing Clinician Faci lity 11-21-2024 13:19-0400 Body height 154.9 cm Dorina Chen APRN.CUSTOM F[employer]RIER Work Phone: [facility] 11-21-2024 13:19-0400 Body mass index (BMI) [Ratio] 59.52 kg/m2 Dorina Chen APRN.C[employer]OM FURRIER Work Phone: [facility] 11-21-2024 13:19-0400 Body temperature 97.39 [degF] Dorina Chen APRN.CUSTOM FURRIER Work Phone: [facility] 11-21-2024 13:19-0400 Body weight 142.88 kg Dorina Chen APRN.CUSTOM FURRIER Work Phone: [facility] 11-21-2024 13:19-0400 Diastolic blood pressure 87 mm[Hg] Dorina Chen APRN.C[employer]OM FURRIER Work Phone: [facility] 11-21-2024 13:19-0400 Heart rate 83 /min Dorina Chen APRN.C[employer]OM FURRIER Work Phone: [facility] 11-21-2024 13:19-0400 Respiratory rate 18 /min Dorina Chen APRN.C[employer] F[employer]ER Work Phone: [facility] 11-21-2024 13:19-0400 SaO2% (BldA) [Mass fraction] 93 % Dorina Chen APRN.C[employer]OM FURRIER Work Phone: [facility] 11-21-2024 13:19-0400 Systolic blood pressure 130 mm[Hg] Dorina Chen APRNKyleeCUSTOM FURRIER Work Phone: [facility] 11-21-2024 11:37-0400 Body height 154.[address] Jose Addison MD Work Phone: [facility] 11-21-2024 11:37-0400 Body mass index (BMI) [Ratio] 59.7 kg/m2 Dr. Jose Addison MD Work Phone: [facility] 11-21-2024 11:37-0400 Body weight 143.[address] Jose Addison MD Work Phone: [facility] 11-21-2024 11:37-0400 Diastolic blood pressure 93 mm[Hg] Dr. Jose Addison MD Work Phone: [facility] 11-21-2024 11:37-0400 Heart rate 82 /min Dr. Jose Addison MD Work Phone: [facility] 11-21-2024 11:37-0400 Respiratory rate 16 /min Dr. Jose Addison MD Work Phone: [facility] 11-21-2024 11:37-0400 SaO2% (BldA) [Mass fraction] 96 % Dr. Jose Adidson MD Work Phone: [facility] 11-21-2024 11:37-0400 Systolic blood pressure 133 mm[Hg] Dr. Jose Addison MD Work Phone: [facility] 12-18-2023 10:41-0400 Body height 154.[address] Jose Addison Work Phone: [facility] 12-18-2023 10:41-0400 Body mass index (BMI) [Ratio] 58.7 kg/m2 Dr. Jose Addison Work Phone: [facility] 12-18-2023 10:41-0400 Body weight 141.[address] Jose Addison Work Phone: [facility] 12-18-2023 10:41-0400 Diastolic blood pressure 78 mm[Hg] Dr. Jose Addison Work Phone: [facility] 12-18-2023 10:41-0400 Heart rate 80 /min Dr. Jose Addison Work Phone: [facility] 12-18-2023 10:41-0400 Respiratory rate 16 /min Dr. Jose Addison Work Phone: [facility] 12-18-2023 10:41-0400 Systolic blood pressure 125 mm[Hg] Dr. Jose Addison Work Phone: 7(529)201-296225 [place] [address] 12-12-2023 10:18-0400 Body temperature 97.2 [degF] Dr. Jose Addison Work Phone: 5(589)022-026525 [place] [address] 12-12-2023 10:18-0400 Diastolic blood pressure 77 mm[Hg] Dr. Jose Addison Work Phone: 9(252)423-911525 [place] [address] 12-12-2023 10:18-0400 Heart rate 91 /min Dr. Jose Addison Work Phone: 4(195)579-997425 [place] [address] 12-12-2023 10:18-0400 Respiratory rate 16 /min Dr. Jose Addison Work Phone: 5(690)021-779325 [place] [address] 12-12-2023 10:18-0400 SaO2% (BldA) [Mass fraction] 97 % Dr. Jose Addison Work Phone: 4(730)799-468325 [place] [address] 12-12-2023 10:18-0400 Systolic blood pressure 118 mm[Hg] Dr. Jose Addison Work Phone: [facility] 12-12-2023 07:54-0400 Body height 154.[address] Jose Addison Work Phone: [facility] 12-12-2023 07:54-0400 Body mass index (BMI) [Ratio] 59.6 kg/m2 Dr. Jose Addison Work Phone: [facility] 12-12-2023 07:54-0400 Body weight 143.[address] Jose Addison Work Phone: 2(039)902-291225 [place] [address] 11-16-2023 08:17-0500 Body height 154.9 cm Yaya Hightower MD Work Phone: [facility] 11-16-2023 08:17-0500 Body weight 136.53 kg Yaya Hightower MD Work Phone: [facility] 11-16-2023 08:17-0500 Diastolic blood pressure 67 mm[Hg] Yaya Hightower MD Work Phone: [facility] 11-16-2023 08:17-0500 Systolic blood pressure 120 mm[Hg] Yaya Hightower MD Work Phone: [facility] 08-31-2023 11:50-0500 Body height 154.[address] oJse Addison Work Phone: [facility] 08-31-2023 11:50-0500 Body mass index (BMI) [Ratio] 57.4 kg/m2 Dr. Jose Addison Work Phone: [facility] 08-31-2023 11:50-0500 Body weight 137.[address] Jose Addison Work Phone: 6(325)559-448425 [place] [address] 08-31-2023 11:50-0500 Diastolic blood pressure 78 mm[Hg] Dr. Jose Addison Work Phone: [facility] 08-31-2023 11:50-0500 Systolic blood pressure 115 mm[Hg] Dr. Jose Addison Work Phone: [facility] 08-20-2023 14:08-0500 Body temperature 98.4 [degF] Dr. Jose Addison Work Phone: [facility] 08-20-2023 14:08-0500 Diastolic blood pressure 84 mm[Hg] Dr. Jose Addison Work Phone: [facility] 08-20-2023 14:08-0500 Heart rate 95 /min Dr. Jose Addison Work Phone: [facility] 08-20-2023 14:08-0500 Respiratory rate 14 /min Dr. Jose Addison Work Phone: [facility] 08-20-2023 14:08-0500 SaO2% (BldA) [Mass fraction] 98 % Dr. Jose Addison Work Phone: [facility] 08-20-2023 14:08-0500 Systolic blood pressure 126 mm[Hg] Dr. Jose Addison Work Phone: [facility] 05-24-2023 09:07-0400 Body height 154.[address] Jose Addison Work Phone: 1(373)098-889925 [place] [address] 05-24-2023 09:07-0400 Body mass index (BMI) [Ratio] 57.9 kg/m2 Dr. Jose Addison Work Phone: 7(472)441-852925 [place] [address] 05-24-2023 09:07-0400 Body weight 138.[address] Jose Addison Work Phone: 0(236)861-101325 [place] [address] 05-24-2023 09:07-0400 Diastolic blood pressure 80 mm[Hg] Dr. Jose Addison Work Phone: 7(484)248-123625 [place] [address] 05-24-2023 09:07-0400 Systolic blood pressure 123 mm[Hg] Dr. Jose Addison Work Phone: 7(152)228-031425 [place] [address] 05-17-2023 10:32-0400 Body mass index (BMI) [Ratio] 56.7 kg/m2 Dr. Jose Addison Work Phone: 4(774)528-859625 [place] [address] 05-17-2023 10:32-0400 Body weight 136.[address] Jose Addison Work Phone: 1(999)028-489025 [place] [address] 05-17-2023 10:32-0400 Diastolic blood pressure 86 mm[Hg] Dr. Jose Addison Work Phone: 3(922)526-760425 [place] [address] 05-17-2023 10:32-0400 Systolic blood pressure 129 mm[Hg] Dr. Jose Addison Work Phone: 3(426)412-951625 [place] [address] 05-08-2023 18:29-0400 Body temperature 96.1 [degF] Dr. Jose Addison Work Phone: [facility] 05-08-2023 18:29-0400 Diastolic blood pressure 78 mm[Hg] Dr. Jose Addison Work Phone: [facility] 05-08-2023 18:29-0400 Heart rate 85 /min Dr. Jose Addison Work Phone: [facility] 05-08-2023 18:29-0400 Respiratory rate 16 /min Dr. Jose Addison Work Phone: 9(824)849-303025 [place] [address] 05-08-2023 18:29-0400 SaO2% (BldA) [Mass fraction] 96 % Dr. Jose Addison Work Phone: 4(931)953-315025 [place] [address] 05-08-2023 18:29-0400 Systolic blood pressure 125 mm[Hg] Dr. Jose Addison Work Phone: 4(279)747-038127 [address] 05-08-2023 11:37-0400 Body height 154.[address] Jose Addison Work Phone: 0(017)460-949025 [place] [address] 05-08-2023 11:37-0400 Body mass index (BMI) [Ratio] 56.6 kg/m2 Dr. Jose Addison Work Phone: 7(952)120-451325 [place] [address] 05-08-2023 11:37-0400 Body weight [address] Jose Addison Work Phone: 6(175)940-658525 [place] [address] 05-04-2023 11:21-0400 Body height 154.[address] Jose Addison Work Phone: 8(434)626-378525 [place] [address] 05-04-2023 11:19-0400 Body mass index (BMI) [Ratio] 57.2 kg/m2 Dr. Jose Addison Work Phone: [facility] 05-04-2023 11:19-0400 Body weight 137.[address] Jose Addison Work Phone: 6(260)565-673225 [place] [address] 05-04-2023 11:19-0400 Diastolic blood pressure 72 mm[Hg] Dr. Jose Addison Work Phone: 8(373)206-395825 [place] [address] 05-04-2023 11:19-0400 Systolic blood pressure 122 mm[Hg] Dr. Jose Addison Work Phone: 0(338)118-235925 [place] [address] 08-17-2023 13:24-0400 Body mass index (BMI) [Ratio] 57.6 kg/m2 Dr. Jose Addison Work Phone: [facility] 04-26-2023 13:24-0400 Body weight 138.[address] Jose Addison Work Phone: [facility] 04-26-2023 13:24-0400 Diastolic blood pressure 77 mm[Hg] Dr. Jose Addison Work Phone: [facility] 04-26-2023 13:24-0400 Systolic blood pressure 116 mm[Hg] Dr. Jose Addison Work Phone: [facility] 04-19-2023 16:15-0400 Body height 154.[address] Jose Addison Work Phone: [facility] 04-19-2023 16:13-0400 Diastolic blood pressure 85 mm[Hg] Dr. Jose Addison Work Phone: [facility] 04-19-2023 16:13-0400 Systolic blood pressure 134 mm[Hg] Dr. Jose Addison Work Phone: [facility] 04-12-2023 13:16-0400 Body height 154.[address] Jose Addison Work Phone: [facility] 04-12-2023 13:15-0400 Body mass index (BMI) [Ratio] 57.4 kg/m2 Dr. Jose Addison Work Phone: [facility] 04-12-2023 13:15-0400 Body weight 137.[address] Jose Addison Work Phone: [facility] 04-12-2023 13:15-0400 Diastolic blood pressure 67 mm[Hg] Dr. Jose Addison Work Phone: [facility] 04-12-2023 13:15-0400 Systolic blood pressure 120 mm[Hg] Dr. Jose Addison Work Phone: [facility] 07-21-2022 13:39-0500 Body height 154.9 cm Mauricio Lehman MD Work Phone: [facility] 07-21-2022 13:39-0500 Body temperature 97.59 [degF] Mauricio Lehman MD Work Phone: [facility] 07-21-2022 13:39-0500 Body weight 140.75 kg Mauricio Lehman MD Work Phone: [facility] 07-21-2022 13:39-0500 Diastolic blood pressure 98 mm[Hg] Mauricio Lehman MD Work Phone: [facility] 07-21-2022 13:39-0500 Heart rate 109 /min Mauricio Lehman MD Work Phone: [facility] 07-21-2022 13:39-0500 Respiratory rate 14 /min Mauricio Lehman MD Work Phone: [facility] 07-21-2022 13:39-0500 SaO2% (BldA) [Mass fraction] 96 % Mauricio Lehman MD Work Phone: [facility] 07-21-2022 13:39-0500 Systolic blood pressure 151 mm[Hg] Mauricio Lehman MD Work Phone: [facility] 06-19-2022 09:28-0400 Body height 154.[address] Ayesha Aldrich Work Phone: [facility] Work Phone: 06-19-2022 09:28-0400 Body mass index (BMI) [Ratio] 58.3 kg/m2 Dr. Ayesha Aldrich Work Phone: [facility] Work Phone: 06-19-2022 09:28-0400 Body weight 140.[address] Ayesha Aldrich Work Phone: [facility] Work Phone: 06-19-2022 09:28-0400 Diastolic blood pressure 100 mm[Hg] Dr. Ayesha Aldrich Work Phone: [facility] Work Phone: 06-19-2022 09:28-0400 Systolic blood pressure 149 mm[Hg] Dr. Ayesha Aldrich Work Phone: [facility] Work Phone: 05-24-2022 11:46-0400 Body temperature 98.2 [degF] Dr. Ayesha Aldrich Work Phone: [facility] Work Phone: 05-24-2022 11:46-0400 Diastolic blood pressure 98 mm[Hg] Dr. Ayesha Aldrich Work Phone: [facility] Work Phone: 05-24-2022 11:46-0400 Heart rate 94 /min Dr. Ayesha Aldrich Work Phone: [facility] Work Phone: 05-24-2022 11:46-0400 Respiratory rate 16 /min Dr. Ayesha Aldrich Work Phone: [facility] Work Phone: 05-24-2022 11:46-0400 SaO2% (BldA) [Mass fraction] 97 % Dr. Ayesha Aldrich Work Phone: [facility] Work Phone: 05-24-2022 11:46-0400 Systolic blood pressure 158 mm[Hg] Dr. Ayesha Aldrich Work Phone: [facility] Work Phone: 04-28-2022 16:45-0400 Body height 154.[address] Ayesha Aldrich Work Phone: [facility] Work Phone: 04-28-2022 16:45-0400 Body mass index (BMI) [Ratio] 59.2 kg/m2 Dr. Ayesha Aldrich Work Phone: [facility] Work Phone: 04-28-2022 16:45-0400 Body weight 142.[address] Ayesha Aldrich Work Phone: [facility] Work Phone: 04-28-2022 16:45-0400 Diastolic blood pressure 104 mm[Hg] Dr. Ayesha Aldrich Work Phone: [facility] Work Phone: 04-28-2022 16:45-0400 Systolic blood pressure 158 mm[Hg] Dr. Ayesha Aldrich Work Phone: [facility] Work Phone: 01-30-2022 17:34-0400 Body temperature 98 [degF] Dr. Ayesha Aldrich Work Phone: [facility] Work Phone: 01-30-2022 17:34-0400 Diastolic blood pressure 86 mm[Hg] Dr. Ayesha Aldrich Work Phone: [facility] Work Phone: 01-30-2022 17:34-0400 Heart rate 88 /min Dr. Ayesha Aldrich Work Phone: [facility] Work Phone: 01-30-2022 17:34-0400 Respiratory rate 14 /min Dr. Ayesha Aldrich Work Phone: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 Phone: [facility] Payers Date Payer Category Payer Self-pay [id number] 2022 Unknown [id number] 2020 Private Health Insurance xxx [id number] 2020 Private Health Insurance [id number] Private Health Insurance [id number] Private Health Insurance [id number] Private Health Insurance [id number] Unknown [id number] [id number] [id number] Unknown [id number] 2.16.8 [id number] Unknown [id number] 2.16.8 [id number] Unknown [id number] 2.16.8 [id number] Unknown [id number] 2.16.8 [id number] Unknown [id number] 2.16.8 [id number] Unknown [id number] 2.16.8 [id number] Unknown [id number] [id number] [id number] Social History Date Type Detail Facility Start: 06-27-2021 End: 12-18-2023 Tobacco smoking status NHIS Never smoker [facility] Start: 04-29-2012 End: 06-27-2021 Tobacco use and exposure Never used [facility] Start: 06-27-2021 End: 07-21-2022 Alcohol intake Not Asked [facility] Start: 1985 Sex Assigned At Not on file [facility] Start: 07-11-2022 End: 07-21-2022 Exposure to SARS-CoV-2 (event) Not sure [facility] Start: 04-28-2022 End: 12-18-2023 Tobacco smoking status VTIS Unknown if ever smoked [facility] Start: 01-07-2020 Non-smoker [facility] Start: 1985 Sex Assigned At Female [facility] Start: 11-16-2023 End: 11-21-2024 Alcohol intake Lifetime non-drinker (finding) [facility] Start: 08-10-2023 End: 11-16-2023 History of Social function [facility] Start: 08-10-2023 End: 11-16-2023 Tobacco use panel [facility] National Score (1-100), lower number is lower risk 87 [facility] Start: 11-27-2024 End: 12-01-2024 Sex Female (finding) [facility] NEGATED: Highlighted row [facility] [place] Medical Equipment Procedure Code Equipment Code Equipment Origin al Text Equipment Identifier Dates SLING, ALTIS VAGINAL FDA Star t: 01-07-2020 SLING, ALTIS VAGINAL FDA Star t: 01-07-2020 SLING, ALTIS VAGINAL FDA Star t: 01-07-2020 SLING, ALTIS VAGINAL FDA Star t: 01-07-2020 SLING, ALTIS VAGINAL FDA Star t: 01-07-2020 SLING, ALTIS VAGINAL FDA Star t: 01-07-2020 SLING, ALTIS VAGINAL FDA Star t: 01-07-2020 SLING, ALTIS VAGINAL FDA Star t: 01-07-2020 SLING, ALTIS VAGINAL FDA Star t: 01-07-2020 SLING, ALTIS VAGINAL FDA Star t: 01-07-2020 SLING, ALTIS VAGINAL FDA Star t: 01-07-2020 SLING, ALTIS VAGINAL FDA Star t: 01-07-2020 SLING, ALTIS VAGINAL FDA Star t: 01-07-2020 SLING, ALTIS VAGINAL FDA Star t: 01-07-2020 SLING, ALTIS VAGINAL FDA Star t: 01-07-2020 SLING, ALTIS VAGINAL FDA Star t: 01-07-2020 SLING, ALTIS VAGINAL FDA Star t: 01-07-2020 SLING, ALTIS VAGINAL FDA Star t: 01-07-2020 Goals Date Patient Goal Desired Activity /State Mental Status Date Assessment Result Facility 12-12-2023 Cognitive function Voice/Name [facility] Work Phone: 05-08-2023 Cognitive function Voice/Name [facility] Work Phone: Clinical Notes 06-27-2021 to 11-21-2024 Note Date & Type Note Facility 11-21-2024 Evaluation note Diagnosis Onset Date Resolution Metabolic dysfunction-associated steatohepatitis (MASH) acute November 11:35am Hypertriglyceridemia chronic 2024 11:35am Morbid obesity due to excess calories chronic November 21, 2024 11:35am [facility] Work Phone: 1(233) 544-112503-14-2025 NoteHNO ID: [id number] Author: DORINA CHEN APRN.CUSTOM FURRIER Service: ? Author Type: Nurse Practitioner Type: Progress Notes Filed: 11/26/2024 14:27 Note Text: Patient: Tee Stroud PCP: Jose Addison MD CC: BENI HPI: Tee Stroud 39 year old female former smoker with PMH significant for BENI, IBS, VICTOR M and obesity. The patient is unaccompanied. She is being followed by Dr. Lehman and was last seen on 08/10/2023 by me. KURT with Dr. Lehman 07/21/2022. Most recent visit: - Doing well on CPAP - Compliant, no issues Today she presents for annual follow up. [facility]. Compliance report: 10/13-11/11/2024 Usage 100% AirSense 11 AutoSet 12 cm H20, EPR ramp only Average Usage 8 hours 29 minutes Leaks 8.6 L/min AHI 0.3 Feels good. Doesn't feel like she needs a daily nap anymore. Has occasional fluttering. No known AF since last year; went to the ER, was found to be in paroxysmal AF. No NOAC. Follows with cardiology with [facility]. Immunization History Reviewed Past Medical, Social and Surgical History Reviewed. Allergies: Cefaclor Unknown, Hives, Other: See Comments Comment:pt does not recall reaction, she was told by her mother that she was allergic and that meds caused joint swelling and discoloration Erythromycin Unknown Comment:pt stated allergic to Illisone which is not in data base, this med is the closest. She is stating what her mother told her Adhesive Tape-Silic* Other: See Comments fenofibrate nanocrystallized (TRICOR) 48 mg tablet metFORMIN (GLUCOPHAGE) 500 mg tablet omeprazole (PRILOSEC) 40 mg capsule potassium chloride ER (KLOR-CON) 20 mEq tablet Take 20 mEq by mouth. lisinopril-hydroCHLOROthiazide (ZESTORETIC) 20-12.5 mg per tablet Take 1 tablet by mouth every afternoon. ergocalciferol 50,000 unit capsule (VITAMIN D2, DRISDOL) Dose : 50,000 International_Unit = 1 cap(s), Oral, WEEKLY, 0 Refill(s) levothyroxine (SYNTHROID) 75 mcg tablet Dose : 75 mcg = 1 tab(s), Oral, qDay, 0 Refill(s) topiramate (TOPAMAX) 25 mg tablet Take 1 tablet by mouth once daily. (Patient not taking: Reported on 11/21/2024) Vitamin E, dl, acetate, (VITAMIN E) 400 unit capsule (Patient not taking: Reported on 11/21/2024) ursodiol (CHIDI) 250 mg tablet Take 250 mg by mouth two times a day with meals. (Patient not taking: Reported on 11/21/2024) BP 130/87 (BP Site: Right Arm, BP Position: Sitting, BP Cuff Size: Regular Adult) Pulse 83 Temp 36.3 ?C (97.4 ?F) Resp 18 Ht 154.9 cm (5' 1") Wt (!) 142.9 kg (315 lb) LMP 11/08/2010 SpO2 93% BMI 59.52 kg/m? Review of Systems Constitutional: Negative. HENT: Negative. Eyes: Negative. Respiratory: Negative. Cardiovascular: Negative. Gastrointestinal: Negative. Genitourinary: Negative. Musculoskeletal: Negative. Skin: Negative. Endo/Heme/Allergies: Negative. Psychiatric/Behavioral: Positive for memory loss. Occasionally brain fog Physical Exam Constitutional: Appearance: Normal appearance. She is morbidly obese. HENT: Head: Normocephalic and atraumatic. Right Ear: External ear normal. Left Ear: External ear normal. Nose: Nose normal. Mouth/Throat: Mouth: Mucous membranes are moist. Pharynx: Oropharynx is clear. Eyes: Extraocular Movements: Extraocular movements intact. Conjunctiva/sclera: Conjunctivae normal. Pupils: Pupils are equal, round, and reactive to light. Cardiovascular: Rate and Rhythm: Normal rate and regular rhythm. Pulses: Normal pulses. Heart sounds: Normal heart sounds. Pulmonary: Effort: Pulmonary effort is normal. Breath sounds: Normal breath sounds. Abdominal: General: Abdomen is flat. Bowel sounds are normal. Palpations: Abdomen is soft. Musculoskeletal: General: Normal range of motion. Cervical back: Normal range of motion and neck supple. Skin: General: Skin is warm and dry. Neurological: General: No focal deficit present. Mental Status: She is alert and oriented to person, place, and time. Mental status is at baseline. Psychiatric: Mood and Affect: Mood normal. DATA: PAP titration 07/21/2021 IMPRESSION: 1. At a CPAP setting of +12 cmH2O, during which supine sleep was recorded, but not REM, the apnea-hypopnea index (AHI) was normalized at 0. The oxygen saturation was maintained at or above 91 %. 2. On +10cm the AHI was normal at 4.1, but the REM AHI was moderately elevated at 16.6. 3. Moderate snoring eliminated on +11cm and +12cm of CPAP. 4. Frequent periodic limb movements not causing significant arousal from sleep were observed, which is a non-specific finding. These can be seen in a variety of conditions such as normal aging, primary sleep disorders such as restless legs syndrome, sleep apnea, and narcolepsy, or in association with certain medications. Clinical correlation is advised. 5. No arrhythmias were noted. 6. No unusual behaviors were observed. Normal REM sleep with atonia was recorded (more content not included)...[facility]03-14-2025 History of Present illness Narrative* JulienDorina thomas, SOURAV.CUSTOM FURRIER - 11/21/2024 1:24 PM EDT Patient: Tee Stroud PCP: Jose Addison MD CC: BENI HPI: Tee Stroud 39 year old female former smoker with PMH significant for BENI, IBS, VICTOR M and obesity. The patient is unaccompanied. She is being followed by Dr. Lehman and was last seen on 08/10/2023 by me. KURT with Dr. Lehman 07/21/2022. Most recent visit: - Doing well on CPAP - Compliant, no issues Today she presents for annual follow up. [facility]. Compliance report: 10/13-11/11/2024 Usage 100% AirSense 11 AutoSet 12 cm H20, EPR ramp only Average Usage 8 hours 29 minutes Leaks 8.6 L/min AHI 0.3 Feels good. Doesn't feel like she needs a daily nap anymore. Has occasional fluttering. No known AF since last year; went to the ER, was found to be in paroxysmal AF. No NOAC. Follows with cardiology with [facility]. Immunization History Reviewed Past Medical, Social and Surgical History Reviewed. Allergies: Cefaclor Unknown, Hives, Other: See Comments Comment:pt does not recall reaction, she was told by her mother that she was allergic and that meds caused joint swelling and discoloration Erythromycin Unknown Comment:pt stated allergic to Illisone which is not in data base, this med is the closest. She is stating what her mother told her Adhesive Tape-Silic* Other: See Comments fenofibrate nanocrystallized (TRICOR) 48 mg tablet metFORMIN (GLUCOPHAGE) 500 mg tablet omeprazole (PRILOSEC) 40 mg capsule potassium chloride ER (KLOR-CON) 20 mEq tablet Take 20 mEq by mouth. lisinopril-hydroCHLOROthiazide (ZESTORETIC) 20-12.5 mg per tablet Take 1 tablet by mouth every afternoon. ergocalciferol 50,000 unit capsule (VITAMIN D2, DRISDOL) Dose : 50,000 International_Unit = 1 cap(s), Oral, WEEKLY, 0 Refill(s) levothyroxine (SYNTHROID) 75 mcg tablet Dose : 75 mcg = 1 tab(s), Oral, qDay, 0 Refill(s) topiramate (TOPAMAX) 25 mg tablet Take 1 tablet by mouth once daily. (Patient not taking: Reported on 11/21/2024) Vitamin E, dl, acetate, (VITAMIN E) 400 unit capsule (Patient not taking: Reported on 11/21/2024) ursodiol (CHIDI) 250 mg tablet Take 250 mg by mouth two times a day with meals. (Patient not taking:Reported on 11/21/2024) BP 130/87 (BP Site: Right Arm, BP Position: Sitting, BP Cuff Size: Regular Adult) Pulse 83 Temp36.3 C (97.4 F) Resp 18 Ht 154.9 cm (5' 1") Wt (!) 142.9 kg (315 lb) LMP 11/08/2010 SpO2 93% BMI 59.52 kg/m Review of Systems Constitutional: Negative. HENT: Negative. Eyes: Negative. Respiratory: Negative. Cardiovascular: Negative. Gastrointestinal: Negative. Genitourinary: Negative. Musculoskeletal: Negative. Skin: Negative. Endo/Heme/Allergies: Negative. Psychiatric/Behavioral: Positive for memory loss. Occasionally brain fog Physical Exam Constitutional: Appearance: Normal appearance. She is morbidly obese. HENT: Head: Normocephalic and atraumatic. Right Ear: External ear normal. Left Ear: External ear normal. Nose: Nose normal. Mouth/Throat: Mouth: Mucous membranes are moist. Pharynx: Oropharynx is clear. Eyes: Extraocular Movements: Extraocular movements intact. Conjunctiva/sclera: Conjunctivae normal. Pupils: Pupils are equal, round, and reactive to light. Cardiovascular: Rate and Rhythm: Normal rate and regular rhythm. Pulses: Normal pulses. Heart sounds: Normal heart sounds. Pulmonary: Effort: Pulmonary effort is normal. Breath sounds: Normal breath sounds. Abdominal: General: Abdomen is flat. Bowel sounds are normal. Palpations: Abdomen is soft. Musculoskeletal: General: Normal range of motion. Cervical back: Normal range of motion and neck supple. Skin: General: Skin is warm and dry. Neurological: General: No focal deficit present. Mental Status: She is alert and oriented to person, place, and time. Mental status is at baseline. Psychiatric: Mood and Affect: Mood normal. DATA: PAP titration 07/21/2021 IMPRESSION: 1. At a CPAP setting of +12 cmH2O, during which supine sleep was recorded, but not REM, the apnea-hypopnea index (AHI) was normalized at 0. The oxygen saturation was maintained at or above 91 %. 2. On +10cm the AHI was normal at 4.1, but the REM AHI was moderately elevated at 16.6. 3. Moderate snoring eliminated on +11cm and +12cm of CPAP. 4. Frequent periodic limb movements not causing significant arousal from sleep were observed, which is a non-specific finding. These can be seen in a variety of conditions such as normal aging, primary sleep disorders such as restless legs syndrome, sleep apnea, and narcolepsy, or in association with certain medications. Clinical correlation is advised. 5. No arrhythmias were noted. 6. No unusual behaviors were observed. Normal REM sleep with atonia was recorded. RECOMMENDATIONS: 1. Increase the patient's CPAP prescription to +[id number] with humidification. Supplemental oxygen is not required. 2. Given the lack of supine REM sleep, I would recommend a 30-day download to assess efficacy and compliance on this setting. ASSESSMENT AND PLAN: (G47.33) BENI on CPAP (primary encounter diagnosis) Comment: - Continue current PAP settings, tolerating well - Wear CPAP for a minimum of 4 hours per night, 6 out of 7 nights for adequate treatment of sleep apnea - Weight loss - Let us know of any issues with pressures or supply delivery (E66.01) Obesity, Class III, BMI >= 40 Comment: - Lifestyle modification: diet and exercise - Research mediterranean diet - Increase activity - go for walks, takes steps instead of elevators, join fitness program - Continue CPAP - Bariatric referral? No - insurance will not cover RTC 1 year Some of this note was copied/pasted from my previous note. Pertinent information was updated and changed accordingly. I spent a total of 22 minutes on the date of the service which included preparing to see the patient, [id number] patient care, completing clinical documentation, obtaining and/or reviewing separately obtained history, performing a medically appropriate examination, and ordering medications, tests or procedures as indicated. Dorina Chen APRN-JAYJAY [facility] [place] * Bere Strong - 11/21/2024 1:18 PM EDT 11/21/2024 Hillister Sitting and reading 2 - Moderate Chance Watching TV 2 - Moderate Chance Sitting/inactive in public place 1 - Slight Chance Car for an hour without break 1 - Slight Chance Lying down for rest (afternoon) 1 - Slight Chance Sitting and talking to someone 0 - Never Sitting quietly after lunch (no alcohol) 1 - Slight Chance In car, stopped in traffic 0 - Never [facility] NoteHNO ID: [id number] Author: BERE STRONG, ? Service: ? Author Type: Print Developer Automatic Type: Progress Notes Filed: 11/26/2024 14:27 Note Text: 11/21/2024 [place]ister Sitting and reading 2 - Moderate Chance Watching TV 2 - Moderate Chance Sitting/inactive in public place 1 - Slight Chance Car for an hour without break 1 - Slight Chance Lying down for rest (afternoon) 1 - Slight Chance Sitting and talking to someone 0 - Never Sitting quietly after lunch (no alcohol) 1 - Slight Chance In car, stopped in traffic 0 - [facility] Radiology Diagnostic study note [facility] Imaging Services [address] [place] [id number] ABD Limited w/ Elastography MR#: [id number] Acct: [id number] Name: TEE STROUD Rep #: [id number] : 1985 F 39 From: Tami Salmeron MD PCP: Dr. Jose Addison MD Status: [facility] Study:ABD Limited w/ Elastography Date of Exa m: 11/14/24 Exam# [id number] Ordering Dr: Jovana Gibbs MD PROCEDURE: ULTRASOUND ABDOMEN LIMITED WITH ELASTOGRAPHY REASON FOR EXAM: Liver fibrosis. COMPARISON: Ultrasound abdomen with elastography dated 12/21/2023. TECHNIQUE: Right upper quadrant abdominal ultrasound. Shear wave elastography for non- invasive assessment of liver tissue stiffness. Real-time grayscale and color flow imaging was performed along with routine image documentation. FINDINGS: LIVER: Size: Enlarged Length: 24 cm sagittally. Echotexture: Hyperechoic parenchyma. Coarsened texture. Contour: Normal Lesions: None identified Elastography: EQI Med: 9.7 kPa EQI Med Prosper: 1.78 m/s GALLBLADDER: Normal COMMON BILE DUCT: 0.47 cm.. PANCREAS: Echogenic parenchyma. Right kidney: Size measures 11.5 x 6.1 x 5.4 cm. Cortex measures 1.3 cm. US/ABD Limited w/ Elastography IMPRESSION: 1. Marked hepatomegaly. 2. Steatosis. 3. F 2 to F 3, moderate to severe likelihood of clinically significant hepatic fibrosis. Reference Values: SRU <1.37 m/s (5.7kPa): No to mild fibrosis 1.37 m/s - 2.2 m/s: Moderate to severe fibrosis >2.2 m/s (15kPa): Significant fibrosis / cirrhosis METAVIR Score F2 or higher: 1.34 m/s (5.7kPa) F3 or higher: 1.55 m/s (7.3kPa) F4: 1.80 m/s (10kPa) * If the IQR/Med is >30%, the variance in the measurements is a large and the accuracy of the measurement may be in question. Reading Location: [place] [address] CC: Dr. Mohan Gibbs MD; Dr. Jose Addison MD ~ Scow Derrick Operator: Signed [facility]04-03-2024 Miscellaneous Notes* Telephone Encounter - Yaya Hightower MD - 12/12/2023 4:04 PM EDT Called pt regarding ER visit Dx with diagnosed with A-fib in the ER she does have an appointment to see brick grader. She never started phentermine or topiramate recommended to not take phentermine but may initiate topiramate. She does have an appointment for follow-up. * Telephone Encounter - Shanelle Rajan MA - 12/12/2023 2:34 PM EDT Patient called in to let you know she had her blood work done which I just scanned in and also she was in the ER at [facility] and she is in afib. Sh was just there this morning and the results from the EKG are not in she said. Shanelle Rajan MA [facility] Hospital Discharge instructions Additional Instructions Your lab work and chest x-ray are normal. You have converted back into sinus rhythm and do not need blood thinners at this time. Follow-up with Dr. Hansen in 3 to 5 days. Return to ED for return of symptoms.[facility] Work Phone: 1(681) 124-225403-08-2024 NoteHNO ID: [id number] Author: YAYA HIGHTOWER MD Service: ? Author Type: Physician Type: Progress Notes Filed: 11/19/2023 08:49 Note Text: Yaya Hightower MD [facility] Center [address] [place] [address] Care Center - Fourth Floor [place] [phone] This Team Access Model visit is a virtual visit. It required patient-provider interaction for the medical decision making as documented below. Consent was obtained to complete today's distance health visit. I have communicated my name and active licensure. The patient's identity and physical location were verified at the time of this visit. Either the patient or their legal front desk representative has been informed of the risks and benefits of -- and alternatives to -- treatment through a remote evaluation and consents to proceed with the evaluation remotely. SUBJECTIVE: Tee Stroud is a 38 year old female with has a past medical history of BENI (obstructive sleep apnea). of presents on November 16, 2023 for medical evaluation of Non-Surgical Metabolic Weight Management . Discussed extensively regarding bariatric surgery option but patient is interested in bariatric surgery but no insurance coverage Age at onset - early adult years. Past 19 years or so ..Rate of weight gain is described as gradual over years. Family history positive for obesity in the patient?s paternal grandfather, maternal grandfather, father, and mother. She considers ideal weight to be 200 lbs. Weight at graduation from high school 150. Previous treatments include self-directed dieting.many years Weight History: Causes of Weight Gain: Family history of obesity:Yes Post weight retention: No Menopause associated weight gain:No Past/Current medication-induced weight gain: No Lifestyle Factors: Diet: Do you think that you have a healthy diet? No. Overall characterization of present diet:unhealthy snacking and increased consumption of sugar sweetened beverages. How have you tried to lose weight in the past? Yes. Exercise: Do you exercise ? No Are you able to walk up a flight of stairs or a small hill? Yes Patient's functional capacity is >4 METS. The composite complication rate of , unstable angina, IL, DVT, PE, renal failure, and stroke occurred in 16.6% of severely obese patients whose peak oxygen consumption was < 15.8 mL/kg/min but in only 2.8% of those whose cardiorespiratory fitness was >/= 15.8 mL/kg/min. By convention, 1 MET is considered equivalent to the consumption of 3.5 ml O2?kg-1?min-1 (or 3.5 ml of oxygen per kilogram of body mass per minute) and is roughly equivalent to the expenditure of 1 kcal per kilogram of body weight per hour. 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 Eats out 3-4 times /week Snack: usually Alcohol :socially / biweekly: 2 drinks (mix drinks) Bedtime Sleeps:9 pm poor /sleep apnea :struggles to get in deep sleep Wake up: Sleep: Duration: > 6 hours:Yes But broken Sleep apnea screen: If patient has been diagnosed with sleep apnea, has there been significant weight gain and are there any SDB symptoms on the current CPAP/BIPAP pressure setting: Yes. Chest pain, SOB, or FLOWERS: Yes /SOB Stress test: no History of eating disorders: denies Associated medical conditions: thyroid disease, hypertension, and sleep apnea Associated medications: none Cardiovascular risk factors: obesity and sedentary life style Current Outpatient Medications on File Prior to Visit Medication Sig Vitamin E, dl, acetate, (VITAMIN E) 400 unit capsule ursodiol (CHIDI) 250 mg tablet Take 250 mg by mouth two times a day with meals. potassium chloride ER (KLOR-CON) 20 mEq tablet Take 20 mEq by mouth. lisinopril-hydroCHLOROthiazide (ZESTORETIC) 20-12.5 mg per tablet Take 1 tablet by mouth every afternoon. ergocalciferol 50,000 unit capsule (VITAMIN D2, DRISDOL) Dose : 50,000 International_Unit = 1 cap(s), Oral, WEEKLY, 0 Refill(s) levothyroxine (SYNTHROID) 75 mcg tablet Dose : 75 mcg = 1 tab(s), Oral, qDay, 0 Refill(s) No current facility-administered medications on file prior to visit. ALLERGIES Allergen Reactions Cefaclor Unknown, Hives, Other: See Comments pt does not recall reaction, she was told by her mother that she was allergic and that meds caused joint swelling and discoloration Erythromycin Unknown pt stated allergic to Illisone which is not in data base, this med is the closest. She is stating what her mother told her Adhesive Tape-Silic* Other: See Comments PAST MEDICAL HISTORY Diagnosis Date BENI (obstructive sleep apnea) PAST SURGICAL HISTORY Procedure Laterality Date HYSTERECTOMY 12/10/2019 Any problems with an (more content not included)...[facility] 11-16-2023 Instructions* Patient Instructions* Yaya Hightower MD - 11/16/2023 9:17 AM EST Images from the original note were not included. TRYING TO LOSE WEIGHT? Your Body mass index is 56.87 kg/m . (Target BMI: 19-25) A person with a BMI between 25 and 29.9 is considered overweight A person with a BMI of 30 or greater is considered to be obese SETTING A WEIGHT LOSS GOAL: Last 5 Encounter Wt Readings: Date: Wt: 11/16/2023 136.5 kg (301 lb) 08/10/2023 137.9 kg (304 lb) 07/21/2022 140.8 kg (310 lb 4.8 oz) 11/25/2021 143.7 kg (316 lb 11.2 oz) 06/27/2021 145.1 kg (319 lb 14.4 oz) Lose 10% of body weight over six months, about 1-2 lbs per week LIFESTYLE CHANGES -- The goals of lifestyle changes are to help you change your eating habits, become more active, and be more aware of how much you eat and exercise, helping you to make healthier choices. This can be broken down into three steps: 1. Triggers to eat -- Determining what triggers you to eat involves figuring out what foods you eatand where and when you eat. To figure out what triggers you to eat, keep a record for a few days ofeverything you eat, the places where you eat, how often you eat, and the emotions you were feeling when you ate. For some people, the trigger is related to a certain time of day or night. For others, the trigger is related to a certain place, like sitting at a desk working. 2. Eating -- You can change your eating habits by breaking the chain of events between the trigger for eating and eating itself. There are many ways to do this. For instance, you can: Limit where you eat to a few places (eg, dining room) Restrict the number of utensils (eg, only a fork) used for eating Drink a sip of water between each bite Chew your food a certain number of times Get up and stop eating every few minutes 3. What happens after you eat -- Rewarding yourself for good eating behaviors can help you to develop better habits. This is not a reward for weight loss; instead, it is a reward for changing unhealthy behaviors. Do not use food as a reward. Some people find money, clothing, or personal care (eg, a hair cut, manicure, or massage) to be effective rewards. Treat yourself immediately after making better eating choices to reinforce the value of the good behavior. You need to have clear behavior goals, and you must have a time frame for reaching your goals. Reward small changes along the way to your final goal. Other factors that contribute to successful weight loss -- Establish a "jazmin" system -- Having a friend or family member available to provide support and reinforce good behavior is very helpful. The support person needs to understand your goals. Learn to be strong -- Learning to be strong when tempted by food is an important part of losing weight. As an example, you will need to learn how to say "no" and continue to say no when urged to eat at parties and social gatherings. Develop strategies for events before you go, such as eating beforeyou go or taking low-calorie snacks and drinks with you. Develop a support system -- Having a support system is helpful when losing weight. This is why manycommercial groups are successful. Family support is also essential; if your family does not supportyour efforts to lose weight, this can slow your progress or even keep you from losing weight. Positive thinking -- People often have conversations with themselves in their head; these conversations can be positive or negative. If you eat a piece of cake that was not planned, you may respond by thinking, "Oh, you stupid idiot, you've blown your diet!" and as a result, you may eat more cake. A positive thought for the same event could be, "Well, I ate cake when it was not on my plan. Now I should do something to get back on track." A positive approach is much more likely to be successful than a negative one. Reduce stress -- Although stress is a part of everyday life, it can trigger uncontrolled eating in some people. It is important to find a way to get through these difficult times without eating or byeating low-calorie food, like raw vegetables. It may be helpful to imagine a relaxing place that allows you to temporarily escape from stress. With deep breaths and closed eyes, you can imagine this relaxing place for a few minutes. Self-help programs -- Self-help programs like Weight Watchers , Overeaters Anonymous , and Take OffPounds Sensibly (TOPS) work for some people. As with all weight loss programs, you are most likely to be successful with these plans if you make long-term changes in how you eat. CHOOSING A DIET -- A calorie is a unit of energy found in food. Your body needs calories to function. The goal of any diet is to burn up more calories than you eat. How quickly you lose weight depends upon several factors, such as your age, gender, and starting weight. Older people have a slower metabolism than young people, so they lose weight more slowly. Men lose more weight than women of similar height and weight when dieting because they use more energy. People who are extremely overweight lose weight more quickly than those who are only mildly overweight. How many calories do I need? -- You can estimate the number of calories you need per day based uponyour current (or target) weight, gender, and activity level for women and for men. In general, it is best to choose foods that contain enough protein, carbohydrates, essential fatty acids, and vitamins. Try not to drink alcohol or drinks with added sugar, and most sweets (candy, cakes, cookies), sincethey rarely contain important nutrients. Portion-controlled diets -- One simple way to diet is to buy packaged foods, like frozen low-calorie meals or meal-replacement canned drinks. A typical meal plan for 1000 to 1500 calories per day mayinclude: A meal-replacement drink or breakfast bar for breakfast A meal-replacement drink or a frozen low-calorie (250 to 350 calories) meal for lunch A frozen low-calorie meal or other prepackaged, calorie-controlled meal, along with extra vegetables for dinner Low-fat diet -- To reduce the amount of fat in your diet, you can: Eat low-fat foods. Low-fat foods are those that contain less than 30 percent of calories from fat. Fat is listed on the food facts label Count fat grams. For a 1500 calorie diet, this would mean about 45 g or fewer of fat per day. Low-carbohydrate diet -- Low- and whya-ofl-wevevxdvnamn diets (eg, Atkins diet, [employer] diet) have become popular ways to lose weight quickly. With a fwnn-war-frklpliuandh diet, you eat between 0 and 60 grams of carbohydrates per day (a standard diet contains 200 to 300 grams of carbohydrates) With a low-carbohydrate diet, you eat between 60 and 130 grams of carbohydrates per day Carbohydrates are found in fruits, vegetables, and grains (including breads, rice, pasta, and cereal), alcoholic beverages, and in dairy products. Meat and fish do not contain carbohydrates. Side effects of ndff-yxz-oydbrfrkniqb diets can include constipation, headache, bad breath, muscle cramps, diarrhea, and weakness. Mediterranean diet -- The term "Mediterranean diet" refers to a way of eating that is common in olive-growing regions around the [place] Sea. Although there is some variation in Mediterranean diets, there are some similarities. Most Mediterranean diets include: A high level of monounsaturated fats (from olive or canola oil, walnuts, pecans, almonds) and a lowlevel of saturated fats (from butter) A high amount of vegetables, fruits, legumes, and grains (7 to 10 servings of fruits and vegetablesper day) A moderate amount of milk and dairy products, mostly in the form of cheese. Use low-fat dairy products (skim milk, fat-free yogurt, low-fat cheese). A relatively low amount of red meat and meat products. Substitute fish or poultry for red meat. For those who drink alcohol, a modest amount (mainly as red wine) may help to protect against cardiovascular disease. A modest amount is up to one (4 ounce) glass per day for women and up to two glasses per day for men. Which diet is best? -- No one diet is "best" for weight loss. Any diet will help you to lose weight if you stick with the diet. Therefore, it is important to choose a diet that includes foods you like. Fad diets -- Fad diets often promise quick weight loss (more than 1 to 2 pounds per week) and may claim that you do not need to exercise or give up favorite foods. Some fad diets cost a lot of money,because you have to pay for seminars or pills. Fad diets generally lack any scientific evidence that they are safe and effective, but instead rely on "before" and "after" photos or testimonials. Diets that sound too good to be true usually are. These plans are a waste of time and money and arenot recommended. A doctor, nurse, or patient account representative can help you find a safe and effective way to lose weight and keep it off. Adapted from [facility] My opinion 3 hour Rule: -last meal /snack 3 hours before sleeping ,but mostly try to be done by 7 pm --eat "Rich" Breakfast, high in protein hard boiled eggs/protein drinks - At least 3 hours break between each meals ,except water --sleep 7 hours at night , that means going to bed early -- drink only water ( no soda or juices) /no Alcohol consumption --cut down on coffee consumption if consuming high amounts Website :You can visit to web site for low carb recipe information as well as visual guide to low carb food: Https://www.dietdoctor.com/ ( visual guide for low carb diet) Limit carb consumption to 80- 100 grams per day. Goals: formal exercise 2-5 x/week as tolerated, start with 10 mins/day to goal of 30 minutes ( -- for exercise, you should shoot for a goal of >150 min per week initially. Depending at whatlevel you are starting, that may seem like an unachievable task. However, the best plan is to just begin to walk or bike or do another activity that you like and track your steps per day. You do not need to pay attention to the time, but you do need to try to increase your exercise every 3 weeks. Other strength exercises, using light weights or training bands may also be useful, especially when combined with regular aerobic exercise. Studies have shown that >200min per week is best to maintain weight loss, so that would be the overall end goal.) Have 3 meals a day-protein source with each meal (structured meal planning) Food journal daily and bring it to all appointments If you want you can REPLACE one of your meals with a liquid meal or frozen meal. This is easy to start and may help with your weight. 1. Liquid meal replacement (Boost, Ensure) 2. Frozen meal (Healthy Choice, Lean Cuisine - sodium under 650mg, can always add veggies to the meal) 3. Powdered protein (Premier Protein) or meal replacement (I like a plant based meal replacement called [employer] Nutrition - can mix w froz berries and almond milk) -- IN GENERAL - suggestions based on important of our sleep cycle called circadian rhythm and its influence on our gut microbiota and overall health tragetory 1) EAT MOST OF YOUR FOOD IN AM AND EARLY PM 2) NO EATING AT NIGHT 3) EXERCISE DURING DAY 4) BE CONSISTENT WITH MEAL STRUCTURE ie Meals at same time during the day. -- keep record of your food intake - it is easier for us to understand your eating habits and food preferences, looking into the amounts of protein, carbs, and fat in your diet. Good examples of appsto track calories are LyxiaPAL, LOSE IT. Some patient have found FOODUCATE to help with decisions around food, however choose apps that best suits you. PHENTERMINE Rule 4731-07-14 was amended and in effect as of 11/07/22 making phentermine fdc Rx for obesity. Monthly visits will no longer be required. -- Please start phentermine low dose (1/2 tablet) in the morning everyday as discussed. We can adjust the dose if needed, that is if you are feeling some side effects you can either stop all togetheror decrease to 1/4 tablet. But we can review its effect when you return. Per [place] Medical Board: patient need to demonstrate 5% weight loss over 12 weeks and to monitor herblood pressure closely and report any elevations of 140/90 and to keep a log of her blood pressure. -- Please monitor your blood pressure (either purchase BP cuff, or go to pharmacy to check your BP at a local pharmacy). Please avoid any stimulants (in the form of caffeinated beverages like coffee,tea, sports drinks) and caution with decongestants. -- -- Phentermine is not safe during . ? Phentermine (fen ter meen) What are the common names? Adipex-P, Ionamin Why is this medication prescribed? Phentermine was approved by the FDA in 1958 for short term weight loss. It works by decreasing appetite. Phentermine is absorbed by the body and travels to the appetite center of the brain. It works by helping you feel less hungry, less driven to eat, more satisfied with less food. I ve heard about fen-phen. Will phentermine affect my heart? The two drug combination fenfluramine/phentermine, usually called fen-phen, became popular in the early as a diet pill. However, it was withdrawn by the FDA in late 1996 after studies which showed that fenfluramine can cause fatal pulmonary hypertension and heart valve problems. Phentermine is not a combination medication and does not contain the compound fenfluramine. What special precautions should I follow? Before having phentermine prescribed, tell your doctor and pharmacist: If you have allergies to any component of phentermine If you are , plan to become , are breast-feeding, or if you become while taking phentermine What are the absolute contraindications? Stroke or Transient Ischemic Attacks Cardiac arrhythmias or Atrial fibrillation Coronary artery disease Seizure Disorder Uncontrolled blood pressure Angina Congestive Heart Failure Valvular Heart Disease or primary pulmonary hypertension Drug interactions. Use of monamine oxidase inhibitors (MAOI s) What are the side effects of phentermine? Immediately discontinue the medicine and seek medical help if you have severe symptoms such as chest pain, shortness of breath, feeling faint, ability to think clearly, eye pain or other visual symptoms: Palpitations (strong or rapid heartbeat) Difficulty sleeping or falling asleep Elevated blood pressure Dry mouth Anxiety or agitation Getting a stimulant/or hyper effect or jitteriness-(Usually goes away after a few days or weeks) Glaucoma In case of emergency/overdose In case of overdose, call your local poison control center at or call local emergency services at [phone]. What other information should I know? Keep all appointments with your doctor and the laboratory. Do not let anyone else take your medication. Phentermine is a controlled substance. It is FDA approved for up to 3 months. Prescriptions may be refilled only a limited number of times. Keep a written list of all of your prescription and nonprescription (daxf-uaf-whboodz) medicines, in addition to vitamins, minerals, or other dietary supplements. If you are taking the extended-release (long-acting) tablets, do not split, chew, or crush them tablet. There are some tablets that can be crushed and mixed with food Alcohol can make the side effects of phentermine worse How should I monitor while on this medication? Please check your blood pressure (BP) and resting pulse weekly (twice a week in the first 2 weeks).If the BP is over 140/90 (either one), or if the resting pulse is over 96 per minute (count for 10 seconds and multiply by 6), then stop the medication and call your doctor. Continue to improve your dietary and physical activity habits as the combination works best while on this medication. Start out by taking the medication in the morning at least 30 minutes prior to meals. If the effectseems to wear off by dinner time, try taking it later in the morning, but taking too late may result in trouble falling asleep. Be sure to eat regular meals. Less hunger does not make it appropriate to skip meals. Monitor your caffeine intake and use of decongestants as they may worsen the effects of phentermine Make sure to have an eye exam, including the pressure in your eyes (intra-ocular pressure), once a year. What should I do if I forget a dose? Skip the missed dose and continue your regular dosing schedule the next day. Do not take a double dose to make up for a missed one. Sources [facility] Consumer Medication Info: http://www.ncbi.nlm.nih.gov/pubmedhealth/ROB2142050/ AMA patient handouts: http://www.amaassn.org/ama1/pub/upload/mm/433/phrxsurgery.pdf Drugs.com: http://www.drugs.com/pro/phentermine.html Topiramate (toe pyre a mate) - Please start topiramate as discussed. Take one tablet (25mg) every night and increase to 2 tablets at night (50MG) after 2 weeks if there is no change in your appetite, cravings or weight. -- You can take it at night at first (because of potential sleepiness side effects), but earlier around dinner after you have started the medication for a few days. You also may be able to take it inthe morning if easier. -- We may increase the dose to 3 tablets (75mg) a few weeks later if there is no change with 50mg and continue to increase the medication in this way (usually no more than 150mg). But it is best to contact me after 1 month to discuss continued increases of the medication. -- Please see the handout to review the potential side effects and to explain this further -Also discussed that when on topiramate , I would recommend using 2 different kind if controlmethods, Due to several anomaly( if female in reproductive age group) --no while on this medications --pt Agrees and verbalizes understanding. What are the common names? Topamax Why is this medication prescribed? Topiramate is an anti-epileptic medications which has been approved by the FDA for patients 10 years of age or older for treatment of seizures. However, topiramate also has other uses such as the treatment of migraines. It also causes decrease in appetite and weight loss. The mechanism of weight loss is thought to be through inhibition of mitochondrial enzymes involved in energy expenditure and metabolism. Topiramate may work by helping you feel less hungry, less driven to eat, more satisfied with less food. However while phentermine and topiramate in combination are approved by FDA for long-term treatment of obesity, topiramate as stand alone pharmacotherapy has not been approved for this purpose. Has been used in treatment of obesity as an off label, as discussed during your visit. What special precautions should I follow? --Recommended appropriate and consistent control method in women to prevent conception while taking topiramate.(recommended at least 2 methods of contraception as at times it can decrease the effectiveness of oral control pills) --(women in child bearing age ) I strongly recommend discontinue the use of medication prior to conception as the medication may be linked to anomalies and not safe to utilize during . Before having topiramate prescribed, tell your doctor and pharmacist: If you have allergies to any component of topiramate If you are , plan to become , are breast-feeding, or if you become while taking topiramate What are the warnings and precautions for this medication? Immediately discontinue the medicine and seek medical help if you have severe cognitive/neuropsychiatric adverse symptoms or eye symptoms. Cognitive/neuropsychiatric adverse events: symptoms may include confusion, psychomotor slowing, difficulty with concentration/attention, difficulty with memory, speech or language problems, particularily word-finding difficulties, somnolence or fatigue Acute myopia and secondary angle closure glaucoma, usually within 1 month of starting treatment: symptoms may include blurred vision, redness and/or pain in the eye Oligohydrosis (decrease sweating) and hyperthermia (elevation in body temperature) Increase in suicidal behavior or ideation Metabolic acidosis, non-gap hyperchloremic (decreased serum bicarbonate below normal levels) resulting in hyperventilation or fatigue Kidney stones Paresthesias (numbness or tingling in hands or feet) Ataxia Dizziness Increase in urination frequency Drug interactions. Use of monamine oxidase inhibitors (MAOI s), valproic acid, Caution use with dehydration or diarrheal illness, hepatic or renal impairment In case of emergency/overdose In case of overdose, call your local poison control center at or call local emergency services at [phone]. What other information should I know? Keep all appointments with your doctor and the laboratory. Do not let anyone else take your medication. Topiramate use needs to be monitored closely. Prescriptions may be refilled only a limited number of times. Keep a written list of all of your prescription and nonprescription (ugbb-sxh-zleayfh) medicines, in addition to vitamins, minerals, or other dietary supplements. How should I monitor while on this medication? Your doctor will check your baseline kidney function and electrolytes prior to starting this medication, then periodically. Continue to improve your dietary and physical activity habits as the combination works best while on this medication. Start out by taking the medication at bedtime as it can cause fatigue and sleepiness. Be sure to eat regular meals. Less hunger does not make it appropriate to skip meals. Make sure to have an eye exam, including the pressure in your eyes (intra-ocular pressure), once a year. What should I do if I forget a dose? Skip the missed dose and continue your regular dosing schedule the next day. Do not take a double dose to make up for a missed one. Sources Pubmed Health: http://www.ncbi.nlm.nih.gov/pubmedhealth/UXY5482108/ Drugs.com http://www.drugs.com/pro/topiramate.html [facility] of Present illness Narrative* Yaya Hightower MD - 11/16/2023 9:05 AM EST Images from the original note were not included. Yaya Hightower MD [facility] [address] [place] [address] [id number] [employer] Assistant Center - Fourth Floor [place] [phone] This Team Access Model visit is a virtual visit. It required patient-provider interaction for the medical decision making as documented below. Consent was obtained to complete [employer] [facility]. I have communicated my name and active licensure. The patient's identity and physical location wereverified at the time of this visit. Either the patient or their legal front desk representative has been informed of the risks and benefits of -- and alternatives to -- treatment through a remote evaluation andconsents to proceed with the evaluation remotely. SUBJECTIVE: Tee Stroud is a 38 year old female with has a past medical history of BENI (obstructive sleep apnea). of presents on November 16, 2023 for medical evaluation of Non-Surgical Metabolic Weight Management . Discussed extensively regarding bariatric surgery option but patient is interested in bariatric surgery but no insurance coverage Age at onset - early adult years. Past 19 years or so ..Rate of weight gain is described as gradual over years. Family history positive for obesity in the patient s paternal grandfather, maternal grandfather, father, and mother. She considers ideal weight to be 200 lbs. Weight at graduation from high school 150. Previous treatments include self-directeddieting.many years Weight History: Causes of Weight Gain: Family history of obesity:Yes Post weight retention: No Menopause associated weight gain:No Past/Current medication-induced weight gain: No Lifestyle Factors: Diet: Do you think that you have a healthy diet? No. Overall characterization of present diet:unhealthy snacking and increased consumption of sugar sweetened beverages. How have you tried to lose weight in the past? Yes. Exercise: Do you exercise ? No Are you able to walk up a flight of stairs or a small hill? Yes Patient's functional capacity is >4 METS. The composite complication rate of , unstable angina, IL, DVT, PE, renal failure, and stroke occurred in 16.6% of severely obese patients whose peak oxygen consumption was < 15.8 mL/kg/min but in only 2.8% of those whose cardiorespiratory fitness was >/= 15.8 mL/kg/min. By convention, 1 MET is considered equivalent to the consumption of 3.5 ml O2 kg-1 min-1 (or 3.5 ml of oxygen per kilogram of body mass per minute) and is roughly equivalent to the expenditure of 1 kcal per kilogram of body weight per hour. 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 Eats out 3-4 times /week Snack: usually Alcohol :socially / biweekly: 2 drinks (mix drinks) Bedtime Sleeps:9 pm poor /sleep apnea :struggles to get in deep sleep Wake up: Sleep: Duration: > 6 hours:Yes But broken Sleep apnea screen: If patient has been diagnosed with sleep apnea, has there been significant weight gain and are there any SDB symptoms on the current CPAP/BIPAP pressure setting: Yes. Chest pain, SOB, or FLOWERS: Yes /SOB Stress test: no History of eating disorders: denies Associated medical conditions: thyroid disease, hypertension, and sleep apnea Associated medications: none Cardiovascular risk factors: obesity and sedentary life style Current Outpatient Medications on File Prior to Visit Medication Sig Vitamin E, dl, acetate, (VITAMIN E) 400 unit capsule ursodiol (CHIDI) 250 mg tablet Take 250 mg by mouth two times a day with meals. potassium chloride ER (KLOR-CON) 20 mEq tablet Take 20 mEq by mouth. lisinopril-hydroCHLOROthiazide (ZESTORETIC) 20-12.5 mg per tablet Take 1 tablet by mouth every afternoon. ergocalciferol 50,000 unit capsule (VITAMIN D2, DRISDOL) Dose : 50,000 International_Unit = 1 cap(s), Oral, WEEKLY, 0 Refill(s) levothyroxine (SYNTHROID) 75 mcg tablet Dose : 75 mcg = 1 tab(s), Oral, qDay, 0 Refill(s) No current facility-administered medications on file prior to visit. ALLERGIES Allergen Reactions Cefaclor Unknown, Hives, Other: See Comments pt does not recall reaction, she was told by her mother that she was allergic and that meds caused joint swelling and discoloration Erythromycin Unknown pt stated allergic to Illisone which is not in data base, this med is the closest. She is stating what her mother told her Adhesive Tape-Silic* Other: See Comments PAST MEDICAL HISTORY Diagnosis Date BENI (obstructive sleep apnea) PAST SURGICAL HISTORY Procedure Laterality Date HYSTERECTOMY 12/10/2019 Any problems with anesthesia with the above surgeries: NA History reviewed. No pertinent family history. Social History Tobacco Use Smoking status: Never Smokeless tobacco: Never Vaping Use Vaping Use: Never used Substance Use Topics Alcohol use: Never Drug use: Never Review of Systems Constitutional: Positive for malaise/fatigue. HENT: Negative for congestion and tinnitus. Eyes: Negative for blurred vision. No glaucoma Respiratory: Negative for sputum production and shortness of breath. Cardiovascular: Negative for chest pain, palpitations, orthopnea and leg swelling. Gastrointestinal: Positive for heartburn. Negative for nausea and vomiting. Genitourinary: Negative for dysuria and frequency. No kidney stones Musculoskeletal: Negative for back pain and joint pain. Neurological: Negative for weakness. Psychiatric/Behavioral: The patient is not nervous/anxious and does not have insomnia. Broken sleep No previous history of pancreatitis No personal or family history of medullary thyroid cancer No Family history of MEN syndrome OBJECTIVE: Ht 154.9 cm (5' 1") Wt (!) 136.5 kg (301 lb) LMP 11/08/2010 BMI 56.87 kg/m BMI = Body mass index is 56.87 kg/m . Physical Exam Constitutional:. --no issues with communication during visit and demonstrates understanding via appropriate interaction, verbalizing understanding ans she consented for this visit visit encounter HEENT: Normocephalic and atraumatic. Eyes: Conjunctiva appear normal. No scleral icterus. Hearing: Is grossly intact. Neck: Range of motion appears normal. Thyroid: appears symmetric and not enlarged. Pulmonary/Chest: Effort normal. Psychiatric: Mood, memory, affect and judgment normal. Neurological: alert and oriented to person, place, and time. ASSESSMENT/PLAN: 1. Class 3 severe obesity with serious comorbidity in adult, unspecified BMI, unspecified obesity type (HCC) - ICD9: 278.01, ICD10: E66.01 (primary diagnosis) Weight increasing - Behavioral and pharmacological intervention -- counseled in length ,recommended Low carb /low sugar diet --managing maladaptive eating behaviors and adding resistance exercise. Continue low carb diet, weights/cardio exercise and increase NEAT.I have also reviewed he possibility of using weight loss medications in an effort to reduce her appetite. I have reviewed the different therapeutic options available including We have also reviewed the possibility of using on her medications such as metformin which has been also associated with weight loss. We agreed that trying Topiramate, off label could be her best option at this point. I reviewed withthe patient pros and cons of taking this medication. I have also asked her check her blood pressuretwice a week over the next 2 weeks and let me know if he goes over 150/100. --Unfortunately insurance will not cover other weight loss medications as well as bariatric surgery. Today we started on topiramate but also discussed in person visit to add phentermine. - COMP METABOLIC PANEL - HGB A1C - VITAMIN B12 BLOOD - VITAMIN D 25 HYDROXY - TSH BLD - INSULIN ASSAY BLOOD - PHENTERMINE 37.5 MG TABLET 2. Vitamin D deficiency - ICD9: 268.9, ICD10: E55.9 Continue supplements 3. Hypothyroidism, unspecified type - ICD9: 244.9, ICD10: E03.9 - Instructed patient on importance of taking on an empty stomach either first thing in the morning or at bedtime. 4. Body mass index 50.0-59.9, adult (HCC) - ICD9: V85.43, ICD10: Z68.43 Weight increasing - Behavioral and pharmacological intervention - COMP METABOLIC PANEL - HGB A1C - VITAMIN B12 BLOOD - VITAMIN D 25 HYDROXY - TSH BLD - INSULIN ASSAY BLOOD - PHENTERMINE 37.5 MG TABLET 5. Dietary counseling and surveillance - ICD9: V65.3, ICD10: Z71.3 Reviewed principles of energy metabolism, caloric intake and expenditure, and rationale for treatment program. Also reinforced need for reduced calorie, low fat diet and increased physical activity. 6. Fatty metamorphosis of liver - ICD9: 571.8, ICD10: K76.0 -Discussed on cutting down on processed food continue with increased protein and fibers with meals weight loss certainly will help. 7. Obstructive sleep apnea syndrome - ICD9: 327.23, ICD10: G47.33 Recommended to be compliant with her CPAP. Yaya Hightower MD Reviewed principles of energy metabolism, caloric intake and expenditure, and rationale for treatment program. Also reinforced need for reduced calorie, low fat diet and increased physical activity. Yaya Hightower MD History Review: I have reviewed and modified as needed, the following during this visit: Allergies,Past Medical History, Past Surgical History, Past Family History, Past Social History. documented in this [facility]Main [facility] History and physical note Author Theodora Celis [facility] May 08, 2023 11:23am Note Date/Time May 08, 2023 11 :23am [facility] Medical Records Department [address] [place] [address] History & Physical Exam 05/08/23 1122 MR#: [id number] Acct: [id number] Name: TEE STROUD Rep #:[id number] : 1985 37 From: Theodora stubbs MD PCP: Dr. 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 Is patient in pain?: No Allergies cefaclor [From Ceclor] Allergy (Mild, Verified 05/04/23 11:20) Othererythromycin base [From Ilosone] Allergy (Mild, Verified 05/04/23 11:20) Other Medications levothyroxine 75 mcg capsule 75 mcg PO DAILY 11/26/19 [History Confirmed 04/26/23] ergocalciferol (vitamin D2) 1,250 mcg (50,000 unit) capsule 50,000 unit PO Q7D 01/05/20 [History Confirmed 04/26/23] lidocaine 5 % topical cream 1 applic topical TID PRN pain #30 grams 04/12/23 [Rx Confirmed 04/26/23] lidocaine-prilocaine 2.5 %-2.5 % topical kit 1 applic topical .q4Hr PRN pain (scale score 4-6) 30 days #1 ea 04/12/23 [Rx Confirmed 04/26/23] lisinopril 20 mg-hydrochlorothiazide 12.5 mg tablet 1 tab PO DAILY 04/12/23 [History Confirmed 04/26/23] omeprazole 20 mg capsule,delayed release 20 mg PO DAILY 04/12/23 [History Confirmed 04/26/23] ursodiol 200 mg capsule 200 mg PO BID 04/12/23 [History Confirmed 04/26/23] vitamin E mixed 400 unit capsule unit PO 04/12/23 [History Confirmed 04/26/23] potassium chloride 20 mEq tablet,extended release(part/cryst) 20 meq PO DAILY 05/04/23 [History Confirmed 05/04/23] Post menopausal: No Patient : No : [facility] Acute pharyngitis, unspecified Acute pharyngitis, unspecified Acute sinusitis, unspecified Contact with and (suspected) exposure to other viral communicable diseases Contact with and (suspected) exposure to other viral communicable diseases History of IBS Hypothyroidism Surgical History History of wisdom tooth extraction, class II edentulism S/P laparoscopic assisted vaginal hysterectomy (LAVH) (~01/07/20) Family History Mother Diabetes Anxiety Hypertension Thyroid disorderFather Arthritis Anxiety Heart disease HypertensionGrandfather Heart diseaseGrandmother Diabetes Cancer Heart disease Social History Smoking Status: Never smoker alcohol intake: current details: social substance use type: does not use caffeine: Yes what type of physical activity do you participate in: none seatbelt use: always do you feel safe at home: Yes additional social history: [employer] Patient works for [employer] HPI laser lesions Details: TEE STROUD is a 37 year old who presents for preop visit co vulvar lesions preparing for surgery to remove with the laser. Female Reproductive History Menopausal Symptoms: No night sweats History 1 Elective abortions Hx Para 1 Spontaneous abortions Hx # Term Pregnancies Ectopic pregnancies Hx # Pregnancies Multiple births # of living children Past Pregnancies Del. Date Name GA/Weeks Outcome Route Bth Weight Infant Gen Labor Lgth Anesthesia Del Locatn Provider FOB Unknown 2002 Nicole live - full term NSV D ROS Const Constitutional: Denies fatigue, night sweats, weight gain or weight loss ENT ENT: Reports system reviewed and no additional complaints, except as documented Cardio Card: Denies chest pain Resp Resp: Denies cough or dyspnea GI GI: Reports as per HPI; Denies abdominal pain, constipation, nausea or vomiting : Denies nipple discharge, urinary frequency, urinary incontinence, urinary hesitancy, urinary urgency, vaginal discharge, vaginal dryness, vaginal odor or vaginal pruritus Musc Musc: Denies arthralgias, back pain or muscle weakness Skin Skin/Breast: Denies alopecia, change in hair, dry skin, breast mass, breast pain, breast skin changes or nipple discharge Neuro Neuro: Reports system reviewed and no additional complaints, except as documented Psych Psych: Reports system reviewed and no additional complaints, except as documented Endo Endo: Denies cold intolerance, excessive sweating, heat intolerance or polydipsia Derek/Lymph Hematologic/Lymphatic: Denies easy bleeding, Denies easy bruising and Denies lymphadenopathy Exam Const General: cooperative, healthy appearing, comfortable and no acute distress Orientation: alert HENMT Head: normal to inspection and normocephalic Ears: hearing grossly normal bilaterally and external ears normal Nose: external nose normal and nares normal Face and sinus: normal facial exam Neck Neck: normal visual inspection and no lymphadenopathy Thyroid: thyroid normal Chest Chest palpation & inspection: normal inspection of the chest Resp Effort & Inspection: normal respiratory effort Auscultation: clear to auscultation bilaterally Cardio Rate: regular rate Rhythm: regular rhythm Heart Sounds: S1 normal and S2 normal GI Inspection: normal to inspection and non-distended Palpation: soft and no hepatosplenomegaly Musc Other: gross motor intact no deficits, full bilateral strength Skin General: no rashes or lesions noted Neuro General: patient alert, patient awake, moves all extremities and no focal motor deficits Motor: muscle tone normal throughout Extrem General: normal to inspection and no pedal edema Psych Appearance: grossly normal Mental Status: mental status grossly normal Affect: normal affect Speech and Movement: speech and movement normal Coding Level of Care Code No Charge Diagnoses Vulval lesion N90.89 Assessment and Plan Assessment and Plan (1) Vulval lesion: Status: Acute Comment: plan laser ablation of vulvar lesions. Plan Problem list updated and treatment plans were reviewed with the patient and relevant educational handouts given. See problem list details for specific planinformation. After discussing the patient's diagnosis and treatment plan options, patient wishes to proceed with surgical management. I have discussed with the patient the risks, benefits, and alternatives of the procedure which include but are notlimited to risks of anesthesia, bleeding, infection, possible damage to bowel, bladder, or surrounding vasculature which could lead to additional surgery to evaluate any complications. Patient agrees to procedure and wishes to proceed. ACOG/uptodate references given for additional information regarding procedure. UPDATE- I have seen the patient and performed any clinically relevant updates to the history and physical exam. Theodora Celis MD 05/08/23 1123 <Electronically signed by Theodora Celis MD> Cosigner Signature (if applicable): CC: Dr. Jose Addison MD; Dr. Theodora Celis MD~ Signed [facility] Work Phone: [phone]) 264-637711-11-2022 Instructions* Patient Instructions* Mauricio Lehman MD - 07/21/2022 2:08 PM EST No change in CPAP of +12cm as you are doing. Would check with [employer] about moisture accumulating on your CPAP mask. Machine and humidifier may need to be looked at. If not would suggest getting a new mask and could use either full-face or nasal pillows. Agree with ENT consultation for enlarged tonsils. Continue to encourage efforts of regular exercise and weight reduction as medically feasible. Follow up in one year. documented in this [facility]11-11-2022 History of Present illness Narrative* Mauricio Lehman MD - 07/21/2022 1:46 PM EST ESTABLISHED PATIENT FOLLOW-UP CONSULT SERVICE DATE: 07/21/2022 PRIMARY CARE PHYSICIAN: Jose Addison MD SUBJECTIVE CHIEF COMPLAINT: Follow up of BENI on +12cm CPAP. HPI: Tee Stroud is a 36 year old female here for follow up appointment for the above after last visit of 02/09/[address] Decker. She remains on +12cm CPAP which she wears qHS for 6-7 hours/night. "I can't sleep without it." Feels rested and breathes easily at night. No wake ups at HS.No EDS. No AM headaches or brain fog. Tee brought up to me that her mask gets really wet overnight. She does wear humidity with it. She is not aware of any appreciable air leak around the mask, which is a medium size nasal mask. She has also noted that her tonsils have become enlarged and sometimes make it hard for her to swallow. No pain. She has never had her tonsils out. SOCIAL HISTORY: Social History Tobacco Use Smoking status: Never Smokeless tobacco: Never MEDICATIONS: Prior to Admission Medications (Not in a hospital admission) CURRENT ALLERGIES: ALLERGIES Allergen Reactions Cefaclor Unknown, Hives, Other: See Comments pt does not recall reaction, she was told by her mother that she was allergic and that meds caused joint swelling and discoloration Erythromycin Unknown pt stated allergic to Illisone which is not in data base, this med is the closest. She is stating what her mother told her Adhesive Tape-Silic* Other: See Comments COMPLETE REVIEW OF SYSTEMS: GENERAL: No weight loss, malaise or fevers HEENT: Negative for frequent or significant headaches, No changes in hearing or vision, no nose bleeds or other nasal problems NECK: Negative for lumps, goiter, pain and significant neck swelling RESPIRATORY: Negative for cough, hemoptysis, wheezing, COPD, dyspnea or shortness of breath CARDIOVASCULAR: Negative for chest pain, leg swelling, hypertension, CHF or palpitations GI: No nausea, vomiting, or diarrhea : No history of dysuria, frequency or incontinence MUSCULOSKELETAL: Negative for joint pain or swelling, back pain or muscle pain SKIN: Negative for lesions, rash, and itching PSYCH: Negative for sleep disturbance, mood disorder and recent psychosocial stressors HEMATOLOGY/LYMPHOLOGY: Negative for prolonged bleeding, bruising easily or swollen nodes ENDOCRINE: Negative for cold or heat intolerance, polyuria, polydipsia and goiter NEURO: No history of headaches, syncope, paralysis, seizures or tremors The remainder of the ROS was negative. OBJECTIVE PHYSICAL EXAMINATION: VITAL SIGNS: BP 151/98 Pulse 109 Temp 97.6 Resp 14 Ht 5' 1" (1.55m) Wt 310 lb 4.8 oz (140.8kg) SpO2 96% LMP 11/08/2010 BMI 58.66 kg/(m^2). General appearance: Well-developed well-nourished Age appropriate female. Cordial. Comprehends well. Good hygiene. Skin: Normal turgor. Not pallorous. Not diaphoretic. No jaundice. No scars. No rashes. Eyes: Pupils equally reactive to light. Midline. No jaundice. Vision reasonable grossly. EOMI ENT: No palpable lymphadenopathy. Hearing intact. Normocephalic. No neck scar. No thyromegaly. Gooddentition in the top and lower plates. No macroglossia. Supple neck. No carotid bruits. No venous hums. No retrognathia. Grade II airway score. Tonsils symmetrically enlarged and abut the lateral aspect of the uvula. No purulence or bleeding. Heme/Lymph: No significant neck adenopathy. Negative JVD in the setting position Lungs: Clear A&P bilaterally. Good inspiratory capacity. No overt wheeze. No pleural rub. Heart:: Regular rate and rhythm. Normal heart tones. No significant rub, or gallop. Murmur No. Edema- no. Normal P2 . No rub or mercedes. ABD: Abdomen soft, non-tender. Bowel sounds normal. No masses, organomegaly. No bruits. Increased central girth Musculoskeletal: nl gait. No limp. Ambulation normal. Looks comfortable with walking. Extremities without cyanosis or clubbing. No deformities, No edema, or skin discoloration. Good capillary refill PSYCH: Alert. Responsive. Seems to comprehend reasonably well. Interactive. Engaged- yes, with goodrecall. Neuro: Nonfocal. Alert. Oriented. Speech intact. No gross cerebellar dysfunction. Gait observed as above. CN II-XII grossly intact. Sensory and motor function grossly within normal limits. DATA: Diagnostic tests reviewed for today's visit, films/specimens were personally reviewed by me: LAST LAB RESULTS: No results found for this basename: inr:1,ptsec:1 No results found for: GLUC, K, NA, CHLOR, CO2, CREAT, BUN, ANION, CA, TPROT, ALB, TBILI, ALKPHOS, AST, ALT No results found for: GLUC CBC with diff: No results found for this basename: WBC,RBC,HB,HCT,MCV,MCH,MCHC,RDWCV,PLT,MPV,NEUTP,LYMPHP,MONOP,EOD INP,BASOP,ABSNEUT,ABSLYM,ABSMONO,ABSEOSIN,ABSBASO OTHER TESTING: CT chest: NA Chest xray: NA Heart echo: NA Biopsy results: NA No textual results found for the specified procedure(s). ASSESSMENT 1. E66.01 Obesity, Class III, BMI >= 40 (primary encounter diagnosis) Comment: Stable 2. G47.33, Z99.89 BENI on CPAP Comment: Compliant with good results 3. J35.1 Hypertrophy of tonsils Comment: Clinically causing problems but does not appear to be compromsing airway as long as she iswearing CPAP. PLAN: No change in CPAP of +12cm as you are doing. Would check with [employer] about moisture accumulating on your CPAP mask. Machine and humidifier may need to be looked at. If not would suggest getting a new mask and could use either full-face or nasal pillows. Agree with ENT consultation for enlarged tonsils. Continue to encourage efforts of regular exercise and weight reduction as medically feasible. Follow up in one year. Copy to Referring physician Thank you for allowing me to participate in this patient's care. SIGNATURE: Mauricio Lehman MD PATIENT NAME: Tee Stroud DATE: July 21, 2022 TIME: 2:08 PM PAGER/CONTACT #: [phone] documented in this encounterMain [facility]06-02-[facility]22 History of Present illness Narrative* Aggie Decker MD - 02/09/2022 8:41 AM EDT VIRTUAL VISIT PROGRESS NOTE This is a virtual visit using Finjan video visit. It required patient-provider interaction for themedical decision making as documented below. Tee Stroud is a 36 year old female seen for BENI. Patient was seen by Dr. Lehman in November. Patient states that she received her CPAP machine early November and comes in for follow-up. States that every night she is using her CPAP for 7 to 8 hours except when she goes on vacation she misses it but she is very compliant with her CPAP. States that she is feeling much better after using the CPAP. Denies any morning headaches. Denies any daytime sleepiness. Overall she feels better HISTORY REVIEWED (electronic chart updated): PAST MEDICAL HISTORY Diagnosis Date BENI (obstructive sleep apnea) PAST SURGICAL HISTORY Procedure Laterality Date HYSTERECTOMY 12/10/2019 No family history on file. Social History Tobacco Use Smoking status: Never Smoker Smokeless tobacco: Never Used Substance Use Topics Alcohol use: Not on file Drug use: Not on file Current Outpatient Medications Medication Sig ergocalciferol 50,000 unit capsule (VITAMIN D2, DRISDOL) Dose : 50,000 International_Unit = 1 cap(s), Oral, WEEKLY, 0 Refill(s) levothyroxine (SYNTHROID) 75 mcg tablet Dose : 75 mcg = 1 tab(s), Oral, qDay, 0 Refill(s) sertraline (ZOLOFT) 50 mg tablet Take 50 mg by mouth once daily. DICYCLOMINE HCL (BENTYL ORAL) Take by mouth. (Patient not taking: Reported on 06/27/2021 ) No current facility-administered medications for this visit. ALLERGIES Allergen Reactions Cefaclor Unknown, Hives, Other: See Comments pt does not recall reaction, she was told by her mother that she was allergic and that meds caused joint swelling and discoloration Erythromycin Unknown pt stated allergic to Illisone which is not in data base, this med is the closest. She is stating what her mother told her Adhesive Tape-Silic* Other: See Comments REVIEW OF SYSTEMS: GENERAL: feeling well without fatigue, no recent change in weight PHYSICAL EXAMINATION: VIDEO EXAM: (if completed, performed via video enabled technology) GENERAL: alert and appropriate, in no distress, well-hydrated, well nourished and happy, smiling, interactive ASSESSMENT: ASSESSMENT/PLAN: 1. BENI on CPAP - ICD9: 327.23, V46.8, ICD10: G47.33, Z99.89 Is compliant with CPAP. Using every night 7 to 8 hours. Encouraged on CPAP compliance Aggie Decker MD There are no Patient Instructions on file for this visit. I spent a total of 25 minutes on the date of the service which included preparing to see the patient, [id number] patient care, completing clinical documentation, obtaining and/or reviewing separately obtained history, performing a medically appropriate examination, counseling and educating the pat ient/family/caregiver, ordering medications, tests, or procedures, communicating with other HCPs (not separately reported), independently interpreting results (not separately reported) and communicating results to the patient/family/caregiver Aggie Decker MD documented in [facility] History and physical note * Mauricio Lehman MD - 06/27/2021 3:14 PM EDT Images from the original note were not included. PULMONARY MEDICINE CONSULT HISTORY AND PHYSICAL Patient Name: Tee Stroud PRIMARY CARE PHYSICIAN: Jose Addison MD REFERRING PHYSICIAN: Self CHIEF COMPLAINT: "My machine has been broken for a year." HISTORY OF PRESENT ILLNESS: Tee Stroud is a 35 year old female, Ht 154.9 cm (5' 1") BMI 60.44 kg/m2, with a history of moderate BENI having a screening PSG on 11/17/15 with an AHI of 23.4 and REM AHI of 54.5. Minimum SAO2 of 88%. PLM Arousal Index of 0.7. Returned for CPAP titration in [place] on 12/01/15 effectively treated at +9cm with snoring also elminated. This patient is here for first Pulmonary office visit and consultation I reviewed available objective data including imaging as available. Main symptoms include: Tee was doing very well with +9cm but her machine stopped working about a year ago and she never replaced it. Her sleep physician atthe time, Dr. Luis Wright, had his own DME but then went out of business. Tee was wearing CPAP qHS with good results (had a small size nasal mask) sleeping well and felt well during the day. Now...wakes up several times at HS and appears to stop breathing. No nocturia, however. Heavy snorer. Restless sleeper. Goes to bed at 10-11P and will fall asleep in 30 minutes. Wakes up at 6AM feeling tired with AM HAsabout 5 x /week. Head is in a daze/fog. +/- EDS. Does not take naps. No falling asleep while driving. Usually a side and back sleeper. Weight is up 15lbs x 2 years. Did have tonsils out as a child. No past medical history on file. No past surgical history on file. No family history on file. No reported family hx of ILD fibrosis, PAH, Tb, lung cancer, A1AT deficiency Social History Tobacco Use Smoking status: Never Smoker Smokeless tobacco: Never Used Substance Use Topics Alcohol use: Not on file Drug use: Not on file Ambulatory, see vaccine HX, Occupation and lives in [place]. 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 Occasional alcohol. FHx: Mom this year at [facility] from renal failure and a leg infection. Mom had BENI. Dad a heavy snorer. CURRENT OUTPATIENT MEDICATIONS: ergocalciferol 50,000 unit capsule (VITAMIN D2, DRISDOL) Dose : 50,000 International_Unit = 1 cap(s), Oral, WEEKLY, 0 Refill(s) levothyroxine (SYNTHROID) 75 mcg tablet Dose : 75 mcg = 1 tab(s), Oral, qDay, 0 Refill(s) sertraline (ZOLOFT) 50 mg tablet Take 50 mg by mouth once daily. DICYCLOMINE HCL (BENTYL ORAL) Take by mouth. ALLERGIES: ALLERGIES Allergen Reactions Ceclor [Cefaclor] Unknown Adhesive Tape-Silic* Other: See Comments REVIEW OF SYSTEMS Constitutional: Well developed. no acute distress throughout the interview. No dyspnea throughout the interview; not acutely ill. No fevers, chills, night sweats HEENT: Yes frequent or significant headaches, changes in hearing or vision, tinnitus, epistaxis or other nasal problems, normal pharynx. Good voice. Denies lymphadenopathy; denies allergic rhinitis. RESPIRATORY: No dyspnea, No wheezing, No hemoptysis, No excessive phlegm, No nonpurulent phlegm, Nopleuritic pain, No FLOWERS BENI: Yes apnea, Yes hypersomnolence, No cpap, Yes snoring, Yes unusual breathing patterns during sleep, No nocturia, Yes frequent awakenings, Yes morning fatigue. CARDIOVASCULAR: No palpitations, No heart failure, No edema, No chest pain, No stents. No hx CABG GASTROINTESTINAL: No abdominal discomfort, No blood in stools or black stools or change in bowel habits, weight increased 15 pounds since two years. No liver failure or active hepatitis. No biliary colic. GENITOURINARY: No history of dysuria, urgency, frequency, or incontinence, mass, hematuria, or pyuria SALES ACCOUNT SPECIALIST: Not reviewed MUSCULOSKELETAL: No for joint pain or swelling, muscle aches, bone pain, serositis or scleroderma or other connective tissue diseases; no major arthralgias NEUROLOGIC: No focal numbness or weakness, headaches, dizziness or syncope or near-syncope. No recent CVA/TIA. No gait disturbance. No seizures. SKIN: No for lesions, rash, and itching. No jaundice PSYCHIATRIC: No sleep disturbance, mood disorder, depression, manic episodes and recent psychosocial stressors. HEMATOLOGIC/LYMPHATIC/IMMUNOLOGIC: No anemia, No hx lymphoma, No bleeding or clotting issues. ENDOCRINE: Weight up 15lbs, No for cold or heat intolerance, polyuria, polydipsia and goiter. denies thyroid issues. Yes fatigue. The remainder of the ROS was negative or as per documentation. PHYSICAL EXAMINATION: VITAL SIGNS: BP 154/106 Pulse 100 Resp 16 Ht 5' 1" (1.55m) Wt 319 lb 14.4 oz (145.1kg) SpO2 99% LMP 11/08/2010 BMI 60.48 kg/(m^2). General appearance: Well-developed well-nourished Age appropriate female. Cordial. Comprehends well. Good hygiene. Skin: Normal turgor. Not pallorous. Not diaphoretic. No jaundice. No scars. No rashes. Eyes: Pupils equally reactive to light. Midline. No jaundice. Vision reasonable grossly. EOMI ENT: No palpable lymphadenopathy. Hearing intact. Normocephalic. No neck scar. No thyromegaly. Gooddentition in the top and lower plates. No macroglossia. Supple neck. No carotid bruits. No venous hums. No retrognathia. Grade II airway score. Heme/Lymph: No significant neck adenopathy. Negative JVD in the setting position Lungs: Clear A&P. Good inspiratory capacity. No overt wheeze. No pleural rub. Heart:: regular rate and rhythm. Normal heart tones. No significant rub, or gallop. Murmur No. Edema- yes, Trace pitting. Normal P2 . No rub or mercedes. ABD: Abdomen soft, non-tender. Bowel sounds normal. No masses, organomegaly. No bruits. Increased central girth Musculoskeletal: nl gait. No limp. Ambulation normal. Looks comfortable with walking. Extremities without cyanosis or clubbing. No deformities, Trace LE pitting edema; No skin discoloration. Good capillary refill PSYCH: Alert. Responsive. Seems to comprehend reasonably well. Interactive. Engaged- yes, with goodrecall. Neuro: Nonfocal. Alert. Oriented. Speech intact. No gross cerebellar dysfunction. Gait observed as above. CN II-XII grossly intact. Sensory and motor function grossly within normal limits. DATA: Diagnostic tests reviewed for today's visit, films/specimens were personally reviewed by me: LAST LAB RESULTS: No results found for this basename: inr:1,ptsec:1 No results found for: GLUC, K, NA, CHLOR, CO2, CREAT, BUN, ANION, CA, TPROT, ALB, TBILI, ALKPHOS, AST, ALT No results found for: GLUC CBC with diff: No results found for this basename: WBC,RBC,HB,HCT,MCV,MCH,MCHC,RDWCV,PLT,MPV,NEUTP,LYMPHP,MONOP,EOD INP,BASOP,ABSNEUT,ABSLYM,ABSMONO,ABSEOSIN,ABSBASO OTHER TESTING: No textual results found for the specified procedure(s). No notes on file Medications reviewed Education provided today regarding the stated disease states IMPRESSIONS: 1. Moderate BENI with a severe REM-related component by PSG of 11/17/2015 and effectively titrated to +9cm on 12/01/15. 2. Acquired hypothyroidism 3. Morbid obesity 4. History of Fe deficiency anemia PLAN: 1. Will set up for CPAP retitration beginning at +8cm and increasing by one cm increments to eliminate respiratory events. 2. Encourage any efforts of regular exercise and weight reduction as medically feasible. 3. Will need a new [employer] company for CPAP supplies. 4. Follow up in 2-3 months. Written and verbal health teaching given to patient, patient verbalizes understanding and agrees with treatment plan. Electronically Signed: Mauricio Lehman MD June 27, 2021 documented in [facility] Instructions* Patient Instructions* Mauricio Lehman MD - 06/27/2021 3:07 PM EDT 1. Will set up for CPAP retitration beginning at +8cm and increasing by one cm increments to eliminate respiratory events. 2. Encourage any efforts of regular exercise and weight reduction as medically feasible. 3. Will need a new DME company for CPAP supplies. 4. Follow up in 2-3 months. [facility] in [facility] History of Present illness Narrative* Mauricio Lehman MD - 06/27/2021 2:36 PM EDT Images from the original note were not included. Sleepiness Scale 06/27/2021 Sitting and Reading 3 = High chance of dozing Watching TV 3 = High chance of dozing Sitting, inactive in public place 1 = Slight chance of dozing As a car passenger, no break 3 = High chance of dozing Lying down to rest 3 = High chance of dozing Sitting, talking with someone 0 = Would never doze Sitting quietly, after lunch, no alcohol 1 = Slight chance of dozing In car, stopped, in traffic 0 = Would never doze Score 14 PULMONARY MEDICINE CONSULT HISTORY AND PHYSICAL Patient Name: Tee Stroud PRIMARY CARE PHYSICIAN: Jose Addison MD REFERRING PHYSICIAN: Self CHIEF COMPLAINT: Evaluation and treatment resumption of BENI. "My machine has been broken for a year." Her sleep doctor was Dr. Wright in [place] who had [facility] own DME company but [facility] HISTORY OF PRESENT ILLNESS: Tee Stroud is a 35 year old female, Ht 154.9 cm (5' 1") BMI 60.44 kg/m2, with a history of BENI diagnosed in 12/01/15 at [place] with an AHI of 23.4 and REM AHI of 54.5. Her oxygen amy was 88%. The PLM AI was only 0.7 She then returned for CPAP titration on12/01/15 and was optimally treated with +9cm CPAP and eliminated snoring. This patient is here for first Pulmonary office visit and consultation I reviewed available objective data including imaging as available. Main symptoms include: She was getting consecutive quality sleep with CPAP, but since then now wakes up several times a night. Noted to stop breathing. Heavy snoring. Restless sleeping. Will awake several times at night but no nocturia. Bedtime is 10-11P and will go to sleep in about 1/2 hour. Wakes up at 6AM feeling tired with AM headache and head in a fog. +/- EDS. No naps. No trouble driving. Weight is up 15lbs x 2 years. +Tonsils in place. No past medical history on file. No past surgical history on file. No family history on file. 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 . LLNS. Occasional alcohol not before bedtime. FHx; Mom of renal failure and leg infection. Dad is snorer. We have taken care of her brother who also has BENI. CURRENT OUTPATIENT MEDICATIONS: ergocalciferol 50,000 unit capsule (VITAMIN D2, DRISDOL) Dose : 50,000 International_Unit = 1 cap(s), Oral, WEEKLY, 0 Refill(s) levothyroxine (SYNTHROID) 75 mcg tablet Dose : 75 mcg = 1 tab(s), Oral, qDay, 0 Refill(s) sertraline (ZOLOFT) 50 mg tablet Take 50 mg by mouth once daily. DICYCLOMINE HCL (BENTYL ORAL) Take by mouth. ALLERGIES: ALLERGIES Allergen Reactions Ceclor [Cefaclor] Unknown Adhesive Tape-Silic* Other: See Comments REVIEW OF SYSTEMS Constitutional: Well developed. no acute distress throughout the interview. No dyspnea throughout the interview; not acutely ill. No fevers, chills, night sweats HEENT: Yes frequent or significant headaches, changes in hearing or vision, tinnitus, epistaxis or other nasal problems, normal pharynx. Good voice. Denies lymphadenopathy; denies allergic rhinitis. RESPIRATORY: No dyspnea, No wheezing, No hemoptysis, No excessive phlegm, No nonpurulent phlegm, Nopleuritic pain, No FLOWERS BENI: Yes apnea, Yes hypersomnolence, No cpap, Yes snoring, Yes unusual breathing patterns during sleep, No nocturia, Yes frequent awakenings, Yes morning fatigue. CARDIOVASCULAR: No palpitations, No heart failure, No edema, No chest pain, No stents. No hx CABG GASTROINTESTINAL: No abdominal discomfort, No blood in stools or black stools or change in bowel habits, weight increased 15 pounds since 2019.. No liver failure or active hepatitis. No biliary colic. GENITOURINARY: No history of dysuria, urgency, frequency, or incontinence, mass, hematuria, or pyuria SALES ACCOUNT SPECIALIST: Not reviewed MUSCULOSKELETAL: No for joint pain or swelling, muscle aches, bone pain, serositis or scleroderma or other connective tissue diseases; no major arthralgias NEUROLOGIC: No focal numbness or weakness, headaches, dizziness or syncope or near-syncope. No recent CVA/TIA. No gait disturbance. No seizures. SKIN: No for lesions, rash, and itching. No jaundice PSYCHIATRIC: No sleep disturbance, mood disorder, depression, manic episodes and recent psychosocial stressors. HEMATOLOGIC/LYMPHATIC/IMMUNOLOGIC: No anemia, No hx lymphoma, No bleeding or clotting issues. ENDOCRINE: Weight up 15lbs, No for cold or heat intolerance, polyuria, polydipsia and goiter. denies thyroid issues. Yes fatigue. The remainder of the ROS was negative or as per documentation. PHYSICAL EXAMINATION: VITAL SIGNS: BP 154/106 Pulse 100 Resp 16 Ht 5' 1" (1.55m) Wt 319 lb 14.4 oz (145.1kg) SpO2 99% LMP 11/08/2010 BMI 60.48 kg/(m^2). General appearance: Well-developed well-nourished Age appropriate female. Cordial. Comprehends well. Good hygiene. Skin: Normal turgor. Not pallorous. Not diaphoretic. No jaundice. No scars. No rashes. Eyes: Pupils equally reactive to light. Midline. No jaundice. Vision reasonable grossly. EOMI ENT: No palpable lymphadenopathy. Hearing intact. Normocephalic. No neck scar. No thyromegaly. Gooddentition in the top and lower plates. No macroglossia. Supple neck. No carotid bruits. No venous hums. No retrognathia. Grade II airway score. Heme/Lymph: No significant neck adenopathy. Negative JVD in the setting position Lungs: Clear A&P bilaterally. Good inspiratory capacity. No overt wheeze. No pleural rub. Heart:: regular rate and rhythm. Normal heart tones. No significant rub, or gallop. Murmur No. Edema- yes, Trace pitting LE. Normal P2 . No rub or mercedes. ABD: Abdomen soft, non-tender. Bowel sounds normal. No masses, organomegaly. No bruits. Increased central girth Musculoskeletal: nl gait. No limp. Ambulation normal. Looks comfortable with walking. Extremities without cyanosis or clubbing. No deformities, Trace pitting LE edema. No skin discoloration. Good capillary refill PSYCH: Alert. Responsive. Seems to comprehend reasonably well. Interactive. Engaged- yes, with goodrecall. Neuro: Nonfocal. Alert. Oriented. Speech intact. No gross cerebellar dysfunction. Gait observed as above. CN II-XII grossly intact. Sensory and motor function grossly within normal limits. DATA: Diagnostic tests reviewed for today's visit, films/specimens were personally reviewed by me: LAST LAB RESULTS: No results found for this basename: inr:1,ptsec:1 No results found for: GLUC, K, NA, CHLOR, CO2, CREAT, BUN, ANION, CA, TPROT, ALB, TBILI, ALKPHOS, AST, ALT No results found for: GLUC CBC with diff: No results found for this basename: WBC,RBC,HB,HCT,MCV,MCH,MCHC,RDWCV,PLT,MPV,NEUTP,LYMPHP,MONOP,EOD INP,BASOP,ABSNEUT,ABSLYM,ABSMONO,ABSEOSIN,ABSBASO OTHER TESTING: CT chest: NA Chest xray: NA Heart echo: NA No textual results found for the specified procedure(s). No notes on file Medications reviewed Education provided today regarding the stated disease states IMPRESSIONS: 1. Moderate BENI with a severe REM-related component by studies in November 2015. Now with recurring symptoms and weight gain. 2. Morbid obesity 3. Acquired hypothyroidism 4. Depression on Zoloft PLAN: 1. Will set up for CPAP retitration beginning at +8cm and increasing by one cm increments to eliminate respiratory events. 2. Encourage any efforts of regular exercise and weight reduction as medically feasible. 3. Will need a new [employer] company for CPAP supplies. 4. Follow up in 2-3 months. Written and verbal health teaching given to patient, patient verbalizes understanding and agrees with treatment plan. Electronically Signed: Mauricio Lehman MD June 27, 2021 [facility]+Reason for visit Narrative* Chief Complaint COVID-19 DYSPHAGIA DYSPHAGIA [facility] Work Phone: Chief complaint+Reason for visit Narrative* Chief Complaint COVID-19 DYSPHAGIA DYSPHAGIA HEPATIC STEATOSIS [facility] Work Phone: Evaluation note* Diagnosis BENI (obstructive sleep apnea)- Primary Obstructive sleep apnea (adult) (pediatric) Morbid obesity (HCC) Morbid obesity Excessive daytime sleepiness documented in this encounter [facility] note* Diagnosis BENI on CPAP- Primary Obstructive sleep apnea (adult) (pediatric) documented in this encounter [facility] note* Diagnosis Onset Date Resolution Status Acute pharyngitis, unspecified acute Contact with and (suspected) exposure to other viral communicable diseases acute Contact with and (suspected) exposure to other viral communicable diseases acute Skin tag of vulva acute Warts, genital acute [facility] Work Phone: Evaluation note* Diagnosis Onset Date Resolution Status Contact with and (suspected) exposure to other viral communicable diseases acute Skin tag of vulva acute Warts, genital acute Acute pharyngitis, unspecified acute Acute sinusitis, unspecified acute Contact with and (suspected) exposure to other viral communicable diseases acute Urinary tract infection none active [facility] Work Phone: Evaluation note* Diagnosis Obesity, Class III, BMI >= 40- Primary Morbid obesity BENI on CPAP Obstructive sleep apnea (adult) (pediatric) Hypertrophy of tonsils Hypertrophy of tonsils alone documented in this encounter [facility] noteNo assessment information availableWBucyrus Community [facility] Work Phone: Evaluation note* Diagnosis Onset Date Resolution Status Warts, genital acute [facility] Work Phone: Evaluation note* Diagnosis Onset Date Resolution Status Warts, genital acute Vulval lesion acute Warts, genital acute [facility] Work Phone: Evaluation note* Diagnosis Onset Date Resolution Status Warts, genital acute Vulval lesion acute Warts, genital acute Warts, genital acute Vulval lesion acute [facility] Work Phone: Evaluation note* Diagnosis Onset Date Resolution Status Warts, genital acute Vulval lesion acute Warts, genital acute Warts, genital acute Vulval lesion acute Vulval lesion acute Warts, genital acute [facility] Work Phone: Evaluation note* Diagnosis Onset Date Resolution Status Warts, genital acute Vulval lesion acute Warts, genital acute Warts, genital acute Vulval lesion acute Vulval lesion acute Warts, genital acute Vulval lesion acute Vulval lesion acute [facility] Work Phone: Evaluation note* Diagnosis Class 3 severe obesity with serious comorbidity in adult, unspecified BMI, unspecified obesity type (HCC)- Primary Vitamin D deficiency Unspecified vitamin D deficiency Hypothyroidism, unspecified type Body mass index 50.0-59.9, adult (HCC) Body Mass Index 50.0-59.9, adult Dietary counseling and surveillance Dietary surveillance and counseling 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 note* Diagnosis Onset Date Resolution Status Need for HPV vaccine [facility] Work Phone: Evaluation note* Diagnosis BENI on CPAP- Primary Obstructive sleep apnea (adult) (pediatric) Obesity, Class III, BMI >= 40 Morbid obesity documented in this encounter [facility] for referral (narrative)No reason for referral information availableWBucyrus Community Hospital Work Phone: Summary Purpose Family History No Family History Records Found Relationship Condition Age at Onset Recorded Date/T pilar mother Diabetes mellitus Unknown Anxiety Unknown Hypertension Unknown Disorder of thyroid Unknown father Arthritis Unknown Cardiac disease Unknown grandfather Cardiac disease Unknown grandmother Diabetes mellitus Unknown Malignant neoplasm Unknown Advance Directives No Advanced Directives Records Found Advance Directive Response Recorded Date/ Time Living Will No January 30, 2022 5 :44pm Power of Engineering Illustrator No January 30, 2022 5:44pm Advance Directive Response Recorded Date/ Time Living Will No January 30, 2022 4 :44pm Power of Engineering Illustrator No January 30, 2022 4:44pm Advance Directive Response Recorded Date/ Time Living Will No May 04 3:00pm Power of Engineering Illustrator No May 04, 2 023 3:00pm Advance Directive Response Recorded Date/ Time Living Will No May 17, 2 023 10:32am Power of Engineering Illustrator No May 17, 2023 10:32am Advance Directive Response Recorded Date/ Time Living Will No August 20 2 023 2:05pm Power of Engineering Illustrator No August 20, 2023 2:05pm Advance Directive Response Recorded Date/ Time Living Will No December 12, 2023 8:11am Power of Engineering Illustrator No December 11 8:11am Advance Directive Response Recorded Date/ Time Living Will No December 12, 2023 8:11am Do you have a Healthcare Power of Engineering Illustrator? No December 12, 2023 8:11am Chief Complaint and Reason for Visit Chief Complaint SORE THROAT COVID TEST/[employer] EMPLOYEE [employer] see sm E ORDERS Reason for Visit Acute pharyngitis, u nspecified Contact with and (suspected) exposure to other viral communicable diseases Contact with and (suspected) exposure to other viral communicable diseases Skin tag of vulva Warts, genital Chief Complaint see sm E ORDERS COVID TEST/BMS EMP REQUEST STREP TEST Urinary tract infection Reason for Visit Contact with and (patel spected) exposure to other viral communicable diseases Skin tag of vulva Warts, genital Acute pharyngitis, unspecified Acute sinusitis, unspecified Contact with and (suspected) exposure to other viral communicable diseases Urinary tract infection Chief Complaint DYSPHAGIA DYSPHAGIA HEPATIC STEATOSIS discuss concerns GENITAL WARTS Reason for Visit Warts, genital Chief Complaint DYSPHAGIA DYSPHAGIA HEPATIC STEATOSIS discuss concerns GENITAL WARTS VULVAR BIOPSY GENITAL WART REMOVAL Reason for Visit Warts, genital Vulval lesion Warts, genital Chief Complaint DYSPHAGIA DYSPHAGIA HEPATIC STEATOSIS discuss concerns GENITAL WARTS VULVAR BIOPSY GENITAL WART REMOVAL 1 W FU laser lesions Reason for Visit Warts, genital Vulval lesion Warts, genital Warts, genital Vulval lesion Chief Complaint DYSPHAGIA DYSPHAGIA HEPATIC STEATOSIS discuss concerns GENITAL WARTS VULVAR BIOPSY GENITAL WART REMOVAL 1 W FU laser lesions Excision, Vulvar Tissue with CO2 Laser Excision, Vulvar Tissue with CO2 Laser Reason for Visit Warts, genital Vulval lesion Warts, genital Warts, genital Vulval lesion Vulval lesion Warts, genital Chief Complaint DYSPHAGIA DYSPHAGIA HEPATIC STEATOSIS discuss concerns GENITAL WARTS VULVAR BIOPSY GENITAL WART REMOVAL 1 W FU laser lesions Excision, Vulvar Tissue with CO2 Laser Excision, Vulvar Tissue with CO2 Laser post surg check COVID-19 2 wk post op Reason for Visit Warts, genital Vulval lesion Warts, genital Warts, genital Vulval lesion Vulval lesion Warts, genital Vulval lesion Vulval lesion Chief Complaint SORE THROAT, CONGEST EDM, EAR ACHE vaccine Reason for Visit Need for HPV vaccine Chief Complaint SORE THROAT, CONGEST EDM, EAR ACHE vaccine palpitations Reason for Visit Need for HPV vaccine Chief Complaint vaccine palpitations NEW AFIB (ER) SCREENING Chief Complaint palpitations NEW AFIB (ER) SCREENING Paroxysmal atrial fibrillation Chief Complaint Admit Date LIVER FIBROSIS November 14, 2024 8:16 am 6 M FU November 21, 2024 11: 35am Reason for Visit Admit Date Metabolic dysfunction-associated steatoh epatitis (MASH) November 21, 2024 11:35am Hypertriglyceridemia November 21, 2024 11 :35am Morbid obesity due to excess calories [facility] 2024 11:35am Additional Source Comments INFORMATION SOURCE (unrecogn ized section and content) DATE CREATED AUTHOR 04/21/2020 [facility] ([place]) DATE CREATED AUTHOR AUTHOR'S ORGANIZ ATION 12/14/2023 [facility] DATE CREATED AUTHOR AUTHOR'S ORGANIZ ATION 11/28/2024 [facility] DATE CREATED AUTHOR AUTHOR'S ORGANIZ ATION 07/08/2025 [facility] Source Comments (unrecognize d section and content) In the event this informatio n is protected by the Federal Confidentiality of Alcohol and Drug Abuse Patient Records regulations: The Federal rules restrict any use of the information to criminally investigate or prosecute any alcohol or drug abuse patient.[facility] the event this information is protected by the Federal Confidentiality of Alcohol and Drug Abuse Patient Records regulations: The Federal rules restrict any use of the information to criminally investigate or prosecute any alcohol or drug abuse patient.[facility] the event this information is protected by the Federal Confidentiality of Alcohol and Drug Abuse Patient Records regulations: The Federal rules restrict any use of the information to criminally investigate or prosecute any alcohol or drug abuse patient.[facility] the event this information is protected by the Federal Confidentiality of Alcohol and Drug Abuse Patient Records regulations: The Federal rules restrict any use of the information to criminally investigate or prosecute any alcohol or drug abuse patient.[facility] the event this information is protected by the Federal Confidentiality of Alcohol and Drug Abuse Patient Records regulations: The Federal rules restrict any use of the information to criminally investigate or prosecute any alcohol or drug abuse patient.[facility] Center[facility] the event this information is protected by the Federal Confidentiality of Alcohol and Drug Abuse Patient Records regulations: The Federal rules restrict any use of the information to criminally investigate or prosecute any alcohol or drug abuse patient.[facility] the event this information is protected by the Federal Confidentiality of Alcohol and Drug Abuse Patient Records regulations: The Federal rules restrict any use of the information to criminally investigate or prosecute any alcohol or drug abuse patient.[facility] Center[facility] the event this information is protected by the Federal Confidentiality of Alcohol and Drug Abuse Patient Records regulations: The Federal rules restrict any use of the information to criminally investigate or prosecute any alcohol or drug abuse patient.[facility] Reason for Visit (unrecogniz ed section and content) Reason Comments Sleep Apnea Reason Comments New Patient Reason Comments Patient Question Reason Comments Refill Request Care Teams (unrecognized sec tion and content) Rfid Developer Relationship Specialty Start Date End Date Jose Addisno MD [address] [facility] [address] [place] [id number] PCP - General Internal Medicine 06/22/21 Rfid Developer Relationship Specialty Start Date End Date Jose Addison MD [address] [place] [id number] PCP - General Internal Medicine 06/22/21 Team Status: Active Member Role Status Dates Dr. Jesusita Moseley MD Family Provider Active Dr. Jose Addison MD Primary Care Provider Active Team Status: Inactive Member Role Status Dates Dr. Ayesha Aldrich DO Primary Care Provider, Referring Provider Active Boyd Peters PA, PA Attending Provider Active Team Status: Inactive Member Role Status Dates Dr. Ayesha Aldrich DO Primary Care Provider Active SALLY PAEZ Attending Provider, Referring Provider Active Team Status: Inactive Member Role Status Dates Dr. Ananth Byrd MD Attending Provider, Refe rring Provider Active Dr. Jose Addison MD Primary Care Provider Active Team Status: Inactive Member Role Status Dates Dr. Ananth Byrd MD Attending Provider Activ e Dr. Jose Addison MD Primary Care Provider Active Team Status: Inactive Member Role Status Dates SALLY PAEZ Attending Provider, Referring Provider Active Dr. Jose Addison MD Primary Care Provider, Other P [facility] Active Team Status: Inactive Member Role Status Dates Dr. Jose Addison MD Primary Care Provider Active Dr. Jan Travis DO Attending Provider, Referring Provider Active Team Status: Inactive Member Role Status Dates Dr. Jose Addison MD Primary Care Provider, Referri ng Provider Active Dr. Radha Maxwell DO Attending Provider Activ e Team Status: Inactive Member Role Status Dates Dr. Jose Addison MD Primary Care Provider Active Dr. Radha Maxwell DO Attending Provider, Refe rring Provider Active Team Status: Inactive Member Role Status Dates Dr. Jose Addison MD Primary Care Provider, Referri ng Provider Active Dr. Theodora Celis MD Attending Provider Active Team Status: Inactive Member Role Status Dates Dr. Jose Addison MD Primary Care Provider Active SALLY PAEZ Attending Provider, Referring Provider Active Team Status: Active Member Role Status Dates Dr. Jose Addison MD Primary Care Provider Active Dr. Theodora Celis MD Attending Pr ovider, Referring Provider, Other Provider Active Team Status: Inactive Member Role Status Dates Dr. Jose Addison MD Primary Care Provider Active Dr. Theodora Celis MD Attending Provider, Referr ing Provider Active Team Status: Inactive Member Role Status Dates Dr. Jose Addison MD Primary Care Provider, Referri ng Provider Active Gurwinder BIGGS, PA Attending Provider Active Team Status: Inactive Member Role Status Dates Dr. Jose Addison MD Primary Care Pro vider, Attending Provider, Referring Provider Active Rfid Developer Relationship Specialty Start Date End Date Jose Addison MD PCP - General Internal Medicine 06/22/21 Team Status: Inactive Member Role Status Dates Dr. Jose Addison MD Primary Care Provider, Referri ng Provider Active Boyd BIGGS, PA Attending Provider Active Team Status: Active Member Role Status Dates CAMPBELL JAVIER Attending Provider, Referring Provider Active Dr. Jose Addison MD Primary Care Provider Active Team Status: Inactive Member Role Status Dates Dr. Jose Addison MD Primary Care Provider Active Dr. Radha Barnes MD Emergency Provider Active Team Status: Inactive Member Role Status Dates CAMPBELL JAVIER Attending Provider, Referring Provider Active Dr. Jose Addison MD Primary Care Provider Active Rfid Developer Relationship Specialty Start Date End Date Jose Addison MD PCP - General Internal Medicine 06/22/21 Team Status: Inactive Member Role Status Dates Dr. Jose Addison MD Primary Care Provider, Referri ng Provider Active Dr. Jayme Hansen MD Attending Provider Active Team Status: Inactive Member Role Status Dates Dr. Jose Addison MD Primary Care Provider Active Dr. Radha Barnes MD Attending Provider, Emergency Provider Active Team Status: Inactive Member Role Status Dates Dr. Jose Addison MD Primary Care Provider Active Dr. Jayme Hansen MD Attending Provider, Referring Pro vider Active Rfid Developer Relationship Specialty Start Date End Date Jose Addison MD PCP - General Internal Medicine 06/22/21 Rfid Developer Relationship Specialty Start Date End Date Jose Addison MD PCP - General Internal Medicine 06/22/21 Rfid Developer Relationship Specialty Start Date End Date Jose Addison MD PCP - General Internal Medicine 06/22/21 Mauricio Lehman MD [address] [address] Pulmonary and Critical Care Medicine 11/12/24 Team Status: Active Member Role Status Dates Dr. Jose Addison MD Primary Care Provider Active Team Status: Inactive Member Role Status Dates Dr. Jose Addison MD Primary Care Provider Active Start: November 14, 2024 End: November 14, 2024 Dr. Mohan Gibbs MD Attending Provider Active Start: November 14, 2024 End: November 14, 2024 Dr. Mohan Gibbs MD Referring Provider Active Start: November 14, 2024 End: November 14, 2024 Team Status: Active Member Role Status Dates Dr. Jose Addison MD Primary Care Provider Active Start: November 20, 2024 Dr. Mohan Gibbs MD Attending Provider Active Start: November 20, 2024 Dr. Mohan Gibbs MD Referring Provider Active Start: November 20, 2024 Team Status: Inactive Member Role Status Dates Dr. Jose Adidson MD Primary Care Provider Active Start: November 21, 2024 End: November 21, 2024 Dr. Jose Addison MD Referring Provider Active Start: November 21, 2024 End: November 21, 2024 Dr. Mohan Gibbs MD Attending Provider Active Start: November 21, 2024 End: November 21, 2024 Team Status: Inactive Member Role Status Dates Dr. Jose Addison MD Primary Care Provider Active Start: November 20, 2024 End: November 20, 2024 Dr. Mohan Gibbs MD Attending Provider Active Start: November 20, 2024 End: November 20, 2024 Dr. Mohan Gibbs MD Referring Provider Active Start: November 20, 2024 End: November 20, 2024 Goals (unrecognized section and content) Goals may be documented in a n alternate sectionGoals may be documented in an alternate sectionGoals may be documented in an alternate sectionGoals may be documented in an alternate sectionGoals may be documented in an alternate sectionGoals may be documented in an alternate sectionGoals may be documented in an alternate sectionGoals may be documented in an alternate sectionGoals may be documented in an alternate sectionGoals may be documented in an alternate sectionGoals may be documented in an alternate sectionGoals may be documented in an alternate sectionGoals may be documented in an alternate sectionGoals may be documented in an alternate sectionGoals may be documented in an alternate sectionGoals may be documented in an alternate section FOR RECORDS PERTAINING TO PATIENTS WHO ARE OR HAVE BEEN ENROLLED IN A CHEMICAL DEPENDENCY/SUBSTANCEABUSE PROGRAM, SOME INFORMATION MAY BE OMITTED. This clinical summary was aggregated from multiple sources. Caution should be exercised in using it in the provision of clinical care. This summary normalizes information from multiple sources, and as a consequence, information in this document may materially change the coding, format and clinical context of patient data. In addition, data may be omitted in some cases. CLINICAL DECISIONS SHOULD BE BASED ON THE PRIMARY CLINICAL RECORDS. [facility] [address] [facility]. provides no warranty or guarantee of the accuracy or completeness of information in this document.
== END | disposition home or self-care (01) ==
PROVIDERS: PCP Internal Medicine; Referring Provider Internal Medicine; Visit Provider Internal Medicine
DX: I10 Essential (primary) hypertension (principal); E78.2 Mixed hyperlipidemia; E03.9 Hypothyroidism, unspecified; E55.9 Vitamin D deficiency, unspecified; R92.8 Other abnormal and inconclusive findings on diagnostic imaging of breast
CPT/HCPCS: 76642

== ENCOUNTER → 2025-07-13 | Outpatient (CLI) | payer OTHER, SELFPAY ==
[2025-07-13 07:53] LABS: Hematocrit 39.6 % (37-47); Hemoglobin 13.1 g/dL (12.0-15.0); Immature Granulocytes Count 0.030 X10^3/uL (0.0-0.0); Mean Corp Hgb Conc 33.1 g/dL (32-36); Mean Corpuscular Volume 84.3 fL (81-99); Mean Platelet Vol. 10.6 fl (6.2-12.0); NRBC Flagged by Analyzer 0 % (0-5); Platelet Count 190 K/mm3 (150-450); RBC Distribution Width CV 12.5 % (11.6-14.6); RBC Distribution Width SD 37.7 fl (35.1-43.9); Red Blood Count 4.70 M/mm3 (4.2-5.4); White Blood Count 6.2 K/mm3 (4.4-11.0)
[2025-07-13 09:09] LABS: AST(SGOT) 35 U/L (<=31); Alanine Aminotransfer ALT/SGPT 47 U/L (<=34); Albumin, Serum 3.9 g/dL (3.5-5.0); Alkaline Phosphatase 78 U/L (35-104); Anion Gap 10 (5-15); BUN 12 mg/dL (4-19); BUN/Creat Ratio 18.3 RATIO (10-20); Calcium,Total 9.7 mg/dL (7.6-11.0); Carbon Dioxide 26.7 mmol/L (21.0-32.0); Chloride 102 mmol/L (98-108); Cholesterol 154 mg/dL (<=200); Globulin 3.3 g/dL (2.2-4.2); Glucose 99 mg/dL (70-99); Low Density Lipoprotein Calc. 80 mg/dL; Potassium 4.2 mmol/L (3.3-5.1); Triglycerides 183 mg/dL; Very Low Density Lipoprotein 37 mg/dL (5-40); Vitamin D,25 Hydroxy 49.8 ng/mL (30-100); cholesterol:hdl ratio screen 3.57
[2025-07-14 04:07] LABS: LDL, Direct 120295 92 mg/dL (0-99)
== END | disposition home or self-care (01) ==
LOC: PAVLAB 07:38
PROVIDERS: PCP Internal Medicine; Referring Provider Internal Medicine; Visit Provider Internal Medicine
DX: I10 Essential (primary) hypertension (principal); E78.2 Mixed hyperlipidemia; E55.9 Vitamin D deficiency, unspecified
CPT/HCPCS: 36415; 80053; 80061; 82306; 83721; 84443; 85025

== ENCOUNTER → 2025-07-15 | Outpatient (CLI) | payer OTHER, SELFPAY ==
--- NOTE | 2025-07-15 09:04 | US_ITS ---
PROCEDURE: US/US Breast Biopsy 1st Lesion
--- NOTE | 2025-07-15 09:50 | BRBX_PTH ---
PATIENT: TEE ANNA LOC: OPUS U#:[id number] AGE/SX: 39/F ROOM: RE07/15/[address]: Dr. Monica Weathers MD : 1985 BED: DIS: 07/15/2025 SPEC #: [id number] RECD: 07/15/25 10:06 STATUS: ALICIA RERodger #: [id number] JEFFREY: 07/15/25 09:[address]: Monica Weathers DEPT: SURGICAL PATHOLOGY RECD BY: Chi Perkins ENTERED: 07/15/25 13:51 SP TYPE: BREAST BX OTHR DR: Dr. Jose Thomas MD Tissues: A - Right breast, NOS Procedures: Surgery Specimen Level IV HEADER OPERATION: Right breast biopsy PRE-OP DIAGNOSIS: Right breast mass TISSUE SUBMITTED: A- Right breast, 9o'clock, 2cm from nipple MICROSCOPIC DIAGNOSIS A. Right breast, 9:00, 2 CMFN, core biopsy: - Benign breast tissue with dense fibrosis. - Portions of mature adipose and blood clot. MICROSCOPIC DESCRIPTION Slides are reviewed. GROSS DESCRIPTION A. Received in formalin labeled with the patient's name and date of . Designated as RT is a 2.7 x 1.5 x 0.2 cm aggregate of castro-yellow fragmented tissue cores and clotted blood. Entirely submitted in 1 cassette. Cold ischemic time: <1-minuteFormalin fixation time: 9 hours, 40 minutes [place] 07/15/2025 CPT:56456
--- NOTE | 2025-07-15 10:19 | OP.PCM_ITS ---
Operative Report (Standard)
--- NOTE | 2025-07-15 10:19 | PCM.OPRPT ---
Operative Report (Standard) Operative Information Date of Procedure: 07/15/25 Pre-Operative Diagnosis: Right breast mass Post-Operative Diagnosis: Same Surgery/Procedure Performed: Ultrasound-guided right breast biopsy certified medical coding specialist: No Type of Anesthesia: Local Procedure Start Time: 09:35 Procedure Stop Time: 09:50 Select all DRAINS/GRAFTS/IMPLANTS that apply: Implanted device Implanted device details: Bard dual ultraribbon clip Estimated Blood Loss: < 5 cc Specimen collected: Yes Description of specimen(s) removed: Right breast mass 9:00 2 cm from the nipple Description of surgery: Procedure: Right ultrasound-guided core biopsy Indications: 39year-old female with hypoechoic nodule in the right breast at 9:00 2 cm from the nipple. Risk benefits were discussed the patient and she elected to proceed with ultrasound guided core biopsy with clip placement Description of procedure: Patient was brought into the ultrasound room in the right breast was marked. A timeout was completed verifying correct patient, procedure, site, specially, prior to beginning procedure. The right breast was prepped and draped in usual sterile fashion and using local anesthesia was obtained with 1% lidocaine with epi. The lesion was located with the ultrasound. Small incision was made with 11 blade to introduced the mammotome through the skin. Under ultrasound guidance multiple core samples were obtained using then 13-gauge mammotome and sent in formalin for pathology?lesion appeared to be completely removed. The Bard dual ultraribbon clip was then deployed into the biopsy cavity under ultrasound guidance and a picture was taken. Upon completion procedure hemostasis was obtained and a Steri-Strip and OpSite were placed. Patient was then taken to the mammography suite for clip verification. The clip was verified. The patient tolerated the procedure well and was discharged from the breast imaging department good condition. Surgical Findings: See operative report Complications Complications: No
== END | disposition home or self-care (01) ==
PROVIDERS: PCP Internal Medicine; Referring Provider Surgery; Visit Provider Surgery
DX: N63.10 Unspecified lump in the right breast, unspecified quadrant (principal)
CPT/HCPCS: 19083; 88305